=== PATIENT | male | born 1945 | race Caucasian/White ===

== ENCOUNTER 2022-06-05 13:05 | Inpatient (IN) ==
[2022-06-05 13:35] VITALS: BMI 22.2
[2022-06-05 13:58] LABS: ABG BASE EXCESS 2.8 mmol/L (-2.0-2.0); ABG HCO3 27.2 mmol/L (22-26)
[2022-06-05 13:59] LABS: ABG ALLEN TEST POS
[2022-06-05 14:19] LABS: BASOPHILS # (AUTO) 0.1 X10^3/uL (0.0-0.1); BASOPHILS % (AUTO) 0.4 % (0.2-1.0); EOSINOPHILS # (AUTO) 0.4 x10^3/uL (0.0-0.2); EOSINOPHILS % (AUTO) 2.6 % (0.9-2.9); HEMATOCRIT 41.4 % (42.0-54.0); LYMPHOCYTES # (AUTO) 1.6 X10^3/uL (1.3-2.9); LYMPHOCYTES % (AUTO) 11.8 % (21.0-51.0); MEAN CORPUSCULAR HEMOGLOBIN 31.1 pg (27.0-34.0); MEAN CORPUSCULAR HGB CONC 33.8 g/dL (33.0-35.0); MEAN PLATELET VOLUME 7.5 fL (7.4-11.0); MONOCYTES # (AUTO) 1.5 x10^3/uL (0.3-0.8); NEUTROPHILS # (AUTO) 10.2 x10^3/uL (2.2-4.8); NEUTROPHILS % (AUTO) 74.2 % (42.0-75.0); RED CELL DISTRIBUTION WIDTH 15.3 % (11.6-16.5); WHITE BLOOD COUNT 13.7 X10^3/uL (3.6-10.0)
[2022-06-05 14:24] LABS: INR 1.16 (0.8-1.3)
[2022-06-05 14:30] LABS: ALANINE AMINOTRANSFERASE 27 Units/L (12-78); ALBUMIN 3.3 g/dL (3.4-5.0); ALKALINE PHOSPHATASE 131 Units/L (46-116); ASPARTATE AMINO TRANSFERASE 27 Units/L (15-37); BLOOD UREA NITROGEN 16 mg/dL (7-18); CALCIUM 8.7 mg/dL (8.5-10.1); CARBON DIOXIDE 30.9 mmol/L (21-32); CHLORIDE 104 mmol/L (98-107); COR CA(FOR HYPOALB) 9.3 mg/dL (8.5-10.1); CREATINE KINASE 46 Units/L (39-308); CREATININE 0.83 mg/dL (0.70-1.30); SODIUM 139 mmol/L (136-145); TOTAL PROTEIN 7.1 g/dL (6.4-8.2); eGFR NON BLACK RACES > 60 (>60)
--- NOTE | 2022-06-05 14:38 | DR.SOBA ---
HPI Time Seen Time Seen by Provider: 06/05/22 14:15 Primary Care Physician Primary Care Physician: LEONARDO BARRAGAN Complaints Chief Complaint Doctors Comments: SOB AND COUGH SINCE THIS AM. HAS H/O COPD. Chief Complaint:: PT STATES THIS MORNING AROUND 6AM WHEN HE WOKE UP HE GOT SOB ALONG WITH A DRY COUGH STATES HE DONE A ALBUTEROL TX AND THE COUGH STOPPED PT ARRIVED AT [facility] SOB NURSE STATES HIS SATS WAS 73% ON HIS OXYGEN PT STATES HE WEARS 7-10 LITERS ON HIS PORTABLE MACHINE STATES SHE GAVE HIM X2 BREATHING XOPENEX,ATROPINE TREATMENTS AND STATED AFTER THAT HIS SATS STAYED IN THE LOW 80% UPON ARRIVAL TO THE ER PT SATS WAS 97% ON 8 LITERS NC DECREASED PT TO 4L NC PT SATS STAYED AT 97% PT STATES HE DOESNT FEEL SOB NOW Self Treatment fo Chief Complaint: XOPENEX, ATROPINE, ALBUTEROL COVID-19 Coronavirus risk:travel/contact w/high risk person: No Has patient experienced Coronavirus symptoms: No Source History Provided: Patient Mode of Arrival Mode of Arrival: Wheelchair Timing Onset of Chief Complaint: 06/05/22 PMH PMH Past Medical History: Yes Past Medical History: COPD Past Surgical History: Yes Past Surgical History Comment: ABLASION Family History History of Family Medical Conditions: No Family Medical History: Cancer Social History Does patient currently use any type of tobacco product: No Have you used tobacco products in the last 12 months: No Type of Tobacco Use: None Does any household member use tobacco: No Alcohol Use: None Do you use any recreational Drugs:: No Lives With: Family Lives Where: Home Travel Risk Coronavirus risk:travel/contact w/high risk person: No Has patient experienced Coronavirus symptoms: No Infectious screening In the last 2 months have you had wt loss of >10#?: NO Have you had fever, night sweats or hemotysis?: No Have you traveled outside the country in the last 6 months?: No Isolation: Standard ROS Review of Systems Constitutional: Other (SOB) Eyes: No Symptoms Reported ENTM: No Symptoms Reported Respiratoy: Non-Productive Cough and Short of Breath Cardiovascular: No Symptoms Reported Gastrointestinal/Abdominal: No Symptoms Reported Genitourinary: No Symptoms Reported Neurological: No Symptoms Reported Musculoskeletal: No Symptoms Reported Integumentary: No Symptoms Reported Hematologic/Lymphatic: No Symptoms Reported Endocrine: No Symptoms Reported Psychiatric: No Symptoms Reported PE Vital Signs Vitals: Temperature 98.1 F Pulse Rate 78 Respiratory Rate 20 Blood Pressure 138/72 O2 Sat by Pulse Oximetry 90 General Limitations: Physical Limitation (SOB UPON AMBULATION) Head Head Exam: Normal Inspection, Atraumatic and Normocephalic Eyes Eye exam: Normal Appearance, PERRL and EOMI ENT ENT Exam: Normal Exam, Normal Oropharynx and Normal External Ear Exam Neck Neck Exam: Normal Inspection, Full ROM and Trachea Midline Chest Chest Inspection: Normal Inspection Respiratory Respiratory Exam: Prolonged Expiratory Phase and Respiratory Distress (MILD) Cardiovascular Cardiovascular Exam: Regular Rate and Normal Rhythm Abdominal Exam Abdominal Exam: Normal Inspection, Normal Bowel Sounds and Soft Extremities Extremities Exam: Normal Inspection Back Back Exam: Normal Inspection and Full ROM Neurologic Neurological Exam: Alert, Oriented X3 and CN II-XII Intact Psychiatric Psychiatric Exam: Normal Affect and Normal Mood Skin Skin Exam: Warm, Dry and Intact MDM Differential Diagnosis Differential Diagnosis: COPD, Pneumonia and Respiratory Insufficiency COURSE Treatment Treatment: PATIENT WAS FOUND TO HAVE MULTIFOCAL PNEUMONIA ON CHEST XRAY WITH COPD CHANGES. HAD WBC OF 14.00. SPOKE TO DR RIOS AT [id number] AND HE ACCEPTED THE PATIENT FOR ADMISSION FOR TREATMENT OF PNEUMONIA AND COPD. PATIENT MADE AWARE OF INTENT TO ADMIT AND WAS AGREABLE TO THE ADMISSION. ROR Labs Reviewed Laboratory Results Reviewed?: Yes Result Diagrams: 06/05/22 14:06 06/05/22 14:06 Laboratory: WBC 13.7 X10^3/uL (3.6-10.0) H 06/05/22 14:06 RBC 4.50 X10^6/uL (4.7-6.0) L 06/05/22 14:06 Hgb 14.0 g/dL (13.5-18.0) 06/05/22 14:06 Hct 41.4 % (42.0-54.0) L 06/05/22 14:06 MCV 92.0 fL (80.0-100.0) 06/05/22 14:06 MCH 31.1 pg (27.0-34.0) 06/05/22 14:06 MCHC 33.8 g/dL (33.0-35.0) 06/05/22 14:06 RDW 15.3 % (11.6-16.5) 06/05/22 14:06 Plt Count 252 X10^3/uL (150.0-450.0) 06/05/22 14:06 MPV 7.5 fL (7.4-11.0) 06/05/22 14:06 Neut % (Auto) 74.2 % (42.0-75.0) 06/05/22 14:06 Lymph % (Auto) 11.8 % (21.0-51.0) L 06/05/22 14:06 [place] % (Auto) 11.0 % (0.0-13.0) 06/05/22 14:06 Eos % (Auto) 2.6 % (0.9-2.9) 06/05/22 14:06 Baso % (Auto) 0.4 % (0.2-1.0) 06/05/22 14:06 Neut # (Auto) 10.2 x10^3/uL (2.2-4.8) H 06/05/22 14:06 Lymph # (Auto) 1.6 X10^3/uL (1.3-2.9) 06/05/22 14:06 [place] # (Auto) 1.5 x10^3/uL (0.3-0.8) H 06/05/22 14:06 Eos # (Auto) 0.4 x10^3/uL (0.0-0.2) H 06/05/22 14:06 Baso # (Auto) 0.1 X10^3/uL (0.0-0.1) 06/05/22 14:06 Absolute Nucleated RBC 0.0 /100WBC 06/05/22 14:06 PT 14.5 SECONDS (11.8-14.3) 06/05/22 14:06 INR Target Range - 06/05/22 14:06 INR 1.16 (0.8-1.3) 06/05/22 14:06 APTT 28.9 SECONDS (22.9-36.5) 06/05/22 14:06 PTT Comment - 06/05/22 14:06 Sample Site Rr 06/05/22 13:51 ABG pH 7.440 (7.35-7.45) 06/05/22 13:51 ABG pCO2 40.0 mmHg (35.0-45.0) 06/05/22 13:51 ABG pO2 62.0 mmHg (80.0-100.0) L 06/05/22 13:51 ABG HCO3 27.2 mmol/L (22-26) H 06/05/22 13:51 ABG O2 Saturation 92.0 % (90-100) 06/05/22 13:51 ABG Base Excess 2.8 mmol/L (-2.0-2.0) H 06/05/22 13:51 Isai Test Pos 06/05/22 13:51 A-a Gradient 145.0 mmHg 06/05/22 13:51 FiO2 36.0 06/05/22 13:51 Blood Gas Comments Pt [email or web address] 06/05/22 13:51 Sodium 139 mmol/L (136-145) 06/05/22 14:06 Corrected Sodium TNP 06/05/22 14:06 Potassium 4.2 mmol/L (3.5-5.1) 06/05/22 14:06 Chloride 104 mmol/L (98-107) 06/05/22 14:06 Carbon Dioxide 30.9 mmol/L (21-32) 06/05/22 14:06 BUN 16 mg/dL (7-18) 06/05/22 14:06 Creatinine 0.83 mg/dL (0.70-1.30) 06/05/22 14:06 Est GFR (MDRD) Af Amer > 60 (>60) 06/05/22 14:06 Est GFR (MDRD) Non-Af > 60 (>60) 06/05/22 14:06 Glucose 86 mg/dL (65-99) 06/05/22 14:06 Calcium 8.7 mg/dL (8.5-10.1) 06/05/22 14:06 Corrected Calcium 9.3 mg/dL (8.5-10.1) 06/05/22 14:06 Magnesium 2.0 mg/dL (1.7-2.9) 06/05/22 14:06 Total Bilirubin 0.40 mg/dL (0.2-1.0) 06/05/22 14:06 AST 27 Units/L (15-37) 06/05/22 14:06 ALT 27 Units/L (12-78) 06/05/22 14:06 Alkaline Phosphatase 131 Units/L (46-116) H 06/05/22 14:06 Creatine Kinase 46 Units/L (39-308) 06/05/22 14:06 Troponin I High Sens 8.3 ng/L (4.0-60.0) 06/05/22 14:06 B-Natriuretic Peptide 178 pg/mL (0-79) H 06/05/22 14:06 Total Protein 7.1 g/dL (6.4-8.2) 06/05/22 14:06 Albumin 3.3 g/dL (3.4-5.0) L 06/05/22 14:06 Globulin 3.8 g/dL (2.5-4.5) 06/05/22 14:06 Albumin/Globulin Ratio 0.9 Ratio (1.1-2.1) L 06/05/22 14:06 SARS-CoV-2 (PCR) Negative (NEGATIVE) 06/05/22 15:50 Influenza Type A (PCR) Negative (NEGATIVE) 06/05/22 15:50 Influenza Type B (PCR) Negative (NEGATIVE) 06/05/22 15:50 RSV (PCR) Negative (NEGATIVE) 06/05/22 15:50 Opioid Opioid Risk Tool Age (Alexander box if 16-45): No History of Preadolescent Sexual Abuse: No Total: 0 Total Score Risk Category: Low Risk Copyright: Adithya JACOBSEN predicting aberrant behaviors Discharge Plan Diagnosis Discharge Problem: Community acquired pneumonia of right middle lobe of lung, COPD with hypoxia Discharge Plan Patient Disposition: 01 HOME, SELF-CARE Condition: Stable Prescriptions: No Action atorvastatin 40 mg tablet 1 tab PO QPM carvedilol 12.5 mg tablet 1 tab PO BID ipratropium-albuterol 0.5 mg-3 mg(2.5 mg base)/3 mL solution for nebulization 1 vial INHALATION Q6HR hydrocodone-acetaminophen 10-325 mg tablet 1 tab PO TID PRN pantoprazole 40 mg tablet,delayed release (DR/EC) 1 tab PO QAM ramipril 1.25 mg capsule 1 cap PO QDAY Health Concerns: Post Hospitalization: new medications and changes needed to prevent readmission or further decline. Pt educated and given instructions on all concerns. Plan of Treatment: Continue with present treatment and follow up plan. Pt is to keep follow up appointment as instructed and take medications as ordered. Orders to Discharge Patient Discharge Orders: Discharge (Routine); Ordered 06/05/22 Ordered By: Luke Jeffery Transfer (Routine); Ordered 06/05/22 Ordered By: Luke Jeffery Follow ups/Referrals Follow ups/Referrals: Ozzie Armendariz [Primary Care Provider] - 3 days Instructions Stand Alone Forms: Precautions for COVID19, [facility], Patient Portal, Social Distancing
--- NOTE | 2022-06-05 15:09 | RAD ---
Chest AP portableIndication: DyspneaComparison February 20, 2022FINDINGSThere is dense consolidation in left upper lung. Hyperinflation in the right lower lung with patchy midlung opacities noted. Increased interstitial markings noted. Recorder device noted. Heart size is prominent. Pleural thickening is seen bilaterally.IMPRESSION: Chronic lung changes with COPD and interstitial lung disease again noted. Multifocal pneumonia, worsening in the left lung possible. Follow-up to resolution.Electronically signed by: BRIAN NOWAK (Jun 05, 2022 15:07:53)
[2022-06-05] MEDS ORDERED: PULMICORT NEB TX 0.5 MG NEB ONE (19:31)
[2022-06-05] MEDS ORDERED: DUONEB 0.5 MG/3 MG (3 mL) NEB ONE (19:31)
[2022-06-05] MEDS: PULMICORT NEB TX 0.5 MG NEB SCH (20:00)
[2022-06-05] MEDS: DUONEB 0.5 MG/3 MG (3 mL) NEB SCH (20:00)
[2022-06-05] MEDS ORDERED: NS 250 ML IV 250 ML IV ONE ×2 (20:50→21:02)
[2022-06-05] MEDS: ROCEPHIN VIAL 1 GRAM 1 G in NS 100 ML IV 100 ML IV SCH (21:14)
[2022-06-05] MEDS: SOLU-Medrol 40 MG VIAL IVP SCH (21:14)
[2022-06-05] MEDS ORDERED: SOLU-Medrol 40 MG VIAL IVP SCH (22:00)
[2022-06-06] MEDS: DUONEB 0.5 MG/3 MG (3 mL) NEB SCH ×6 (00:10→21:16)
[2022-06-06] MEDS: SOLU-Medrol 40 MG VIAL IVP SCH ×3 (05:15→22:13)
[2022-06-06 05:36] LABS: BASOPHILS % (AUTO) 0.3 % (0.2-1.0); HEMATOCRIT 36.8 % (42.0-54.0); HEMOGLOBIN 12.5 g/dL (13.5-18.0); LYMPHOCYTES # (AUTO) 0.9 X10^3/uL (1.3-2.9); LYMPHOCYTES % (AUTO) 10.5 % (21.0-51.0); MEAN CORPUSCULAR VOLUME 91.2 fL (80.0-100.0); MEAN PLATELET VOLUME 7.8 fL (7.4-11.0); MONOCYTES # (AUTO) 0.1 x10^3/uL (0.3-0.8); MONOCYTES % (AUTO) 1.7 % (0.0-13.0); NEUTROPHILS # (AUTO) 7.4 x10^3/uL (2.2-4.8); NEUTROPHILS % (AUTO) 87.5 % (42.0-75.0); RED BLOOD COUNT 4.03 X10^6/uL (4.7-6.0); RED CELL DISTRIBUTION WIDTH 15.2 % (11.6-16.5); WHITE BLOOD COUNT 8.4 X10^3/uL (3.6-10.0)
[2022-06-06 05:48] LABS: ALANINE AMINOTRANSFERASE 18 Units/L (12-78); ALBUMIN 2.7 g/dL (3.4-5.0); ALKALINE PHOSPHATASE 117 Units/L (46-116); ASPARTATE AMINO TRANSFERASE 23 Units/L (15-37); BLOOD UREA NITROGEN 12 mg/dL (7-18); CALCIUM 8.1 mg/dL (8.5-10.1); CARBON DIOXIDE 28.7 mmol/L (21-32); CHLORIDE 106 mmol/L (98-107); COR CA(FOR HYPOALB) 9.1 mg/dL (8.5-10.1); COR NA(FOR HYPERGLY) 139 mmol/L (136-145); CREATININE 0.73 mg/dL (0.70-1.30); SODIUM 138 mmol/L (136-145); TOTAL PROTEIN 5.9 g/dL (6.4-8.2); eGFR NON BLACK RACES > 60 (>60)
[2022-06-06] MEDS: ROCEPHIN VIAL 1 GRAM 1 G in NS 100 ML IV 100 ML IV SCH ×2 (08:06→20:33)
[2022-06-06] MEDS: PULMICORT NEB TX 0.5 MG NEB SCH ×2 (08:29→21:16)
--- NOTE | 2022-06-06 16:01 | DR.H&P ---
H&P History & Physical for Day of: H&P Date: 06/05/22 Chief Complaint Chief Complaint: Shortness of breath with cough and hypoxia Allergies Allergies Allergy/AdvReac Type Severity Reaction Status Date / Time No Known Drug Allergies Allergy Verified 02/20/22 13:28 History of Present Illness History of Present Illness: This is a 76-year-old white male who is a patient of Dr. Gustafson in [place], [place]. Woke up with shortness of breath this morning and cough. He proceeded to pulmonary rehab in [place], [place] for treatment and was found to have an O2 sat of 73% on 7 to 10 L nasal cannula. He reports that he normally wears his oxygen at 7-10 L despite having underlying COPD. Pulmonary rehab sent him over to the emergency department where he was given atropine and neb treatments. They were able to get his O2 sat up to 97% on 4 L nasal cannula. Patient reported feeling better after that however his chest x- ray revealed infiltrates in the left lung consistent with community-acquired pneumonia. Because of this we decided to go ahead admit the patient as inpatient and start treating him with IV antibiotics, nebulizer with albuterol and IV Solu-Medrol. Past Medical History Past Medical History: COPD Past Surgical History Surgical History: Other Family History Family Medical History: Diabetes Mellitus, Cancer, MT and Hypertension Social History Does patient currently use any type of tobacco product: No Have you used tobacco products in the last 12 months: No Type of Tobacco Use: None Does any household member use tobacco: No Alcohol Use: None Drug Use: None Medications Home Medications: No Known Drug Allergies Allergy (Verified 02/20/22 13:28) CONTINUE taking the following medications atorvastatin 40 mg tablet 1 tab PO QPM 06/05/22 [History] carvedilol 12.5 mg tablet 1 tab PO BID 06/05/22 [History] citalopram 20 mg tablet 20 mg PO DAILY 06/05/22 [History] hydrocodone 10 mg-acetaminophen 325 mg tablet 1 tab PO TID PRN 06/05/22 [History] ipratropium 0.5 mg-albuterol 3 mg (2.5 mg base)/3 mL nebulization soln 1 vial i nhalation Q6HR 06/05/22 [History] pantoprazole 40 mg tablet,delayed release 1 tab PO QAM 06/05/22 [History] ramipril 1.25 mg capsule 1 cap PO QDAY 06/05/22 [History] Labs Result Diagrams: 06/06/22 05:12 06/06/22 05:12 Labs: Laboratory WBC 8.4 X10^3/uL (3.6-10.0) 06/06/22 05:12 RBC 4.03 X10^6/uL (4.7-6.0) L 06/06/22 05:12 Hgb 12.5 g/dL (13.5-18.0) L 06/06/22 05:12 Hct 36.8 % (42.0-54.0) L 06/06/22 05:12 MCV 91.2 fL (80.0-100.0) 06/06/22 05:12 MCH 31.0 pg (27.0-34.0) 06/06/22 05:12 MCHC 34.0 g/dL (33.0-35.0) 06/06/22 05:12 RDW 15.2 % (11.6-16.5) 06/06/22 05:12 Plt Count 216 X10^3/uL (150.0-450.0) 06/06/22 05:12 MPV 7.8 fL (7.4-11.0) 06/06/22 05:12 Neut % (Auto) 87.5 % (42.0-75.0) H 06/06/22 05:12 Lymph % (Auto) 10.5 % (21.0-51.0) L 06/06/22 05:12 [place] % (Auto) 1.7 % (0.0-13.0) 06/06/22 05:12 Eos % (Auto) 0.0 % (0.9-2.9) L 06/06/22 05:12 Baso % (Auto) 0.3 % (0.2-1.0) 06/06/22 05:12 Neut # (Auto) 7.4 x10^3/uL (2.2-4.8) H 06/06/22 05:12 Lymph # (Auto) 0.9 X10^3/uL (1.3-2.9) L 06/06/22 05:12 [place] # (Auto) 0.1 x10^3/uL (0.3-0.8) L 06/06/22 05:12 Eos # (Auto) 0.0 x10^3/uL (0.0-0.2) 06/06/22 05:12 Baso # (Auto) 0.0 X10^3/uL (0.0-0.1) 06/06/22 05:12 Absolute Nucleated RBC 0.0 /100WBC 06/06/22 05:12 PT 14.5 SECONDS (11.8-14.3) 06/05/22 14:06 INR Target Range - 06/05/22 14:06 INR 1.16 (0.8-1.3) 06/05/22 14:06 APTT 28.9 SECONDS (22.9-36.5) 06/05/22 14:06 PTT Comment - 06/05/22 14:06 Sample Site Rr 06/05/22 13:51 ABG pH 7.440 (7.35-7.45) 06/05/22 13:51 ABG pCO2 40.0 mmHg (35.0-45.0) 06/05/22 13:51 ABG pO2 62.0 mmHg (80.0-100.0) L 06/05/22 13:51 ABG HCO3 27.2 mmol/L (22-26) H 06/05/22 13:51 ABG O2 Saturation 92.0 % (90-100) 06/05/22 13:51 ABG Base Excess 2.8 mmol/L (-2.0-2.0) H 06/05/22 13:51 Isai Test Pos 06/05/22 13:51 A-a Gradient 145.0 mmHg 06/05/22 13:51 FiO2 36.0 06/05/22 13:51 Blood Gas Comments Pt [email or web address] 06/05/22 13:51 Sodium 138 mmol/L (136-145) 06/06/22 05:12 Corrected Sodium 139 mmol/L (136-145) 06/06/22 05:12 Potassium 4.1 mmol/L (3.5-5.1) 06/06/22 05:12 Chloride 106 mmol/L (98-107) 06/06/22 05:12 Carbon Dioxide 28.7 mmol/L (21-32) 06/06/22 05:12 BUN 12 mg/dL (7-18) 06/06/22 05:12 Creatinine 0.73 mg/dL (0.70-1.30) 06/06/22 05:12 Est GFR (MDRD) Af Amer > 60 (>60) 06/06/22 05:12 Est GFR (MDRD) Non-Af > 60 (>60) 06/06/22 05:12 Glucose 143 mg/dL (65-99) H 06/06/22 05:12 Calcium 8.1 mg/dL (8.5-10.1) L 06/06/22 05:12 Corrected Calcium 9.1 mg/dL (8.5-10.1) 06/06/22 05:12 Magnesium 2.0 mg/dL (1.7-2.9) 06/05/22 14:06 Total Bilirubin 0.50 mg/dL (0.2-1.0) 06/06/22 05:12 AST 23 Units/L (15-37) 06/06/22 05:12 ALT 18 Units/L (12-78) 06/06/22 05:12 Alkaline Phosphatase 117 Units/L (46-116) H 06/06/22 05:12 Creatine Kinase 46 Units/L (39-308) 06/05/22 14:06 Troponin I High Sens 8.3 ng/L (4.0-60.0) 06/05/22 14:06 B-Natriuretic Peptide 112 pg/mL (0-79) H 06/06/22 05:12 Total Protein 5.9 g/dL (6.4-8.2) L 06/06/22 05:12 Albumin 2.7 g/dL (3.4-5.0) L 06/06/22 05:12 Globulin 3.2 g/dL (2.5-4.5) 06/06/22 05:12 Albumin/Globulin Ratio 0.8 Ratio (1.1-2.1) L 06/06/22 05:12 Urine Opiates Screen Positive (NEG=<300) 06/06/22 13:45 Urine Methadone Screen Negative (NEG=<300) 06/06/22 13:45 Ur Barbiturates Screen Negative (NEG=<200) 06/06/22 13:45 Ur Phencyclidine Scrn Negative (NEG=<25) 06/06/22 13:45 Ur Amphetamines Screen Negative (NEG=<1000) 06/06/22 13:45 U Benzodiazepines Scrn Negative (NEG=<200) 06/06/22 13:45 Urine Cocaine Screen Negative (NEG=<300) 06/06/22 13:45 U Marijuana (THC) Screen Negative (NEG=<50) 06/06/22 13:45 SARS-CoV-2 (PCR) Negative (NEGATIVE) 06/05/22 15:50 Influenza Type A (PCR) Negative (NEGATIVE) 06/05/22 15:50 Influenza Type B (PCR) Negative (NEGATIVE) 06/05/22 15:50 RSV (PCR) Negative (NEGATIVE) 06/05/22 15:50 Review of Systems Constitutional: Weakness Eyes: No Symptoms Reported ENT: No Symptoms Reported Respiratory: Cough, Shortness of Breath and Wheezing Cardiovascular: No Symptoms Reported Gastrointestinal: No Symptoms Reported Genitourinary: No Symptoms Reported Musculoskeletal: No Symptoms Reported Skin: No Symptoms Reported Neurological: No Symptoms Reported Physical Exam Vital Signs: Temperature 98.1 F Pulse Rate [Left Radial] 89 Pulse Rate 90 Respiratory Rate 18 Blood Pressure [Left Arm] 143/70 Blood Pressure 138/72 O2 Sat by Pulse Oximetry 94 Oriented: Normal, Time, Person and Place Eyes: Normal Ear: Normal Nose: Normal Throat: Normal Respiratory: Wheezes Throughout (Scattered wheezing) Cardiovascular: Normal : Normal Auscultation: Bowel Sounds: Normal Palpation: Normal Tenderness: Normal Skin: Normal Musculoskeletal: Normal Psychiatric: Normal Mood Description: Calm Affect: Normal Speech Pattern: Clear and Appropriate Assessment/Plan (1) COPD (chronic obstructive pulmonary disease): Qualifiers: Qualified Code(s): J44.9 - Chronic obstructive pulmonary disease, unspecified Status: Acute Plan: Jet nebs with IV Solu-Medrol (2) Pneumonia: Qualifiers: Laterality: right Lung location: middle lobe of lung Qualified Code(s): J18.9 - Pneumonia, unspecified organism Status: Acute Plan: IV Rocephin, follow-up sputum cultures and blood cultures. Recheck chest x-ray tomorrow morning. Review H&P Reviewed: Yes Patient was examined?: Yes
--- NOTE | 2022-06-06 16:08 | PCM.PROG ---
Progress Note Progress Note for Day of Date of Exam: 06/06/22 Subjective Subjective: The patient reports he is feeling much better today. His breathing has improved and his white blood cell count has normalized since admission. Patient's vital signs are stable currently satting 94% this morning on 4 L nasal cannula and does not appear in any distress. Patient is overall responding to the treatment he is receiving we will plan on continuing this and possibly discharging in 1 to 2 days. Past Medical Family Social History Allergies: Allergies No Known Drug Allergies Allergy (Verified 02/20/22 13:28) Vital Signs and I&O's Vital Signs: Temperature 98.1 F Pulse Rate [Left Radial] 89 Pulse Rate 90 Respiratory Rate 18 Blood Pressure [Left Arm] 143/70 Blood Pressure 138/72 O2 Sat by Pulse Oximetry 94 Intake and Output: Intake & Output 06/04/22 06/05/22 06/06/22 06/07/22 11:59 11:59 11:59 11:59 Intake Total 500 / 500 112 / 112 Output Total 1050 / 1050 Balance -550 / -550 112 / 112 Physical Exam Oriented: Normal, Time, Person and Place Eyes: Normal Ear: Normal Nose: Normal Throat: Normal Respiratory: Right, Left, Diminished and Wheezes Cardiovascular: Normal : Normal Auscultation: Bowel Sounds: Normal Tenderness: Normal Skin: Normal Musculoskeletal: Normal Psychiatric: Normal Mood Description: Calm Affect: Normal Speech Pattern: Clear and Appropriate Laboratory and Diagnostics Result Diagrams: 06/06/22 05:12 06/06/22 05:12 Labs: Laboratory WBC 8.4 X10^3/uL (3.6-10.0) 06/06/22 05:12 RBC 4.03 X10^6/uL (4.7-6.0) L 06/06/22 05:12 Hgb 12.5 g/dL (13.5-18.0) L 06/06/22 05:12 Hct 36.8 % (42.0-54.0) L 06/06/22 05:12 MCV 91.2 fL (80.0-100.0) 06/06/22 05:12 MCH 31.0 pg (27.0-34.0) 06/06/22 05:12 MCHC 34.0 g/dL (33.0-35.0) 06/06/22 05:12 RDW 15.2 % (11.6-16.5) 06/06/22 05:12 Plt Count 216 X10^3/uL (150.0-450.0) 06/06/22 05:12 MPV 7.8 fL (7.4-11.0) 06/06/22 05:12 Neut % (Auto) 87.5 % (42.0-75.0) H 06/06/22 05:12 Lymph % (Auto) 10.5 % (21.0-51.0) L 06/06/22 05:12 [place] % (Auto) 1.7 % (0.0-13.0) 06/06/22 05:12 Eos % (Auto) 0.0 % (0.9-2.9) L 06/06/22 05:12 Baso % (Auto) 0.3 % (0.2-1.0) 06/06/22 05:12 Neut # (Auto) 7.4 x10^3/uL (2.2-4.8) H 06/06/22 05:12 Lymph # (Auto) 0.9 X10^3/uL (1.3-2.9) L 06/06/22 05:12 [place] # (Auto) 0.1 x10^3/uL (0.3-0.8) L 06/06/22 05:12 Eos # (Auto) 0.0 x10^3/uL (0.0-0.2) 06/06/22 05:12 Baso # (Auto) 0.0 X10^3/uL (0.0-0.1) 06/06/22 05:12 Absolute Nucleated RBC 0.0 /100WBC 06/06/22 05:12 PT 14.5 SECONDS (11.8-14.3) 06/05/22 14:06 INR Target Range - 06/05/22 14:06 INR 1.16 (0.8-1.3) 06/05/22 14:06 APTT 28.9 SECONDS (22.9-36.5) 06/05/22 14:06 PTT Comment - 06/05/22 14:06 Sample Site Rr 06/05/22 13:51 ABG pH 7.440 (7.35-7.45) 06/05/22 13:51 ABG pCO2 40.0 mmHg (35.0-45.0) 06/05/22 13:51 ABG pO2 62.0 mmHg (80.0-100.0) L 06/05/22 13:51 ABG HCO3 27.2 mmol/L (22-26) H 06/05/22 13:51 ABG O2 Saturation 92.0 % (90-100) 06/05/22 13:51 ABG Base Excess 2.8 mmol/L (-2.0-2.0) H 06/05/22 13:51 Isai Test Pos 06/05/22 13:51 A-a Gradient 145.0 mmHg 06/05/22 13:51 FiO2 36.0 06/05/22 13:51 Blood Gas Comments Pt [email or web address] 06/05/22 13:51 Sodium 138 mmol/L (136-145) 06/06/22 05:12 Corrected Sodium 139 mmol/L (136-145) 06/06/22 05:12 Potassium 4.1 mmol/L (3.5-5.1) 06/06/22 05:12 Chloride 106 mmol/L (98-107) 06/06/22 05:12 Carbon Dioxide 28.7 mmol/L (21-32) 06/06/22 05:12 BUN 12 mg/dL (7-18) 06/06/22 05:12 Creatinine 0.73 mg/dL (0.70-1.30) 06/06/22 05:12 Est GFR (MDRD) Af Amer > 60 (>60) 06/06/22 05:12 Est GFR (MDRD) Non-Af > 60 (>60) 06/06/22 05:12 Glucose 143 mg/dL (65-99) H 06/06/22 05:12 Calcium 8.1 mg/dL (8.5-10.1) L 06/06/22 05:12 Corrected Calcium 9.1 mg/dL (8.5-10.1) 06/06/22 05:12 Magnesium 2.0 mg/dL (1.7-2.9) 06/05/22 14:06 Total Bilirubin 0.50 mg/dL (0.2-1.0) 06/06/22 05:12 AST 23 Units/L (15-37) 06/06/22 05:12 ALT 18 Units/L (12-78) 06/06/22 05:12 Alkaline Phosphatase 117 Units/L (46-116) H 06/06/22 05:12 Creatine Kinase 46 Units/L (39-308) 06/05/22 14:06 Troponin I High Sens 8.3 ng/L (4.0-60.0) 06/05/22 14:06 B-Natriuretic Peptide 112 pg/mL (0-79) H 06/06/22 05:12 Total Protein 5.9 g/dL (6.4-8.2) L 06/06/22 05:12 Albumin 2.7 g/dL (3.4-5.0) L 06/06/22 05:12 Globulin 3.2 g/dL (2.5-4.5) 06/06/22 05:12 Albumin/Globulin Ratio 0.8 Ratio (1.1-2.1) L 06/06/22 05:12 Urine Opiates Screen Positive (NEG=<300) 06/06/22 13:45 Urine Methadone Screen Negative (NEG=<300) 06/06/22 13:45 Ur Barbiturates Screen Negative (NEG=<200) 06/06/22 13:45 Ur Phencyclidine Scrn Negative (NEG=<25) 06/06/22 13:45 Ur Amphetamines Screen Negative (NEG=<1000) 06/06/22 13:45 U Benzodiazepines Scrn Negative (NEG=<200) 06/06/22 13:45 Urine Cocaine Screen Negative (NEG=<300) 06/06/22 13:45 U Marijuana (THC) Screen Negative (NEG=<50) 06/06/22 13:45 SARS-CoV-2 (PCR) Negative (NEGATIVE) 06/05/22 15:50 Influenza Type A (PCR) Negative (NEGATIVE) 06/05/22 15:50 Influenza Type B (PCR) Negative (NEGATIVE) 06/05/22 15:50 RSV (PCR) Negative (NEGATIVE) 06/05/22 15:50 Radiology Reviewed: Yes Plan (1) COPD (chronic obstructive pulmonary disease): Status: Acute Qualifiers: Qualified Code(s): J44.9 - Chronic obstructive pulmonary disease, unspecified Plan: Jet nebs with IV Solu-Medrol (2) Pneumonia: Status: Acute Qualifiers: Laterality: right Lung location: middle lobe of lung Qualified Code(s): J18.9 - Pneumonia, unspecified organism Plan: IV Rocephin, follow-up sputum cultures and blood cultures. Recheck chest x-ray tomorrow morning. (3) Depression: Status: Acute Plan: Resume citalopram (4) Hypercholesteremia: Status: Acute Plan: Resume atorvastatin at bedtime
[2022-06-06] MEDS: COREG TAB 12.5 MG PO SCH (20:32)
[2022-06-06] MEDS: LIPITOR TAB 40 MG PO SCH (20:33)
[2022-06-06] MEDS: NORCO 10/325 TAB PO PRN (20:34)
[2022-06-07] MEDS: DUONEB 0.5 MG/3 MG (3 mL) NEB SCH ×6 (00:20→20:45)
[2022-06-07] MEDS: SOLU-Medrol 40 MG VIAL IVP SCH ×3 (05:17→22:04)
[2022-06-07 05:35] LABS: BASOPHILS % (AUTO) 0 % (0.2-1.0); HEMATOCRIT 34.4 % (42.0-54.0); HEMOGLOBIN 11.6 g/dL (13.5-18.0); LYMPHOCYTES # (AUTO) 1.1 X10^3/uL (1.3-2.9); LYMPHOCYTES % (AUTO) 6.2 % (21.0-51.0); MEAN CORPUSCULAR HEMOGLOBIN 30.8 pg (27.0-34.0); MEAN CORPUSCULAR HGB CONC 33.8 g/dL (33.0-35.0); MEAN CORPUSCULAR VOLUME 91.1 fL (80.0-100.0); MEAN PLATELET VOLUME 7.6 fL (7.4-11.0); MONOCYTES # (AUTO) 0.7 x10^3/uL (0.3-0.8); NEUTROPHILS # (AUTO) 15.5 x10^3/uL (2.2-4.8); NEUTROPHILS % (AUTO) 89.8 % (42.0-75.0); RED BLOOD COUNT 3.77 X10^6/uL (4.7-6.0); RED CELL DISTRIBUTION WIDTH 15.3 % (11.6-16.5)
[2022-06-07 05:49] LABS: WHITE BLOOD COUNT 17.2 X10^3/uL (3.6-10.0)
[2022-06-07 05:58] LABS: ALANINE AMINOTRANSFERASE 19 Units/L (12-78); ALBUMIN 2.5 g/dL (3.4-5.0); ALKALINE PHOSPHATASE 99 Units/L (46-116); ASPARTATE AMINO TRANSFERASE 21 Units/L (15-37); BLOOD UREA NITROGEN 19 mg/dL (7-18); CALCIUM 7.8 mg/dL (8.5-10.1); CARBON DIOXIDE 27.4 mmol/L (21-32); CHLORIDE 107 mmol/L (98-107); COR NA(FOR HYPERGLY) 139 mmol/L (136-145); CREATININE 0.78 mg/dL (0.70-1.30); SODIUM 138 mmol/L (136-145); TOTAL PROTEIN 5.5 g/dL (6.4-8.2); eGFR NON BLACK RACES > 60 (>60)
[2022-06-07] MEDS: PULMICORT NEB TX 0.5 MG NEB SCH ×2 (08:30→20:45)
[2022-06-07] MEDS: PROTONIX TAB 40 MG PO SCH (08:42)
[2022-06-07] MEDS: COREG TAB 12.5 MG PO SCH ×2 (08:42→20:41)
[2022-06-07] MEDS: CELEXA PO SCH (08:42)
[2022-06-07] MEDS: ROCEPHIN VIAL 1 GRAM 1 G in NS 100 ML IV 100 ML IV SCH ×2 (08:43→22:04)
[2022-06-07] MEDS: RAMIPRIL 1.25 MG PO SCH (08:43)
[2022-06-07] MEDS: NORCO 10/325 TAB PO PRN ×2 (09:01→19:57)
--- NOTE | 2022-06-07 14:27 | RAD ---
HISTORYPneumonia COPDSTUDYPortable AP [id number]/30/2022FINDINGSHeart size is upper normal, some of which related to the nonstandard projection. Pulmonary hyperaeration with chronic interstitial coarsening. Slight interval increase in parenchymal markings in the left upper lobe periphery, especially when compared to older exam from October,.IMPRESSIONThere is no change since 06/05/2022, with similar findings of COPD and probable superimposed left upper lobe pneumonia. See above.Electronically signed by: ELIAZAR PINO (Jun 07, 2022 14:25:54)
--- NOTE | 2022-06-07 15:51 | PCM.PROG ---
Progress Note Progress Note for Day of Date of Exam: 06/07/22 Subjective Subjective: The patient reports he is feeling much better today. Exam revealed he had improved air entry bilaterally. Still has some rhonchi in the left upper lobe. He remains hypoxic and is 93% on 4 L nasal cannula. Vital signs are stable. Chest x-ray shows slightly worsening pneumonia in the left upper lobe compared to yesterday's chest x-ray. It is also noted his white blood cell count has increased significantly to greater than 17,000. He is on Rocephin currently but I will be adding IV Levaquin today as well. Some of the leukocytosis that we see may be secondary to him receiving IV Solu-Medrol that was started yesterday. We will plan on rechecking a chest x-ray and CMP and CBC in a.m. Past Medical Family Social History Allergies: Allergies No Known Drug Allergies Allergy (Verified 02/20/22 13:28) Review of Systems ROS: No change since H&P Vital Signs and I&O's Vital Signs: Temperature 98.6 F Pulse Rate [Left Radial] 75 Pulse Rate 87 Respiratory Rate 20 Blood Pressure [Left Arm] 121/66 Blood Pressure 138/72 O2 Sat by Pulse Oximetry 93 Intake and Output: Intake & Output 06/05/22 06/06/22 06/07/22 06/08/22 11:59 11:59 11:59 11:59 Intake Total 500 / 500 2184 / 2184 120 / 120 Output Total 1050 / 1050 Balance -550 / -550 2184 / 2184 120 / 120 Physical Exam Oriented: Normal, Time, Person and Place Eyes: Normal Ear: Normal Nose: Normal Throat: Normal Respiratory: Right, Left, Diminished and Rhonchi Cardiovascular: Normal : Normal Auscultation: Bowel Sounds: Normal Tenderness: Normal Skin: Normal Musculoskeletal: Normal Psychiatric: Normal Mood Description: Calm Affect: Normal Speech Pattern: Clear and Appropriate Laboratory and Diagnostics Result Diagrams: 06/07/22 05:24 06/07/22 05:24 Labs: Laboratory WBC 17.2 X10^3/uL (3.6-10.0) H D 06/07/22 05:24 RBC 3.77 X10^6/uL (4.7-6.0) L 06/07/22 05:24 Hgb 11.6 g/dL (13.5-18.0) L 06/07/22 05:24 Hct 34.4 % (42.0-54.0) L 06/07/22 05:24 MCV 91.1 fL (80.0-100.0) 06/07/22 05:24 MCH 30.8 pg (27.0-34.0) 06/07/22 05:24 MCHC 33.8 g/dL (33.0-35.0) 06/07/22 05:24 RDW 15.3 % (11.6-16.5) 06/07/22 05:24 Plt Count 209 X10^3/uL (150.0-450.0) 06/07/22 05:24 MPV 7.6 fL (7.4-11.0) 06/07/22 05:24 Neut % (Auto) 89.8 % (42.0-75.0) H 06/07/22 05:24 Lymph % (Auto) 6.2 % (21.0-51.0) L 06/07/22 05:24 [place] % (Auto) 4.0 % (0.0-13.0) 06/07/22 05:24 Eos % (Auto) 0.0 % (0.9-2.9) L 06/07/22 05:24 Baso % (Auto) 0 % (0.2-1.0) L 06/07/22 05:24 Neut # (Auto) 15.5 x10^3/uL (2.2-4.8) H 06/07/22 05:24 Lymph # (Auto) 1.1 X10^3/uL (1.3-2.9) L 06/07/22 05:24 [place] # (Auto) 0.7 x10^3/uL (0.3-0.8) 06/07/22 05:24 Eos # (Auto) 0.0 x10^3/uL (0.0-0.2) 06/07/22 05:24 Baso # (Auto) 0.0 X10^3/uL (0.0-0.1) 06/07/22 05:24 Absolute Nucleated RBC 0.0 /100WBC 06/07/22 05:24 PT 14.5 SECONDS (11.8-14.3) 06/05/22 14:06 INR Target Range - 06/05/22 14:06 INR 1.16 (0.8-1.3) 06/05/22 14:06 APTT 28.9 SECONDS (22.9-36.5) 06/05/22 14:06 PTT Comment - 06/05/22 14:06 Sample Site Rr 06/05/22 13:51 ABG pH 7.440 (7.35-7.45) 06/05/22 13:51 ABG pCO2 40.0 mmHg (35.0-45.0) 06/05/22 13:51 ABG pO2 62.0 mmHg (80.0-100.0) L 06/05/22 13:51 ABG HCO3 27.2 mmol/L (22-26) H 06/05/22 13:51 ABG O2 Saturation 92.0 % (90-100) 06/05/22 13:51 ABG Base Excess 2.8 mmol/L (-2.0-2.0) H 06/05/22 13:51 Isai Test Pos 06/05/22 13:51 A-a Gradient 145.0 mmHg 06/05/22 13:51 FiO2 36.0 06/05/22 13:51 Blood Gas Comments Pt [email or web address] 06/05/22 13:51 Sodium 138 mmol/L (136-145) 06/07/22 05:24 Corrected Sodium 139 mmol/L (136-145) 06/07/22 05:24 Potassium 4.3 mmol/L (3.5-5.1) 06/07/22 05:24 Chloride 107 mmol/L (98-107) 06/07/22 05:24 Carbon Dioxide 27.4 mmol/L (21-32) 06/07/22 05:24 BUN 19 mg/dL (7-18) H 06/07/22 05:24 Creatinine 0.78 mg/dL (0.70-1.30) 06/07/22 05:24 Est GFR (MDRD) Af Amer > 60 (>60) 06/07/22 05:24 Est GFR (MDRD) Non-Af > 60 (>60) 06/07/22 05:24 Glucose 127 mg/dL (65-99) H 06/07/22 05:24 Calcium 7.8 mg/dL (8.5-10.1) L 06/07/22 05:24 Corrected Calcium 9.0 mg/dL (8.5-10.1) 06/07/22 05:24 Magnesium 2.0 mg/dL (1.7-2.9) 06/05/22 14:06 Total Bilirubin 0.20 mg/dL (0.2-1.0) 06/07/22 05:24 AST 21 Units/L (15-37) 06/07/22 05:24 ALT 19 Units/L (12-78) 06/07/22 05:24 Alkaline Phosphatase 99 Units/L (46-116) 06/07/22 05:24 Creatine Kinase 46 Units/L (39-308) 06/05/22 14:06 Troponin I High Sens 8.3 ng/L (4.0-60.0) 06/05/22 14:06 B-Natriuretic Peptide 112 pg/mL (0-79) H 06/06/22 05:12 Total Protein 5.5 g/dL (6.4-8.2) L 06/07/22 05:24 Albumin 2.5 g/dL (3.4-5.0) L 06/07/22 05:24 Globulin 3.0 g/dL (2.5-4.5) 06/07/22 05:24 Albumin/Globulin Ratio 0.8 Ratio (1.1-2.1) L 06/07/22 05:24 Urine Opiates Screen Positive (NEG=<300) 06/06/22 13:45 Urine Methadone Screen Negative (NEG=<300) 06/06/22 13:45 Ur Barbiturates Screen Negative (NEG=<200) 06/06/22 13:45 Ur Phencyclidine Scrn Negative (NEG=<25) 06/06/22 13:45 Ur Amphetamines Screen Negative (NEG=<1000) 06/06/22 13:45 U Benzodiazepines Scrn Negative (NEG=<200) 06/06/22 13:45 Urine Cocaine Screen Negative (NEG=<300) 06/06/22 13:45 U Marijuana (THC) Screen Negative (NEG=<50) 06/06/22 13:45 SARS-CoV-2 (PCR) Negative (NEGATIVE) 06/05/22 15:50 Influenza Type A (PCR) Negative (NEGATIVE) 06/05/22 15:50 Influenza Type B (PCR) Negative (NEGATIVE) 06/05/22 15:50 RSV (PCR) Negative (NEGATIVE) 06/05/22 15:50 Radiology Reviewed: Yes Plan (1) COPD (chronic obstructive pulmonary disease): Status: Acute Qualifiers: Qualified Code(s): J44.9 - Chronic obstructive pulmonary disease, unspecified Plan: Jet nebs with IV Solu-Medrol (2) Pneumonia: Status: Acute Qualifiers: Laterality: right Lung location: middle lobe of lung Qualified Code(s): J18.9 - Pneumonia, unspecified organism Plan: IV Rocephin, follow-up sputum cultures and blood cultures. Recheck chest x-ray tomorrow morning. Start Levaquin 500 mg IV daily. (3) Depression: Status: Acute Plan: Resume citalopram (4) Hypercholesteremia: Status: Acute Plan: Resume atorvastatin at bedtime
[2022-06-07] MEDS ORDERED: LEVAQUIN PREMIX IV 500 MG 500 MG/100 ML BAG IV SCH (16:00)
[2022-06-07] MEDS ORDERED: ROBITUSSIN DM PO PRN (19:05)
[2022-06-07] MEDS: LIPITOR TAB 40 MG PO SCH (20:42)
[2022-06-08] MEDS: DUONEB 0.5 MG/3 MG (3 mL) NEB SCH ×3 (01:00→09:09)
[2022-06-08] MEDS: SOLU-Medrol 40 MG VIAL IVP SCH (05:37)
[2022-06-08 05:50] LABS: BASOPHILS % (AUTO) 0.1 % (0.2-1.0); HEMOGLOBIN 11.3 g/dL (13.5-18.0); LYMPHOCYTES # (AUTO) 0.7 X10^3/uL (1.3-2.9); LYMPHOCYTES % (AUTO) 5.1 % (21.0-51.0); MEAN CORPUSCULAR HEMOGLOBIN 30.5 pg (27.0-34.0); MEAN CORPUSCULAR HGB CONC 33.3 g/dL (33.0-35.0); MEAN CORPUSCULAR VOLUME 91.6 fL (80.0-100.0); MEAN PLATELET VOLUME 7.8 fL (7.4-11.0); MONOCYTES # (AUTO) 0.7 x10^3/uL (0.3-0.8); MONOCYTES % (AUTO) 4.9 % (0.0-13.0); NEUTROPHILS # (AUTO) 13.3 x10^3/uL (2.2-4.8); NEUTROPHILS % (AUTO) 89.9 % (42.0-75.0); RED BLOOD COUNT 3.71 X10^6/uL (4.7-6.0); RED CELL DISTRIBUTION WIDTH 15.5 % (11.6-16.5); WHITE BLOOD COUNT 14.8 X10^3/uL (3.6-10.0)
[2022-06-08 06:08] LABS: ALANINE AMINOTRANSFERASE 36 Units/L (12-78); ALBUMIN 2.3 g/dL (3.4-5.0); ALKALINE PHOSPHATASE 96 Units/L (46-116); ASPARTATE AMINO TRANSFERASE 38 Units/L (15-37); BLOOD UREA NITROGEN 28 mg/dL (7-18); CALCIUM 7.8 mg/dL (8.5-10.1); CARBON DIOXIDE 28.4 mmol/L (21-32); CHLORIDE 107 mmol/L (98-107); COR CA(FOR HYPOALB) 9.2 mg/dL (8.5-10.1); COR NA(FOR HYPERGLY) 139 mmol/L (136-145); CREATININE 0.73 mg/dL (0.70-1.30); SODIUM 139 mmol/L (136-145); TOTAL PROTEIN 5.2 g/dL (6.4-8.2); eGFR NON BLACK RACES > 60 (>60)
--- NOTE | 2022-06-08 06:29 | RAD ---
HISTORYpneumonia, copdSTUDYCHEST, 1 [id number]/02/2022.TECHNIQUEAP view of the chestFINDINGSCardiac and mediastinal contours are within normal limits. Similar appearing COPD with interstitial opacities and architectural distortion. Similar peripheral left upper lobe airspace opacity. Similar blunting of the costophrenic sulci. No pneumothorax.IMPRESSIONNo significant change compared to prior radiograph.If there is need to evaluate for pulmonary nodules, CT chest is recommended.Electronically signed by: Keo Hernandez (Jun 08, 2022 06:28:14)
[2022-06-08] MEDS: PULMICORT NEB TX 0.5 MG NEB SCH (09:09)
[2022-06-08 09:13] VITALS: BP 127/61
[2022-06-08] MEDS: ROCEPHIN VIAL 1 GRAM 1 G in NS 100 ML IV 100 ML IV SCH (09:23)
[2022-06-08] MEDS: CELEXA PO SCH (09:28)
[2022-06-08] MEDS: COREG TAB 12.5 MG PO SCH (09:29)
[2022-06-08] MEDS: PROTONIX TAB 40 MG PO SCH (09:29)
[2022-06-08] MEDS: RAMIPRIL 1.25 MG PO SCH (09:29)
== END 2022-06-08 10:20 | disposition home or self-care (01) | DRG 195 ==
LOC: ER 13:05 → MED/SURG 17:01
PROVIDERS: ADMIT Family Medicine; ATTEND Family Medicine
DX: F32.A Depression, unspecified; E78.00 Pure hypercholesterolemia, unspecified; F11.90 Opioid use, unspecified, uncomplicated; J44.9 Chronic obstructive pulmonary disease, unspecified; J18.9 Pneumonia, unspecified organism; Z20.822 Contact with and (suspected) exposure to COVID-19; R06.02 Shortness of breath

== ENCOUNTER 2023-03-03 19:09 | Observation (INO) ==
--- NOTE | 2023-03-03 19:55 | EKG ---
Test Reason : dyspnea Blood Pressure : */* mmHG Vent. Rate : 67 BPM Atrial Rate : 67 BPM P-R Int : 138 ms QRS Dur : 80 ms QT Int : 438 ms P-R-T Axes : 88 71 57 degrees QTc Int : 462 ms Sinus rhythm with occasional premature ventricular complexes Otherwise normal ECG When compared with ECG of 29-SEP-2022 17:21, No significant change was found Confirmed by Ezequiel Patel ([id number]) on 03/05/2023 6:04:41 PM Referred By: Confirmed By: Ezequiel Patel
[2023-03-03 20:10] LABS: BASOPHILS % (AUTO) 0.4 % (0.2-1.0); EOSINOPHILS # (AUTO) 0.4 x10^3/uL (0.0-0.2); EOSINOPHILS % (AUTO) 3.1 % (0.9-2.9); HEMATOCRIT 37.6 % (42.0-54.0); HEMOGLOBIN 12.9 g/dL (13.5-18.0); LYMPHOCYTES # (AUTO) 1.5 X10^3/uL (1.3-2.9); LYMPHOCYTES % (AUTO) 13.4 % (21.0-51.0); MEAN CORPUSCULAR HGB CONC 34.4 g/dL (33.0-35.0); MEAN PLATELET VOLUME 7.4 fL (7.4-11.0); MONOCYTES # (AUTO) 1.4 x10^3/uL (0.3-0.8); MONOCYTES % (AUTO) 12.3 % (0.0-13.0); NEUTROPHILS # (AUTO) 7.9 x10^3/uL (2.2-4.8); NEUTROPHILS % (AUTO) 70.8 % (42.0-75.0); PLATELET COUNT 234 X10^3/uL (150.0-450.0); RED BLOOD COUNT 4.04 X10^6/uL (4.7-6.0); RED CELL DISTRIBUTION WIDTH 14.3 % (11.6-16.5); WHITE BLOOD COUNT 11.2 X10^3/uL (3.6-10.0)
[2023-03-03 20:23] LABS: ABG ALLEN TEST POS; ABG BASE EXCESS -0.2 mmol/L (-2.0-2.0)
--- NOTE | 2023-03-03 20:24 | DR.URIAD ---
HPI <Timoteo Dominguez - Last Filed: 03/04/23 08:23> Time Seen Time Seen by Provider: 03/03/23 19:41 PCP Primary Care Physician: BLANCA Complaint Chief Complaint:: PT C/O SOB X 1 WEEK. PT STATES HE WEARS HOME 02 AT 6 L VIA N/C. COVID-19 Coronavirus risk:travel/contact w/high risk person: No Has patient experienced Coronavirus symptoms: No Source History Provided: Patient Mode of Arrival Mode of Arrival: Wheelchair Timing Onset of Chief Complaint: 02/24/23 <Zita Hayes - Last Filed: 03/04/23 06:28> Complaint Chief Complaint Doctors Comments: Patient states that he has been feeling SOB for 1 week.He hs home 02 and was told to use 4L when he needed to use it. Fora the past 3 days patient has been using 4-6L and his 02 sat would decrease to 70%. Patient states that he has had a headache for the past 3 days.Patient denies: fever,productive cough,hemoptysis,n,v,chest pain ,back pain,abdl pain. PMH <Timoteo Dominguez - Last Filed: 03/04/23 08:23> PMH Past Medical History: Yes Past Medical History: COPD, Coronary Artery Disease, Dyslipidemia, GERD and Hypertension Past Medical History Comment: AFIB Past Surgical History: Yes Surgical History: Other Past Surgical History Comment: HEART ABLASION Family History History of Family Medical Conditions: Yes Family Medical History: Diabetes Mellitus, Cancer, [place] and Hypertension Social History Alcohol Use: None Do you use any recreational Drugs:: No Lives With: Family Lives Where: Home Travel Risk Coronavirus risk:travel/contact w/high risk person: No Has patient experienced Coronavirus symptoms: No Infectious screening In the last 2 months have you had wt loss of >10#?: NO Have you had fever, night sweats or hemotysis?: No Have you traveled outside the country in the last 6 months?: No Isolation: Standard <Zita Careyix - Last Filed: 03/04/23 06:28> Review of Systems Constitutional: Weakness; negative Fever Eyes: No Symptoms Reported ENTM: No Symptoms Reported Respiratoy: Non-Productive Cough Cardiovascular: negative Chest Pain Gastrointestinal/Abdominal: No Symptoms Reported Genitourinary: No Symptoms Reported Neurological: Headache and Weakness Musculoskeletal: No Symptoms Reported Integumentary: No Symptoms Reported Hematologic/Lymphatic: No Symptoms Reported Endocrine: No Symptoms Reported Psychiatric: No Symptoms Reported All Other Systems: Reviewed and Negative PE <Timoteo Dominguez - Last Filed: 03/04/23 08:23> Vital Signs Vitals: Vital Signs Respiratory Rate 20 <Zita Hayes - Last Filed: 03/04/23 06:28> Vital Signs Vitals: Vital Signs Respiratory Rate 20 General Limitations: No Limitations General Appearance: Alert and In No Apparent Distress Head Head Exam: Normal Inspection Eyes Eye exam: Normal Appearance ENT ENT Exam: Normal Exam External Ear Exam: Normal External Inspection TM/Canal Exam: Bilateral: Normal Nose Exam: Normal Nose Exam Nasal Speculum Exam: Bilateral: Normal Mouth Exam: Normal Inspection Throat Exam: Normal Inspection Neck Neck Exam: Normal Inspection Chest Chest Inspection: Normal Inspection Respiratory Respiratory Exam: Other (decreased bs diffusely) Respiratory Exam: Bilateral: Decreased Breath Sounds Cardiovascular Cardiovascular Exam: Regular Rate and Normal Rhythm Abdominal Exam Abdominal Exam: Normal Inspection, Normal Bowel Sounds and Soft Extremeties Extremities Exam: Normal Inspection Back Back Exam: Normal Inspection Neurologic Neurological Exam: Alert and Oriented X3 Psychiatric Psychiatric Exam: Normal Affect and Normal Mood Skin Skin Exam: Warm, Dry, Intact and Normal Color <Zita Hayes - Last Filed: 03/04/23 06:28> Differential Diagnosis Differential Diagnosis: Pneumonia and URI (COPD Exacerbation) <Zita Hayes - Last Filed: 03/04/23 06:28> Treatment Treatment: Patient was brought to a monitored room.IV access was initaited and patient was placed on 4L nc. An ABG was performed and patient's P02 is 62. Patient received solumedrol 125mg iv and a duoneb. Patient's CXr revealed infiltrates in the bilateral lower lobes. Patient received levaquin 750mg iv.blood cx were drawn.Patient has chronic lumbar back pain and takes hydrocodone 10/325mg tid for pain. He had a tab this am and was having back pain so he was given a dose in the ED. 21:55 Patient has been admitted to Dr White's service for further treatment of his COPD exacerbation and hypoxemia. ROR <Timoteo Dominguez - Last Filed: 03/04/23 08:23> Labs Reviewed Result Diagrams: 03/04/23 04:30 03/04/23 04:30 Laboratory: WBC 11.2 X10^3/uL (3.6-10.0) H 03/03/23 19:50 RBC 4.04 X10^6/uL (4.7-6.0) L 03/03/23 19:50 Hgb 12.9 g/dL (13.5-18.0) L 03/03/23 19:50 Hct 37.6 % (42.0-54.0) L 03/03/23 19:50 MCV 93.0 fL (80.0-100.0) 03/03/23 19:50 MCH 32.0 pg (27.0-34.0) 03/03/23 19:50 MCHC 34.4 g/dL (33.0-35.0) 03/03/23 19:50 RDW 14.3 % (11.6-16.5) 03/03/23 19:50 Plt Count 234 X10^3/uL (150.0-450.0) 03/03/23 19:50 MPV 7.4 fL (7.4-11.0) 03/03/23 19:50 Neut % (Auto) 70.8 % (42.0-75.0) 03/03/23 19:50 Lymph % (Auto) 13.4 % (21.0-51.0) L 03/03/23 19:50 [place] % (Auto) 12.3 % (0.0-13.0) 03/03/23 19:50 Eos % (Auto) 3.1 % (0.9-2.9) H 03/03/23 19:50 Baso % (Auto) 0.4 % (0.2-1.0) 03/03/23 19:50 Neut # (Auto) 7.9 x10^3/uL (2.2-4.8) H 03/03/23 19:50 Lymph # (Auto) 1.5 X10^3/uL (1.3-2.9) 03/03/23 19:50 [place] # (Auto) 1.4 x10^3/uL (0.3-0.8) H 03/03/23 19:50 Eos # (Auto) 0.4 x10^3/uL (0.0-0.2) H 03/03/23 19:50 Baso # (Auto) 0.0 X10^3/uL (0.0-0.1) 03/03/23 19:50 Absolute Nucleated RBC 0.0 /100WBC 03/03/23 19:50 Sample Site Lrad 03/03/23 20:16 ABG pH 7.420 (7.35-7.45) 03/03/23 20:16 ABG pCO2 37.0 mmHg (35.0-45.0) 03/03/23 20:16 ABG pO2 62.0 mmHg (80.0-100.0) L 03/03/23 20:16 ABG HCO3 24.0 mmol/L (22-26) 03/03/23 20:16 ABG O2 Saturation 92.0 % (90-100) 03/03/23 20:16 ABG Base Excess -0.2 mmol/L (-2.0-2.0) 03/03/23 20:16 Isai Test Pos 03/03/23 20:16 A-a Gradient 148.0 mmHg 03/03/23 20:16 FiO2 36.0 03/03/23 20:16 Blood Gas Comments Brisa abg well-mtf 03/03/23 20:16 Sodium 140 mmol/L (136-145) 03/03/23 19:50 Corrected Sodium TNP 03/03/23 19:50 Potassium 3.9 mmol/L (3.5-5.1) 03/03/23 19:50 Chloride 107 mmol/L (98-107) 03/03/23 19:50 Carbon Dioxide 26.7 mmol/L (21-32) 03/03/23 19:50 BUN 19 mg/dL (7-18) H 03/03/23 19:50 Creatinine 0.74 mg/dL (0.70-1.30) 03/03/23 19:50 Est GFR (MDRD) Af Amer > 60 (>60) 03/03/23 19:50 Est GFR (MDRD) Non-Af > 60 (>60) 03/03/23 19:50 Glucose 92 mg/dL (65-99) 03/03/23 19:50 Lactic Acid 0.6 mmol/L (0.4-2.0) 03/03/23 19:50 Calcium 8.3 mg/dL (8.5-10.1) L 03/03/23 19:50 Corrected Calcium 9.4 mg/dL (8.5-10.1) 03/03/23 19:50 Total Bilirubin 0.90 mg/dL (0.2-1.0) 03/03/23 19:50 AST 24 Units/L (15-37) 03/03/23 19:50 ALT 18 Units/L (12-78) 03/03/23 19:50 Alkaline Phosphatase 130 Units/L (46-116) H 03/03/23 19:50 Troponin I High Sens 9.9 ng/L (4.0-60.0) 03/03/23 19:50 B-Natriuretic Peptide 258 pg/mL (0-79) H 03/03/23 19:50 Total Protein 5.6 g/dL (6.4-8.2) L 03/03/23 19:50 Albumin 2.6 g/dL (3.4-5.0) L 03/03/23 19:50 Globulin 3.0 g/dL (2.5-4.5) 03/03/23 19:50 Albumin/Globulin Ratio 0.9 Ratio (1.1-2.1) L 03/03/23 19:50 Lipase 117 Units/L (73-393) 03/03/23 19:50 <Zita Hayes - Last Filed: 03/04/23 06:28> Labs Reviewed Laboratory Results Reviewed?: Yes Laboratory: WBC 11.2 X10^3/uL (3.6-10.0) H 03/03/23 19:50 RBC 4.04 X10^6/uL (4.7-6.0) L 03/03/23 19:50 Hgb 12.9 g/dL (13.5-18.0) L 03/03/23 19:50 Hct 37.6 % (42.0-54.0) L 03/03/23 19:50 MCV 93.0 fL (80.0-100.0) 03/03/23 19:50 MCH 32.0 pg (27.0-34.0) 03/03/23 19:50 MCHC 34.4 g/dL (33.0-35.0) 03/03/23 19:50 RDW 14.3 % (11.6-16.5) 03/03/23 19:50 Plt Count 234 X10^3/uL (150.0-450.0) 03/03/23 19:50 MPV 7.4 fL (7.4-11.0) 03/03/23 19:50 Neut % (Auto) 70.8 % (42.0-75.0) 03/03/23 19:50 Lymph % (Auto) 13.4 % (21.0-51.0) L 03/03/23 19:50 [place] % (Auto) 12.3 % (0.0-13.0) 03/03/23 19:50 Eos % (Auto) 3.1 % (0.9-2.9) H 03/03/23 19:50 Baso % (Auto) 0.4 % (0.2-1.0) 03/03/23 19:50 Neut # (Auto) 7.9 x10^3/uL (2.2-4.8) H 03/03/23 19:50 Lymph # (Auto) 1.5 X10^3/uL (1.3-2.9) 03/03/23 19:50 [place] # (Auto) 1.4 x10^3/uL (0.3-0.8) H 03/03/23 19:50 Eos # (Auto) 0.4 x10^3/uL (0.0-0.2) H 03/03/23 19:50 Baso # (Auto) 0.0 X10^3/uL (0.0-0.1) 03/03/23 19:50 Absolute Nucleated RBC 0.0 /100WBC 03/03/23 19:50 Sample Site Lrad 03/03/23 20:16 ABG pH 7.420 (7.35-7.45) 03/03/23 20:16 ABG pCO2 37.0 mmHg (35.0-45.0) 03/03/23 20:16 ABG pO2 62.0 mmHg (80.0-100.0) L 03/03/23 20:16 ABG HCO3 24.0 mmol/L (22-26) 03/03/23 20:16 ABG O2 Saturation 92.0 % (90-100) 03/03/23 20:16 ABG Base Excess -0.2 mmol/L (-2.0-2.0) 03/03/23 20:16 Isai Test Pos 03/03/23 20:16 A-a Gradient 148.0 mmHg 03/03/23 20:16 FiO2 36.0 03/03/23 20:16 Blood Gas Comments Brisa abg well-mtf 03/03/23 20:16 Sodium 140 mmol/L (136-145) 03/03/23 19:50 Corrected Sodium TNP 03/03/23 19:50 Potassium 3.9 mmol/L (3.5-5.1) 03/03/23 19:50 Chloride 107 mmol/L (98-107) 03/03/23 19:50 Carbon Dioxide 26.7 mmol/L (21-32) 03/03/23 19:50 BUN 19 mg/dL (7-18) H 03/03/23 19:50 Creatinine 0.74 mg/dL (0.70-1.30) 03/03/23 19:50 Est GFR (MDRD) Af Amer > 60 (>60) 03/03/23 19:50 Est GFR (MDRD) Non-Af > 60 (>60) 03/03/23 19:50 Glucose 92 mg/dL (65-99) 03/03/23 19:50 Lactic Acid 0.6 mmol/L (0.4-2.0) 03/03/23 19:50 Calcium 8.3 mg/dL (8.5-10.1) L 03/03/23 19:50 Corrected Calcium 9.4 mg/dL (8.5-10.1) 03/03/23 19:50 Total Bilirubin 0.90 mg/dL (0.2-1.0) 03/03/23 19:50 AST 24 Units/L (15-37) 03/03/23 19:50 ALT 18 Units/L (12-78) 03/03/23 19:50 Alkaline Phosphatase 130 Units/L (46-116) H 03/03/23 19:50 Troponin I High Sens 9.9 ng/L (4.0-60.0) 03/03/23 19:50 B-Natriuretic Peptide 258 pg/mL (0-79) H 03/03/23 19:50 Total Protein 5.6 g/dL (6.4-8.2) L 03/03/23 19:50 Albumin 2.6 g/dL (3.4-5.0) L 03/03/23 19:50 Globulin 3.0 g/dL (2.5-4.5) 03/03/23 19:50 Albumin/Globulin Ratio 0.9 Ratio (1.1-2.1) L 03/03/23 19:50 Lipase 117 Units/L (73-393) 03/03/23 19:50 EKG Compared to prior EKG Dated: 03/03/23 Rate: 67 [place]: Normal Rhythm: NSR and PVCs (occasional) Opioid <Timoteo Dominguez - Last Filed: 03/04/23 08:23> Opioid Risk Tool Age (Alexander box if 16-45): No History of Preadolescent Sexual Abuse: No Total: 0 Total Score Risk Category: Low Risk Copyright: Adithya JACOBSEN predicting aberrant behaviors <Zita Hayes - Last Filed: 03/04/23 06:28> Opioid Risk Tool Total: 0 Total Score Risk Category: Low Risk Discharge Plan Diagnosis Discharge Problem: Acute exacerbation of chronic obstructive pulmonary disease, Hypoxemia Discharge Plan Patient Disposition: ADMITTED INPATIENT Condition: Stable ADDITIONAL NOTES <Timoteo Dominguez - Last Filed: 03/04/23 08:23> Additional Notes Additional Notes: Initial ER orders written by me, but pt seen by Dr Morris - - Dr Dominguez
[2023-03-03 20:26] LABS: ALANINE AMINOTRANSFERASE 18 Units/L (12-78); ALBUMIN 2.6 g/dL (3.4-5.0); ALKALINE PHOSPHATASE 130 Units/L (46-116); ASPARTATE AMINO TRANSFERASE 24 Units/L (15-37); BLOOD UREA NITROGEN 19 mg/dL (7-18); CALCIUM 8.3 mg/dL (8.5-10.1); CARBON DIOXIDE 26.7 mmol/L (21-32); CHLORIDE 107 mmol/L (98-107); COR CA(FOR HYPOALB) 9.4 mg/dL (8.5-10.1); CREATININE 0.74 mg/dL (0.70-1.30); GLUCOSE 92 mg/dL (65-99); LIPASE 117 Units/L (73-393); POTASSIUM 3.9 mmol/L (3.5-5.1); SODIUM 140 mmol/L (136-145); TOTAL PROTEIN 5.6 g/dL (6.4-8.2); eGFR NON BLACK RACES > 60 (>60)
[2023-03-03 20:27] LABS: LACTIC ACID 0.6 mmol/L (0.4-2.0)
[2023-03-03] MEDS ORDERED: NORCO 10/325 TAB ONE (20:32)
[2023-03-03] MEDS ORDERED: NORCO 10/325 TAB PO ONE (20:34)
[2023-03-03] MEDS ORDERED: SOLU-Medrol 125 MG VIAL IVP ONE (20:35)
[2023-03-03] MEDS ORDERED: DUONEB 0.5 MG/3 MG (3 mL) NEB ONE ×3 (20:35→23:11)
[2023-03-03] MEDS ORDERED: SOLU-Medrol 125 MG VIAL ONE (20:38)
[2023-03-03] MEDS ORDERED: LEVAQUIN PREMIX IV 750 MG 750 MG/150 ML BAG IV ONE ×2 (20:39→20:41)
[2023-03-03 23:35] VITALS: BMI 20.7
[2023-03-03] MEDS: DUONEB 0.5 MG/3 MG (3 mL) NEB SCH (23:55)
[2023-03-04] MEDS: DUONEB 0.5 MG/3 MG (3 mL) NEB SCH ×6 (01:44→20:49)
[2023-03-04 05:15] LABS: BASOPHILS % (AUTO) 0.1 % (0.2-1.0); EOSINOPHILS % (AUTO) 0.1 % (0.9-2.9); HEMATOCRIT 35.3 % (42.0-54.0); HEMOGLOBIN 12.2 g/dL (13.5-18.0); LYMPHOCYTES # (AUTO) 0.6 X10^3/uL (1.3-2.9); LYMPHOCYTES % (AUTO) 9.7 % (21.0-51.0); MEAN CORPUSCULAR HEMOGLOBIN 32.1 pg (27.0-34.0); MEAN CORPUSCULAR HGB CONC 34.7 g/dL (33.0-35.0); MEAN CORPUSCULAR VOLUME 92.7 fL (80.0-100.0); MEAN PLATELET VOLUME 7.7 fL (7.4-11.0); MONOCYTES # (AUTO) 0.1 x10^3/uL (0.3-0.8); MONOCYTES % (AUTO) 1.2 % (0.0-13.0); NEUTROPHILS # (AUTO) 5.9 x10^3/uL (2.2-4.8); NEUTROPHILS % (AUTO) 88.9 % (42.0-75.0); PLATELET COUNT 239 X10^3/uL (150.0-450.0); RED BLOOD COUNT 3.81 X10^6/uL (4.7-6.0); RED CELL DISTRIBUTION WIDTH 14.3 % (11.6-16.5); WHITE BLOOD COUNT 6.7 X10^3/uL (3.6-10.0)
[2023-03-04 05:28] LABS: ALANINE AMINOTRANSFERASE 14 Units/L (12-78); ALBUMIN 2.2 g/dL (3.4-5.0); ALKALINE PHOSPHATASE 120 Units/L (46-116); ASPARTATE AMINO TRANSFERASE 16 Units/L (15-37); BLOOD UREA NITROGEN 19 mg/dL (7-18); CALCIUM 8.2 mg/dL (8.5-10.1); CARBON DIOXIDE 25.1 mmol/L (21-32); CHLORIDE 106 mmol/L (98-107); COR CA(FOR HYPOALB) 9.6 mg/dL (8.5-10.1); COR NA(FOR HYPERGLY) 141 mmol/L (136-145); CREATININE 0.85 mg/dL (0.70-1.30); GLUCOSE 218 mg/dL (65-99); POTASSIUM 4.2 mmol/L (3.5-5.1); SODIUM 138 mmol/L (136-145); TOTAL PROTEIN 5.2 g/dL (6.4-8.2); eGFR NON BLACK RACES > 60 (>60)
--- NOTE | 2023-03-04 06:30 | RAD ---
PROCEDURE: Chest X-ray 1 View .HISTORY: Dyspnea for 1 week.TECHNIQUE: AP view .COMPARISON: 09/29/2022.TECHNICAL QUALITY: Satisfactory .FINDINGS:Normal size heart .Mediastinum and hilar regions show no masses or lymphadenopathy .Normal central vascularity .Scarring throughout both lung camara is unchanged. No masses or consolidation. No pleural fluid.No acute bony abnormality .IMPRESSION:1. Bilateral pulmonary scarring is unchanged.2. No other evidence of active disease.Electronically signed by: Kenton Porter (Mar 04, 2023 06:29:16)
[2023-03-04] MEDS: PULMICORT NEB TX 0.5 MG NEB SCH ×2 (08:48→20:49)
[2023-03-04] MEDS ORDERED: RAMIPRIL 1.25 MG PO SCH ×2 (09:00→21:00)
[2023-03-04] MEDS: LOVENOX INJ 40 MG SYR SC SCH (09:58)
[2023-03-04] MEDS: PROTONIX TAB 40 MG PO SCH (09:59)
[2023-03-04] MEDS: COREG TAB 12.5 MG PO SCH ×2 (09:59→20:38)
[2023-03-04] MEDS: CELEXA PO SCH (09:59)
[2023-03-04] MEDS: NORCO 10/325 TAB PO PRN ×2 (10:00→15:39)
[2023-03-04] MEDS: MOTRIN TAB 600 MG PO PRN (12:56)
[2023-03-04] MEDS ORDERED: SOLU-Medrol 125 MG VIAL IVP ONE (15:00)
[2023-03-04 16:50] LABS: BILIRUBIN,URINE NEGATIVE (NEGATIVE); BLOOD/HEMOGLOBIN,URINE NEGATIVE (NEGATIVE); GLUCOSE, URINE 2+ (NEGATIVE); KETONES,URINE NEGATIVE (NEGATIVE); LEUKOCYTE ESTERASE ,URINE NEGATIVE (NEGATIVE); NITRITES,URINE NEGATIVE (NEGATIVE); PROTEIN,URINE 1+ (NEGATIVE); UROBILINOGEN,URINE NORMAL (NORMAL)
[2023-03-04 17:02] LABS: APPEARANCE,URINE CLEAR (CLEAR); BACTERIA,URINE NEGATIVE /HPF (NEGATIVE); COLOR,URINE DARK YELLOW (YELLOW); RBC,URINE NONE SEEN /HPF (0-3); SQUAMOUS EPITHELIAL CELL,UR RARE /HPF (NEGATIVE)
--- NOTE | 2023-03-04 18:17 | DR.H&P ---
H&P History & Physical for Day of: H&P Date: 03/04/23 Chief Complaint Chief Complaint: Shortness of breath Allergies Allergies Allergy/AdvReac Type Severity Reaction Status Date / Time No Known Drug Allergies Allergy Unknown Verified 12/21/22 14:27 History of Present Illness History of Present Illness: This is a pleasant 77-year-old white male well-known to me. He was admitted through [facility] emergency department yesterday evening after he has been developing increased shortness of breath for over a week now. He has a long history of COPD and is oxygen dependent. He normally uses 4 L of oxygen at home however within the last week he has had an exacerba tion of his COPD and he has been having increases O2 level between 5-1/2 to 6 L of oxygen. He reports he has had to do this to keep his O2 sats out of the 70s. Past Medical History Past Medical History: COPD, Coronary Artery Disease, Dyslipidemia, GERD and Hypertension Past Surgical History Surgical History: Other Family History Family Medical History: Diabetes Mellitus, Cancer, [place] and Hypertension Social History Does patient currently use any type of tobacco product: No Have you used tobacco products in the last 12 months: No Type of Tobacco Use: Cigarettes Does any household member use tobacco: No Alcohol Use: None Drug Use: None Medications Home Medications: Home Medications Medication Instructions Recorded Confirmed Type atorvastatin 40 mg tablet 1 tab PO QPM 03/03/23 03/03/23 History carvedilol 12.5 mg tablet 1 tab PO BID 03/03/23 03/03/23 History citalopram 20 mg tablet 1 tab PO QDAY 03/03/23 03/03/23 History hydrocodone 10 mg-acetaminophen 1 tab PO Q6H PRN pain 03/03/23 03/03/23 History 325 mg tablet pantoprazole 40 mg tablet,delayed 1 tab PO QDAY 03/03/23 03/03/23 History release ramipril 1.25 mg capsule 1 cap PO QDAY blood pressure 03/03/23 03/03/23 History ibuprofen 600 mg tablet 1 tab PO Q6H PRN pain 03/04/23 03/04/23 History Labs Result Diagrams: 03/04/23 04:30 03/04/23 04:30 Labs: Laboratory WBC 6.7 X10^3/uL (3.6-10.0) 03/04/23 04:30 RBC 3.81 X10^6/uL (4.7-6.0) L 03/04/23 04:30 Hgb 12.2 g/dL (13.5-18.0) L 03/04/23 04:30 Hct 35.3 % (42.0-54.0) L 03/04/23 04:30 MCV 92.7 fL (80.0-100.0) 03/04/23 04:30 MCH 32.1 pg (27.0-34.0) 03/04/23 04:30 MCHC 34.7 g/dL (33.0-35.0) 03/04/23 04:30 RDW 14.3 % (11.6-16.5) 03/04/23 04:30 Plt Count 239 X10^3/uL (150.0-450.0) 03/04/23 04:30 MPV 7.7 fL (7.4-11.0) 03/04/23 04:30 Neut % (Auto) 88.9 % (42.0-75.0) H 03/04/23 04:30 Lymph % (Auto) 9.7 % (21.0-51.0) L 03/04/23 04:30 [place] % (Auto) 1.2 % (0.0-13.0) 03/04/23 04:30 Eos % (Auto) 0.1 % (0.9-2.9) L 03/04/23 04:30 Baso % (Auto) 0.1 % (0.2-1.0) L 03/04/23 04:30 Neut # (Auto) 5.9 x10^3/uL (2.2-4.8) H 03/04/23 04:30 Lymph # (Auto) 0.6 X10^3/uL (1.3-2.9) L 03/04/23 04:30 [place] # (Auto) 0.1 x10^3/uL (0.3-0.8) L 03/04/23 04:30 Eos # (Auto) 0.0 x10^3/uL (0.0-0.2) 03/04/23 04:30 Baso # (Auto) 0.0 X10^3/uL (0.0-0.1) 03/04/23 04:30 Absolute Nucleated RBC 0.1 /100WBC 03/04/23 04:30 Sample Site Lrad 03/03/23 20:16 ABG pH 7.420 (7.35-7.45) 03/03/23 20:16 ABG pCO2 37.0 mmHg (35.0-45.0) 03/03/23 20:16 ABG pO2 62.0 mmHg (80.0-100.0) L 03/03/23 20:16 ABG HCO3 24.0 mmol/L (22-26) 03/03/23 20:16 ABG O2 Saturation 92.0 % (90-100) 03/03/23 20:16 ABG Base Excess -0.2 mmol/L (-2.0-2.0) 03/03/23 20:16 Isai Test Pos 03/03/23 20:16 A-a Gradient 148.0 mmHg 03/03/23 20:16 FiO2 36.0 03/03/23 20:16 Blood Gas Comments Brisa abg well-mtf 03/03/23 20:16 Sodium 138 mmol/L (136-145) 03/04/23 04:30 Corrected Sodium 141 mmol/L (136-145) 03/04/23 04:30 Potassium 4.2 mmol/L (3.5-5.1) 03/04/23 04:30 Chloride 106 mmol/L (98-107) 03/04/23 04:30 Carbon Dioxide 25.1 mmol/L (21-32) 03/04/23 04:30 BUN 19 mg/dL (7-18) H 03/04/23 04:30 Creatinine 0.85 mg/dL (0.70-1.30) 03/04/23 04:30 Est GFR (MDRD) Af Amer > 60 (>60) 03/04/23 04:30 Est GFR (MDRD) Non-Af > 60 (>60) 03/04/23 04:30 Glucose 218 mg/dL (65-99) H 03/04/23 04:30 Lactic Acid 0.6 mmol/L (0.4-2.0) 03/03/23 19:50 Calcium 8.2 mg/dL (8.5-10.1) L 03/04/23 04:30 Corrected Calcium 9.6 mg/dL (8.5-10.1) 03/04/23 04:30 Total Bilirubin 0.40 mg/dL (0.2-1.0) 03/04/23 04:30 AST 16 Units/L (15-37) 03/04/23 04:30 ALT 14 Units/L (12-78) 03/04/23 04:30 Alkaline Phosphatase 120 Units/L (46-116) H 03/04/23 04:30 Troponin I High Sens 9.9 ng/L (4.0-60.0) 03/03/23 19:50 B-Natriuretic Peptide 258 pg/mL (0-79) H 03/03/23 19:50 Total Protein 5.2 g/dL (6.4-8.2) L 03/04/23 04:30 Albumin 2.2 g/dL (3.4-5.0) L 03/04/23 04:30 Globulin 3.0 g/dL (2.5-4.5) 03/04/23 04:30 Albumin/Globulin Ratio 0.7 Ratio (1.1-2.1) L 03/04/23 04:30 Lipase 117 Units/L (73-393) 03/03/23 19:50 Specimen Type Clean catch urine 03/04/23 16:25 Urine Color Dark yellow (YELLOW) 03/04/23 16:25 Urine Appearance Clear (CLEAR) 03/04/23 16:25 Urine pH 6.0 (5.0 - 8.0) 03/04/23 16:25 Ur Specific [place] 1.025 (1.000-1.030) 03/04/23 16:25 Urine Protein 1+ (NEGATIVE) 03/04/23 16:25 Urine Glucose (UA) 2+ (NEGATIVE) 03/04/23 16:25 Urine Ketones Negative (NEGATIVE) 03/04/23 16:25 Urine Blood Negative (NEGATIVE) 03/04/23 16:25 Urine Nitrite Negative (NEGATIVE) 03/04/23 16:25 Urine Bilirubin Negative (NEGATIVE) 03/04/23 16:25 Urine Urobilinogen Normal (NORMAL) 03/04/23 16:25 Ur Leukocyte Esterase Negative (NEGATIVE) 03/04/23 16:25 Urine RBC None seen /HPF (0-3) 03/04/23 16:25 Urine WBC 0-2 /HPF (0-5) 03/04/23 16:25 Ur Squamous Epith Cells Rare /HPF (NEGATIVE) 03/04/23 16:25 Urine Bacteria Negative /HPF (NEGATIVE) 03/04/23 16:25 Urine Mucus Moderate /HPF (NEGATIVE) 03/04/23 16:25 Ur Culture Indicated? No/not indicated 03/04/23 16:25 Review of Systems Constitutional: No Symptoms Reported Eyes: No Symptoms Reported ENT: No Symptoms Reported Respiratory: Cough, Shortness of Breath, SOB with Excertion and Wheezing Cardiovascular: No Symptoms Reported Gastrointestinal: No Symptoms Reported Genitourinary: No Symptoms Reported Musculoskeletal: No Symptoms Reported Skin: No Symptoms Reported Neurological: No Symptoms Reported Physical Exam Vital Signs: Vital Signs Temperature 98.1 F Pulse Rate 87 Pulse Rate 83 Pulse Rate 74 Pulse Rate 84 Pulse Rate 75 Pulse Rate 79 Pulse Rate 74 Pulse Rate 71 Respiratory Rate 18 Respiratory Rate 20 Respiratory Rate 20 Respiratory Rate 18 Respiratory Rate 18 Respiratory Rate 22 Respiratory Rate 18 Respiratory Rate 18 Respiratory Rate 17 Respiratory Rate 20 Respiratory Rate 18 Blood Pressure 108/61 Blood Pressure 106/51 Blood Pressure 91/51 Blood Pressure 103/59 Blood Pressure 120/66 Blood Pressure 111/57 Blood Pressure 113/65 O2 Sat by Pulse Oximetry 95 O2 Sat by Pulse Oximetry 94 O2 Sat by Pulse Oximetry 98 O2 Sat by Pulse Oximetry 97 O2 Sat by Pulse Oximetry 98 O2 Sat by Pulse Oximetry 96 O2 Sat by Pulse Oximetry 97 O2 Sat by Pulse Oximetry 98 Oriented: Normal Eyes: Normal Nose: Normal Respiratory: Diminished Throughout, Rhonchi Throughout and Wheezes Throughout Cardiovascular: Normal Auscultation: Bowel Sounds: Normal Palpation: Normal Tenderness: Normal Skin: Decreased [place]urgur Musculoskeletal: Normal Psychiatric: Normal Mood Description: Calm Affect: Normal Speech Pattern: Clear and Appropriate Assessment/Plan (1) COPD exacerbation: Status: Acute Plan: Continue DuoNebs and budesonide nebulizer. Patient has been started on levofloxacin 750 mg IV daily and we will continue that. I will add Solu- Medrol 125 mg IV now then change to 60 mg IV twice daily. (2) Hypertension: Status: Acute Plan: Resume home blood pressure meds (3) Chronic low back pain: Status: None Plan: Continue patient's hydrocodone for his chronic low back pain.
[2023-03-04] MEDS: SOLU-Medrol 40 MG VIAL IVP SCH (20:39)
[2023-03-04] MEDS ORDERED: LIPITOR TAB 40 MG PO SCH (21:00)
[2023-03-05] MEDS: DUONEB 0.5 MG/3 MG (3 mL) NEB SCH ×3 (00:59→08:40)
[2023-03-05 05:15] LABS: BASOPHILS % (AUTO) 0 % (0.2-1.0); HEMATOCRIT 33.6 % (42.0-54.0); HEMOGLOBIN 11.7 g/dL (13.5-18.0); MEAN CORPUSCULAR HEMOGLOBIN 32.2 pg (27.0-34.0); MEAN CORPUSCULAR HGB CONC 34.9 g/dL (33.0-35.0); MEAN CORPUSCULAR VOLUME 92.4 fL (80.0-100.0); MEAN PLATELET VOLUME 7.8 fL (7.4-11.0); MONOCYTES # (AUTO) 0.5 x10^3/uL (0.3-0.8); MONOCYTES % (AUTO) 3.6 % (0.0-13.0); NEUTROPHILS # (AUTO) 12.2 x10^3/uL (2.2-4.8); NEUTROPHILS % (AUTO) 89.4 % (42.0-75.0); PLATELET COUNT 269 X10^3/uL (150.0-450.0); RED BLOOD COUNT 3.64 X10^6/uL (4.7-6.0); RED CELL DISTRIBUTION WIDTH 14.1 % (11.6-16.5); WHITE BLOOD COUNT 13.6 X10^3/uL (3.6-10.0)
[2023-03-05 05:32] LABS: ALANINE AMINOTRANSFERASE 15 Units/L (12-78); ALBUMIN 2.4 g/dL (3.4-5.0); ALKALINE PHOSPHATASE 106 Units/L (46-116); ASPARTATE AMINO TRANSFERASE 15 Units/L (15-37); BLOOD UREA NITROGEN 23 mg/dL (7-18); CALCIUM 8.2 mg/dL (8.5-10.1); CARBON DIOXIDE 27.9 mmol/L (21-32); CHLORIDE 108 mmol/L (98-107); COR CA(FOR HYPOALB) 9.5 mg/dL (8.5-10.1); COR NA(FOR HYPERGLY) 142 mmol/L (136-145); CREATININE 0.83 mg/dL (0.70-1.30); GLUCOSE 122 mg/dL (65-99); MAGNESIUM 1.9 mg/dL (2.0-2.9); POTASSIUM 4.4 mmol/L (3.5-5.1); SODIUM 141 mmol/L (136-145); TOTAL PROTEIN 5.2 g/dL (6.4-8.2); eGFR NON BLACK RACES > 60 (>60)
[2023-03-05] MEDS: NORCO 10/325 TAB PO PRN (05:36)
[2023-03-05] MEDS: SOLU-Medrol 40 MG VIAL IVP SCH (08:29)
[2023-03-05] MEDS: LOVENOX INJ 40 MG SYR SC SCH ×2 (08:29→08:52)
[2023-03-05] MEDS: COREG TAB 12.5 MG PO SCH (08:30)
[2023-03-05] MEDS: CELEXA PO SCH (08:30)
[2023-03-05] MEDS: PROTONIX TAB 40 MG PO SCH (08:30)
[2023-03-05] MEDS: MOTRIN TAB 600 MG PO PRN (08:38)
[2023-03-05] MEDS: PULMICORT NEB TX 0.5 MG NEB SCH (08:40)
[2023-03-05 08:56] VITALS: TEMP 97.8
[2023-03-05] MEDS ORDERED: MAG-OX TAB PO SCH (09:00)
[2023-03-05 11:08] VITALS: BP 106/67; PULSE 63; RESP 22; O2SAT 96
== END 2023-03-05 11:15 | disposition home or self-care (01) ==
LOC: ER 19:09 → ICU 19:09
PROVIDERS: ADMIT Family Medicine; ATTEND Family Medicine
DX: I10 Essential (primary) hypertension; E78.2 Mixed hyperlipidemia; I25.10 Atherosclerotic heart disease of native coronary artery without angina pectoris; M54.59 Other low back pain; R06.02 Shortness of breath; J44.1 Chronic obstructive pulmonary disease with (acute) exacerbation; Z99.81 Dependence on supplemental oxygen; K21.9 Gastro-esophageal reflux disease without esophagitis; R51.9 Headache, unspecified

== ENCOUNTER 2023-09-01 11:10 | Inpatient (IN) ==
[2023-09-01] MEDS ORDERED: XOPENEX 1.25 MG/3 ML NEBULE NEB ONE (11:15)
--- NOTE | 2023-09-01 11:28 | DR.SOBA ---
HPI Time Seen Time Seen by Provider: 09/01/23 11:27 Primary Care Physician Primary Care Physician: Hernan Complaints Chief Complaint Doctors Comments: 77-year-old male presents for evaluation. History of severe COPD, feeling poorly over the past month. Recently feeling worse, having a moist cough, but not very productive. Having generalized body weakness. Having some lightheaded dizziness. Denies nausea, vomiting, diarrhea. No fevers or chills. Has not smoked recently (quit in '09) Chief Complaint:: patient states that he was having trouble breathing and his O2 sat dropped into the 60s, was wearing O2 @5L NC. c/o nonproductive cough, sore throat and headache Reviewed Nurses Notes Reviewed: Yes Source History Provided: Patient Mode of Arrival Mode of Arrival: Wheelchair Timing Onset of Chief Complaint: 09/01/23 PMH PMH Past Medical History: Yes Past Medical History: COPD, Coronary Artery Disease, Dyslipidemia, GERD and Hypertension Past Surgical History: Yes Surgical History: Other Family History History of Family Medical Conditions: Yes Family Medical History: Diabetes Mellitus, Cancer, [place] and Hypertension Social History Does patient currently use any type of tobacco product: No Do you use any recreational Drugs:: No Lives With: Alone Lives Where: Home Infectious screening Have you traveled outside the country in the last 6 months?: No Isolation: Standard ROS Review of Systems Constitutional: Weakness Eyes: No Symptoms Reported ENTM: No Symptoms Reported Respiratoy: Moist Cough and Short of Breath Cardiovascular: No Symptoms Reported Gastrointestinal/Abdominal: No Symptoms Reported Genitourinary: No Symptoms Reported Neurological: Weakness and Dizziness Musculoskeletal: No Symptoms Reported Integumentary: No Symptoms Reported All Other Systems: Reviewed and Negative PE Vital Signs Vitals: Vital Signs Temperature 97.7 F Pulse Rate 69 Pulse Rate 69 Pulse Rate 67 Pulse Rate 74 Pulse Rate 80 Pulse Rate 67 Pulse Rate 66 Pulse Rate 68 Pulse Rate 83 Respiratory Rate 38 Respiratory Rate 36 Respiratory Rate 27 Respiratory Rate 18 Respiratory Rate 28 Respiratory Rate 23 Respiratory Rate 26 Respiratory Rate 35 Respiratory Rate 24 Blood Pressure 91/55 O2 Sat by Pulse Oximetry 95 O2 Sat by Pulse Oximetry 94 O2 Sat by Pulse Oximetry 96 O2 Sat by Pulse Oximetry 95 O2 Sat by Pulse Oximetry 93 O2 Sat by Pulse Oximetry 92 O2 Sat by Pulse Oximetry 92 O2 Sat by Pulse Oximetry 85 O2 Sat by Pulse Oximetry 95 General General Appearance: Alert and In No Apparent Distress Eyes Eye exam: PERRL and EOMI ENT ENT Exam: Normal Exam, Normal Oropharynx and Mucous Membranes Moist Neck Neck Exam: Normal Inspection and Full ROM Respiratory Respiratory Exam: Other (Decreased breath sounds in the bases); negative Respiratory Distress Cardiovascular Cardiovascular Exam: Regular Rate, Normal Rhythm and Normal Heart Sounds Abdominal Exam Abdominal Exam: Normal Bowel Sounds and Soft; negative Tenderness Extremities Extremities Exam: Normal Inspection and Full ROM; negative Edema Neurologic Neurological Exam: Alert, Oriented X3 and CN II-XII Intact; negative Motor Sensory Deficit Skin Skin Exam: Warm and Dry COURSE Treatment Treatment: 37-year-old male presents with worsening cough, weakness. History of COPD, recently admitted for 2 weeks, discharged on hospice care. Workup initiated. X-ray consistent with right-sided pneumonia with effusion. Respiratory panel positive for RSV. Patient was given IV Solu-Medrol, DuoNeb breathing treatment, IV Rocephin, IV fluids. Will present patient to Dr. Becerra for admission. Accepts the admission. ROR Labs Reviewed Laboratory Results Reviewed?: Yes 09/01/23 11:21 09/01/23 11:21 Laboratory: WBC 15.5 X10^3/uL (3.6-10.0) H 09/01/23 11:21 RBC 4.00 X10^6/uL (4.7-6.0) L 09/01/23 11:21 Hgb 12.6 g/dL (13.5-18.0) L 09/01/23 11:21 Hct 37.6 % (42.0-54.0) L 09/01/23 11:21 MCV 94.0 fL (80.0-100.0) 09/01/23 11:21 MCH 31.5 pg (27.0-34.0) 09/01/23 11:21 MCHC 33.5 g/dL (33.0-35.0) 09/01/23 11:21 RDW 17.6 % (11.6-16.5) H 09/01/23 11:21 Plt Count 330 X10^3/uL (150.0-450.0) 09/01/23 11:21 MPV 7.5 fL (7.4-11.0) 09/01/23 11:21 Neut % (Auto) 73.3 % (42.0-75.0) 09/01/23 11:21 Lymph % (Auto) 10.9 % (21.0-51.0) L 09/01/23 11:21 [place] % (Auto) 13.6 % (0.0-13.0) H 09/01/23 11:21 Eos % (Auto) 1.9 % (0.9-2.9) 09/01/23 11:21 Baso % (Auto) 0.3 % (0.2-1.0) 09/01/23 11:21 Neut # (Auto) 11.3 x10^3/uL (2.2-4.8) H 09/01/23 11:21 Lymph # (Auto) 1.7 X10^3/uL (1.3-2.9) 09/01/23 11:21 [place] # (Auto) 2.1 x10^3/uL (0.3-0.8) H 09/01/23 11:21 Eos # (Auto) 0.3 x10^3/uL (0.0-0.2) H 09/01/23 11:21 Baso # (Auto) 0.0 X10^3/uL (0.0-0.1) 09/01/23 11:21 Absolute Nucleated RBC 0.1 /100WBC 09/01/23 11:21 Sodium 134 mmol/L (136-145) L 09/01/23 11:21 Corrected Sodium TNP 09/01/23 11:21 Potassium 4.4 mmol/L (3.5-5.1) 09/01/23 11:21 Chloride 102 mmol/L (98-107) 09/01/23 11:21 Carbon Dioxide 25.1 mmol/L (21-32) 09/01/23 11:21 BUN 35 mg/dL (7-18) H 09/01/23 11:21 Creatinine 1.04 mg/dL (0.70-1.30) 09/01/23 11:21 Est GFR (MDRD) Af Amer > 60 (>60) 09/01/23 11:21 Est GFR (MDRD) Non-Af > 60 (>60) 09/01/23 11:21 Glucose 79 mg/dL (65-99) 09/01/23 11:21 Lactic Acid 1.0 mmol/L (0.4-2.0) 09/01/23 12:04 Calcium 8.4 mg/dL (8.5-10.1) L 09/01/23 11:21 Corrected Calcium 10.4 mg/dL (8.5-10.1) H 09/01/23 11:21 Total Bilirubin 0.90 mg/dL (0.2-1.0) 09/01/23 11:21 AST 26 Units/L (15-37) 09/01/23 11:21 ALT 32 Units/L (12-78) 09/01/23 11:21 Alkaline Phosphatase 165 Units/L (46-116) H 09/01/23 11:21 Troponin I High Sens 19.1 ng/L (4.0-60.0) 09/01/23 11:21 Total Protein 5.6 g/dL (6.4-8.2) L 09/01/23 11:21 Albumin 1.5 g/dL (3.4-5.0) L 09/01/23 11:21 Globulin 4.1 g/dL (2.5-4.5) 09/01/23 11:21 Albumin/Globulin Ratio 0.4 Ratio (1.1-2.1) L 09/01/23 11:21 SARS-CoV-2 (PCR) Negative (NEGATIVE) 09/01/23 12:13 Influenza Type A (PCR) Negative (NEGATIVE) 09/01/23 12:13 Influenza Type B (PCR) Negative (NEGATIVE) 09/01/23 12:13 RSV (PCR) Positive (NEGATIVE) A 09/01/23 12:13 XRAY XRAY Interpreted by: Self X-ray Results: + R sided infiltrate, with effusion EKG Rate: 70 [place]: Normal Rhythm: NSR and PACs ST: Normal Opioid Opioid Risk Tool Age (Alexander box if 16-45): No History of Preadolescent Sexual Abuse: No Total: 0 Total Score Risk Category: Low Risk Copyright: Adithya JACOBSEN predicting aberrant behaviors Discharge Plan Diagnosis Discharge Problem: Pneumonia, COPD exacerbation, RSV infection Discharge Plan Patient Disposition: 09 ADMITTED INPATIENT Condition: Stable Orders to Discharge Patient Discharge Orders: Transfer (Routine); Ordered 09/01/23 Ordered By: Timoteo Dominguez
[2023-09-01] MEDS ORDERED: SOLU-Medrol 125 MG VIAL IVP ONE (11:39)
[2023-09-01] MEDS ORDERED: SOLU-Medrol 125 MG VIAL ONE (11:45)
[2023-09-01] MEDS ORDERED: NS 250 ML IV 250 ML IV ONE ×2 (11:45→14:17)
[2023-09-01 11:51] LABS: HEMATOCRIT 37.6 % (42.0-54.0); MEAN PLATELET VOLUME 7.5 fL (7.4-11.0)
[2023-09-01 11:55] LABS: BASOPHILS % (AUTO) 0.3 % (0.2-1.0); EOSINOPHILS # (AUTO) 0.3 x10^3/uL (0.0-0.2); EOSINOPHILS % (AUTO) 1.9 % (0.9-2.9); HEMOGLOBIN 12.6 g/dL (13.5-18.0); LYMPHOCYTES # (AUTO) 1.7 X10^3/uL (1.3-2.9); LYMPHOCYTES % (AUTO) 10.9 % (21.0-51.0); MEAN CORPUSCULAR HEMOGLOBIN 31.5 pg (27.0-34.0); MEAN CORPUSCULAR HGB CONC 33.5 g/dL (33.0-35.0); MONOCYTES # (AUTO) 2.1 x10^3/uL (0.3-0.8); MONOCYTES % (AUTO) 13.6 % (0.0-13.0); NEUTROPHILS # (AUTO) 11.3 x10^3/uL (2.2-4.8); NEUTROPHILS % (AUTO) 73.3 % (42.0-75.0); PLATELET COUNT 330 X10^3/uL (150.0-450.0); RED CELL DISTRIBUTION WIDTH 17.6 % (11.6-16.5); WHITE BLOOD COUNT 15.5 X10^3/uL (3.6-10.0)
[2023-09-01] MEDS ORDERED: NS 250 ML IV 250 ML IV SCH (12:00)
[2023-09-01 12:03] LABS: ALANINE AMINOTRANSFERASE 32 Units/L (12-78); ALBUMIN 1.5 g/dL (3.4-5.0); ALKALINE PHOSPHATASE 165 Units/L (46-116); ASPARTATE AMINO TRANSFERASE 26 Units/L (15-37); BLOOD UREA NITROGEN 35 mg/dL (7-18); CALCIUM 8.4 mg/dL (8.5-10.1); CARBON DIOXIDE 25.1 mmol/L (21-32); CHLORIDE 102 mmol/L (98-107); COR CA(FOR HYPOALB) 10.4 mg/dL (8.5-10.1); CREATININE 1.04 mg/dL (0.70-1.30); GLUCOSE 79 mg/dL (65-99); POTASSIUM 4.4 mmol/L (3.5-5.1); SODIUM 134 mmol/L (136-145); TOTAL PROTEIN 5.6 g/dL (6.4-8.2); eGFR NON BLACK RACES > 60 (>60)
--- NOTE | 2023-09-01 12:13 | EKG ---
Test Reason : dyspnea Blood Pressure : */* mmHG Vent. Rate : 70 BPM Atrial Rate : 70 BPM P-R Int : 132 ms QRS Dur : 78 ms QT Int : 460 ms P-R-T Axes : 84 57 52 degrees QTc Int : 496 ms Sinus rhythm with premature supraventricular complexes Prolonged QT Abnormal ECG When compared with ECG of 04-AUG-2023 20:04, QT has shortened Confirmed by Bryan Ramirez MD ([id number]) on 09/03/2023 8:27:58 AM Referred By: Confirmed By: Bryan Ramirez MD
[2023-09-01] MEDS ORDERED: ROCEPHIN VIAL 1 GRAM IVP ONE (12:44)
[2023-09-01] MEDS ORDERED: ROCEPHIN VIAL 1 GRAM ONE (12:47)
[2023-09-01] MEDS ORDERED: ZITHROMAX INJ 500 MG VIAL 500 MG in NS 250 ML IV 250 ML IV SCH ×2 (13:48→15:12)
[2023-09-01] MEDS ORDERED: ZITHROMAX INJ 500 MG VIAL IV ONE (14:17)
[2023-09-01] MEDS ORDERED: TESSALON PERLES PO PRN (15:23)
[2023-09-01 16:51] VITALS: BMI 19.8
[2023-09-01] MEDS: XOPENEX 1.25 MG/3 ML NEBULE NEB SCH ×2 (17:02→23:16)
[2023-09-01] MEDS: ROCEPHIN VIAL 1 GRAM 1 G in NS 100 ML IV 100 ML IV SCH (18:42)
[2023-09-01] MEDS: NS 1,000 ML IV 1,000 ML IV SCH ×2 (18:43→23:34)
[2023-09-01] MEDS ORDERED: PULMICORT NEB TX 0.5 MG NEB ONE (19:33)
[2023-09-01] MEDS: REQUIP PO SCH (20:05)
[2023-09-01] MEDS: LIPITOR TAB 40 MG PO SCH (20:05)
[2023-09-01] MEDS: COREG TAB 12.5 MG PO SCH (20:05)
[2023-09-01] MEDS: NORCO 10/325 TAB PO PRN (20:07)
--- NOTE | 2023-09-01 22:15 | DR.H&P ---
H&P History & Physical for Day of: H&P Date: 09/01/23 Chief Complaint Chief Complaint: Hypoxia with confusion Allergies Allergies Allergy/AdvReac Type Severity Reaction Status Date / Time No Known Drug Allergies Allergy Unknown Verified 03/15/23 10:07 History of Present Illness History of Present Illness: This is a pleasant 77-year-old white male with known to me. He has severe COPD and has recently been in [facility] for COPD exacerbation with pneumonia. He was discharged approximately week and a half ago and had been doing okay until a few days ago. He has been set up with hospice and they have been seen about the patient. They reported that since his office visit with me about 5 days ago he has been in the bed since. He has been very weak and having worsening shortness of breath and dyspnea on exertion. His nurse states that he has become confused this morning and not making a lot of sense when speaking. She had EMS called however he refused to go with the ambulance to [facility]. Instead he elected to be driven to [facility] to go to the emergency department. Workup there discover that he had RSV along with hypoxia. I do not have the chest x-ray report at this time but the ER physician thought that it showed right sided infiltrates. We subsequently admitted him to the floor and started him on IV antibiotics. We also are going to treat him with DuoNebs and IV steroids. The patient does have a elevated white blood cell count of 15,500 and slightly low sodium level. Past Medical History Past Medical History: COPD, Coronary Artery Disease, Dyslipidemia, GERD and Hypertension Past Surgical History Surgical History: Other Family History Family Medical History: Diabetes Mellitus, Cancer, [place] and Hypertension Social History Does patient currently use any type of tobacco product: No Have you used tobacco products in the last 12 months: No Type of Tobacco Use: None Alcohol Use: None Drug Use: Prescription Drugs Medications Home Medications: Home Medications Medication Instructions Recorded Confirmed Type atorvastatin 40 mg tablet 40 mg PO HS 08/04/23 09/01/23 History benzonatate 200 mg capsule 200 mg PO TID PRN 08/04/23 09/01/23 History carvedilol 12.5 mg tablet 12.5 mg PO BID 08/04/23 09/01/23 History citalopram 20 mg tablet 20 mg PO QDAY 08/04/23 09/01/23 History pantoprazole 40 mg tablet,delayed 40 mg PO DAILY 08/04/23 09/01/23 History release ramipril 1.25 mg capsule 1.25 mg PO QDAY blood pressure 08/04/23 09/01/23 History ropinirole 0.25 mg tablet 0.25 mg PO HS 08/04/23 09/01/23 History hydrocodone 10 mg-acetaminophen 1 tab PO Q6H PRN pain 09/01/23 09/01/23 History 325 mg tablet Labs 09/01/23 11:21 09/01/23 11:21 Labs: Laboratory WBC 15.5 X10^3/uL (3.6-10.0) H 09/01/23 11:21 RBC 4.00 X10^6/uL (4.7-6.0) L 09/01/23 11:21 Hgb 12.6 g/dL (13.5-18.0) L 09/01/23 11:21 Hct 37.6 % (42.0-54.0) L 09/01/23 11:21 MCV 94.0 fL (80.0-100.0) 09/01/23 11:21 MCH 31.5 pg (27.0-34.0) 09/01/23 11:21 MCHC 33.5 g/dL (33.0-35.0) 09/01/23 11:21 RDW 17.6 % (11.6-16.5) H 09/01/23 11:21 Plt Count 330 X10^3/uL (150.0-450.0) 09/01/23 11:21 MPV 7.5 fL (7.4-11.0) 09/01/23 11:21 Neut % (Auto) 73.3 % (42.0-75.0) 09/01/23 11:21 Lymph % (Auto) 10.9 % (21.0-51.0) L 09/01/23 11:21 [place] % (Auto) 13.6 % (0.0-13.0) H 09/01/23 11:21 Eos % (Auto) 1.9 % (0.9-2.9) 09/01/23 11:21 Baso % (Auto) 0.3 % (0.2-1.0) 09/01/23 11:21 Neut # (Auto) 11.3 x10^3/uL (2.2-4.8) H 09/01/23 11:21 Lymph # (Auto) 1.7 X10^3/uL (1.3-2.9) 09/01/23 11:21 [place] # (Auto) 2.1 x10^3/uL (0.3-0.8) H 09/01/23 11:21 Eos # (Auto) 0.3 x10^3/uL (0.0-0.2) H 09/01/23 11:21 Baso # (Auto) 0.0 X10^3/uL (0.0-0.1) 09/01/23 11:21 Absolute Nucleated RBC 0.1 /100WBC 09/01/23 11:21 Sodium 134 mmol/L (136-145) L 09/01/23 11:21 Corrected Sodium TNP 09/01/23 11:21 Potassium 4.4 mmol/L (3.5-5.1) 09/01/23 11:21 Chloride 102 mmol/L (98-107) 09/01/23 11:21 Carbon Dioxide 25.1 mmol/L (21-32) 09/01/23 11:21 BUN 35 mg/dL (7-18) H 09/01/23 11:21 Creatinine 1.04 mg/dL (0.70-1.30) 09/01/23 11:21 Est GFR (MDRD) Af Amer > 60 (>60) 09/01/23 11:21 Est GFR (MDRD) Non-Af > 60 (>60) 09/01/23 11:21 Glucose 79 mg/dL (65-99) 09/01/23 11:21 Lactic Acid 1.0 mmol/L (0.4-2.0) 09/01/23 12:04 Calcium 8.4 mg/dL (8.5-10.1) L 09/01/23 11:21 Corrected Calcium 10.4 mg/dL (8.5-10.1) H 09/01/23 11:21 Total Bilirubin 0.90 mg/dL (0.2-1.0) 09/01/23 11:21 AST 26 Units/L (15-37) 09/01/23 11:21 ALT 32 Units/L (12-78) 09/01/23 11:21 Alkaline Phosphatase 165 Units/L (46-116) H 09/01/23 11:21 Troponin I High Sens 19.1 ng/L (4.0-60.0) 09/01/23 11:21 Total Protein 5.6 g/dL (6.4-8.2) L 09/01/23 11:21 Albumin 1.5 g/dL (3.4-5.0) L 09/01/23 11:21 Globulin 4.1 g/dL (2.5-4.5) 09/01/23 11:21 Albumin/Globulin Ratio 0.4 Ratio (1.1-2.1) L 09/01/23 11:21 SARS-CoV-2 (PCR) Negative (NEGATIVE) 09/01/23 12:13 Influenza Type A (PCR) Negative (NEGATIVE) 09/01/23 12:13 Influenza Type B (PCR) Negative (NEGATIVE) 09/01/23 12:13 RSV (PCR) Positive (NEGATIVE) A 09/01/23 12:13 Review of Systems Constitutional: Weakness and Malaise Eyes: No Symptoms Reported ENT: No Symptoms Reported Respiratory: Cough, Shortness of Breath, SOB with Excertion, Sputum and Wheezing Cardiovascular: No Symptoms Reported Gastrointestinal: No Symptoms Reported Genitourinary: No Symptoms Reported Musculoskeletal: No Symptoms Reported Skin: No Symptoms Reported Neurological: No Symptoms Reported Physical Exam Vital Signs: Vital Signs Temperature 97.8 F Temperature 97.5 F Pulse Rate [Brachial] 91 Pulse Rate [Brachial] 75 Pulse Rate 65 Respiratory Rate 22 Respiratory Rate 22 Respiratory Rate 20 Respiratory Rate 24 Blood Pressure [Right Arm] 100/60 Blood Pressure [Right Arm] 97/33 O2 Sat by Pulse Oximetry 94 O2 Sat by Pulse Oximetry 94 O2 Sat by Pulse Oximetry 93 Oriented: Normal, Time, Person and Place Eyes: Normal Ear: Normal Nose: Normal Throat: Normal Respiratory: Diminished Throughout and Rhonchi Throughout Cardiovascular: Normal Auscultation: Bowel Sounds: Normal Palpation: Normal Tenderness: Normal Skin: Normal Musculoskeletal: Normal Psychiatric: Normal Mood Description: Calm Affect: Normal Speech Pattern: Clear and Appropriate Assessment/Plan (1) RSV infection: Status: Acute Plan: IV Solu-Medrol. (2) COPD exacerbation: Status: Acute Plan: IV Solu-Medrol, jet nebs and IV antibiotics. (3) Pneumonia: Status: Acute Plan: IV Rocephin and azithromycin. (4) Hypertension: Qualifiers: Hypertension type: primary hypertension Qualified Code(s): I10 - Essential (primary) hypertension Status: Chronic Plan: Monitor daily blood pressures and treat accordingly. (5) Chronic low back pain: Qualifiers: Sciatica presence: without sciatica Status: Chronic Plan: Continue patient's hydrocodone for pain control. Review H&P Reviewed: Yes Patient was examined?: Yes
[2023-09-01] MEDS: PULMICORT NEB TX 0.5 MG NEB SCH (23:16)
--- NOTE | 2023-09-02 00:49 | RAD ---
EXAM:CHEST, 1 VIEWHISTORY:SOB; COPDCOMPARISON:Chest one view from 08/20/2023.FINDINGS:SUPPORT DEVICES: An implanted loop recorder is again seen overlying the proximal descending thoracic aorta.HEART/MEDIASTINUM: Stable.LUNGS: Increased bilateral airspace opacities are noted with a larger right pleural effusion. No pneumothorax.ADDITIONAL FINDINGS: None.IMPRESSION:Suspected bilateral evolving pneumonia with a larger right pleural effusion.THIS IS AN ELECTRONICALLY VERIFIED FINAL [id number]/02/2023 12:45 AM - Electronically signed by Jordon Hickman MD
[2023-09-02 06:46] LABS: BASOPHILS % (AUTO) 0.1 % (0.2-1.0); HEMATOCRIT 34.6 % (42.0-54.0); HEMOGLOBIN 11.6 g/dL (13.5-18.0); LYMPHOCYTES # (AUTO) 1.2 X10^3/uL (1.3-2.9); LYMPHOCYTES % (AUTO) 9.2 % (21.0-51.0); MEAN CORPUSCULAR HGB CONC 33.6 g/dL (33.0-35.0); MEAN CORPUSCULAR VOLUME 92.4 fL (80.0-100.0); MEAN PLATELET VOLUME 7.8 fL (7.4-11.0); MONOCYTES # (AUTO) 0.8 x10^3/uL (0.3-0.8); MONOCYTES % (AUTO) 6.3 % (0.0-13.0); NEUTROPHILS # (AUTO) 10.6 x10^3/uL (2.2-4.8); NEUTROPHILS % (AUTO) 84.4 % (42.0-75.0); PLATELET COUNT 297 X10^3/uL (150.0-450.0); RED BLOOD COUNT 3.74 X10^6/uL (4.7-6.0); RED CELL DISTRIBUTION WIDTH 18.1 % (11.6-16.5); WHITE BLOOD COUNT 12.6 X10^3/uL (3.6-10.0)
[2023-09-02 06:48] LABS: ALANINE AMINOTRANSFERASE 25 Units/L (12-78); ALBUMIN 1.4 g/dL (3.4-5.0); ALKALINE PHOSPHATASE 152 Units/L (46-116); ASPARTATE AMINO TRANSFERASE 21 Units/L (15-37); BLOOD UREA NITROGEN 34 mg/dL (7-18); CALCIUM 8.3 mg/dL (8.5-10.1); CARBON DIOXIDE 25.6 mmol/L (21-32); CHLORIDE 104 mmol/L (98-107); COR CA(FOR HYPOALB) 10.4 mg/dL (8.5-10.1); CREATININE 0.85 mg/dL (0.70-1.30); GLUCOSE 106 mg/dL (65-99); POTASSIUM 4.1 mmol/L (3.5-5.1); SODIUM 135 mmol/L (136-145); TOTAL PROTEIN 5.4 g/dL (6.4-8.2); eGFR NON BLACK RACES > 60 (>60)
[2023-09-02] MEDS: CELEXA PO SCH (08:50)
[2023-09-02] MEDS: PROTONIX TAB 40 MG PO SCH (08:50)
[2023-09-02] MEDS: NS 1,000 ML IV 1,000 ML IV SCH ×2 (08:50→18:45)
[2023-09-02] MEDS: COREG TAB 12.5 MG PO SCH ×2 (08:50→20:37)
[2023-09-02] MEDS: ROCEPHIN VIAL 1 GRAM 1 G in NS 100 ML IV 100 ML IV SCH (08:51)
[2023-09-02] MEDS: PATIENT'S HOME MEDICATION PO SCH ×2 (09:04→20:37)
[2023-09-02] MEDS: XOPENEX 1.25 MG/3 ML NEBULE NEB SCH ×4 (09:33→20:54)
[2023-09-02] MEDS: PULMICORT NEB TX 0.5 MG NEB SCH ×2 (09:33→20:53)
[2023-09-02] MEDS: LEVAQUIN PREMIX IV 750 MG 750 MG/150 ML BAG IV SCH (11:00)
[2023-09-02] MEDS: LOVENOX INJ 40 MG SYR SC SCH (13:56)
[2023-09-02] MEDS: LIPITOR TAB 40 MG PO SCH (20:37)
[2023-09-02] MEDS: REQUIP PO SCH (20:37)
[2023-09-02] MEDS: SOLU-Medrol 125 MG VIAL IVP SCH (20:38)
[2023-09-02] MEDS: MORPHINE SULFATE INJ 4 MG IVP PRN (21:36)
--- NOTE | 2023-09-02 22:13 | PCM.PROG ---
Progress Note Progress Note for Day of Date of Exam: 09/02/23 Subjective Subjective: The patient is resting comfortably this morning. He seems to be more alert and less confused today than yesterday. His AIT results came back and he has grown out Enterobacter cloacae, Pseudomonas aeruginosa, Klebsiella Reginald Nease, Klebsiella pneumonia a and Klebsiella oxytoca. These organisms so they have multidrug-resistant to most antibiotics however they were all sensitive to leandro quinolones. It shows good activity with levofloxacin against these organisms. We will discontinue his azithromycin as it shows resistance to it as well. We will start him on levofloxacin 750 mg IV daily. I will also start him on Solu-Medrol 80 mg IV every 12 hours because he is RSV positive and he is also having a COPD exacerbation secondary to these infections. His white blood cell count is improved today as he is down to 12,600. His hemoglobin remained stable at 11.6. We will plan on repeating CBC, CMP and portable chest x-ray again tomorrow. Past Medical Family Social History Allergies: Allergies No Known Drug Allergies Allergy (Unknown, Verified 03/15/23 10:07) Onset Date: 06/23/2022 Review of Systems ROS: No change since H&P Vital Signs and I&O's Vital Signs: Vital Signs Temperature 98.1 F Temperature 98.1 F Pulse Rate [Brachial] 108 Pulse Rate [Brachial] 88 Pulse Rate 82 Respiratory Rate 20 Respiratory Rate 19 Respiratory Rate 20 Blood Pressure [Right Arm] 119/63 Blood Pressure [Right Arm] 119/57 O2 Sat by Pulse Oximetry 90 O2 Sat by Pulse Oximetry 94 O2 Sat by Pulse Oximetry 91 Intake and Output: Intake & Output 08/31/23 09/01/23 09/02/23 09/03/23 11:59 11:59 11:59 11:59 Intake Total 1601 / 1601 640 / 640 Output Total 600 / 600 300 / 300 Balance 1001 / 1001 340 / 340 Physical Exam Oriented: Normal, Time, Person and Place Eyes: Normal Ear: Normal Nose: Normal Throat: Normal Respiratory: Right, Generalized, Diminished, Rales and Rhonchi Cardiovascular: Normal Auscultation: Bowel Sounds: Normal Tenderness: Normal Skin: Normal Musculoskeletal: Normal Psychiatric: Normal Mood Description: Calm Affect: Normal Speech Pattern: Clear and Appropriate Laboratory and Diagnostics 09/02/23 05:19 09/02/23 05:19 Labs: Laboratory WBC 12.6 X10^3/uL (3.6-10.0) H 09/02/23 05:19 RBC 3.74 X10^6/uL (4.7-6.0) L 09/02/23 05:19 Hgb 11.6 g/dL (13.5-18.0) L 09/02/23 05:19 Hct 34.6 % (42.0-54.0) L 09/02/23 05:19 MCV 92.4 fL (80.0-100.0) 09/02/23 05:19 MCH 31.0 pg (27.0-34.0) 09/02/23 05:19 MCHC 33.6 g/dL (33.0-35.0) 09/02/23 05:19 RDW 18.1 % (11.6-16.5) H 09/02/23 05:19 Plt Count 297 X10^3/uL (150.0-450.0) 09/02/23 05:19 MPV 7.8 fL (7.4-11.0) 09/02/23 05:19 Neut % (Auto) 84.4 % (42.0-75.0) H 09/02/23 05:19 Lymph % (Auto) 9.2 % (21.0-51.0) L 09/02/23 05:19 [place] % (Auto) 6.3 % (0.0-13.0) 09/02/23 05:19 Eos % (Auto) 0.0 % (0.9-2.9) L 09/02/23 05:19 Baso % (Auto) 0.1 % (0.2-1.0) L 09/02/23 05:19 Neut # (Auto) 10.6 x10^3/uL (2.2-4.8) H 09/02/23 05:19 Lymph # (Auto) 1.2 X10^3/uL (1.3-2.9) L 09/02/23 05:19 [place] # (Auto) 0.8 x10^3/uL (0.3-0.8) 09/02/23 05:19 Eos # (Auto) 0.0 x10^3/uL (0.0-0.2) 09/02/23 05:19 Baso # (Auto) 0.0 X10^3/uL (0.0-0.1) 09/02/23 05:19 Absolute Nucleated RBC 0.2 /100WBC 09/02/23 05:19 Sodium 135 mmol/L (136-145) L 09/02/23 05:19 Corrected Sodium TNP 09/02/23 05:19 Potassium 4.1 mmol/L (3.5-5.1) 09/02/23 05:19 Chloride 104 mmol/L (98-107) 09/02/23 05:19 Carbon Dioxide 25.6 mmol/L (21-32) 09/02/23 05:19 BUN 34 mg/dL (7-18) H 09/02/23 05:19 Creatinine 0.85 mg/dL (0.70-1.30) 09/02/23 05:19 Est GFR (MDRD) Af Amer > 60 (>60) 09/02/23 05:19 Est GFR (MDRD) Non-Af > 60 (>60) 09/02/23 05:19 Glucose 106 mg/dL (65-99) H 09/02/23 05:19 Lactic Acid 1.0 mmol/L (0.4-2.0) 09/01/23 12:04 Calcium 8.3 mg/dL (8.5-10.1) L 09/02/23 05:19 Corrected Calcium 10.4 mg/dL (8.5-10.1) H 09/02/23 05:19 Total Bilirubin 0.40 mg/dL (0.2-1.0) 09/02/23 05:19 AST 21 Units/L (15-37) 09/02/23 05:19 ALT 25 Units/L (12-78) 09/02/23 05:19 Alkaline Phosphatase 152 Units/L (46-116) H 09/02/23 05:19 Troponin I High Sens 19.1 ng/L (4.0-60.0) 09/01/23 11:21 Total Protein 5.4 g/dL (6.4-8.2) L 09/02/23 05:19 Albumin 1.4 g/dL (3.4-5.0) L 09/02/23 05:19 Globulin 4.0 g/dL (2.5-4.5) 09/02/23 05:19 Albumin/Globulin Ratio 0.4 Ratio (1.1-2.1) L 09/02/23 05:19 SARS-CoV-2 (PCR) Negative (NEGATIVE) 09/01/23 12:13 Influenza Type A (PCR) Negative (NEGATIVE) 09/01/23 12:13 Influenza Type B (PCR) Negative (NEGATIVE) 09/01/23 12:13 RSV (PCR) Positive (NEGATIVE) A 09/01/23 12:13 Resp Viral Panel (PCR) See scanned report 09/01/23 14:47 Radiology Reviewed: Yes Plan (1) RSV infection: Status: Acute Plan: IV Solu-Medrol, DuoNeb breathing treatments and IV antibiotics secondary to underlying pneumonia. (2) COPD exacerbation: Status: Acute Plan: IV Solu-Medrol, jet nebs and IV antibiotics. (3) Pneumonia: Status: Acute Narrative Support Text: Positive sputum culture for multiple organisms consisting of Enterobacter cloa , Klebsiella species and Pseudomonas aeruginosa. These organisms are sensitive to levofloxacin. Plan: Discontinue azithromycin and start levofloxacin 750 mg IV daily and continue his Rocephin 1 g IV daily. (4) Hypertension: Status: Chronic Qualifiers: Hypertension type: primary hypertension Qualified Code(s): I10 - Essential (primary) hypertension Plan: Monitor daily blood pressures and treat accordingly. (5) Chronic low back pain: Status: Chronic Qualifiers: Sciatica presence: without sciatica Narrative Support Text: The patient is requesting something stronger for pain as his back is continuing to hurt him from lying in bed so much recently. Plan: Continue patient's hydrocodone for pain control. Since the patient said his pain is not controlled adequately I will add as needed IV morphine sul fate.
[2023-09-03] MEDS: MORPHINE SULFATE INJ 4 MG IVP PRN ×5 (00:45→20:44)
[2023-09-03] MEDS: NS 1,000 ML IV 1,000 ML IV SCH ×4 (01:26→16:36)
[2023-09-03] MEDS: NORCO 10/325 TAB PO PRN (01:47)
[2023-09-03 06:36] LABS: BASOPHILS % (AUTO) 0 % (0.2-1.0); HEMATOCRIT 30.4 % (42.0-54.0); HEMOGLOBIN 10.4 g/dL (13.5-18.0); LYMPHOCYTES # (AUTO) 0.7 X10^3/uL (1.3-2.9); LYMPHOCYTES % (AUTO) 7.3 % (21.0-51.0); MEAN CORPUSCULAR HEMOGLOBIN 31.8 pg (27.0-34.0); MEAN CORPUSCULAR HGB CONC 34.1 g/dL (33.0-35.0); MEAN CORPUSCULAR VOLUME 93.4 fL (80.0-100.0); MEAN PLATELET VOLUME 7.6 fL (7.4-11.0); MONOCYTES # (AUTO) 0.3 x10^3/uL (0.3-0.8); MONOCYTES % (AUTO) 3.6 % (0.0-13.0); NEUTROPHILS # (AUTO) 8.4 x10^3/uL (2.2-4.8); NEUTROPHILS % (AUTO) 89.1 % (42.0-75.0); PLATELET COUNT 247 X10^3/uL (150.0-450.0); RED BLOOD COUNT 3.26 X10^6/uL (4.7-6.0); RED CELL DISTRIBUTION WIDTH 18.3 % (11.6-16.5); WHITE BLOOD COUNT 9.4 X10^3/uL (3.6-10.0)
[2023-09-03 06:44] LABS: ALANINE AMINOTRANSFERASE 24 Units/L (12-78); ALBUMIN 1.4 g/dL (3.4-5.0); ALKALINE PHOSPHATASE 133 Units/L (46-116); ASPARTATE AMINO TRANSFERASE 21 Units/L (15-37); BLOOD UREA NITROGEN 32 mg/dL (7-18); CALCIUM 8.1 mg/dL (8.5-10.1); CARBON DIOXIDE 25.5 mmol/L (21-32); CHLORIDE 105 mmol/L (98-107); COR CA(FOR HYPOALB) 10.2 mg/dL (8.5-10.1); CREATININE 0.68 mg/dL (0.70-1.30); GLUCOSE 105 mg/dL (65-99); MAGNESIUM 1.8 mg/dL (2.0-2.9); POTASSIUM 4.3 mmol/L (3.5-5.1); SODIUM 135 mmol/L (136-145); TOTAL PROTEIN 4.9 g/dL (6.4-8.2); eGFR NON BLACK RACES > 60 (>60)
[2023-09-03] MEDS ORDERED: CONSULT PHARMACY - POTASSIUM & MAGNESIUM XX SCH (07:00)
--- NOTE | 2023-09-03 07:39 | RAD ---
EXAM:CHEST, 1 VIEWHISTORY:RSV/PNEUMONIA, RIGHT SIDED PLEURAL EFFUSION;COMPARISON:09/01/2023.TECHNIQUE: .br.br.br.br contours appear stable compared to prior. Similar-appearing right worse than left lung airspace and interstitial opacities. Moderate right pleural effusion. No pneumothorax. Background of COPD.IMPRESSION:No significant change compared to prior radiograph. COPD with superimposed pneumonia. Recommend follow-up to document resolution.THIS IS AN ELECTRONICALLY VERIFIED FINAL [id number]/03/2023 7:36 AM - Electronically signed by Keo Hernandez MD
[2023-09-03] MEDS ORDERED: MAG-OX TAB PO ONE (09:00)
[2023-09-03] MEDS: COREG TAB 12.5 MG PO SCH ×2 (09:10→20:43)
[2023-09-03] MEDS: PROTONIX TAB 40 MG PO SCH (09:10)
[2023-09-03] MEDS: CELEXA PO SCH (09:10)
[2023-09-03] MEDS: LOVENOX INJ 40 MG SYR SC SCH (09:11)
[2023-09-03] MEDS: ROCEPHIN VIAL 1 GRAM 1 G in NS 100 ML IV 100 ML IV SCH (09:11)
[2023-09-03] MEDS: SOLU-Medrol 125 MG VIAL IVP SCH ×2 (09:11→20:43)
[2023-09-03] MEDS: PATIENT'S HOME MEDICATION PO SCH ×2 (09:18→20:43)
[2023-09-03] MEDS: PULMICORT NEB TX 0.5 MG NEB SCH ×2 (09:19→20:40)
[2023-09-03] MEDS: XOPENEX 1.25 MG/3 ML NEBULE NEB SCH ×4 (09:19→20:40)
[2023-09-03] MEDS: LEVAQUIN PREMIX IV 750 MG 750 MG/150 ML BAG IV SCH (10:58)
--- NOTE | 2023-09-03 13:11 | PCM.PROG ---
Progress Note Progress Note for Day of Date of Exam: 09/03/23 Subjective Subjective: The patient is resting comfortably this morning. He is feeling better today compared to yesterday. His AIT results came back, and the results showed Enterobacter cloacae, Pseudomonas aeruginosa, Klebsiella aerogenes, Klebsiella pneumonia, and Klebsiella oxytoca. These organisms are multidrug- resistant to most antibiotics. However, they were all sensitive to fluoroquinolones. It shows good activity with levofloxacin against these organisms. We will stop his azithromycin as it shows resistance to it as well. We will start him on levofloxacin 750 mg IV daily. I will also start him on Solu-Medrol 80 mg IV every 12 hours because he is RSV positive and he is also having a COPD exacerbation secondary to these infections. His white blood cell count has normalized today and is 9400. His chest x-ray shows worsening of his right-sided pneumonia and he has a moderate size right-sided pleural effusion still. He has been afebrile overnight and his current O2 sat is 98% on 4 L nasal cannula. He is at his normal baseline for his O2 sat at 4 L nasal cannula O2 supplementation. Since the patient is RSV positive he does not want to expose his neighbors daughter because she is the one who would have to pick him up and take him home. She takes care of a young girl and has to watch her all the time and would have to travel with her to pick him up from the hospital. The patient should be ready for discharge home after this weekend. Past Medical Family Social History Allergies: Allergies No Known Drug Allergies Allergy (Unknown, Verified 03/15/23 10:07) Onset Date: 06/23/2022 Review of Systems ROS: No change since H&P Vital Signs and I&O's Vital Signs: Vital Signs Pulse Rate 87 Respiratory Rate 19 Respiratory Rate 20 O2 Sat by Pulse Oximetry 98 Intake and Output: Intake & Output 09/01/23 09/02/23 09/03/23 09/04/23 11:59 11:59 11:59 11:59 Intake Total 1601 / 1601 3407 / 3407 Output Total 600 / 600 600 / 600 Balance 1001 / 1001 2807 / 2807 Physical Exam Oriented: Normal, Time, Person and Place Eyes: Normal Ear: Normal Nose: Normal Throat: Normal Respiratory: Right, Generalized, Diminished, Rales and Rhonchi Cardiovascular: Normal Auscultation: Bowel Sounds: Normal Tenderness: Normal Skin: Normal Musculoskeletal: Normal Psychiatric: Normal Mood Description: Calm Affect: Normal Speech Pattern: Clear and Appropriate Laboratory and Diagnostics 09/03/23 05:49 09/03/23 05:49 Labs: 09/01/23 12:04 Blood Blood Culture - Preliminary 09/01/23 11:55 Blood Blood Culture - Preliminary Laboratory WBC 9.4 X10^3/uL (3.6-10.0) 09/03/23 05:49 RBC 3.26 X10^6/uL (4.7-6.0) L 09/03/23 05:49 Hgb 10.4 g/dL (13.5-18.0) L 09/03/23 05:49 Hct 30.4 % (42.0-54.0) L 09/03/23 05:49 MCV 93.4 fL (80.0-100.0) 09/03/23 05:49 MCH 31.8 pg (27.0-34.0) 09/03/23 05:49 MCHC 34.1 g/dL (33.0-35.0) 09/03/23 05:49 RDW 18.3 % (11.6-16.5) H 09/03/23 05:49 Plt Count 247 X10^3/uL (150.0-450.0) 09/03/23 05:49 MPV 7.6 fL (7.4-11.0) 09/03/23 05:49 Neut % (Auto) 89.1 % (42.0-75.0) H 09/03/23 05:49 Lymph % (Auto) 7.3 % (21.0-51.0) L 09/03/23 05:49 [place] % (Auto) 3.6 % (0.0-13.0) 09/03/23 05:49 Eos % (Auto) 0.0 % (0.9-2.9) L 09/03/23 05:49 Baso % (Auto) 0 % (0.2-1.0) L 09/03/23 05:49 Neut # (Auto) 8.4 x10^3/uL (2.2-4.8) H 09/03/23 05:49 Lymph # (Auto) 0.7 X10^3/uL (1.3-2.9) L 09/03/23 05:49 [place] # (Auto) 0.3 x10^3/uL (0.3-0.8) 09/03/23 05:49 Eos # (Auto) 0.0 x10^3/uL (0.0-0.2) 09/03/23 05:49 Baso # (Auto) 0.0 X10^3/uL (0.0-0.1) 09/03/23 05:49 Absolute Nucleated RBC 0.1 /100WBC 09/03/23 05:49 Sodium 135 mmol/L (136-145) L 09/03/23 05:49 Corrected Sodium TNP 09/03/23 05:49 Potassium 4.3 mmol/L (3.5-5.1) 09/03/23 05:49 Chloride 105 mmol/L (98-107) 09/03/23 05:49 Carbon Dioxide 25.5 mmol/L (21-32) 09/03/23 05:49 BUN 32 mg/dL (7-18) H 09/03/23 05:49 Creatinine 0.68 mg/dL (0.70-1.30) L 09/03/23 05:49 Est GFR (MDRD) Af Amer > 60 (>60) 09/03/23 05:49 Est GFR (MDRD) Non-Af > 60 (>60) 09/03/23 05:49 Glucose 105 mg/dL (65-99) H 09/03/23 05:49 Lactic Acid 1.0 mmol/L (0.4-2.0) 09/01/23 12:04 Calcium 8.1 mg/dL (8.5-10.1) L 09/03/23 05:49 Corrected Calcium 10.2 mg/dL (8.5-10.1) H 09/03/23 05:49 Magnesium 1.8 mg/dL (2.0-2.9) L 09/03/23 05:49 Total Bilirubin 0.40 mg/dL (0.2-1.0) 09/03/23 05:49 AST 21 Units/L (15-37) 09/03/23 05:49 ALT 24 Units/L (12-78) 09/03/23 05:49 Alkaline Phosphatase 133 Units/L (46-116) H 09/03/23 05:49 Troponin I High Sens 19.1 ng/L (4.0-60.0) 09/01/23 11:21 Total Protein 4.9 g/dL (6.4-8.2) L 09/03/23 05:49 Albumin 1.4 g/dL (3.4-5.0) L 09/03/23 05:49 Globulin 3.5 g/dL (2.5-4.5) 09/03/23 05:49 Albumin/Globulin Ratio 0.4 Ratio (1.1-2.1) L 09/03/23 05:49 SARS-CoV-2 (PCR) Negative (NEGATIVE) 09/01/23 12:13 Influenza Type A (PCR) Negative (NEGATIVE) 09/01/23 12:13 Influenza Type B (PCR) Negative (NEGATIVE) 09/01/23 12:13 RSV (PCR) Positive (NEGATIVE) A 09/01/23 12:13 Resp Viral Panel (PCR) See scanned report 09/01/23 14:47 Plan (1) RSV infection: Status: Acute Plan: IV Solu-Medrol, DuoNeb breathing treatments and IV antibiotics secondary to underlying pneumonia. (2) COPD exacerbation: Status: Acute Plan: IV Solu-Medrol, jet nebs and IV antibiotics. (3) Pneumonia: Status: Acute Narrative Support Text: The patient's pneumonia is secondary to Enterobacter cloacae, Klebsiella aeroge efrain, Klebsiella pneumoniae, Klebsiella oxytoca and Pseudomonas aeruginosa. Plan: Discontinue azithromycin and start levofloxacin 750 mg IV daily and continue his Rocephin 1 g IV daily. (4) Hypertension: Status: Chronic Qualifiers: Hypertension type: primary hypertension Qualified Code(s): I10 - Essential (primary) hypertension Plan: Monitor daily blood pressures and treat accordingly. (5) Chronic low back pain: Status: Chronic Qualifiers: Sciatica presence: without sciatica Plan: Continue patient's hydrocodone for pain control. Since the patient said his pain is not controlled adequately I will add as needed IV morphine sulfate.
[2023-09-03] MEDS: MAG-OX TAB PO SCH (20:42)
[2023-09-03] MEDS: REQUIP PO SCH (20:43)
[2023-09-03] MEDS: LIPITOR TAB 40 MG PO SCH (20:43)
[2023-09-04] MEDS: NS 1,000 ML IV 1,000 ML IV SCH ×5 (01:05→23:50)
[2023-09-04 06:36] LABS: BASOPHILS % (AUTO) 0.1 % (0.2-1.0); HEMATOCRIT 25.7 % (42.0-54.0); HEMOGLOBIN 8.9 g/dL (13.5-18.0); LYMPHOCYTES # (AUTO) 0.6 X10^3/uL (1.3-2.9); MEAN CORPUSCULAR HEMOGLOBIN 32.2 pg (27.0-34.0); MEAN CORPUSCULAR HGB CONC 34.7 g/dL (33.0-35.0); MEAN CORPUSCULAR VOLUME 92.8 fL (80.0-100.0); MEAN PLATELET VOLUME 7.5 fL (7.4-11.0); MONOCYTES # (AUTO) 0.5 x10^3/uL (0.3-0.8); NEUTROPHILS # (AUTO) 5.4 x10^3/uL (2.2-4.8); NEUTROPHILS % (AUTO) 82.9 % (42.0-75.0); PLATELET COUNT 200 X10^3/uL (150.0-450.0); RED BLOOD COUNT 2.77 X10^6/uL (4.7-6.0); RED CELL DISTRIBUTION WIDTH 17.5 % (11.6-16.5); WHITE BLOOD COUNT 6.5 X10^3/uL (3.6-10.0)
[2023-09-04 06:54] LABS: ALANINE AMINOTRANSFERASE 24 Units/L (12-78); ALBUMIN 1.3 g/dL (3.4-5.0); ALKALINE PHOSPHATASE 118 Units/L (46-116); ASPARTATE AMINO TRANSFERASE 24 Units/L (15-37); BLOOD UREA NITROGEN 28 mg/dL (7-18); CALCIUM 7.9 mg/dL (8.5-10.1); CARBON DIOXIDE 26.4 mmol/L (21-32); CHLORIDE 108 mmol/L (98-107); COR CA(FOR HYPOALB) 10.1 mg/dL (8.5-10.1); GLUCOSE 101 mg/dL (65-99); POTASSIUM 3.8 mmol/L (3.5-5.1); SODIUM 139 mmol/L (136-145); TOTAL PROTEIN 4.5 g/dL (6.4-8.2); eGFR NON BLACK RACES > 60 (>60)
[2023-09-04] MEDS ORDERED: CONSULT PHARMACY - POTASSIUM & MAGNESIUM XX SCH (08:00)
[2023-09-04] MEDS: PULMICORT NEB TX 0.5 MG NEB SCH ×3 (08:37→20:48)
[2023-09-04] MEDS: XOPENEX 1.25 MG/3 ML NEBULE NEB SCH ×5 (08:37→20:48)
[2023-09-04] MEDS: CELEXA PO SCH (08:47)
[2023-09-04] MEDS: MAG-OX TAB PO SCH ×2 (08:47→20:34)
[2023-09-04] MEDS: PROTONIX TAB 40 MG PO SCH (08:47)
[2023-09-04] MEDS: PATIENT'S HOME MEDICATION PO SCH ×2 (08:47→20:49)
[2023-09-04] MEDS: COREG TAB 12.5 MG PO SCH ×2 (08:47→20:34)
[2023-09-04] MEDS: LOVENOX INJ 40 MG SYR SC SCH (08:48)
[2023-09-04] MEDS: LEVAQUIN PREMIX IV 750 MG 750 MG/150 ML BAG IV SCH (08:48)
[2023-09-04] MEDS: SOLU-Medrol 125 MG VIAL IVP SCH ×2 (08:48→20:34)
[2023-09-04] MEDS: MORPHINE SULFATE INJ 4 MG IVP PRN ×3 (08:55→20:49)
[2023-09-04] MEDS ORDERED: K-DUR TAB 20 MEQ PO SCH (09:00)
--- NOTE | 2023-09-04 10:14 | RAD ---
EXAM:AP chestHISTORY:Infiltrate pleural effusionCOMPARISON:09/03/2023FINDINGS:Th ere is no change in appearance of heart or lungs. Similar extent and distribution of asymmetric infiltrates, right greater than left with large right pleural effusion.IMPRESSION:No change since 1 day prior.THIS IS AN ELECTRONICALLY VERIFIED FINAL [id number]/04/2023 10:10 AM - Electronically signed by Kneney Dejesus MD
[2023-09-04] MEDS: ROCEPHIN VIAL 1 GRAM 1 G in NS 100 ML IV 100 ML IV SCH (11:15)
[2023-09-04] MEDS ORDERED: XOPENEX 1.25 MG/3 ML NEBULE NEB ONE (18:57)
[2023-09-04] MEDS: REQUIP PO SCH (20:34)
[2023-09-04] MEDS: LIPITOR TAB 40 MG PO SCH (20:34)
[2023-09-05] MEDS: MORPHINE SULFATE INJ 4 MG IVP PRN ×5 (00:02→15:55)
[2023-09-05] MEDS: XOPENEX 1.25 MG/3 ML NEBULE NEB SCH ×6 (00:05→20:40)
[2023-09-05] MEDS: NS 1,000 ML IV 1,000 ML IV SCH ×4 (00:16→19:31)
[2023-09-05 06:19] LABS: BASOPHILS % (AUTO) 0.1 % (0.2-1.0); HEMATOCRIT 28.2 % (42.0-54.0); HEMOGLOBIN 9.7 g/dL (13.5-18.0); LYMPHOCYTES # (AUTO) 0.4 X10^3/uL (1.3-2.9); LYMPHOCYTES % (AUTO) 5.9 % (21.0-51.0); MEAN CORPUSCULAR HEMOGLOBIN 32.3 pg (27.0-34.0); MEAN CORPUSCULAR HGB CONC 34.5 g/dL (33.0-35.0); MEAN CORPUSCULAR VOLUME 93.5 fL (80.0-100.0); MEAN PLATELET VOLUME 7.6 fL (7.4-11.0); MONOCYTES # (AUTO) 0.6 x10^3/uL (0.3-0.8); MONOCYTES % (AUTO) 8.3 % (0.0-13.0); NEUTROPHILS # (AUTO) 6.5 x10^3/uL (2.2-4.8); NEUTROPHILS % (AUTO) 85.7 % (42.0-75.0); PLATELET COUNT 223 X10^3/uL (150.0-450.0); RED BLOOD COUNT 3.01 X10^6/uL (4.7-6.0); RED CELL DISTRIBUTION WIDTH 17.8 % (11.6-16.5); WHITE BLOOD COUNT 7.6 X10^3/uL (3.6-10.0)
[2023-09-05 06:28] LABS: ALANINE AMINOTRANSFERASE 43 Units/L (12-78); ALBUMIN 1.5 g/dL (3.4-5.0); ALKALINE PHOSPHATASE 155 Units/L (46-116); ASPARTATE AMINO TRANSFERASE 46 Units/L (15-37); BLOOD UREA NITROGEN 31 mg/dL (7-18); CARBON DIOXIDE 26.6 mmol/L (21-32); CHLORIDE 109 mmol/L (98-107); GLUCOSE 102 mg/dL (65-99); POTASSIUM 4.6 mmol/L (3.5-5.1); SODIUM 140 mmol/L (136-145); eGFR NON BLACK RACES > 60 (>60)
[2023-09-05] MEDS: LEVAQUIN PREMIX IV 750 MG 750 MG/150 ML BAG IV SCH (08:31)
[2023-09-05] MEDS: PULMICORT NEB TX 0.5 MG NEB SCH ×2 (09:00→20:40)
[2023-09-05] MEDS: CELEXA PO SCH (09:04)
[2023-09-05] MEDS: COREG TAB 12.5 MG PO SCH ×2 (09:04→21:44)
[2023-09-05] MEDS: MAG-OX TAB PO SCH ×2 (09:04→21:44)
[2023-09-05] MEDS: PATIENT'S HOME MEDICATION PO SCH ×2 (09:04→21:45)
[2023-09-05] MEDS: PROTONIX TAB 40 MG PO SCH (09:04)
[2023-09-05] MEDS: LOVENOX INJ 40 MG SYR SC SCH (09:05)
[2023-09-05] MEDS: SOLU-Medrol 125 MG VIAL IVP SCH ×2 (09:05→21:44)
[2023-09-05] MEDS: ROCEPHIN VIAL 1 GRAM 1 G in NS 100 ML IV 100 ML IV SCH (10:59)
[2023-09-05] MEDS: ROBITUSSIN DM PO SCH ×3 (14:00→21:44)
[2023-09-05] MEDS ORDERED: LASIX IVP ONE (14:00)
[2023-09-05] MEDS ORDERED: RESTORIL CAP 15 MG PO PRN (21:27)
[2023-09-05] MEDS: REQUIP PO SCH (21:44)
[2023-09-05] MEDS: LIPITOR TAB 40 MG PO SCH (21:44)
[2023-09-06] MEDS: XOPENEX 1.25 MG/3 ML NEBULE NEB SCH ×7 (00:15→20:30)
[2023-09-06] MEDS: NS 1,000 ML IV 1,000 ML IV SCH ×3 (05:45→18:27)
[2023-09-06 06:23] LABS: BASOPHILS % (AUTO) 0 % (0.2-1.0); HEMATOCRIT 25.7 % (42.0-54.0); HEMOGLOBIN 8.8 g/dL (13.5-18.0); LYMPHOCYTES # (AUTO) 0.4 X10^3/uL (1.3-2.9); LYMPHOCYTES % (AUTO) 5.7 % (21.0-51.0); MEAN CORPUSCULAR HEMOGLOBIN 32.1 pg (27.0-34.0); MEAN CORPUSCULAR HGB CONC 34.3 g/dL (33.0-35.0); MEAN CORPUSCULAR VOLUME 93.5 fL (80.0-100.0); MEAN PLATELET VOLUME 7.4 fL (7.4-11.0); MONOCYTES # (AUTO) 0.3 x10^3/uL (0.3-0.8); MONOCYTES % (AUTO) 5.3 % (0.0-13.0); NEUTROPHILS # (AUTO) 5.5 x10^3/uL (2.2-4.8); PLATELET COUNT 188 X10^3/uL (150.0-450.0); RED BLOOD COUNT 2.75 X10^6/uL (4.7-6.0); RED CELL DISTRIBUTION WIDTH 17.5 % (11.6-16.5); WHITE BLOOD COUNT 6.2 X10^3/uL (3.6-10.0)
[2023-09-06 06:37] LABS: ALANINE AMINOTRANSFERASE 66 Units/L (12-78); ALBUMIN 1.3 g/dL (3.4-5.0); ALKALINE PHOSPHATASE 132 Units/L (46-116); ASPARTATE AMINO TRANSFERASE 76 Units/L (15-37); BLOOD UREA NITROGEN 30 mg/dL (7-18); CALCIUM 7.7 mg/dL (8.5-10.1); CARBON DIOXIDE 26.8 mmol/L (21-32); CHLORIDE 108 mmol/L (98-107); COR CA(FOR HYPOALB) 9.9 mg/dL (8.5-10.1); CREATININE 0.55 mg/dL (0.70-1.30); GLUCOSE 102 mg/dL (65-99); POTASSIUM 3.6 mmol/L (3.5-5.1); SODIUM 139 mmol/L (136-145); TOTAL PROTEIN 4.3 g/dL (6.4-8.2); eGFR NON BLACK RACES > 60 (>60)
[2023-09-06] MEDS ORDERED: CONSULT PHARMACY - POTASSIUM & MAGNESIUM XX SCH (07:00)
[2023-09-06] MEDS ORDERED: K-DUR TAB 20 MEQ PO SCH (09:00)
--- NOTE | 2023-09-06 09:03 | RAD ---
EXAM:Portable AP chestHISTORY:Pneumonia COPDCOMPARISON:09/04/2023FINDINGS:Heart size remains normal. There is no change in appearance of the asymmetric infiltrates, right greater than left with significant right pleural effusion. No new abnormality or interval improvement is noted.IMPRESSION:No change since recent similar.THIS IS AN ELECTRONICALLY VERIFIED FINAL REPORT09/06/2023 8:59 AM - Electronically signed by Kenney Dejesus MD
[2023-09-06] MEDS: PROTONIX TAB 40 MG PO SCH (09:04)
[2023-09-06] MEDS: ROBITUSSIN DM PO SCH ×4 (09:04→21:29)
[2023-09-06] MEDS: MAG-OX TAB PO SCH ×2 (09:04→21:30)
[2023-09-06] MEDS: COREG TAB 12.5 MG PO SCH ×2 (09:04→21:30)
[2023-09-06] MEDS: LEVAQUIN PREMIX IV 750 MG 750 MG/150 ML BAG IV SCH (09:04)
[2023-09-06] MEDS: ROCEPHIN VIAL 1 GRAM 1 G in NS 100 ML IV 100 ML IV SCH (09:04)
[2023-09-06] MEDS: PATIENT'S HOME MEDICATION PO SCH ×2 (09:04→21:42)
[2023-09-06] MEDS: PULMICORT NEB TX 0.5 MG NEB SCH ×2 (09:09→20:30)
[2023-09-06] MEDS: CELEXA PO SCH (10:03)
[2023-09-06] MEDS: LOVENOX INJ 40 MG SYR SC SCH (10:13)
[2023-09-06] MEDS: SOLU-Medrol 125 MG VIAL IVP SCH ×2 (10:40→22:03)
[2023-09-06] MEDS: K-DUR TAB 20 MEQ PO SCH ×2 (11:51→21:42)
[2023-09-06] MEDS: MORPHINE SULFATE INJ 4 MG IVP PRN ×2 (16:15→22:00)
[2023-09-06] MEDS: LASIX IVP SCH (17:56)
[2023-09-06] MEDS: LIPITOR TAB 40 MG PO SCH (21:31)
[2023-09-06] MEDS: REQUIP PO SCH (22:05)
[2023-09-07] MEDS: NS 1,000 ML IV 1,000 ML IV SCH ×2 (00:29→04:01)
[2023-09-07] MEDS: XOPENEX 1.25 MG/3 ML NEBULE NEB SCH ×6 (00:30→20:05)
[2023-09-07 06:32] LABS: BASOPHILS % (AUTO) 0.1 % (0.2-1.0); HEMATOCRIT 28.4 % (42.0-54.0); HEMOGLOBIN 9.6 g/dL (13.5-18.0); LYMPHOCYTES # (AUTO) 0.4 X10^3/uL (1.3-2.9); LYMPHOCYTES % (AUTO) 4.8 % (21.0-51.0); MEAN CORPUSCULAR HEMOGLOBIN 31.8 pg (27.0-34.0); MEAN CORPUSCULAR HGB CONC 33.9 g/dL (33.0-35.0); MEAN CORPUSCULAR VOLUME 93.7 fL (80.0-100.0); MEAN PLATELET VOLUME 7.5 fL (7.4-11.0); MONOCYTES # (AUTO) 0.3 x10^3/uL (0.3-0.8); MONOCYTES % (AUTO) 4.3 % (0.0-13.0); NEUTROPHILS % (AUTO) 90.8 % (42.0-75.0); PLATELET COUNT 222 X10^3/uL (150.0-450.0); RED BLOOD COUNT 3.03 X10^6/uL (4.7-6.0); RED CELL DISTRIBUTION WIDTH 17.8 % (11.6-16.5); WHITE BLOOD COUNT 7.7 X10^3/uL (3.6-10.0)
[2023-09-07 06:42] LABS: ALANINE AMINOTRANSFERASE 90 Units/L (12-78); ALBUMIN 1.5 g/dL (3.4-5.0); ALKALINE PHOSPHATASE 141 Units/L (46-116); ASPARTATE AMINO TRANSFERASE 75 Units/L (15-37); BLOOD UREA NITROGEN 28 mg/dL (7-18); CALCIUM 7.9 mg/dL (8.5-10.1); CARBON DIOXIDE 29.4 mmol/L (21-32); CHLORIDE 107 mmol/L (98-107); COR CA(FOR HYPOALB) 9.9 mg/dL (8.5-10.1); COR NA(FOR HYPERGLY) 138 mmol/L (136-145); CREATININE 0.58 mg/dL (0.70-1.30); GLUCOSE 120 mg/dL (65-99); POTASSIUM 3.8 mmol/L (3.5-5.1); SODIUM 138 mmol/L (136-145); TOTAL PROTEIN 4.6 g/dL (6.4-8.2); eGFR NON BLACK RACES > 60 (>60)
[2023-09-07 07:15] LABS: ANISOCYTOSIS SLIGHT; PLATELET MORPHOLOGY COMMENT NORMAL (NORMAL)
[2023-09-07] MEDS: PULMICORT NEB TX 0.5 MG NEB SCH ×2 (09:10→20:05)
[2023-09-07] MEDS: LASIX IVP SCH (09:18)
[2023-09-07] MEDS: MORPHINE SULFATE INJ 4 MG IVP PRN ×2 (09:19→21:33)
[2023-09-07] MEDS: SOLU-Medrol 125 MG VIAL IVP SCH ×2 (09:19→20:56)
[2023-09-07] MEDS: ROCEPHIN VIAL 1 GRAM 1 G in NS 100 ML IV 100 ML IV SCH (09:20)
[2023-09-07] MEDS: CELEXA PO SCH (09:24)
[2023-09-07] MEDS: PROTONIX TAB 40 MG PO SCH (09:24)
[2023-09-07] MEDS: MAG-OX TAB PO SCH ×2 (09:24→20:53)
[2023-09-07] MEDS: ROBITUSSIN DM PO SCH ×4 (09:24→20:55)
[2023-09-07] MEDS: COREG TAB 12.5 MG PO SCH ×2 (09:25→20:53)
[2023-09-07] MEDS: LOVENOX INJ 40 MG SYR SC SCH (09:25)
[2023-09-07] MEDS: PATIENT'S HOME MEDICATION PO SCH ×2 (09:26→22:30)
[2023-09-07] MEDS: LEVAQUIN PREMIX IV 750 MG 750 MG/150 ML BAG IV SCH (09:30)
[2023-09-07] MEDS: LIPITOR TAB 40 MG PO SCH (20:54)
[2023-09-07] MEDS: REQUIP PO SCH (20:55)
[2023-09-08] MEDS: NS 1,000 ML IV 1,000 ML IV SCH ×4 (00:07→16:06)
[2023-09-08] MEDS: XOPENEX 1.25 MG/3 ML NEBULE NEB SCH ×6 (00:18→21:00)
[2023-09-08 06:57] LABS: BASOPHILS % (AUTO) 0.1 % (0.2-1.0); HEMATOCRIT 29.4 % (42.0-54.0); LYMPHOCYTES # (AUTO) 0.5 X10^3/uL (1.3-2.9); LYMPHOCYTES % (AUTO) 4.9 % (21.0-51.0); MEAN CORPUSCULAR HEMOGLOBIN 31.9 pg (27.0-34.0); MEAN PLATELET VOLUME 7.4 fL (7.4-11.0); MONOCYTES % (AUTO) 9.2 % (0.0-13.0); NEUTROPHILS % (AUTO) 85.8 % (42.0-75.0); PLATELET COUNT 229 X10^3/uL (150.0-450.0); RED BLOOD COUNT 3.13 X10^6/uL (4.7-6.0); WHITE BLOOD COUNT 10.5 X10^3/uL (3.6-10.0)
[2023-09-08 07:30] LABS: ALANINE AMINOTRANSFERASE 132 Units/L (12-78); ALBUMIN 1.4 g/dL (3.4-5.0); ALKALINE PHOSPHATASE 138 Units/L (46-116); ASPARTATE AMINO TRANSFERASE 107 Units/L (15-37); BLOOD UREA NITROGEN 28 mg/dL (7-18); CALCIUM 7.7 mg/dL (8.5-10.1); CHLORIDE 104 mmol/L (98-107); COR CA(FOR HYPOALB) 9.8 mg/dL (8.5-10.1); GLUCOSE 92 mg/dL (65-99); POTASSIUM 3.8 mmol/L (3.5-5.1); SODIUM 136 mmol/L (136-145); TOTAL PROTEIN 4.7 g/dL (6.4-8.2); eGFR NON BLACK RACES > 60 (>60)
[2023-09-08] MEDS ORDERED: CONSULT PHARMACY - POTASSIUM & MAGNESIUM XX SCH (09:00)
[2023-09-08] MEDS ORDERED: K-DUR TAB 20 MEQ PO SCH (09:00)
[2023-09-08] MEDS: PULMICORT NEB TX 0.5 MG NEB SCH ×2 (09:26→21:00)
--- NOTE | 2023-09-08 09:38 | PCM.PROG ---
Progress Note Progress Note for Day of Date of Exam: 09/07/23 Subjective Subjective: Patient is a 78-year-old male admitted for pneumonia. His AIT results came back, and the results showed Enterobacter cloacae, Pseudomonas aeruginosa, Klebsiella aerogenes, Klebsiella pneumonia, and Klebsiella oxytoca. He is currently receiving levofloxacin 750 mg IV daily, Solu-Medrol 80 mg IV every 12 hours because he is RSV positive and he is also having a COPD exacerbation secondary to these infections. This morning he reports some improvement in his symptoms. Labs/imaging: WBC 7.7, hemoglobin 9.6, platelets 222, sodium 138, potassium 3.8, creatinine 0.58, glucose 120. He is at his normal baseline for his O2 sat at 4 L nasal cannula O2 supplementation. Will continue with current treatment plan today. Continue closely monitor and follow-up labs/imaging. Past Medical Family Social History Allergies: Allergies No Known Drug Allergies Allergy (Unknown, Verified 03/15/23 10:07) Onset Date: 06/23/2022 Review of Systems ROS changes noted: see HPI Vital Signs and I&O's Vital Signs: Vital Signs Temperature 98.2 F Pulse Rate [Brachial] 79 Respiratory Rate 20 Blood Pressure [Left Arm] 120/76 O2 Sat by Pulse Oximetry 96 Intake and Output: Intake & Output 09/05/23 09/06/23 09/07/23 09/08/23 23:59 23:59 23:59 23:59 Intake Total 3829 / 3829 1949 / 1949 2894 / 2894 549 / 549 Output Total 950 / 950 350 / 350 2700 / 2700 220 / 220 Balance 2879 / 2879 1599 / 1599 194 / 194 329 / 329 Physical Exam Oriented: Normal, Time, Person and Place Eyes: Normal Ear: Normal Nose: Normal Throat: Normal Respiratory: Generalized and Diminished Cardiovascular: Normal Auscultation: Bowel Sounds: Normal Tenderness: Normal Skin: Normal Musculoskeletal: Normal Psychiatric: Normal Mood Description: Calm Affect: Normal Speech Pattern: Clear and Appropriate Laboratory and Diagnostics 09/08/23 06:04 09/08/23 06:04 Labs: 09/01/23 12:04 Blood Blood Culture - Final 09/01/23 11:55 Blood Blood Culture - Final Laboratory WBC 10.5 X10^3/uL (3.6-10.0) H 09/08/23 06:04 RBC 3.13 X10^6/uL (4.7-6.0) L 09/08/23 06:04 Hgb 10.0 g/dL (13.5-18.0) L 09/08/23 06:04 Hct 29.4 % (42.0-54.0) L 09/08/23 06:04 MCV 94.0 fL (80.0-100.0) 09/08/23 06:04 MCH 31.9 pg (27.0-34.0) 09/08/23 06:04 MCHC 34.0 g/dL (33.0-35.0) 09/08/23 06:04 RDW 18.0 % (11.6-16.5) H 09/08/23 06:04 Plt Count 229 X10^3/uL (150.0-450.0) 09/08/23 06:04 Plt Count Comment Adequate (ADEQUATE) 09/07/23 05:21 MPV 7.4 fL (7.4-11.0) 09/08/23 06:04 Neut % (Auto) 85.8 % (42.0-75.0) H 09/08/23 06:04 Lymph % (Auto) 4.9 % (21.0-51.0) L 09/08/23 06:04 [place] % (Auto) 9.2 % (0.0-13.0) 09/08/23 06:04 Eos % (Auto) 0.0 % (0.9-2.9) L 09/08/23 06:04 Baso % (Auto) 0.1 % (0.2-1.0) L 09/08/23 06:04 Neut # (Auto) 9.0 x10^3/uL (2.2-4.8) H 09/08/23 06:04 Lymph # (Auto) 0.5 X10^3/uL (1.3-2.9) L 09/08/23 06:04 [place] # (Auto) 1.0 x10^3/uL (0.3-0.8) H 09/08/23 06:04 Eos # (Auto) 0.0 x10^3/uL (0.0-0.2) 09/08/23 06:04 Baso # (Auto) 0.0 X10^3/uL (0.0-0.1) 09/08/23 06:04 Absolute Nucleated RBC 0.0 /100WBC 09/08/23 06:04 Total Counted 100 09/07/23 05:21 Neutrophils % (Manual) 84 % (39-76) H 09/07/23 05:21 Lymphocytes % (Manual) 12 % (13-43) L 09/07/23 05:21 Monocytes % (Manual) 4 % (4-9) 09/07/23 05:21 Plt Morphology Comment Normal (NORMAL) 09/07/23 05:21 RBC Morphology Abnormal (NORMAL) 09/07/23 05:21 Anisocytosis Slight A 09/07/23 05:21 Sodium 136 mmol/L (136-145) 09/08/23 06:04 Corrected Sodium TNP 09/08/23 06:04 Potassium 3.8 mmol/L (3.5-5.1) 09/08/23 06:04 Chloride 104 mmol/L (98-107) 09/08/23 06:04 Carbon Dioxide 28.0 mmol/L (21-32) 09/08/23 06:04 BUN 28 mg/dL (7-18) H 09/08/23 06:04 Creatinine 0.50 mg/dL (0.70-1.30) L 09/08/23 06:04 Est GFR (MDRD) Af Amer > 60 (>60) 09/08/23 06:04 Est GFR (MDRD) Non-Af > 60 (>60) 09/08/23 06:04 Glucose 92 mg/dL (65-99) 09/08/23 06:04 Lactic Acid 1.0 mmol/L (0.4-2.0) 09/01/23 12:04 Calcium 7.7 mg/dL (8.5-10.1) L 09/08/23 06:04 Corrected Calcium 9.8 mg/dL (8.5-10.1) 09/08/23 06:04 Magnesium 2.0 mg/dL (2.0-2.9) 09/06/23 05:30 Total Bilirubin 0.40 mg/dL (0.2-1.0) 09/08/23 06:04 AST 107 Units/L (15-37) H 09/08/23 06:04 ALT 132 Units/L (12-78) H 09/08/23 06:04 Alkaline Phosphatase 138 Units/L (46-116) H 09/08/23 06:04 Troponin I High Sens 19.1 ng/L (4.0-60.0) 09/01/23 11:21 Total Protein 4.7 g/dL (6.4-8.2) L 09/08/23 06:04 Albumin 1.4 g/dL (3.4-5.0) L 09/08/23 06:04 Globulin 3.3 g/dL (2.5-4.5) 09/08/23 06:04 Albumin/Globulin Ratio 0.4 Ratio (1.1-2.1) L 09/08/23 06:04 SARS-CoV-2 (PCR) Negative (NEGATIVE) 09/01/23 12:13 Influenza Type A (PCR) Negative (NEGATIVE) 09/01/23 12:13 Influenza Type B (PCR) Negative (NEGATIVE) 09/01/23 12:13 RSV (PCR) Positive (NEGATIVE) A 09/01/23 12:13 Resp Viral Panel (PCR) See scanned report 09/01/23 14:47 Plan (1) RSV infection: Status: Acute Plan: IV Solu-Medrol, DuoNeb breathing treatments and IV antibiotics secondary to underlying pneumonia. (2) COPD exacerbation: Status: Acute Plan: IV Solu-Medrol, jet nebs and IV antibiotics. (3) Pneumonia: Status: Acute Plan: levofloxacin 750 mg IV daily and continue his Rocephin 1 g IV daily. (4) Hypertension: Status: Chronic Qualifiers: Hypertension type: primary hypertension Qualified Code(s): I10 - Essential (primary) hypertension Plan: Monitor daily blood pressures and treat accordingly. (5) Chronic low back pain: Status: Chronic Qualifiers: Sciatica presence: without sciatica Plan: Continue patient's hydrocodone for pain control. Since the patient said his pain is not controlled adequately I will add as needed IV morphine sulfate.
--- NOTE | 2023-09-08 09:41 | PCM.PROG ---
Progress Note Progress Note for Day of Date of Exam: 09/08/23 Subjective Subjective: Patient is a 78-year-old male admitted for pneumonia. His AIT results came back, and the results showed Enterobacter cloacae, Pseudomonas aeruginosa, Klebsiella aerogenes, Klebsiella pneumonia, and Klebsiella oxytoca. He is currently receiving levofloxacin 750 mg IV daily, Solu-Medrol 80 mg IV every 12 hours because he is RSV positive and he is also having a COPD exacerbation secondary to these infections. This morning he appears to be doing well and has had improvement in his symptoms. No acute events overnight. Labs/imaging: WBC 10.5, hemoglobin 10, platelets 229, sodium 136, potassium 3.8, creatinine 0.50, glucose 92. He is at his normal baseline for his O2 sat at 4 L nasal cannula O2 supplementation. Will decrease his Solu-Medrol today. Otherwise, will continue with current treatment plan today. Anticipate for possible discharge tomorrow. Continue closely monitor and follow-up labs/imaging. Past Medical Family Social History Allergies: Allergies No Known Drug Allergies Allergy (Unknown, Verified 03/15/23 10:07) Onset Date: 06/23/2022 Review of Systems ROS changes noted: see HPI Vital Signs and I&O's Vital Signs: Vital Signs Temperature 98.2 F Pulse Rate [Brachial] 79 Respiratory Rate 20 Blood Pressure [Left Arm] 120/76 O2 Sat by Pulse Oximetry 96 Intake and Output: Intake & Output 09/05/23 09/06/23 09/07/23 09/08/23 23:59 23:59 23:59 23:59 Intake Total 3829 / 3829 1949 / 1949 2894 / 2894 549 / 549 Output Total 950 / 950 350 / 350 2700 / 2700 220 / 220 Balance 2879 / 2879 1599 / 1599 194 / 194 329 / 329 Physical Exam Oriented: Normal, Time, Person and Place Eyes: Normal Ear: Normal Nose: Normal Throat: Normal Respiratory: Generalized and Diminished Cardiovascular: Normal Auscultation: Bowel Sounds: Normal Tenderness: Normal Skin: Normal Musculoskeletal: Normal Psychiatric: Normal Mood Description: Calm Affect: Normal Speech Pattern: Clear and Appropriate Laboratory and Diagnostics 09/08/23 06:04 09/08/23 06:04 Labs: 09/01/23 12:04 Blood Blood Culture - Final 09/01/23 11:55 Blood Blood Culture - Final Laboratory WBC 10.5 X10^3/uL (3.6-10.0) H 09/08/23 06:04 RBC 3.13 X10^6/uL (4.7-6.0) L 09/08/23 06:04 Hgb 10.0 g/dL (13.5-18.0) L 09/08/23 06:04 Hct 29.4 % (42.0-54.0) L 09/08/23 06:04 MCV 94.0 fL (80.0-100.0) 09/08/23 06:04 MCH 31.9 pg (27.0-34.0) 09/08/23 06:04 MCHC 34.0 g/dL (33.0-35.0) 09/08/23 06:04 RDW 18.0 % (11.6-16.5) H 09/08/23 06:04 Plt Count 229 X10^3/uL (150.0-450.0) 09/08/23 06:04 Plt Count Comment Adequate (ADEQUATE) 09/07/23 05:21 MPV 7.4 fL (7.4-11.0) 09/08/23 06:04 Neut % (Auto) 85.8 % (42.0-75.0) H 09/08/23 06:04 Lymph % (Auto) 4.9 % (21.0-51.0) L 09/08/23 06:04 [place] % (Auto) 9.2 % (0.0-13.0) 09/08/23 06:04 Eos % (Auto) 0.0 % (0.9-2.9) L 09/08/23 06:04 Baso % (Auto) 0.1 % (0.2-1.0) L 09/08/23 06:04 Neut # (Auto) 9.0 x10^3/uL (2.2-4.8) H 09/08/23 06:04 Lymph # (Auto) 0.5 X10^3/uL (1.3-2.9) L 09/08/23 06:04 [place] # (Auto) 1.0 x10^3/uL (0.3-0.8) H 09/08/23 06:04 Eos # (Auto) 0.0 x10^3/uL (0.0-0.2) 09/08/23 06:04 Baso # (Auto) 0.0 X10^3/uL (0.0-0.1) 09/08/23 06:04 Absolute Nucleated RBC 0.0 /100WBC 09/08/23 06:04 Total Counted 100 09/07/23 05:21 Neutrophils % (Manual) 84 % (39-76) H 09/07/23 05:21 Lymphocytes % (Manual) 12 % (13-43) L 09/07/23 05:21 Monocytes % (Manual) 4 % (4-9) 09/07/23 05:21 Plt Morphology Comment Normal (NORMAL) 09/07/23 05:21 RBC Morphology Abnormal (NORMAL) 09/07/23 05:21 Anisocytosis Slight A 09/07/23 05:21 Sodium 136 mmol/L (136-145) 09/08/23 06:04 Corrected Sodium TNP 09/08/23 06:04 Potassium 3.8 mmol/L (3.5-5.1) 09/08/23 06:04 Chloride 104 mmol/L (98-107) 09/08/23 06:04 Carbon Dioxide 28.0 mmol/L (21-32) 09/08/23 06:04 BUN 28 mg/dL (7-18) H 09/08/23 06:04 Creatinine 0.50 mg/dL (0.70-1.30) L 09/08/23 06:04 Est GFR (MDRD) Af Amer > 60 (>60) 09/08/23 06:04 Est GFR (MDRD) Non-Af > 60 (>60) 09/08/23 06:04 Glucose 92 mg/dL (65-99) 09/08/23 06:04 Lactic Acid 1.0 mmol/L (0.4-2.0) 09/01/23 12:04 Calcium 7.7 mg/dL (8.5-10.1) L 09/08/23 06:04 Corrected Calcium 9.8 mg/dL (8.5-10.1) 09/08/23 06:04 Magnesium 2.0 mg/dL (2.0-2.9) 09/06/23 05:30 Total Bilirubin 0.40 mg/dL (0.2-1.0) 09/08/23 06:04 AST 107 Units/L (15-37) H 09/08/23 06:04 ALT 132 Units/L (12-78) H 09/08/23 06:04 Alkaline Phosphatase 138 Units/L (46-116) H 09/08/23 06:04 Troponin I High Sens 19.1 ng/L (4.0-60.0) 09/01/23 11:21 Total Protein 4.7 g/dL (6.4-8.2) L 09/08/23 06:04 Albumin 1.4 g/dL (3.4-5.0) L 09/08/23 06:04 Globulin 3.3 g/dL (2.5-4.5) 09/08/23 06:04 Albumin/Globulin Ratio 0.4 Ratio (1.1-2.1) L 09/08/23 06:04 SARS-CoV-2 (PCR) Negative (NEGATIVE) 09/01/23 12:13 Influenza Type A (PCR) Negative (NEGATIVE) 09/01/23 12:13 Influenza Type B (PCR) Negative (NEGATIVE) 09/01/23 12:13 RSV (PCR) Positive (NEGATIVE) A 09/01/23 12:13 Resp Viral Panel (PCR) See scanned report 09/01/23 14:47 Plan (1) RSV infection: Status: Acute Plan: IV Solu-Medrol, DuoNeb breathing treatments and IV antibiotics secondary to underlying pneumonia. (2) COPD exacerbation: Status: Acute Plan: IV Solu-Medrol, jet nebs and IV antibiotics. (3) Pneumonia: Status: Acute Plan: levofloxacin 750 mg IV daily and continue his Rocephin 1 g IV daily. (4) Hypertension: Status: Chronic Qualifiers: Hypertension type: primary hypertension Qualified Code(s): I10 - Essential (primary) hypertension Plan: Monitor daily blood pressures and treat accordingly. (5) Chronic low back pain: Status: Chronic Qualifiers: Sciatica presence: without sciatica Plan: Continue patient's hydrocodone for pain control. Since the patient said his pain is not controlled adequately I will add as needed IV morphine sulfate.
[2023-09-08] MEDS: PROTONIX TAB 40 MG PO SCH (10:07)
[2023-09-08] MEDS: MAG-OX TAB PO SCH ×2 (10:07→22:25)
[2023-09-08] MEDS: COREG TAB 12.5 MG PO SCH ×2 (10:07→22:23)
[2023-09-08] MEDS: LOVENOX INJ 40 MG SYR SC SCH (10:08)
[2023-09-08] MEDS: PATIENT'S HOME MEDICATION PO SCH ×2 (10:08→22:26)
[2023-09-08] MEDS: SOLU-Medrol 125 MG VIAL IVP SCH ×2 (10:08→22:26)
[2023-09-08] MEDS: ROCEPHIN VIAL 1 GRAM 1 G in NS 100 ML IV 100 ML IV SCH (10:08)
[2023-09-08] MEDS: CELEXA PO SCH (10:08)
[2023-09-08] MEDS: ROBITUSSIN DM PO SCH ×5 (10:08→22:36)
[2023-09-08] MEDS: MORPHINE SULFATE INJ 4 MG IVP PRN ×2 (10:30→22:26)
[2023-09-08] MEDS: LEVAQUIN PREMIX IV 750 MG 750 MG/150 ML BAG IV SCH (10:57)
--- NOTE | 2023-09-08 15:08 | RAD ---
EXAM:CHEST x-ray, 1 VIEWHISTORY:F/U PNEUMONIA; -COMPARISON:X-ray 09/06/2023FINDINGS:There is persistent opacity in the right lung base probably a combination of pleural fluid with atelectasis or pneumonia. Other infiltrates are seen throughout both lungs, unchanged. Heart size is obscured. No left pleural effusion is seen. No pneumothorax is seen.IMPRESSION:Appearance of the chest is unchanged.THIS IS AN ELECTRONICALLY VERIFIED FINAL REPORT09/08/2023 3:05 PM - Electronically signed by Eyal Choe MD
[2023-09-08] MEDS: REQUIP PO SCH (22:24)
[2023-09-08] MEDS: LIPITOR TAB 40 MG PO SCH (22:24)
[2023-09-09] MEDS: XOPENEX 1.25 MG/3 ML NEBULE NEB SCH ×3 (00:30→08:48)
[2023-09-09] MEDS: NS 1,000 ML IV 1,000 ML IV SCH ×3 (00:46→07:33)
[2023-09-09 06:28] LABS: BASOPHILS % (AUTO) 0.1 % (0.2-1.0); HEMATOCRIT 30.3 % (42.0-54.0); HEMOGLOBIN 10.4 g/dL (13.5-18.0); LYMPHOCYTES # (AUTO) 0.6 X10^3/uL (1.3-2.9); LYMPHOCYTES % (AUTO) 5.9 % (21.0-51.0); MEAN CORPUSCULAR HEMOGLOBIN 32.1 pg (27.0-34.0); MEAN CORPUSCULAR HGB CONC 34.4 g/dL (33.0-35.0); MEAN CORPUSCULAR VOLUME 93.3 fL (80.0-100.0); MEAN PLATELET VOLUME 7.3 fL (7.4-11.0); MONOCYTES # (AUTO) 0.7 x10^3/uL (0.3-0.8); MONOCYTES % (AUTO) 6.6 % (0.0-13.0); NEUTROPHILS % (AUTO) 87.4 % (42.0-75.0); PLATELET COUNT 224 X10^3/uL (150.0-450.0); RED BLOOD COUNT 3.25 X10^6/uL (4.7-6.0); RED CELL DISTRIBUTION WIDTH 18.3 % (11.6-16.5); WHITE BLOOD COUNT 10.3 X10^3/uL (3.6-10.0)
[2023-09-09 06:40] LABS: ALANINE AMINOTRANSFERASE 157 Units/L (12-78); ALBUMIN 1.5 g/dL (3.4-5.0); ALKALINE PHOSPHATASE 145 Units/L (46-116); ASPARTATE AMINO TRANSFERASE 92 Units/L (15-37); BLOOD UREA NITROGEN 22 mg/dL (7-18); CALCIUM 7.8 mg/dL (8.5-10.1); CARBON DIOXIDE 32.6 mmol/L (21-32); CHLORIDE 102 mmol/L (98-107); COR CA(FOR HYPOALB) 9.8 mg/dL (8.5-10.1); CREATININE 0.57 mg/dL (0.70-1.30); GLUCOSE 85 mg/dL (65-99); POTASSIUM 4.3 mmol/L (3.5-5.1); SODIUM 138 mmol/L (136-145); TOTAL PROTEIN 4.7 g/dL (6.4-8.2); eGFR NON BLACK RACES > 60 (>60)
[2023-09-09 07:14] LABS: ANISOCYTOSIS SLIGHT; PLATELET MORPHOLOGY COMMENT NORMAL (NORMAL); SMUDGE CELLS SLIGHT
[2023-09-09] MEDS: PULMICORT NEB TX 0.5 MG NEB SCH (08:48)
[2023-09-09] MEDS: CELEXA PO SCH (10:25)
[2023-09-09] MEDS: PROTONIX TAB 40 MG PO SCH (10:25)
[2023-09-09] MEDS: PATIENT'S HOME MEDICATION PO SCH (10:25)
[2023-09-09] MEDS: ROBITUSSIN DM PO SCH ×2 (10:25→13:52)
[2023-09-09] MEDS: COREG TAB 12.5 MG PO SCH (10:25)
[2023-09-09] MEDS: MAG-OX TAB PO SCH (10:25)
[2023-09-09] MEDS: LOVENOX INJ 40 MG SYR SC SCH (10:26)
[2023-09-09] MEDS: SOLU-Medrol 125 MG VIAL IVP SCH (11:26)
[2023-09-09] MEDS: ROCEPHIN VIAL 1 GRAM 1 G in NS 100 ML IV 100 ML IV SCH (11:27)
[2023-09-09] MEDS: LEVAQUIN PREMIX IV 750 MG 750 MG/150 ML BAG IV SCH (12:15)
[2023-09-09 15:01] VITALS: BP 116/70; PULSE 66; RESP 24; TEMP 98.3; O2SAT 98
== END 2023-09-09 15:35 | DRG 194 ==
LOC: ER 11:10 → MED/SURG 13:52
PROVIDERS: ADMIT Family Medicine; ATTEND Family Medicine

== ENCOUNTER 2023-09-12 17:57 | Inpatient (IN) ==
--- NOTE | 2023-09-12 18:11 | DR.SOBA ---
HPI <Kami Hensely - Last Filed: 09/12/23 19:20> Time Seen Time Seen by Provider: 09/12/23 18:10 HPI Comment HPI Comment: Persistent sob x two months since he "was infiltrate here at the hospital in July"; says it has not acute worsened by "noone would listen to" him all this time; says sats have been 85 for the past two days and he knows that's not right; no cough, fever, chills, cp, abd pain, n/v/d. <Zita Freddy - Last Filed: 09/12/23 22:41> Complaints Chief Complaint Doctors Comments: Patient was admitted to [facility] for treatment of a right lobe pneumonia. He was discharged to the [facility] on Wednesday. Patient states that he has been feeling short of breath for the last 2 days and he was transferred from the alf to the emergency department for further evaluation. Patient states that his abdomen is larger than it usually is and he has some discomfort. Patient denies: LOC, headache, diarrhea, dizziness, weakness,cough,fever,chills,chest pain,v,n. PMH <Kami Hensley - Last Filed: 09/12/23 19:20> PMH Past Medical History: COPD, Coronary Artery Disease, Dyslipidemia, GERD and Hypertension Past Surgical History: Yes Surgical History: Other Family History Family Medical History: Diabetes Mellitus, Cancer, [place] and Hypertension Social History Do you use any recreational Drugs:: No <Zita MichelesalvadorArturo - Last Filed: 09/12/23 22:41> Review of Systems Constitutional: No Symptoms Reported Eyes: No Symptoms Reported ENTM: No Symptoms Reported Respiratoy: Short of Breath Cardiovascular: No Symptoms Reported Gastrointestinal/Abdominal: Abdominal Pain (and distention) Genitourinary: No Symptoms Reported Neurological: No Symptoms Reported Musculoskeletal: No Symptoms Reported Integumentary: No Symptoms Reported Hematologic/Lymphatic: No Symptoms Reported Endocrine: No Symptoms Reported Psychiatric: No Symptoms Reported All Other Systems: Reviewed and Negative PE <Kami Hensley - Last Filed: 09/12/23 19:20> Vital Signs Vitals: Vital Signs Temperature 98.6 F Pulse Rate 88 Pulse Rate 82 Pulse Rate 88 Pulse Rate 87 Pulse Rate 81 Pulse Rate 97 Pulse Rate 95 Pulse Rate 103 Pulse Rate 105 Pulse Rate 90 Pulse Rate 98 Pulse Rate 95 Pulse Rate 94 Pulse Rate 93 Pulse Rate 91 Pulse Rate 93 Pulse Rate 94 Pulse Rate 95 Pulse Rate 94 Pulse Rate 90 Respiratory Rate 30 Respiratory Rate 32 Respiratory Rate 26 Respiratory Rate 22 Respiratory Rate 20 Respiratory Rate 34 Respiratory Rate 23 Respiratory Rate 21 Respiratory Rate 23 Respiratory Rate 22 Respiratory Rate 20 Respiratory Rate 31 Respiratory Rate 30 Respiratory Rate 20 Respiratory Rate 27 Respiratory Rate 24 Respiratory Rate 48 Respiratory Rate 24 Respiratory Rate 28 Blood Pressure 111/62 Blood Pressure 94/61 Blood Pressure 94/61 Blood Pressure 102/58 Blood Pressure 102/58 O2 Sat by Pulse Oximetry 93 O2 Sat by Pulse Oximetry 95 O2 Sat by Pulse Oximetry 94 O2 Sat by Pulse Oximetry 95 O2 Sat by Pulse Oximetry 97 O2 Sat by Pulse Oximetry 92 O2 Sat by Pulse Oximetry 96 O2 Sat by Pulse Oximetry 96 O2 Sat by Pulse Oximetry 95 O2 Sat by Pulse Oximetry 96 O2 Sat by Pulse Oximetry 90 O2 Sat by Pulse Oximetry 95 O2 Sat by Pulse Oximetry 95 O2 Sat by Pulse Oximetry 86 O2 Sat by Pulse Oximetry 93 O2 Sat by Pulse Oximetry 92 O2 Sat by Pulse Oximetry 89 O2 Sat by Pulse Oximetry 91 O2 Sat by Pulse Oximetry 88 General Limitations: No Limitations General Appearance: Alert and In No Apparent Distress Head Head Exam: Normal Inspection Eyes Eye exam: Normal Appearance ENT ENT Exam: Normal Exam Neck Neck Exam: Normal Inspection Chest Chest Inspection: Normal Inspection Respiratory Respiratory Exam: Accessory Muscle Use and Prolonged Expiratory Phase Respiratory Exam: Bilateral: Decreased Breath Sounds Cardiovascular Cardiovascular Exam: Regular Rate and Normal Rhythm Abdominal Exam Abdominal Exam: Normal Inspection, Normal Bowel Sounds and Soft Extremities Extremities Exam: Normal Inspection Back Back Exam: Normal Inspection Neurologic Neurological Exam: Alert and Oriented X3 Psychiatric Psychiatric Exam: Normal Affect and Normal Mood Skin Skin Exam: Warm, Dry, Intact and Normal Color <Zita Hayes - Last Filed: 09/12/23 22:41> Vital Signs Vitals: Vital Signs Temperature 98.6 F Pulse Rate 88 Pulse Rate 82 Pulse Rate 88 Pulse Rate 87 Pulse Rate 81 Pulse Rate 97 Pulse Rate 95 Pulse Rate 103 Pulse Rate 105 Pulse Rate 90 Pulse Rate 98 Pulse Rate 95 Pulse Rate 94 Pulse Rate 93 Pulse Rate 91 Pulse Rate 93 Pulse Rate 94 Pulse Rate 95 Pulse Rate 94 Pulse Rate 90 Respiratory Rate 30 Respiratory Rate 32 Respiratory Rate 26 Respiratory Rate 22 Respiratory Rate 20 Respiratory Rate 34 Respiratory Rate 23 Respiratory Rate 21 Respiratory Rate 23 Respiratory Rate 22 Respiratory Rate 20 Respiratory Rate 31 Respiratory Rate 30 Respiratory Rate 20 Respiratory Rate 27 Respiratory Rate 24 Respiratory Rate 48 Respiratory Rate 24 Respiratory Rate 28 Blood Pressure 111/62 Blood Pressure 94/61 Blood Pressure 94/61 Blood Pressure 102/58 Blood Pressure 102/58 O2 Sat by Pulse Oximetry 93 O2 Sat by Pulse Oximetry 95 O2 Sat by Pulse Oximetry 94 O2 Sat by Pulse Oximetry 95 O2 Sat by Pulse Oximetry 97 O2 Sat by Pulse Oximetry 92 O2 Sat by Pulse Oximetry 96 O2 Sat by Pulse Oximetry 96 O2 Sat by Pulse Oximetry 95 O2 Sat by Pulse Oximetry 96 O2 Sat by Pulse Oximetry 90 O2 Sat by Pulse Oximetry 95 O2 Sat by Pulse Oximetry 95 O2 Sat by Pulse Oximetry 86 O2 Sat by Pulse Oximetry 93 O2 Sat by Pulse Oximetry 92 O2 Sat by Pulse Oximetry 89 O2 Sat by Pulse Oximetry 91 O2 Sat by Pulse Oximetry 88 General General Appearance: In Distress Head Head Exam: Normal Inspection Eyes Eye exam: Normal Appearance ENT ENT Exam: Normal Exam Neck Neck Exam: Normal Inspection <Zita Hayes - Last Filed: 09/12/23 22:41> Differential Diagnosis Differential Diagnosis: CHF, Pneumonia and Other (Obstr,Perf,Inflam,electrolyte disorder) <Zita Hayes - Last Filed: 09/12/23 22:41> Treatment Treatment: Patient was using accessory abdominal muscles while breathing when he first arrived in the ER and had an O2 sat on room air of 88%. Patient was placed on 4 L O2 nasal cannula and his ABG revealed: pH 7.52, pO2 55, O2 sat 91%. Patient's chest CT revealed increased size of the right pleural effusion. Patient also has a small left pleural effusion. Patient's abdomen pelvis CT without contrast revealed a right middle lobe pneumonia. Patient received Rocephin 2 g IV and azithromycin 500 mg IV in the emergency department. His WBC is 20.5. Patient's CMP, troponin were reviewed and are stable. Discussed case with Dr. Ley. She has accepted the patient to her service for further evaluation.Current VS: BP 11/62,Hr 92,RR 22, 02 SAT 94% on 4L ROR <Kami Hensley - Last Filed: 09/12/23 19:20> Labs Reviewed 09/12/23 18:28 09/12/23 18:28 Laboratory: WBC 20.5 X10^3/uL (3.6-10.0) H 09/12/23 18:28 RBC 3.86 X10^6/uL (4.7-6.0) L 09/12/23 18:28 Hgb 12.2 g/dL (13.5-18.0) L 09/12/23 18:28 Hct 36.2 % (42.0-54.0) L 09/12/23 18:28 MCV 93.9 fL (80.0-100.0) 09/12/23 18:28 MCH 31.6 pg (27.0-34.0) 09/12/23 18: MCHC 33.6 g/dL (33.0-35.0) 09/12/23 18: RDW 18.2 % (11.6-16.5) H 09/12/23 18:28 Plt Count 251 X10^3/uL (150.0-450.0) 09/12/23 18: Plt Count Comment Adequate (ADEQUATE) 09/12/23 18: MPV 7.5 fL (7.4-11.0) 09/12/23 18:28 Neut % (Auto) 85.1 % (42.0-75.0) H 09/12/23 18: Lymph % (Auto) 4.4 % (21.0-51.0) L 09/12/23 18:28 [place] % (Auto) 10.2 % (0.0-13.0) 09/12/23 18:28 Eos % (Auto) 0.1 % (0.9-2.9) L 09/12/23 18:28 Baso % (Auto) 0.2 % (0.2-1.0) 09/12/23 18:28 Neut # (Auto) 17.5 x10^3/uL (2.2-4.8) H 09/12/23 18:28 Lymph # (Auto) 0.9 X10^3/uL (1.3-2.9) L 09/12/23 18:28 [place] # (Auto) 2.1 x10^3/uL (0.3-0.8) H 09/12/23 18:28 Eos # (Auto) 0.0 x10^3/uL (0.0-0.2) 09/12/23 18:28 Baso # (Auto) 0.1 X10^3/uL (0.0-0.1) 09/12/23 18:28 Absolute Nucleated RBC 0.0 /100WBC 09/12/23 18:28 Total Counted 100 09/12/23 18:28 Neutrophils % (Manual) 85 % (39-76) H 09/12/23 18:28 Lymphocytes % (Manual) 6 % (13-43) L 09/12/23 18:28 Monocytes % (Manual) 9 % (4-9) 09/12/23 18:28 Plt Morphology Comment Normal (NORMAL) 09/12/23 18: RBC Morphology Abnormal (NORMAL) 09/12/23 18: Anisocytosis Slight A 09/12/23 18:28 Sample Site Rra 09/12/23 18:20 ABG pH 7.520 (7.35-7.45) H 09/12/23 18:20 ABG pCO2 39.0 mmHg (35.0-45.0) 09/12/23 18:20 ABG pO2 55.0 mmHg (80.0-100.0) L 09/12/23 18:20 ABG HCO3 31.8 mmol/L (22-26) H* 09/12/23 18:20 ABG O2 Saturation 91.0 % (90-100) 09/12/23 18:20 ABG Base Excess 8.3 mmol/L (-2.0-2.0) H 09/12/23 18:20 Isai Test Pos 09/12/23 18:20 A-a Gradient 181.0 mmHg 09/12/23 18:20 FiO2 40.0 09/12/23 18:20 Blood Gas Comments Pt ramon well eb 09/12/23 18:20 Sodium 134 mmol/L (136-145) L 09/12/23 18:28 Corrected Sodium TNP 09/12/23 18:28 Potassium 4.5 mmol/L (3.5-5.1) 09/12/23 18:28 Chloride 102 mmol/L (98-107) 09/12/23 18:28 Carbon Dioxide 31.4 mmol/L (21-32) 09/12/23 18:28 BUN 19 mg/dL (7-18) H 09/12/23 18:28 Creatinine 0.86 mg/dL (0.70-1.30) 09/12/23 18:28 Est GFR (MDRD) Af Amer > 60 (>60) 09/12/23 18:28 Est GFR (MDRD) Non-Af > 60 (>60) 09/12/23 18:28 Glucose 107 mg/dL (65-99) H 09/12/23 18:28 Lactic Acid 0.9 mmol/L (0.4-2.0) 09/12/23 21:45 Calcium 7.9 mg/dL (8.5-10.1) L 09/12/23 18:28 Corrected Calcium 9.8 mg/dL (8.5-10.1) 09/12/23 18:28 Total Bilirubin 0.30 mg/dL (0.2-1.0) 09/12/23 18:28 AST 37 Units/L (15-37) 09/12/23 18:28 ALT 89 Units/L (12-78) H 09/12/23 18:28 Alkaline Phosphatase 140 Units/L (46-116) H 09/12/23 18:28 Creatine Kinase 26 Units/L (39-308) L 09/12/23 18:28 Troponin I High Sens 15.3 ng/L (4.0-60.0) 09/12/23 18:28 Total Protein 4.9 g/dL (6.4-8.2) L 09/12/23 18:28 Albumin 1.6 g/dL (3.4-5.0) L 09/12/23 18:28 Globulin 3.3 g/dL (2.5-4.5) 09/12/23 18:28 Albumin/Globulin Ratio 0.5 Ratio (1.1-2.1) L 09/12/23 18:28 <Zita Hayes - Last Filed: 09/12/23 22:41> Labs Reviewed Laboratory: WBC 20.5 X10^3/uL (3.6-10.0) H 09/12/23 18:28 RBC 3.86 X10^6/uL (4.7-6.0) L 09/12/23 18:28 Hgb 12.2 g/dL (13.5-18.0) L 09/12/23 18:28 Hct 36.2 % (42.0-54.0) L 09/12/23 18: MCV 93.9 fL (80.0-100.0) 09/12/23 18: MCH 31.6 pg (27.0-34.0) 09/12/23 18: MCHC 33.6 g/dL (33.0-35.0) 09/12/23 18: RDW 18.2 % (11.6-16.5) H 09/12/23 18: Plt Count 251 X10^3/uL (150.0-450.0) 09/12/23 18: Plt Count Comment Adequate (ADEQUATE) 09/12/23 18: MPV 7.5 fL (7.4-11.0) 09/12/23 18: Neut % (Auto) 85.1 % (42.0-75.0) H 09/12/23 18: Lymph % (Auto) 4.4 % (21.0-51.0) L 09/12/23 18: [place] % (Auto) 10.2 % (0.0-13.0) 09/12/23 18: Eos % (Auto) 0.1 % (0.9-2.9) L 09/12/23 18: Baso % (Auto) 0.2 % (0.2-1.0) 09/12/23 18: Neut # (Auto) 17.5 x10^3/uL (2.2-4.8) H 09/12/23 18: Lymph # (Auto) 0.9 X10^3/uL (1.3-2.9) L 09/12/23 18:28 [place] # (Auto) 2.1 x10^3/uL (0.3-0.8) H 09/12/23 18: Eos # (Auto) 0.0 x10^3/uL (0.0-0.2) 09/12/23 18: Baso # (Auto) 0.1 X10^3/uL (0.0-0.1) 09/12/23 18: Absolute Nucleated RBC 0.0 /100WBC 09/12/23 18:28 Total Counted 100 09/12/23 18:28 Neutrophils % (Manual) 85 % (39-76) H 09/12/23 18:28 Lymphocytes % (Manual) 6 % (13-43) L 09/12/23 18:28 Monocytes % (Manual) 9 % (4-9) 09/12/23 18:28 Plt Morphology Comment Normal (NORMAL) 09/12/23 18:28 RBC Morphology Abnormal (NORMAL) 09/12/23 18:28 Anisocytosis Slight A 09/12/23 18:28 Sample Site Rra 09/12/23 18:20 ABG pH 7.520 (7.35-7.45) H 09/12/23 18:20 ABG pCO2 39.0 mmHg (35.0-45.0) 09/12/23 18:20 ABG pO2 55.0 mmHg (80.0-100.0) L 09/12/23 18:20 ABG HCO3 31.8 mmol/L (22-26) H* 09/12/23 18:20 ABG O2 Saturation 91.0 % (90-100) 09/12/23 18:20 ABG Base Excess 8.3 mmol/L (-2.0-2.0) H 09/12/23 18:20 Isai Test Pos 09/12/23 18:20 A-a Gradient 181.0 mmHg 09/12/23 18:20 FiO2 40.0 09/12/23 18:20 Blood Gas Comments Pt ramon well eb 09/12/23 18:20 Sodium 134 mmol/L (136-145) L 09/12/23 18:28 Corrected Sodium TNP 09/12/23 18:28 Potassium 4.5 mmol/L (3.5-5.1) 09/12/23 18:28 Chloride 102 mmol/L (98-107) 09/12/23 18:28 Carbon Dioxide 31.4 mmol/L (21-32) 09/12/23 18:28 BUN 19 mg/dL (7-18) H 09/12/23 18:28 Creatinine 0.86 mg/dL (0.70-1.30) 09/12/23 18:28 Est GFR (MDRD) Af Amer > 60 (>60) 09/12/23 18:28 Est GFR (MDRD) Non-Af > 60 (>60) 09/12/23 18:28 Glucose 107 mg/dL (65-99) H 09/12/23 18:28 Lactic Acid 0.9 mmol/L (0.4-2.0) 09/12/23 21:45 Calcium 7.9 mg/dL (8.5-10.1) L 09/12/23 18:28 Corrected Calcium 9.8 mg/dL (8.5-10.1) 09/12/23 18:28 Total Bilirubin 0.30 mg/dL (0.2-1.0) 09/12/23 18:28 AST 37 Units/L (15-37) 09/12/23 18:28 ALT 89 Units/L (12-78) H 09/12/23 18:28 Alkaline Phosphatase 140 Units/L (46-116) H 09/12/23 18:28 Creatine Kinase 26 Units/L (39-308) L 09/12/23 18:28 Troponin I High Sens 15.3 ng/L (4.0-60.0) 09/12/23 18:28 Total Protein 4.9 g/dL (6.4-8.2) L 09/12/23 18:28 Albumin 1.6 g/dL (3.4-5.0) L 09/12/23 18:28 Globulin 3.3 g/dL (2.5-4.5) 09/12/23 18:28 Albumin/Globulin Ratio 0.5 Ratio (1.1-2.1) L 09/12/23 18:28 Opioid <Kami Hensley - Last Filed: 09/12/23 19:20> Opioid Risk Tool Age (Alexander box if 16-45): No History of Preadolescent Sexual Abuse: No Total: 0 Total Score Risk Category: Low Risk Copyright: Adithya JACOBSEN predicting aberrant behaviors <Zita Hayes - Last Filed: 09/12/23 22:41> Opioid Risk Tool Total: 0 Total Score Risk Category: Low Risk Discharge Plan Diagnosis Discharge Problem: Pneumonia, Hypoxemia, Pleural effusion Discharge Plan Patient Disposition: 09 ADMITTED INPATIENT Condition: Stable Prescriptions: No Action benzonatate 200 mg Capsule 200 mg PO TID PRN citalopram 20 mg tablet 20 mg PO QDAY ramipril 1.25 mg capsule 1.25 mg PO QDAY atorvastatin 40 mg Tablet 40 mg PO HS carvedilol 12.5 mg Tablet 12.5 mg PO BID ropinirole 0.25 mg Tablet 0.25 mg PO HS pantoprazole 40 mg Tablet,Delayed Release (Dr/Ec) 40 mg PO DAILY magnesium oxide 400 mg (241.3 mg magnesium) Tablet 400 mg PO BID 0RF levofloxacin 750 mg Tablet 750 mg PO Q24H Qty: 7 0RF hydrocodone-acetaminophen 10-325 mg tablet 1 tab PO Q6H MDD 4 PRN (Reason: pain) Qty: 30 0RF ipratropium-albuterol 0.5 mg-3 mg(2.5 mg base)/3 mL solution for nebulization INHALATION Patient Comments: [NO ORIGINAL SIG] prednisone 5 mg tablets,dose pack 5 mg PO BID Health Concerns: Post Hospitalization: new medications and changes needed to prevent readmission or further decline. Pt educated and given instructions on all concerns. Plan of Treatment: Continue with present treatment and follow up plan. Pt is to keep follow up appointment as instructed and take medications as ordered. Orders to Discharge Patient Discharge Orders: Transfer (Routine); Ordered 09/12/23 Ordered By: Zita Hayes Follow ups/Referrals Follow ups/Referrals: Lawrence Becerra [Primary Care Provider] - 3 days Instructions Stand Alone Forms: Post Hospital Follow Up Care
--- NOTE | 2023-09-12 18:23 | EKG ---
Test Reason : sob Blood Pressure : */* mmHG Vent. Rate : 94 BPM Atrial Rate : 94 BPM P-R Int : 130 ms QRS Dur : 66 ms QT Int : 376 ms P-R-T Axes : 67 44 34 degrees QTc Int : 470 ms Sinus rhythm with marked sinus arrhythmia Otherwise normal ECG When compared with ECG of 01-SEP-2023 12:10, premature supraventricular complexes are no longer present T wave inversion no longer evident in Anterior leads Confirmed by Ezequiel Patel ([id number]) on 09/13/2023 7:53:44 AM Referred By: Confirmed By: Ezequiel Patel
[2023-09-12 18:25] LABS: ABG BASE EXCESS 8.3 mmol/L (-2.0-2.0)
[2023-09-12 18:26] LABS: ABG ALLEN TEST POS; ABG HCO3 31.8 mmol/L (22-26)
[2023-09-12 18:39] LABS: BASOPHILS # (AUTO) 0.1 X10^3/uL (0.0-0.1); BASOPHILS % (AUTO) 0.2 % (0.2-1.0); EOSINOPHILS % (AUTO) 0.1 % (0.9-2.9); HEMATOCRIT 36.2 % (42.0-54.0); HEMOGLOBIN 12.2 g/dL (13.5-18.0); LYMPHOCYTES # (AUTO) 0.9 X10^3/uL (1.3-2.9); LYMPHOCYTES % (AUTO) 4.4 % (21.0-51.0); MEAN CORPUSCULAR HEMOGLOBIN 31.6 pg (27.0-34.0); MEAN CORPUSCULAR HGB CONC 33.6 g/dL (33.0-35.0); MEAN CORPUSCULAR VOLUME 93.9 fL (80.0-100.0); MEAN PLATELET VOLUME 7.5 fL (7.4-11.0); MONOCYTES # (AUTO) 2.1 x10^3/uL (0.3-0.8); MONOCYTES % (AUTO) 10.2 % (0.0-13.0); NEUTROPHILS # (AUTO) 17.5 x10^3/uL (2.2-4.8); NEUTROPHILS % (AUTO) 85.1 % (42.0-75.0); PLATELET COUNT 251 X10^3/uL (150.0-450.0); RED BLOOD COUNT 3.86 X10^6/uL (4.7-6.0); RED CELL DISTRIBUTION WIDTH 18.2 % (11.6-16.5); WHITE BLOOD COUNT 20.5 X10^3/uL (3.6-10.0)
[2023-09-12 18:50] LABS: ALANINE AMINOTRANSFERASE 89 Units/L (12-78); ALBUMIN 1.6 g/dL (3.4-5.0); ALKALINE PHOSPHATASE 140 Units/L (46-116); ASPARTATE AMINO TRANSFERASE 37 Units/L (15-37); BLOOD UREA NITROGEN 19 mg/dL (7-18); CALCIUM 7.9 mg/dL (8.5-10.1); CARBON DIOXIDE 31.4 mmol/L (21-32); CHLORIDE 102 mmol/L (98-107); COR CA(FOR HYPOALB) 9.8 mg/dL (8.5-10.1); CREATINE KINASE 26 Units/L (39-308); CREATININE 0.86 mg/dL (0.70-1.30); GLUCOSE 107 mg/dL (65-99); POTASSIUM 4.5 mmol/L (3.5-5.1); SODIUM 134 mmol/L (136-145); TOTAL PROTEIN 4.9 g/dL (6.4-8.2); eGFR NON BLACK RACES > 60 (>60)
[2023-09-12 18:55] LABS: ANISOCYTOSIS SLIGHT; PLATELET MORPHOLOGY COMMENT NORMAL (NORMAL)
--- NOTE | 2023-09-12 19:48 | CT ---
EXAM:CT chest without contrastHISTORY:Shortness of breathCOMPARISON:08/18/2023TECHNIQUE:Non enhanced spiral CT imaging was performed through the chest and axial, coronal, and sagittal CT images were generated.FINDINGS:Thyroid gland is normal. Heart size is grossly normal. There is atherosclerosis in the LAD, 1st diagonal, and RCA. There is no pathologic adenopathy. There is an air-fluid level in the bronchus intermedius on the right side. Airways are otherwise clear. There is fairly severe emphysema throughout the lung segments. There are some peripheral areas of opacity suggestive of scarring and atelectasis. There is a small left and [id number] right pleural effusion. There is small amount of ascites in the abdomen. No worrisome bone marrow lesions.IMPRESSION:1. Increased size of the right pleural effusion which is now [id number].2. Small left pleural effusion.3. Severe multi lobar emphysema and areas of parenchymal scarring.4. Increased foci of pulmonary opacity which could be atelectasis related to the effusions but infection is not excluded.THIS IS AN ELECTRONICALLY VERIFIED FINAL REPORT09/12/2023 7:45 PM - Electronically signed by Hany Bernard MD
--- NOTE | 2023-09-12 20:27 | CT ---
PROCEDURE: CT Abdomen and Pelvis without Contrast .HISTORY: Elevated liver function tests, dyspnea, and epigastric pain.TECHNIQUE: Axial images were performed through the abdomen and pelvis without the administration of IV contrast with multiplanar reformations . Oral contrast was not administered . Dose reduction techniques including Automated Exposure Control (AEC) and adjustment of mA and kV were utilized .COMPARISON: 08/04/2023.TECHNICAL QUALITY: Satisfactory .FINDINGS:Moderate to large right pleural effusion with severe compressive atelectasis right lower lobe. Small left pleural effusion with adjacent atelectasis. Some patchy pneumonia in the lingula. Emphysematous changes and linear scar versus discoid atelectasis both visualized lung bases.Liver, spleen, adrenals, pancreas show no significant abnormality.Kidneys show no stones or obstruction.Normal biliary tract.Small amount of ascites upper abdomen that is appeared since previous study. No pneumoperitoneum.Mild atherosclerosis aorta.No lymphadenopathy.No bowel obstruction or inflammation. Appendix is not visualized.Pelvis shows small amount of ascites in the rectovesical pouch and no masses. Normal urinary bladder.No acute bony abnormality.IMPRESSION:1. Normal appearing liver.2. Interval mild ascites abdomen and pelvis.3. Moderate to large right pleural effusion and small left pleural effusion with compressive atelectasis greatest in the right lower lobe.4. COPD.5. Patchy pneumonia in the lingula.Electronically signed by: Kenton Porter (Sep 12, 2023 20:25:54)
[2023-09-12] MEDS ORDERED: ROCEPHIN VIAL 2 GRAMS 2 G in NS 100 ML IV 100 ML IV SCH (21:11)
[2023-09-12] MEDS ORDERED: ZITHROMAX INJ 500 MG VIAL 500 MG in NS 250 ML IV 250 ML IV SCH (21:12)
[2023-09-12] MEDS ORDERED: ZITHROMAX INJ 500 MG VIAL IV ONE (21:45)
[2023-09-12] MEDS ORDERED: NS 250 ML IV 250 ML IV ONE (21:45)
[2023-09-12] MEDS ORDERED: ROCEPHIN VIAL 2 GRAMS ONE (21:45)
[2023-09-12] MEDS ORDERED: NS 100 ML IV 100 ML ONE (21:45)
[2023-09-12] MEDS ORDERED: BENZONATATE 200 MG PO PRN (23:16)
[2023-09-12] MEDS ORDERED: DUONEB 0.5 MG/3 MG (3 mL) NEB ONE (23:37)
[2023-09-13] MEDS: DUONEB 0.5 MG/3 MG (3 mL) NEB SCH ×5 (00:38→17:16)
[2023-09-13] MEDS ORDERED: XOPENEX 1.25 MG/3 ML NEBULE NEB SCH (01:00)
[2023-09-13 01:19] LABS: BILIRUBIN,URINE NEGATIVE (NEGATIVE); BLOOD/HEMOGLOBIN,URINE NEGATIVE (NEGATIVE); GLUCOSE, URINE NEGATIVE (NEGATIVE); KETONES,URINE NEGATIVE (NEGATIVE); LEUKOCYTE ESTERASE ,URINE 2+ (NEGATIVE); NITRITES,URINE NEGATIVE (NEGATIVE); PROTEIN,URINE NEGATIVE (NEGATIVE); UROBILINOGEN,URINE NORMAL (NORMAL)
[2023-09-13 01:24] LABS: APPEARANCE,URINE CLEAR (CLEAR); COLOR,URINE PALE YELLOW (YELLOW)
[2023-09-13 01:25] LABS: BACTERIA,URINE NEGATIVE /HPF (NEGATIVE); RBC,URINE 0-2 /HPF (0-3); SQUAMOUS EPITHELIAL CELL,UR NEGATIVE /HPF (NEGATIVE)
[2023-09-13] MEDS: NORCO 10/325 TAB PO PRN ×4 (05:28→21:52)
[2023-09-13 06:51] LABS: BASOPHILS % (AUTO) 0.1 % (0.2-1.0); EOSINOPHILS # (AUTO) 0.1 x10^3/uL (0.0-0.2); EOSINOPHILS % (AUTO) 0.3 % (0.9-2.9); HEMATOCRIT 36.3 % (42.0-54.0); HEMOGLOBIN 11.9 g/dL (13.5-18.0); LYMPHOCYTES # (AUTO) 2.3 X10^3/uL (1.3-2.9); LYMPHOCYTES % (AUTO) 10.2 % (21.0-51.0); MEAN CORPUSCULAR HEMOGLOBIN 30.9 pg (27.0-34.0); MEAN CORPUSCULAR HGB CONC 32.7 g/dL (33.0-35.0); MEAN CORPUSCULAR VOLUME 94.5 fL (80.0-100.0); MEAN PLATELET VOLUME 7.8 fL (7.4-11.0); MONOCYTES # (AUTO) 3.2 x10^3/uL (0.3-0.8); MONOCYTES % (AUTO) 13.9 % (0.0-13.0); NEUTROPHILS # (AUTO) 17.3 x10^3/uL (2.2-4.8); NEUTROPHILS % (AUTO) 75.5 % (42.0-75.0); PLATELET COUNT 293 X10^3/uL (150.0-450.0); RED BLOOD COUNT 3.84 X10^6/uL (4.7-6.0); RED CELL DISTRIBUTION WIDTH 18.3 % (11.6-16.5); WHITE BLOOD COUNT 22.9 X10^3/uL (3.6-10.0)
[2023-09-13 07:17] LABS: ALANINE AMINOTRANSFERASE 74 Units/L (12-78); ALBUMIN 1.5 g/dL (3.4-5.0); ALKALINE PHOSPHATASE 124 Units/L (46-116); ASPARTATE AMINO TRANSFERASE 29 Units/L (15-37); BLOOD UREA NITROGEN 17 mg/dL (7-18); CALCIUM 7.5 mg/dL (8.5-10.1); CARBON DIOXIDE 32.2 mmol/L (21-32); CHLORIDE 102 mmol/L (98-107); COR CA(FOR HYPOALB) 9.5 mg/dL (8.5-10.1); CREATININE 0.63 mg/dL (0.70-1.30); POTASSIUM 3.8 mmol/L (3.5-5.1); SODIUM 135 mmol/L (136-145); TOTAL PROTEIN 4.7 g/dL (6.4-8.2); eGFR NON BLACK RACES > 60 (>60)
[2023-09-13 07:21] LABS: GLUCOSE 50 mg/dL (65-99)
[2023-09-13 07:32] LABS: BAND NEUTROPHILS % 9 % (0-10); METAMYELOCYTES % 3; MYELOCYTES % 4; PLATELET MORPHOLOGY COMMENT NORMAL (NORMAL)
[2023-09-13 07:33] LABS: ANISOCYTOSIS SLIGHT
[2023-09-13] MEDS ORDERED: CONSULT PHARMACY - POTASSIUM & MAGNESIUM XX SCH (08:00)
[2023-09-13] MEDS: CELEXA PO SCH (08:41)
[2023-09-13] MEDS: COREG TAB 12.5 MG PO SCH ×2 (08:41→20:32)
[2023-09-13] MEDS: LEVAQUIN PREMIX IV 750 MG 750 MG/150 ML BAG IV SCH (08:41)
[2023-09-13] MEDS: MAG-OX TAB PO SCH ×2 (08:41→20:35)
[2023-09-13] MEDS: PROTONIX TAB 40 MG PO SCH (08:41)
[2023-09-13] MEDS ORDERED: PULMICORT NEB TX 0.5 MG NEB SCH (09:00)
[2023-09-13] MEDS ORDERED: PHARMACY CONSULT LTC MEDICATIONS XX SCH (09:00)
[2023-09-13] MEDS: PATIENT'S HOME MEDICATION PO SCH ×2 (09:16→20:37)
[2023-09-13] MEDS: RAMIPRIL 1.25 MG PO SCH (09:25)
[2023-09-13] MEDS ORDERED: K-DUR TAB 20 MEQ PO SCH (10:00)
[2023-09-13] MEDS: LOVENOX INJ 40 MG SYR SC SCH (10:17)
[2023-09-13] MEDS: PULMICORT NEB TX 0.5 MG NEB SCH ×2 (11:51→21:00)
[2023-09-13] MEDS: REQUIP PO SCH (20:27)
[2023-09-13] MEDS: TESSALON PERLES PO PRN (20:33)
[2023-09-13] MEDS: LIPITOR TAB 40 MG PO SCH (20:34)
[2023-09-13] MEDS ORDERED: ROCEPHIN VIAL 2 GRAMS 2 G in NS 100 ML IV 100 ML IV SCH (21:00)
[2023-09-13] MEDS ORDERED: ZITHROMAX INJ 500 MG VIAL 500 MG in NS 250 ML IV 250 ML IV SCH (22:00)
[2023-09-14] MEDS: DUONEB 0.5 MG/3 MG (3 mL) NEB SCH ×4 (00:20→16:28)
[2023-09-14 05:59] LABS: BASOPHILS % (AUTO) 0.1 % (0.2-1.0); EOSINOPHILS # (AUTO) 0.1 x10^3/uL (0.0-0.2); EOSINOPHILS % (AUTO) 0.3 % (0.9-2.9); HEMATOCRIT 32.8 % (42.0-54.0); LYMPHOCYTES # (AUTO) 0.9 X10^3/uL (1.3-2.9); LYMPHOCYTES % (AUTO) 5.2 % (21.0-51.0); MEAN CORPUSCULAR HEMOGLOBIN 31.5 pg (27.0-34.0); MEAN CORPUSCULAR HGB CONC 33.4 g/dL (33.0-35.0); MEAN CORPUSCULAR VOLUME 94.3 fL (80.0-100.0); MEAN PLATELET VOLUME 7.7 fL (7.4-11.0); MONOCYTES # (AUTO) 2.2 x10^3/uL (0.3-0.8); MONOCYTES % (AUTO) 12.7 % (0.0-13.0); NEUTROPHILS # (AUTO) 14.5 x10^3/uL (2.2-4.8); NEUTROPHILS % (AUTO) 81.7 % (42.0-75.0); PLATELET COUNT 167 X10^3/uL (150.0-450.0); RED BLOOD COUNT 3.48 X10^6/uL (4.7-6.0); RED CELL DISTRIBUTION WIDTH 18.1 % (11.6-16.5); WHITE BLOOD COUNT 17.7 X10^3/uL (3.6-10.0)
[2023-09-14 06:09] LABS: ALANINE AMINOTRANSFERASE 53 Units/L (12-78); ALBUMIN 1.3 g/dL (3.4-5.0); ALKALINE PHOSPHATASE 119 Units/L (46-116); ASPARTATE AMINO TRANSFERASE 23 Units/L (15-37); BLOOD UREA NITROGEN 25 mg/dL (7-18); CALCIUM 7.7 mg/dL (8.5-10.1); CARBON DIOXIDE 32.2 mmol/L (21-32); CHLORIDE 102 mmol/L (98-107); COR CA(FOR HYPOALB) 9.9 mg/dL (8.5-10.1); CREATININE 0.65 mg/dL (0.70-1.30); GLUCOSE 81 mg/dL (65-99); POTASSIUM 4.3 mmol/L (3.5-5.1); SODIUM 135 mmol/L (136-145); TOTAL PROTEIN 4.3 g/dL (6.4-8.2); eGFR NON BLACK RACES > 60 (>60)
[2023-09-14 06:27] LABS: ANISOCYTOSIS SLIGHT; PLATELET MORPHOLOGY COMMENT NORMAL (NORMAL)
--- NOTE | 2023-09-14 08:52 | DR.H&P ---
H&P History & Physical for Day of: H&P Date: 09/13/23 Chief Complaint Chief Complaint: Shortness of breath with hypoxia Allergies Allergies Allergy/AdvReac Type Severity Reaction Status Date / Time No Known Drug Allergies Allergy Unknown Verified 09/12/23 19:44 History of Present Illness History of Present Illness: This is a pleasant 78-year-old white male well-known to me. He is a temporary resident at [facility] for inpatient rehabilitation. He has end-stage COPD and has recently been in [facility] for pneumonia. He also has had a recent bout of influenza A along with RSV. He was found in the fdc to be hypoxic with O2 sat in the mid to upper 80s. The patient has been running around this range off and on with all of the recent lung infections that he has had and wears oxygen 4 L via nasal cannula all the time. He told the ER physician that his abdomen had been increasing in size as well that is larger than normal. He also has had a right- sided mild pleural effusion; however, it has enlarged to a moderate to large size now. The patient was started on IV Rocephin and azithromycin in the emergency department. This morning he feels like he is breathing better and having less hypoxia and is in good spirits. Will continue his current treatment at this time. Follow-up with [facility] sputum culture that was done in the ER. Past Medical History Past Medical History: COPD, Coronary Artery Disease, Dyslipidemia, GERD and Hypertension Past Surgical History Surgical History: Other Family History Family Medical History: Diabetes Mellitus, Cancer, [place] and Hypertension Social History Does patient currently use any type of tobacco product: No Have you used tobacco products in the last 12 months: No Type of Tobacco Use: None Does any household member use tobacco: No Alcohol Use: None Drug Use: Prescription Drugs Medications Home Medications: Home Medications Medication Instructions Recorded Confirmed Type atorvastatin 40 mg tablet 40 mg PO HS 08/04/23 09/12/23 History benzonatate 200 mg capsule 200 mg PO TID PRN 08/04/23 09/12/23 History carvedilol 12.5 mg tablet 12.5 mg PO BID 08/04/23 09/12/23 History citalopram 20 mg tablet 20 mg PO QDAY 08/04/23 09/12/23 History pantoprazole 40 mg tablet,delayed 40 mg PO DAILY 08/04/23 09/12/23 History release ramipril 1.25 mg capsule 1.25 mg PO QDAY blood pressure 08/04/23 09/12/23 History ropinirole 0.25 mg tablet 0.25 mg PO HS 08/04/23 09/12/23 History ipratropium 0.5 mg-albuterol 3 mg 3 ml inhalation QID 09/12/23 09/13/23 History (2.5 mg base)/3 mL nebulization soln prednisone 5 mg tablets in a dose 10 mg PO BID 09/12/23 09/13/23 History pack Tikosin 250 mcg PO BID 09/13/23 09/13/23 History fluticasone fur. 100 mcg-umeclid 1 inh inhalation DAILY 09/13/23 09/13/23 History 62.5 mcg-vilant 25 mcg inhalat.powder (Trelegy Ellipta) Labs 09/14/23 05:38 09/14/23 05:38 Labs: 09/12/23 21:45 Blood Blood Culture - Preliminary 09/12/23 21:40 Blood Blood Culture - Preliminary Laboratory WBC 17.7 X10^3/uL (3.6-10.0) H 09/14/23 05:38 RBC 3.48 X10^6/uL (4.7-6.0) L 09/14/23 05:38 Hgb 11.0 g/dL (13.5-18.0) L 09/14/23 05:38 Hct 32.8 % (42.0-54.0) L 09/14/23 05:38 MCV 94.3 fL (80.0-100.0) 09/14/23 05:38 MCH 31.5 pg (27.0-34.0) 09/14/23 05:38 MCHC 33.4 g/dL (33.0-35.0) 09/14/23 05:38 RDW 18.1 % (11.6-16.5) H 09/14/23 05:38 Plt Count 167 X10^3/uL (150.0-450.0) 09/14/23 05:38 Plt Count Comment Adequate (ADEQUATE) 09/14/23 05:38 MPV 7.7 fL (7.4-11.0) 09/14/23 05:38 Neut % (Auto) 81.7 % (42.0-75.0) H 09/14/23 05:38 Lymph % (Auto) 5.2 % (21.0-51.0) L 09/14/23 05:38 [place] % (Auto) 12.7 % (0.0-13.0) 09/14/23 05:38 Eos % (Auto) 0.3 % (0.9-2.9) L 09/14/23 05:38 Baso % (Auto) 0.1 % (0.2-1.0) L 09/14/23 05:38 Neut # (Auto) 14.5 x10^3/uL (2.2-4.8) H 09/14/23 05:38 Lymph # (Auto) 0.9 X10^3/uL (1.3-2.9) L 09/14/23 05:38 [place] # (Auto) 2.2 x10^3/uL (0.3-0.8) H 09/14/23 05:38 Eos # (Auto) 0.1 x10^3/uL (0.0-0.2) 09/14/23 05:38 Baso # (Auto) 0.0 X10^3/uL (0.0-0.1) 09/14/23 05:38 Absolute Nucleated RBC 0.0 /100WBC 09/14/23 05:38 Total Counted 100 09/14/23 05:38 Neutrophils % (Manual) 85 % (39-76) H 09/14/23 05:38 Band Neutrophils % 9 % (0-10) 09/13/23 05:24 Lymphocytes % (Manual) 9 % (13-43) L 09/14/23 05:38 Monocytes % (Manual) 6 % (4-9) 09/14/23 05:38 Metamyelocytes % 3 09/13/23 05:24 Myelocytes % 4 09/13/23 05:24 Atypical Lymphocytes Present 09/13/23 05:24 Plt Morphology Comment Normal (NORMAL) 09/14/23 05:38 RBC Morphology Abnormal (NORMAL) 09/14/23 05:38 Anisocytosis Slight A 09/14/23 05:38 Sample Site Rra 09/12/23 18:20 ABG pH 7.520 (7.35-7.45) H 09/12/23 18:20 ABG pCO2 39.0 mmHg (35.0-45.0) 09/12/23 18:20 ABG pO2 55.0 mmHg (80.0-100.0) L 09/12/23 18:20 ABG HCO3 31.8 mmol/L (22-26) H* 09/12/23 18:20 ABG O2 Saturation 91.0 % (90-100) 09/12/23 18:20 ABG Base Excess 8.3 mmol/L (-2.0-2.0) H 09/12/23 18:20 Isai Test Pos 09/12/23 18:20 A-a Gradient 181.0 mmHg 09/12/23 18:20 FiO2 40.0 09/12/23 18:20 Blood Gas Comments Pt ramon well eb 09/12/23 18:20 Sodium 135 mmol/L (136-145) L 09/14/23 05:38 Corrected Sodium TNP 09/14/23 05:38 Potassium 4.3 mmol/L (3.5-5.1) 09/14/23 05:38 Chloride 102 mmol/L (98-107) 09/14/23 05:38 Carbon Dioxide 32.2 mmol/L (21-32) H 09/14/23 05:38 BUN 25 mg/dL (7-18) H 09/14/23 05:38 Creatinine 0.65 mg/dL (0.70-1.30) L 09/14/23 05:38 Est GFR (MDRD) Af Amer > 60 (>60) 09/14/23 05:38 Est GFR (MDRD) Non-Af > 60 (>60) 09/14/23 05:38 Glucose 81 mg/dL (65-99) 09/14/23 05:38 POC Glucose (mg/dL) 94 mg/dL (65-99) 09/14/23 04:14 Lactic Acid 0.9 mmol/L (0.4-2.0) 09/12/23 21:45 Calcium 7.7 mg/dL (8.5-10.1) L 09/14/23 05:38 Corrected Calcium 9.9 mg/dL (8.5-10.1) 09/14/23 05:38 Magnesium 2.0 mg/dL (2.0-2.9) 09/14/23 05:38 Total Bilirubin 0.40 mg/dL (0.2-1.0) 09/14/23 05:38 AST 23 Units/L (15-37) 09/14/23 05:38 ALT 53 Units/L (12-78) 09/14/23 05:38 Alkaline Phosphatase 119 Units/L (46-116) H 09/14/23 05:38 Creatine Kinase 26 Units/L (39-308) L 09/12/23 18:28 Troponin I High Sens 15.3 ng/L (4.0-60.0) 09/12/23 18:28 Total Protein 4.3 g/dL (6.4-8.2) L 09/14/23 05:38 Albumin 1.3 g/dL (3.4-5.0) L 09/14/23 05:38 Globulin 3.0 g/dL (2.5-4.5) 09/14/23 05:38 Albumin/Globulin Ratio 0.4 Ratio (1.1-2.1) L 09/14/23 05:38 Specimen Type Clean catch urine 09/13/23 01:05 Urine Color Pale yellow (YELLOW) 09/13/23 01:05 Urine Appearance Clear (CLEAR) 09/13/23 01:05 Urine pH 8.0 (5.0 - 8.0) 09/13/23 01:05 Ur Specific [place] 1.015 (1.000-1.030) 09/13/23 01:05 Urine Protein Negative (NEGATIVE) 09/13/23 01:05 Urine Glucose (UA) Negative (NEGATIVE) 09/13/23 01:05 Urine Ketones Negative (NEGATIVE) 09/13/23 01:05 Urine Blood Negative (NEGATIVE) 09/13/23 01:05 Urine Nitrite Negative (NEGATIVE) 09/13/23 01:05 Urine Bilirubin Negative (NEGATIVE) 09/13/23 01:05 Urine Urobilinogen Normal (NORMAL) 09/13/23 01:05 Ur Leukocyte Esterase 2+ (NEGATIVE) 09/13/23 01:05 Urine RBC 0-2 /HPF (0-3) 09/13/23 01:05 Urine WBC 3-5 /HPF (0-5) 09/13/23 01:05 Ur Squamous Epith Cells Negative /HPF (NEGATIVE) 09/13/23 01:05 Amorphous Sediment Trace /HPF (NEGATIVE) 09/13/23 01:05 Urine Bacteria Negative /HPF (NEGATIVE) 09/13/23 01:05 Ur Culture Indicated? No/not indicated 09/13/23 01:05 Review of Systems Constitutional: Weakness and Malaise Eyes: No Symptoms Reported ENT: No Symptoms Reported Respiratory: Cough, Shortness of Breath, SOB with Excertion and Sputum; denies Hemoptysis Cardiovascular: No Symptoms Reported Gastrointestinal: Constipation Genitourinary: No Symptoms Reported Musculoskeletal: No Symptoms Reported Skin: No Symptoms Reported Neurological: No Symptoms Reported Physical Exam Vital Signs: Vital Signs Temperature 98.0 F Temperature 97.9 F Pulse Rate [Apical] 86 Pulse Rate [Apical] 87 Respiratory Rate 22 Respiratory Rate 20 Blood Pressure [Right Arm] 99/53 Blood Pressure [Right Arm] 98/56 O2 Sat by Pulse Oximetry 95 O2 Sat by Pulse Oximetry 99 Oriented: Normal, Time, Person and Place Eyes: Normal Ear: Normal Nose: Normal Throat: Normal Respiratory: Diminished Throughout and Rhonchi Throughout Cardiovascular: Normal : Normal Auscultation: Bowel Sounds: Normal Palpation: Normal Tenderness: Normal Skin: Normal Musculoskeletal: Normal Psychiatric: Normal Mood Description: Calm Affect: Normal Speech Pattern: Clear and Appropriate Assessment/Plan (1) Pneumonia: Status: Acute Plan: Continue IV Rocephin and discontinue azithromycin. I will start the patient on IV Levaquin once daily. (2) Hypoxemia: Status: Acute Plan: Supplemental O2 via nasal cannula. (3) Pleural effusion: Status: Acute Plan: IV Lasix at this time (4) COPD exacerbation: Status: Acute Plan: Supplemental O2, Nebs and IV Rocephin and Levaquin. (5) Leukocytosis: Status: Acute Plan: Follow daily CBCs. (6) Chronic low back pain: Qualifiers: Sciatica presence: without sciatica Status: Chronic Plan: Continue patient's hydrocodone for chronic pain control. (7) Ascites: Status: Acute Plan: IV Lasix. Review H&P Reviewed: Yes Patient was examined?: Yes
[2023-09-14] MEDS: PULMICORT NEB TX 0.5 MG NEB SCH ×2 (08:53→20:20)
[2023-09-14] MEDS: PROTONIX TAB 40 MG PO SCH (09:37)
[2023-09-14] MEDS: LEVAQUIN PREMIX IV 750 MG 750 MG/150 ML BAG IV SCH (09:38)
[2023-09-14] MEDS: PATIENT'S HOME MEDICATION PO SCH ×2 (09:38→20:21)
[2023-09-14] MEDS: CELEXA PO SCH (09:38)
[2023-09-14] MEDS: MAG-OX TAB PO SCH ×2 (09:38→20:21)
[2023-09-14] MEDS: LOVENOX INJ 40 MG SYR SC SCH (09:38)
[2023-09-14] MEDS: RAMIPRIL 1.25 MG PO SCH (09:43)
[2023-09-14] MEDS: COREG TAB 12.5 MG PO SCH ×2 (09:43→20:13)
[2023-09-14 14:10] LABS: GLUCOSE,PLEURAL FLUID 76
[2023-09-14] MEDS: NORCO 10/325 TAB PO PRN ×2 (14:24→20:14)
--- NOTE | 2023-09-14 14:36 | RAD ---
EXAM:CHEST, 1 VIEW, 12:45 p.m.HISTORY:POST THORACENTESIS; CAD, A-FIB, COPD, EMPHYSEMACOMPARISON:09/14/2023, 8:45 a.m.FINDINGS:The lungs are better inflated than on the study from earlier this morning.Pleural effusion is smaller on the right side. No evidence for pneumothorax. There is a skin fold parallel to the right chest wall.Multifocal bilateral areas of opacity suggest bronchopneumonia.Heart size magnified.The bones are unremarkable.Wireless loop recorder is noted. EKG leads are noted.IMPRESSION:1. Smaller right effusion2. No pneumothorax after right thoracentesis3. BronchopneumoniaTHIS IS AN ELECTRONICALLY VERIFIED FINAL REPORT09/14/2023 2:32 PM - Electronically signed by Paulo Hensley MD
--- NOTE | 2023-09-14 15:33 | PCM.PROG ---
Progress Note Progress Note for Day of Date of Exam: 09/14/23 Subjective Subjective: The patient is alert and awake this morning. He has had no acute problems since yesterday morning when I last saw him. The CT of his chest showed that he has a moderate to large sized pleural effusion on the right side. I will consult general surgery today to do a pleurocentesis and to test the fluid to see if it is a transudate or an exudate. His white blood cell count is down today compared to yesterday since starting the IV Levaquin along with the Rocephin. We will follow-up with his sputum culture when available in the [facility] sputum culture as well. Once cytology and analysis of the pleural effusion is complete we will review it and discussed with the patient. Past Medical Family Social History Allergies: Allergies No Known Drug Allergies Allergy (Unknown, Verified 09/12/23 19:44) Onset Date: 06/23/2022 Review of Systems ROS: No change since H&P Vital Signs and I&O's Vital Signs: Vital Signs Temperature 98.6 F Temperature 98.0 F Pulse Rate [Apical] 96 Pulse Rate [Apical] 100 Pulse Rate [Apical] 93 Pulse Rate [Apical] 98 Pulse Rate [Apical] 101 Pulse Rate [Apical] 88 Pulse Rate [Apical] 86 Respiratory Rate 20 Respiratory Rate 24 Respiratory Rate 24 Respiratory Rate 24 Respiratory Rate 24 Respiratory Rate 24 Respiratory Rate 22 Respiratory Rate 22 Blood Pressure [Right Arm] 99/53 Blood Pressure [Right Arm] 99/54 Blood Pressure [Right Arm] 104/56 Blood Pressure [Right Arm] 98/56 Blood Pressure [Right Arm] 109/59 Blood Pressure [Right Arm] 99/52 Blood Pressure [Right Arm] 99/53 O2 Sat by Pulse Oximetry 92 O2 Sat by Pulse Oximetry 92 O2 Sat by Pulse Oximetry 92 O2 Sat by Pulse Oximetry 91 O2 Sat by Pulse Oximetry 90 O2 Sat by Pulse Oximetry 95 O2 Sat by Pulse Oximetry 95 Intake and Output: Intake & Output 09/12/23 09/13/23 09/14/23 09/15/23 11:59 11:59 11:59 11:59 Intake Total 242 / 242 900 / 900 Output Total 300 / 300 800 / 800 Balance -58 / -58 100 / 100 Physical Exam Oriented: Normal, Time, Person and Place Eyes: Normal Ear: Normal Nose: Normal Throat: Normal Respiratory: Right, Generalized, Diminished and Rhonchi Cardiovascular: Normal : Normal Auscultation: Bowel Sounds: Normal Tenderness: Normal Skin: Normal Musculoskeletal: Normal Psychiatric: Normal Mood Description: Calm Affect: Normal Speech Pattern: Clear and Appropriate Laboratory and Diagnostics 09/14/23 05:38 09/14/23 05:38 Labs: 09/12/23 21:45 Blood Blood Culture - Preliminary 09/12/23 21:40 Blood Blood Culture - Preliminary Laboratory WBC 17.7 X10^3/uL (3.6-10.0) H 09/14/23 05:38 RBC 3.48 X10^6/uL (4.7-6.0) L 09/14/23 05:38 Hgb 11.0 g/dL (13.5-18.0) L 09/14/23 05:38 Hct 32.8 % (42.0-54.0) L 09/14/23 05:38 MCV 94.3 fL (80.0-100.0) 09/14/23 05:38 MCH 31.5 pg (27.0-34.0) 09/14/23 05:38 MCHC 33.4 g/dL (33.0-35.0) 09/14/23 05:38 RDW 18.1 % (11.6-16.5) H 09/14/23 05:38 Plt Count 167 X10^3/uL (150.0-450.0) 09/14/23 05:38 Plt Count Comment Adequate (ADEQUATE) 09/14/23 05:38 MPV 7.7 fL (7.4-11.0) 09/14/23 05:38 Neut % (Auto) 81.7 % (42.0-75.0) H 09/14/23 05:38 Lymph % (Auto) 5.2 % (21.0-51.0) L 09/14/23 05:38 [place] % (Auto) 12.7 % (0.0-13.0) 09/14/23 05:38 Eos % (Auto) 0.3 % (0.9-2.9) L 09/14/23 05:38 Baso % (Auto) 0.1 % (0.2-1.0) L 09/14/23 05:38 Neut # (Auto) 14.5 x10^3/uL (2.2-4.8) H 09/14/23 05:38 Lymph # (Auto) 0.9 X10^3/uL (1.3-2.9) L 09/14/23 05:38 [place] # (Auto) 2.2 x10^3/uL (0.3-0.8) H 09/14/23 05:38 Eos # (Auto) 0.1 x10^3/uL (0.0-0.2) 09/14/23 05:38 Baso # (Auto) 0.0 X10^3/uL (0.0-0.1) 09/14/23 05:38 Absolute Nucleated RBC 0.0 /100WBC 09/14/23 05:38 Total Counted 100 09/14/23 05:38 Neutrophils % (Manual) 85 % (39-76) H 09/14/23 05:38 Band Neutrophils % 9 % (0-10) 09/13/23 05:24 Lymphocytes % (Manual) 9 % (13-43) L 09/14/23 05:38 Monocytes % (Manual) 6 % (4-9) 09/14/23 05:38 Metamyelocytes % 3 09/13/23 05:24 Myelocytes % 4 09/13/23 05:24 Atypical Lymphocytes Present 09/13/23 05:24 Plt Morphology Comment Normal (NORMAL) 09/14/23 05:38 RBC Morphology Abnormal (NORMAL) 09/14/23 05:38 Anisocytosis Slight A 09/14/23 05:38 Sample Site Rra 09/12/23 18:20 ABG pH 7.520 (7.35-7.45) H 09/12/23 18:20 ABG pCO2 39.0 mmHg (35.0-45.0) 09/12/23 18:20 ABG pO2 55.0 mmHg (80.0-100.0) L 09/12/23 18:20 ABG HCO3 31.8 mmol/L (22-26) H* 09/12/23 18:20 ABG O2 Saturation 91.0 % (90-100) 09/12/23 18:20 ABG Base Excess 8.3 mmol/L (-2.0-2.0) H 09/12/23 18:20 Isai Test Pos 09/12/23 18:20 A-a Gradient 181.0 mmHg 09/12/23 18:20 FiO2 40.0 09/12/23 18:20 Blood Gas Comments Pt ramon well eb 09/12/23 18:20 Sodium 135 mmol/L (136-145) L 09/14/23 05:38 Corrected Sodium TNP 09/14/23 05:38 Potassium 4.3 mmol/L (3.5-5.1) 09/14/23 05:38 Chloride 102 mmol/L (98-107) 09/14/23 05:38 Carbon Dioxide 32.2 mmol/L (21-32) H 09/14/23 05:38 BUN 25 mg/dL (7-18) H 09/14/23 05:38 Creatinine 0.65 mg/dL (0.70-1.30) L 09/14/23 05:38 Est GFR (MDRD) Af Amer > 60 (>60) 09/14/23 05:38 Est GFR (MDRD) Non-Af > 60 (>60) 09/14/23 05:38 Glucose 81 mg/dL (65-99) 09/14/23 05:38 POC Glucose (mg/dL) 94 mg/dL (65-99) 09/14/23 04:14 Lactic Acid 0.9 mmol/L (0.4-2.0) 09/12/23 21:45 Calcium 7.7 mg/dL (8.5-10.1) L 09/14/23 05:38 Corrected Calcium 9.9 mg/dL (8.5-10.1) 09/14/23 05:38 Magnesium 2.0 mg/dL (2.0-2.9) 09/14/23 05:38 Total Bilirubin 0.40 mg/dL (0.2-1.0) 09/14/23 05:38 AST 23 Units/L (15-37) 09/14/23 05:38 ALT 53 Units/L (12-78) 09/14/23 05:38 Alkaline Phosphatase 119 Units/L (46-116) H 09/14/23 05:38 Creatine Kinase 26 Units/L (39-308) L 09/12/23 18:28 Troponin I High Sens 15.3 ng/L (4.0-60.0) 09/12/23 18:28 Total Protein 4.3 g/dL (6.4-8.2) L 09/14/23 05:38 Albumin 1.3 g/dL (3.4-5.0) L 09/14/23 05:38 Globulin 3.0 g/dL (2.5-4.5) 09/14/23 05:38 Albumin/Globulin Ratio 0.4 Ratio (1.1-2.1) L 09/14/23 05:38 Specimen Type Clean catch urine 09/13/23 01:05 Urine Color Pale yellow (YELLOW) 09/13/23 01:05 Urine Appearance Clear (CLEAR) 09/13/23 01:05 Urine pH 8.0 (5.0 - 8.0) 09/13/23 01:05 Ur Specific [place] 1.015 (1.000-1.030) 09/13/23 01:05 Urine Protein Negative (NEGATIVE) 09/13/23 01:05 Urine Glucose (UA) Negative (NEGATIVE) 09/13/23 01:05 Urine Ketones Negative (NEGATIVE) 09/13/23 01:05 Urine Blood Negative (NEGATIVE) 09/13/23 01:05 Urine Nitrite Negative (NEGATIVE) 09/13/23 01:05 Urine Bilirubin Negative (NEGATIVE) 09/13/23 01:05 Urine Urobilinogen Normal (NORMAL) 09/13/23 01:05 Ur Leukocyte Esterase 2+ (NEGATIVE) 09/13/23 01:05 Urine RBC 0-2 /HPF (0-3) 09/13/23 01:05 Urine WBC 3-5 /HPF (0-5) 09/13/23 01:05 Ur Squamous Epith Cells Negative /HPF (NEGATIVE) 09/13/23 01:05 Amorphous Sediment Trace /HPF (NEGATIVE) 09/13/23 01:05 Urine Bacteria Negative /HPF (NEGATIVE) 09/13/23 01:05 Ur Culture Indicated? No/not indicated 09/13/23 01:05 Fluid pH 8 09/14/23 12:20 Pleural Glucose 76 09/14/23 12:20 Radiology Reviewed: Yes Plan (1) Pneumonia: Status: Acute Plan: Continue IV Rocephin and levofloxacin daily. (2) Hypoxemia: Status: Acute Plan: Supplemental O2 via nasal cannula. (3) Pleural effusion: Status: Acute Plan: General surgery did a thoracentesis today on the patient we will follow-up cytology and fluid analysis. We will see if the fluid is a transudate versus an exudate. (4) COPD exacerbation: Status: Acute Plan: Supplemental O2, Nebs and IV Rocephin and Levaquin. (5) Leukocytosis: Status: Acute Narrative Support Text: Improved since yesterday. Plan: Follow daily CBCs. (6) Chronic low back pain: Status: Chronic Qualifiers: Sciatica presence: without sciatica Plan: Continue patient's hydrocodone for chronic pain control. (7) Ascites: Status: Acute Plan: IV Lasix.
[2023-09-14] MEDS: REQUIP PO SCH (20:13)
[2023-09-14] MEDS: LIPITOR TAB 40 MG PO SCH (20:14)
[2023-09-14] MEDS ORDERED: [UNRECOGNIZED DRUG - OTHER] PO SCH (21:00)
[2023-09-15] MEDS: DUONEB 0.5 MG/3 MG (3 mL) NEB SCH ×4 (00:46→17:14)
[2023-09-15] MEDS: NORCO 10/325 TAB PO PRN ×3 (04:07→21:05)
--- NOTE | 2023-09-15 05:12 | RAD ---
PROCEDURE: Chest X-ray 1 View .HISTORY: Pneumonia.TECHNIQUE: AP view .COMPARISON: 09/08/2023.TECHNICAL QUALITY: Satisfactory .FINDINGS:Normal size heart .Mediastinum and hilar regions show no masses or lymphadenopathy .Normal central vascularity .Similar appearing consolidation and atelectasis of the pleural fluid right lung field allowing for technical differences. Some improvement in the consolidation left base with consist 10 you had mild changes present.No acute bony abnormality .IMPRESSION:1. Unchanged pneumonia and atelectasis with pleural fluid on the right.2. Some improved pneumonia on the left at the base.Electronically signed by: Kenton Porter (Sep 15, 2023 05:10:34)
[2023-09-15 06:23] LABS: BASOPHILS % (AUTO) 0.2 % (0.2-1.0); EOSINOPHILS % (AUTO) 0.2 % (0.9-2.9); HEMATOCRIT 34.7 % (42.0-54.0); HEMOGLOBIN 11.8 g/dL (13.5-18.0); LYMPHOCYTES # (AUTO) 1.3 X10^3/uL (1.3-2.9); LYMPHOCYTES % (AUTO) 6.2 % (21.0-51.0); MEAN CORPUSCULAR HEMOGLOBIN 31.8 pg (27.0-34.0); MEAN CORPUSCULAR HGB CONC 33.8 g/dL (33.0-35.0); MEAN CORPUSCULAR VOLUME 93.9 fL (80.0-100.0); MEAN PLATELET VOLUME 7.9 fL (7.4-11.0); MONOCYTES # (AUTO) 2.6 x10^3/uL (0.3-0.8); MONOCYTES % (AUTO) 12.5 % (0.0-13.0); NEUTROPHILS # (AUTO) 16.6 x10^3/uL (2.2-4.8); NEUTROPHILS % (AUTO) 80.9 % (42.0-75.0); PLATELET COUNT 166 X10^3/uL (150.0-450.0); RED CELL DISTRIBUTION WIDTH 18.8 % (11.6-16.5); WHITE BLOOD COUNT 20.5 X10^3/uL (3.6-10.0)
[2023-09-15 06:33] LABS: ALANINE AMINOTRANSFERASE 40 Units/L (12-78); ALBUMIN 1.3 g/dL (3.4-5.0); ALKALINE PHOSPHATASE 130 Units/L (46-116); ASPARTATE AMINO TRANSFERASE 19 Units/L (15-37); BLOOD UREA NITROGEN 24 mg/dL (7-18); CALCIUM 7.7 mg/dL (8.5-10.1); CARBON DIOXIDE 30.4 mmol/L (21-32); CHLORIDE 100 mmol/L (98-107); COR CA(FOR HYPOALB) 9.9 mg/dL (8.5-10.1); CREATININE 0.63 mg/dL (0.70-1.30); GLUCOSE 70 mg/dL (65-99); SODIUM 131 mmol/L (136-145); TOTAL PROTEIN 4.5 g/dL (6.4-8.2); eGFR NON BLACK RACES > 60 (>60)
--- NOTE | 2023-09-15 07:08 | RAD ---
EXAM:CHEST, PA/LAT ADULTHISTORY:PNEUMONIA, RIGHT PLEURAL EFFUSION;COMPARISON:09/14/2023.TECHNIQUE: .br.br.br.br contours are normal in size. Mildly worse right base airspace opacity. Otherwise similar bilateral airspace and interstitial opacities. Moderate right pleural effusion. No pneumothorax. There are scattered lucencies consistent with COPD.IMPRESSION:Mildly worse right basilar airspace opacity may represent pneumonia. Otherwise similar to prior. Moderate right pleural effusion. Background of COPD with chronic interstitial disease.THIS IS AN ELECTRONICALLY VERIFIED FINAL REPORT09/15/2023 7:04 AM - Electronically signed by Keo Hernandez MD
[2023-09-15 07:18] LABS: ANISOCYTOSIS SLIGHT; BAND NEUTROPHILS % 6 % (0-10); PLATELET MORPHOLOGY COMMENT NORMAL (NORMAL); SMUDGE CELLS SLIGHT
[2023-09-15] MEDS: PULMICORT NEB TX 0.5 MG NEB SCH ×2 (09:20→20:05)
[2023-09-15] MEDS: CELEXA PO SCH (09:21)
[2023-09-15] MEDS: LEVAQUIN PREMIX IV 750 MG 750 MG/150 ML BAG IV SCH (09:22)
[2023-09-15] MEDS: LOVENOX INJ 40 MG SYR SC SCH (09:22)
[2023-09-15] MEDS: COREG TAB 12.5 MG PO SCH ×2 (09:22→21:04)
[2023-09-15] MEDS: MAG-OX TAB PO SCH ×2 (09:23→21:05)
[2023-09-15] MEDS: RAMIPRIL 1.25 MG PO SCH (09:23)
[2023-09-15] MEDS: PROTONIX TAB 40 MG PO SCH (09:23)
[2023-09-15] MEDS: PATIENT'S HOME MEDICATION PO SCH ×2 (10:02→21:06)
[2023-09-15] MEDS: FORTAZ or TAZICEF VIAL INJ 1 G in NS 100 ML IV 100 ML IV SCH ×3 (10:45→21:06)
--- NOTE | 2023-09-15 20:40 | PCM.PROG ---
Progress Note Progress Note for Day of Date of Exam: 09/15/23 Subjective Subjective: The patient is alert and awake this morning. He underwent thoracentesis yesterday and did well with that. The Gram stain of the pleural fluid showed that he had many white blood cells. I see that his white blood cell count has gone up this morning since yesterday. He had been receiving IV levofloxacin so we will continue him on that. I will add IV Fortaz today 1 g IV every 8 hours. We will follow-up with the culture of the pleural fluid as well as cytology and other labs that were done on it. Past Medical Family Social History Allergies: Allergies No Known Drug Allergies Allergy (Unknown, Verified 09/12/23 19:44) Onset Date: 06/23/2022 Review of Systems ROS: No change since H&P Vital Signs and I&O's Vital Signs: Vital Signs Temperature 98.6 F Pulse Rate [Brachial] 86 Respiratory Rate 18 Respiratory Rate 20 Respiratory Rate 18 Blood Pressure [Left Arm] 102/56 O2 Sat by Pulse Oximetry 90 Intake and Output: Intake & Output 09/13/23 09/14/23 09/15/23 09/16/23 11:59 11:59 11:59 11:59 Intake Total 242 / 242 900 / 900 1821 / 1821 702 / 702 Output Total 300 / 300 800 / 800 3250 / 3250 400 / 400 Balance -58 / -58 100 / 100 -1429 / -1429 302 / 302 Physical Exam Oriented: Normal, Time, Person and Place Eyes: Normal Ear: Normal Nose: Normal Throat: Normal Respiratory: Right, Generalized, Diminished and Rhonchi Cardiovascular: Normal : Normal Auscultation: Bowel Sounds: Normal Tenderness: Normal Skin: Normal Musculoskeletal: Normal Psychiatric: Normal Mood Description: Calm Affect: Normal Speech Pattern: Clear and Appropriate Laboratory and Diagnostics 09/15/23 05:28 09/15/23 05:28 Labs: 09/14/23 13:40 Pleural Fluid - Preliminary 09/14/23 13:40 Pleural Fluid Gram Stain - Final 09/12/23 21:45 Blood Blood Culture - Preliminary 09/12/23 21:40 Blood Blood Culture - Preliminary Laboratory WBC 20.5 X10^3/uL (3.6-10.0) H 09/15/23 05:28 RBC 3.70 X10^6/uL (4.7-6.0) L 09/15/23 05:28 Hgb 11.8 g/dL (13.5-18.0) L 09/15/23 05:28 Hct 34.7 % (42.0-54.0) L 09/15/23 05:28 MCV 93.9 fL (80.0-100.0) 09/15/23 05:28 MCH 31.8 pg (27.0-34.0) 09/15/23 05:28 MCHC 33.8 g/dL (33.0-35.0) 09/15/23 05:28 RDW 18.8 % (11.6-16.5) H 09/15/23 05:28 Plt Count 166 X10^3/uL (150.0-450.0) 09/15/23 05:28 Plt Count Comment Adequate (ADEQUATE) 09/15/23 05:28 MPV 7.9 fL (7.4-11.0) 09/15/23 05:28 Neut % (Auto) 80.9 % (42.0-75.0) H 09/15/23 05:28 Lymph % (Auto) 6.2 % (21.0-51.0) L 09/15/23 05:28 [place] % (Auto) 12.5 % (0.0-13.0) 09/15/23 05:28 Eos % (Auto) 0.2 % (0.9-2.9) L 09/15/23 05:28 Baso % (Auto) 0.2 % (0.2-1.0) 09/15/23 05:28 Neut # (Auto) 16.6 x10^3/uL (2.2-4.8) H 09/15/23 05:28 Lymph # (Auto) 1.3 X10^3/uL (1.3-2.9) 09/15/23 05:28 [place] # (Auto) 2.6 x10^3/uL (0.3-0.8) H 09/15/23 05:28 Eos # (Auto) 0.0 x10^3/uL (0.0-0.2) 09/15/23 05:28 Baso # (Auto) 0.0 X10^3/uL (0.0-0.1) 09/15/23 05:28 Absolute Nucleated RBC 0.3 /100WBC 09/15/23 05:28 Total Counted 100 09/15/23 05:28 Neutrophils % (Manual) 85 % (39-76) H 09/15/23 05:28 Band Neutrophils % 6 % (0-10) 09/15/23 05:28 Lymphocytes % (Manual) 3 % (13-43) L 09/15/23 05:28 Monocytes % (Manual) 6 % (4-9) 09/15/23 05:28 Metamyelocytes % 3 09/13/23 05:24 Myelocytes % 4 09/13/23 05:24 Atypical Lymphocytes Present 09/13/23 05:24 Smudge Cells Slight A 09/15/23 05:28 Plt Morphology Comment Normal (NORMAL) 09/15/23 05:28 RBC Morphology Abnormal (NORMAL) 09/15/23 05:28 Anisocytosis Slight A 09/15/23 05:28 Sample Site Rra 09/12/23 18:20 ABG pH 7.520 (7.35-7.45) H 09/12/23 18:20 ABG pCO2 39.0 mmHg (35.0-45.0) 09/12/23 18:20 ABG pO2 55.0 mmHg (80.0-100.0) L 09/12/23 18:20 ABG HCO3 31.8 mmol/L (22-26) H* 09/12/23 18:20 ABG O2 Saturation 91.0 % (90-100) 09/12/23 18:20 ABG Base Excess 8.3 mmol/L (-2.0-2.0) H 09/12/23 18:20 Isai Test Pos 09/12/23 18:20 A-a Gradient 181.0 mmHg 09/12/23 18:20 FiO2 40.0 09/12/23 18:20 Blood Gas Comments Pt ramon well eb 09/12/23 18:20 Sodium 131 mmol/L (136-145) L 09/15/23 05:28 Corrected Sodium TNP 09/15/23 05:28 Potassium 4.0 mmol/L (3.5-5.1) 09/15/23 05:28 Chloride 100 mmol/L (98-107) 09/15/23 05:28 Carbon Dioxide 30.4 mmol/L (21-32) 09/15/23 05:28 BUN 24 mg/dL (7-18) H 09/15/23 05:28 Creatinine 0.63 mg/dL (0.70-1.30) L 09/15/23 05:28 Est GFR (MDRD) Af Amer > 60 (>60) 09/15/23 05:28 Est GFR (MDRD) Non-Af > 60 (>60) 09/15/23 05:28 Glucose 70 mg/dL (65-99) 09/15/23 05:28 POC Glucose (mg/dL) 94 mg/dL (65-99) 09/14/23 04:14 Lactic Acid 0.9 mmol/L (0.4-2.0) 09/12/23 21:45 Calcium 7.7 mg/dL (8.5-10.1) L 09/15/23 05:28 Corrected Calcium 9.9 mg/dL (8.5-10.1) 09/15/23 05:28 Magnesium 2.0 mg/dL (2.0-2.9) 09/15/23 05:28 Total Bilirubin 0.80 mg/dL (0.2-1.0) 09/15/23 05:28 AST 19 Units/L (15-37) 09/15/23 05:28 ALT 40 Units/L (12-78) 09/15/23 05:28 Alkaline Phosphatase 130 Units/L (46-116) H 09/15/23 05:28 Creatine Kinase 26 Units/L (39-308) L 09/12/23 18:28 Troponin I High Sens 15.3 ng/L (4.0-60.0) 09/12/23 18:28 B-Natriuretic Peptide 75.3 pg/mL (0-79) 09/15/23 05:28 Total Protein 4.5 g/dL (6.4-8.2) L 09/15/23 05:28 Albumin 1.3 g/dL (3.4-5.0) L 09/15/23 05:28 Globulin 3.2 g/dL (2.5-4.5) 09/15/23 05:28 Albumin/Globulin Ratio 0.4 Ratio (1.1-2.1) L 09/15/23 05:28 Total PSA 6.41 ng/mL (0.13-4.0) H 09/15/23 05:28 Specimen Type Clean catch urine 09/13/23 01:05 Urine Color Pale yellow (YELLOW) 09/13/23 01:05 Urine Appearance Clear (CLEAR) 09/13/23 01:05 Urine pH 8.0 (5.0 - 8.0) 09/13/23 01:05 Ur Specific [place] 1.015 (1.000-1.030) 09/13/23 01:05 Urine Protein Negative (NEGATIVE) 09/13/23 01:05 Urine Glucose (UA) Negative (NEGATIVE) 09/13/23 01:05 Urine Ketones Negative (NEGATIVE) 09/13/23 01:05 Urine Blood Negative (NEGATIVE) 09/13/23 01:05 Urine Nitrite Negative (NEGATIVE) 09/13/23 01:05 Urine Bilirubin Negative (NEGATIVE) 09/13/23 01:05 Urine Urobilinogen Normal (NORMAL) 09/13/23 01:05 Ur Leukocyte Esterase 2+ (NEGATIVE) 09/13/23 01:05 Urine RBC 0-2 /HPF (0-3) 09/13/23 01:05 Urine WBC 3-5 /HPF (0-5) 09/13/23 01:05 Ur Squamous Epith Cells Negative /HPF (NEGATIVE) 09/13/23 01:05 Amorphous Sediment Trace /HPF (NEGATIVE) 09/13/23 01:05 Urine Bacteria Negative /HPF (NEGATIVE) 09/13/23 01:05 Ur Culture Indicated? No/not indicated 09/13/23 01:05 Fluid pH 8 09/14/23 12:20 Pleural Glucose 76 09/14/23 12:20 Resp Viral Panel (PCR) See scanned report 09/13/23 00:35 Infect Dis PCR Plus Cancelled 09/14/23 12:20 Plan (1) Pneumonia: Status: Acute Plan: Continue Levaquin 750 mg IV daily and add Fortaz 1 g IV every 8 hours. Repeat CBC in AM. I will also repeat a chest x-ray again tomorrow morning. Follow-up with culture of pleural fluid. (2) Hypoxemia: Status: Acute Plan: Supplemental O2 via nasal cannula. (3) Pleural effusion: Status: Acute Plan: General surgery did a thoracentesis today on the patient we will follow-up cytology and fluid analysis. We will see if the fluid is a transudate versus an exudate. (4) COPD exacerbation: Status: Acute Plan: Supplemental O2, Nebs and IV Rocephin and Levaquin. (5) Leukocytosis: Status: Acute Plan: Follow daily CBCs. (6) Chronic low back pain: Status: Chronic Qualifiers: Sciatica presence: without sciatica Plan: Continue patient's hydrocodone for chronic pain control. (7) Ascites: Status: Acute Plan: IV Lasix.
[2023-09-15] MEDS: LIPITOR TAB 40 MG PO SCH (21:05)
[2023-09-15] MEDS: REQUIP PO SCH (21:05)
[2023-09-16] MEDS: DUONEB 0.5 MG/3 MG (3 mL) NEB SCH ×4 (00:32→17:09)
[2023-09-16] MEDS: NORCO 10/325 TAB PO PRN ×2 (06:39→12:09)
[2023-09-16] MEDS: FORTAZ or TAZICEF VIAL INJ 1 G in NS 100 ML IV 100 ML IV SCH ×3 (06:39→21:46)
[2023-09-16 06:45] LABS: BASOPHILS % (AUTO) 0.1 % (0.2-1.0); EOSINOPHILS % (AUTO) 0.1 % (0.9-2.9); HEMATOCRIT 33.1 % (42.0-54.0); HEMOGLOBIN 11.2 g/dL (13.5-18.0); LYMPHOCYTES # (AUTO) 1.3 X10^3/uL (1.3-2.9); LYMPHOCYTES % (AUTO) 6.4 % (21.0-51.0); MEAN CORPUSCULAR HGB CONC 33.9 g/dL (33.0-35.0); MEAN CORPUSCULAR VOLUME 94.5 fL (80.0-100.0); MONOCYTES # (AUTO) 2.7 x10^3/uL (0.3-0.8); MONOCYTES % (AUTO) 13.7 % (0.0-13.0); NEUTROPHILS # (AUTO) 15.7 x10^3/uL (2.2-4.8); NEUTROPHILS % (AUTO) 79.7 % (42.0-75.0); PLATELET COUNT 154 X10^3/uL (150.0-450.0); RED CELL DISTRIBUTION WIDTH 18.2 % (11.6-16.5); WHITE BLOOD COUNT 19.7 X10^3/uL (3.6-10.0)
[2023-09-16 07:00] LABS: ALANINE AMINOTRANSFERASE 31 Units/L (12-78); ALBUMIN 1.1 g/dL (3.4-5.0); ALKALINE PHOSPHATASE 132 Units/L (46-116); ASPARTATE AMINO TRANSFERASE 19 Units/L (15-37); BLOOD UREA NITROGEN 27 mg/dL (7-18); CALCIUM 7.7 mg/dL (8.5-10.1); CARBON DIOXIDE 29.8 mmol/L (21-32); CHLORIDE 100 mmol/L (98-107); CREATININE 0.71 mg/dL (0.70-1.30); GLUCOSE 84 mg/dL (65-99); MAGNESIUM 1.9 mg/dL (2.0-2.9); POTASSIUM 4.2 mmol/L (3.5-5.1); SODIUM 131 mmol/L (136-145); TOTAL PROTEIN 4.3 g/dL (6.4-8.2); eGFR NON BLACK RACES > 60 (>60)
--- NOTE | 2023-09-16 07:05 | RAD ---
EXAM:CHEST, PA/LAT ADULTHISTORY:Pneumonia/right-sided pleural effusion;COMPARISON:09/15/2023.TECHNIQUE: .br.br.br.br and mediastinal contours appear stable. Similar-appearing right mid to lower lung opacity and moderate right pleural effusion. No pneumothorax.IMPRESSION:No significant change compared to prior radiograph. Moderate right pleural effusion. Associated opacity consistent with pneumonia in the appropriate clinical setting. Continued follow-up to resolution is recommended.Background of COPD. If there is clinical need to evaluate for pulmonary nodules, CT chest is recommended (better after acute disease resolves).THIS IS AN ELECTRONICALLY VERIFIED FINAL REPORT09/16/2023 7:02 AM - Electronically signed by Keo Hernandez MD
[2023-09-16 07:26] LABS: BAND NEUTROPHILS % 5 % (0-10); METAMYELOCYTES % 1
[2023-09-16 07:27] LABS: ANISOCYTOSIS SLIGHT; PLATELET MORPHOLOGY COMMENT NORMAL (NORMAL)
[2023-09-16] MEDS: PULMICORT NEB TX 0.5 MG NEB SCH ×2 (08:59→20:34)
[2023-09-16] MEDS: LEVAQUIN PREMIX IV 750 MG 750 MG/150 ML BAG IV SCH (09:05)
[2023-09-16] MEDS: CELEXA PO SCH (09:06)
[2023-09-16] MEDS: LOVENOX INJ 40 MG SYR SC SCH (09:06)
[2023-09-16] MEDS: COREG TAB 12.5 MG PO SCH ×2 (09:06→20:38)
[2023-09-16] MEDS: MAG-OX TAB PO SCH ×2 (09:06→20:37)
[2023-09-16] MEDS: RAMIPRIL 1.25 MG PO SCH (09:07)
[2023-09-16] MEDS: PROTONIX TAB 40 MG PO SCH (09:07)
[2023-09-16] MEDS: PATIENT'S HOME MEDICATION PO SCH ×2 (09:07→20:38)
[2023-09-16] MEDS ORDERED: NS 250 ML IV 250 ML IV ONE (11:07)
[2023-09-16] MEDS: DIFLUCAN 100 MG IV (MIX by PHARMACY)* 100 MG/50 ML BAG IV SCH (11:27)
[2023-09-16] MEDS: VSL#3 PO SCH (11:27)
--- NOTE | 2023-09-16 20:18 | PCM.PROG ---
Progress Note Progress Note for Day of Date of Exam: 09/16/23 Subjective Subjective: The patient is alert and awake this morning. He feels better this morning he reports. His dyspnea has improved as well. We are still currently awaiting his pleural effusion culture and we will follow-up with that when available. He still has a profound leukocytosis but it has slightly decreased since yesterday. He is currently receiving IV Levaquin and Fortaz. Past Medical Family Social History Allergies: Allergies No Known Drug Allergies Allergy (Unknown, Verified 09/12/23 19:44) Onset Date: 06/23/2022 Review of Systems ROS: No change since H&P Vital Signs and I&O's Vital Signs: Vital Signs Temperature 98.3 F Pulse Rate [Brachial] 96 Respiratory Rate 20 Respiratory Rate 18 Blood Pressure [Left Arm] 106/63 O2 Sat by Pulse Oximetry 90 Intake and Output: Intake & Output 09/14/23 09/15/23 09/16/23 09/17/23 11:59 11:59 11:59 11:59 Intake Total 900 / 900 1821 / 1821 1162 / 1162 1045 / 1045 Output Total 800 / 800 3250 / 3250 1200 / 1200 500 / 500 Balance 100 / 100 -1429 / -1429 -38 / -38 545 / 545 Physical Exam Oriented: Normal, Time, Person and Place Eyes: Normal Ear: Normal Nose: Normal Throat: Normal Respiratory: Right, Generalized, Diminished and Rhonchi Cardiovascular: Normal : Normal Auscultation: Bowel Sounds: Normal Tenderness: Normal Skin: Normal Musculoskeletal: Normal Psychiatric: Normal Mood Description: Calm Affect: Normal Speech Pattern: Clear and Appropriate Laboratory and Diagnostics 09/16/23 05:18 09/16/23 05:18 Labs: 09/14/23 13:40 Pleural Fluid - Preliminary 09/14/23 13:40 Pleural Fluid Gram Stain - Final 09/12/23 21:45 Blood Blood Culture - Preliminary 09/12/23 21:40 Blood Blood Culture - Preliminary Laboratory WBC 19.7 X10^3/uL (3.6-10.0) H 09/16/23 05:18 RBC 3.50 X10^6/uL (4.7-6.0) L 09/16/23 05:18 Hgb 11.2 g/dL (13.5-18.0) L 09/16/23 05:18 Hct 33.1 % (42.0-54.0) L 09/16/23 05:18 MCV 94.5 fL (80.0-100.0) 09/16/23 05:18 MCH 32.0 pg (27.0-34.0) 09/16/23 05:18 MCHC 33.9 g/dL (33.0-35.0) 09/16/23 05:18 RDW 18.2 % (11.6-16.5) H 09/16/23 05:18 Plt Count 154 X10^3/uL (150.0-450.0) 09/16/23 05:18 Plt Count Comment Adequate (ADEQUATE) 09/16/23 05:18 MPV 8.0 fL (7.4-11.0) 09/16/23 05:18 Neut % (Auto) 79.7 % (42.0-75.0) H 09/16/23 05:18 Lymph % (Auto) 6.4 % (21.0-51.0) L 09/16/23 05:18 [place] % (Auto) 13.7 % (0.0-13.0) H 09/16/23 05:18 Eos % (Auto) 0.1 % (0.9-2.9) L 09/16/23 05:18 Baso % (Auto) 0.1 % (0.2-1.0) L 09/16/23 05:18 Neut # (Auto) 15.7 x10^3/uL (2.2-4.8) H 09/16/23 05:18 Lymph # (Auto) 1.3 X10^3/uL (1.3-2.9) 09/16/23 05:18 [place] # (Auto) 2.7 x10^3/uL (0.3-0.8) H 09/16/23 05:18 Eos # (Auto) 0.0 x10^3/uL (0.0-0.2) 09/16/23 05:18 Baso # (Auto) 0.0 X10^3/uL (0.0-0.1) 09/16/23 05:18 Absolute Nucleated RBC 0.0 /100WBC 09/16/23 05:18 Total Counted 100 09/16/23 05:18 Neutrophils % (Manual) 80 % (39-76) H 09/16/23 05:18 Band Neutrophils % 5 % (0-10) 09/16/23 05:18 Lymphocytes % (Manual) 6 % (13-43) L 09/16/23 05:18 Monocytes % (Manual) 8 % (4-9) 09/16/23 05:18 Metamyelocytes % 1 09/16/23 05:18 Myelocytes % 4 09/13/23 05:24 Atypical Lymphocytes Present 09/13/23 05:24 Smudge Cells Slight A 09/15/23 05:28 Plt Morphology Comment Normal (NORMAL) 09/16/23 05:18 RBC Morphology Abnormal (NORMAL) 09/16/23 05:18 Anisocytosis Slight A 09/16/23 05:18 Sample Site Rra 09/12/23 18:20 ABG pH 7.520 (7.35-7.45) H 09/12/23 18:20 ABG pCO2 39.0 mmHg (35.0-45.0) 09/12/23 18:20 ABG pO2 55.0 mmHg (80.0-100.0) L 09/12/23 18:20 ABG HCO3 31.8 mmol/L (22-26) H* 09/12/23 18:20 ABG O2 Saturation 91.0 % (90-100) 09/12/23 18:20 ABG Base Excess 8.3 mmol/L (-2.0-2.0) H 09/12/23 18:20 Isai Test Pos 09/12/23 18:20 A-a Gradient 181.0 mmHg 09/12/23 18:20 FiO2 40.0 09/12/23 18:20 Blood Gas Comments Pt ramon well eb 09/12/23 18:20 Sodium 131 mmol/L (136-145) L 09/16/23 05:18 Corrected Sodium TNP 09/16/23 05:18 Potassium 4.2 mmol/L (3.5-5.1) 09/16/23 05:18 Chloride 100 mmol/L (98-107) 09/16/23 05:18 Carbon Dioxide 29.8 mmol/L (21-32) 09/16/23 05:18 BUN 27 mg/dL (7-18) H 09/16/23 05:18 Creatinine 0.71 mg/dL (0.70-1.30) 09/16/23 05:18 Est GFR (MDRD) Af Amer > 60 (>60) 09/16/23 05:18 Est GFR (MDRD) Non-Af > 60 (>60) 09/16/23 05:18 Glucose 84 mg/dL (65-99) 09/16/23 05:18 POC Glucose (mg/dL) 94 mg/dL (65-99) 09/14/23 04:14 Lactic Acid 0.9 mmol/L (0.4-2.0) 09/12/23 21:45 Calcium 7.7 mg/dL (8.5-10.1) L 09/16/23 05:18 Corrected Calcium 10.0 mg/dL (8.5-10.1) 09/16/23 05:18 Magnesium 1.9 mg/dL (2.0-2.9) L 09/16/23 05:18 Total Bilirubin 0.50 mg/dL (0.2-1.0) 09/16/23 05:18 AST 19 Units/L (15-37) 09/16/23 05:18 ALT 31 Units/L (12-78) 09/16/23 05:18 Alkaline Phosphatase 132 Units/L (46-116) H 09/16/23 05:18 Creatine Kinase 26 Units/L (39-308) L 09/12/23 18:28 Troponin I High Sens 15.3 ng/L (4.0-60.0) 09/12/23 18:28 B-Natriuretic Peptide 75.3 pg/mL (0-79) 09/15/23 05:28 Total Protein 4.3 g/dL (6.4-8.2) L 09/16/23 05:18 Albumin 1.1 g/dL (3.4-5.0) L 09/16/23 05:18 Globulin 3.2 g/dL (2.5-4.5) 09/16/23 05:18 Albumin/Globulin Ratio 0.3 Ratio (1.1-2.1) L 09/16/23 05:18 Alpha Fetoprotein 1 ng/mL (0-9) 09/15/23 05:28 Total PSA 6.41 ng/mL (0.13-4.0) H 09/15/23 05:28 Specimen Type Clean catch urine 09/13/23 01:05 Urine Color Pale yellow (YELLOW) 09/13/23 01:05 Urine Appearance Clear (CLEAR) 09/13/23 01:05 Urine pH 8.0 (5.0 - 8.0) 09/13/23 01:05 Ur Specific [place] 1.015 (1.000-1.030) 09/13/23 01:05 Urine Protein Negative (NEGATIVE) 09/13/23 01:05 Urine Glucose (UA) Negative (NEGATIVE) 09/13/23 01:05 Urine Ketones Negative (NEGATIVE) 09/13/23 01:05 Urine Blood Negative (NEGATIVE) 09/13/23 01:05 Urine Nitrite Negative (NEGATIVE) 09/13/23 01:05 Urine Bilirubin Negative (NEGATIVE) 09/13/23 01:05 Urine Urobilinogen Normal (NORMAL) 09/13/23 01:05 Ur Leukocyte Esterase 2+ (NEGATIVE) 09/13/23 01:05 Urine RBC 0-2 /HPF (0-3) 09/13/23 01:05 Urine WBC 3-5 /HPF (0-5) 09/13/23 01:05 Ur Squamous Epith Cells Negative /HPF (NEGATIVE) 09/13/23 01:05 Amorphous Sediment Trace /HPF (NEGATIVE) 09/13/23 01:05 Urine Bacteria Negative /HPF (NEGATIVE) 09/13/23 01:05 Ur Culture Indicated? No/not indicated 09/13/23 01:05 Fluid pH 8 09/14/23 12:20 Pleural Glucose 76 09/14/23 12:20 Resp Viral Panel (PCR) See scanned report 09/13/23 00:35 Infect Dis PCR Plus Cancelled 09/14/23 12:20 Cytology See comment. 09/14/23 12:20 Radiology Reviewed: Yes Plan (1) Pneumonia: Status: Acute Narrative Support Text: Patient's chest x-ray is still unchanged over the last few days. Plan: Continue Levaquin 750 mg IV daily and add Fortaz 1 g IV every 8 hours. Repeat CBC in AM. I will also repeat a chest x-ray again tomorrow morning. Follow-up with culture of pleural fluid. (2) Hypoxemia: Status: Acute Plan: Supplemental O2 via nasal cannula. (3) Pleural effusion: Status: Acute Plan: General surgery did a thoracentesis today on the patient we will follow-up cytology and fluid analysis. We will see if the fluid is a transudate versus an exudate. (4) COPD exacerbation: Status: Acute Plan: Supplemental O2, Nebs and IV Rocephin and Levaquin. (5) Leukocytosis: Status: Acute Plan: Follow daily CBCs. (6) Chronic low back pain: Status: Chronic Qualifiers: Sciatica presence: without sciatica Plan: Continue patient's hydrocodone for chronic pain control. (7) Ascites: Status: Acute Plan: IV Lasix.
[2023-09-16] MEDS: LIPITOR TAB 40 MG PO SCH (20:37)
[2023-09-16] MEDS: REQUIP PO SCH (20:38)
[2023-09-17] MEDS: DUONEB 0.5 MG/3 MG (3 mL) NEB SCH ×5 (01:32→17:33)
[2023-09-17] MEDS: FORTAZ or TAZICEF VIAL INJ 1 G in NS 100 ML IV 100 ML IV SCH (05:14)
[2023-09-17 06:24] LABS: BASOPHILS % (AUTO) 0.1 % (0.2-1.0); EOSINOPHILS % (AUTO) 0.1 % (0.9-2.9); HEMATOCRIT 33.1 % (42.0-54.0); HEMOGLOBIN 11.3 g/dL (13.5-18.0); LYMPHOCYTES # (AUTO) 1.2 X10^3/uL (1.3-2.9); LYMPHOCYTES % (AUTO) 6.3 % (21.0-51.0); MEAN CORPUSCULAR HEMOGLOBIN 31.9 pg (27.0-34.0); MEAN CORPUSCULAR HGB CONC 34.1 g/dL (33.0-35.0); MEAN CORPUSCULAR VOLUME 93.6 fL (80.0-100.0); MONOCYTES # (AUTO) 2.7 x10^3/uL (0.3-0.8); MONOCYTES % (AUTO) 13.7 % (0.0-13.0); NEUTROPHILS # (AUTO) 15.5 x10^3/uL (2.2-4.8); NEUTROPHILS % (AUTO) 79.8 % (42.0-75.0); PLATELET COUNT 121 X10^3/uL (150.0-450.0); RED BLOOD COUNT 3.54 X10^6/uL (4.7-6.0); RED CELL DISTRIBUTION WIDTH 18.5 % (11.6-16.5); WHITE BLOOD COUNT 19.5 X10^3/uL (3.6-10.0)
[2023-09-17 07:01] LABS: ALANINE AMINOTRANSFERASE 22 Units/L (12-78); ALKALINE PHOSPHATASE 141 Units/L (46-116); ASPARTATE AMINO TRANSFERASE 30 Units/L (15-37); BLOOD UREA NITROGEN 24 mg/dL (7-18); CALCIUM 7.5 mg/dL (8.5-10.1); CARBON DIOXIDE 23.8 mmol/L (21-32); CHLORIDE 99 mmol/L (98-107); COR CA(FOR HYPOALB) 9.9 mg/dL (8.5-10.1); CREATININE 0.52 mg/dL (0.70-1.30); GLUCOSE 65 mg/dL (65-99); POTASSIUM 4.5 mmol/L (3.5-5.1); SODIUM 127 mmol/L (136-145); TOTAL PROTEIN 4.5 g/dL (6.4-8.2); eGFR NON BLACK RACES > 60 (>60)
[2023-09-17] MEDS: PULMICORT NEB TX 0.5 MG NEB SCH ×2 (08:31→20:36)
[2023-09-17] MEDS: MERREM VIAL 500 MG in NS 50 ML IV 50 ML IV SCH ×3 (09:41→21:24)
[2023-09-17] MEDS: COREG TAB 12.5 MG PO SCH (09:41)
[2023-09-17] MEDS: CELEXA PO SCH (09:41)
[2023-09-17] MEDS: LOVENOX INJ 40 MG SYR SC SCH (09:41)
[2023-09-17] MEDS: LEVAQUIN PREMIX IV 750 MG 750 MG/150 ML BAG IV SCH (09:41)
[2023-09-17] MEDS: DIFLUCAN 100 MG IV (MIX by PHARMACY)* 100 MG/50 ML BAG IV SCH (09:41)
[2023-09-17] MEDS: PROTONIX TAB 40 MG PO SCH (09:42)
[2023-09-17] MEDS: MAG-OX TAB PO SCH ×2 (09:42→20:23)
[2023-09-17] MEDS: PATIENT'S HOME MEDICATION PO SCH ×2 (09:42→20:23)
[2023-09-17] MEDS: RAMIPRIL 1.25 MG PO SCH (09:42)
[2023-09-17] MEDS: VSL#3 PO SCH (09:42)
[2023-09-17] MEDS: NS 1,000 ML IV 1,000 ML IV SCH (12:51)
[2023-09-17] MEDS: NORCO 10/325 TAB PO PRN (17:23)
[2023-09-17] MEDS: LIPITOR TAB 40 MG PO SCH (20:22)
[2023-09-17] MEDS: REQUIP PO SCH (20:23)
--- NOTE | 2023-09-17 20:28 | PCM.PROG ---
Progress Note Progress Note for Day of Date of Exam: 09/17/23 Subjective Subjective: The patient is alert and awake this morning. He states that his breathing is doing okay at this time. He is CA125 came back, and it is elevated, which can mean possible gastrointestinal cancer. The rest of his tumor markers were normal. The pleural effusion culture came back and grew out Staphylococcus epidermidis and this is likely contamination. His white blood cell count is still elevated at 19,500 so I will add IV meropenem today along with his Levaquin and Fortaz. I will plan on repeating another PA and lateral chest x-ray tomorrow to see if his pneumonia is improving. Past Medical Family Social History Allergies: Allergies No Known Drug Allergies Allergy (Unknown, Verified 09/12/23 19:44) Onset Date: 06/23/2022 Review of Systems ROS: No change since H&P Vital Signs and I&O's Vital Signs: Vital Signs Temperature 97.4 F Pulse Rate [Brachial] 105 Respiratory Rate 18 Respiratory Rate 18 Respiratory Rate 22 Blood Pressure [Left Arm] 95/59 O2 Sat by Pulse Oximetry 92 Intake and Output: Intake & Output 09/15/23 09/16/23 09/17/23 09/18/23 11:59 11:59 11:59 11:59 Intake Total 1821 / 1821 1162 / 1162 1395 / 1395 1639 / 1639 Output Total 3250 / 3250 1200 / 1200 1200 / 1200 375 / 375 Balance -1429 / -1429 -38 / -38 195 / 195 1264 / 1264 Physical Exam Oriented: Normal, Time, Person and Place Eyes: Normal Ear: Normal Nose: Normal Throat: Normal Respiratory: Right, Generalized, Diminished and Rhonchi Cardiovascular: Normal : Normal Auscultation: Bowel Sounds: Normal Tenderness: Normal Skin: Normal Musculoskeletal: Normal Psychiatric: Normal Mood Description: Calm Affect: Normal Speech Pattern: Clear and Appropriate Laboratory and Diagnostics 09/17/23 05:30 09/17/23 05:30 Labs: 09/14/23 13:40 Pleural Fluid - Final Staphylococcus Epidermidis 09/14/23 13:40 Pleural Fluid Gram Stain - Final 09/12/23 21:45 Blood Blood Culture - Preliminary 09/12/23 21:40 Blood Blood Culture - Preliminary Laboratory WBC 19.5 X10^3/uL (3.6-10.0) H 09/17/23 05:30 RBC 3.54 X10^6/uL (4.7-6.0) L 09/17/23 05:30 Hgb 11.3 g/dL (13.5-18.0) L 09/17/23 05:30 Hct 33.1 % (42.0-54.0) L 09/17/23 05:30 MCV 93.6 fL (80.0-100.0) 09/17/23 05:30 MCH 31.9 pg (27.0-34.0) 09/17/23 05:30 MCHC 34.1 g/dL (33.0-35.0) 09/17/23 05:30 RDW 18.5 % (11.6-16.5) H 09/17/23 05:30 Plt Count 121 X10^3/uL (150.0-450.0) L 09/17/23 05:30 Plt Count Comment Adequate (ADEQUATE) 09/16/23 05:18 MPV 8.0 fL (7.4-11.0) 09/17/23 05:30 Neut % (Auto) 79.8 % (42.0-75.0) H 09/17/23 05:30 Lymph % (Auto) 6.3 % (21.0-51.0) L 09/17/23 05:30 [place] % (Auto) 13.7 % (0.0-13.0) H 09/17/23 05:30 Eos % (Auto) 0.1 % (0.9-2.9) L 09/17/23 05:30 Baso % (Auto) 0.1 % (0.2-1.0) L 09/17/23 05:30 Neut # (Auto) 15.5 x10^3/uL (2.2-4.8) H 09/17/23 05:30 Lymph # (Auto) 1.2 X10^3/uL (1.3-2.9) L 09/17/23 05:30 [place] # (Auto) 2.7 x10^3/uL (0.3-0.8) H 09/17/23 05:30 Eos # (Auto) 0.0 x10^3/uL (0.0-0.2) 09/17/23 05:30 Baso # (Auto) 0.0 X10^3/uL (0.0-0.1) 09/17/23 05:30 Absolute Nucleated RBC 0.0 /100WBC 09/17/23 05:30 Total Counted 100 09/16/23 05:18 Neutrophils % (Manual) 80 % (39-76) H 09/16/23 05:18 Band Neutrophils % 5 % (0-10) 09/16/23 05:18 Lymphocytes % (Manual) 6 % (13-43) L 09/16/23 05:18 Monocytes % (Manual) 8 % (4-9) 09/16/23 05:18 Metamyelocytes % 1 09/16/23 05:18 Myelocytes % 4 09/13/23 05:24 Atypical Lymphocytes Present 09/13/23 05:24 Smudge Cells Slight A 09/15/23 05:28 Plt Morphology Comment Normal (NORMAL) 09/16/23 05:18 RBC Morphology Abnormal (NORMAL) 09/16/23 05:18 Anisocytosis Slight A 09/16/23 05:18 Sample Site Rra 09/12/23 18:20 ABG pH 7.520 (7.35-7.45) H 09/12/23 18:20 ABG pCO2 39.0 mmHg (35.0-45.0) 09/12/23 18:20 ABG pO2 55.0 mmHg (80.0-100.0) L 09/12/23 18:20 ABG HCO3 31.8 mmol/L (22-26) H* 09/12/23 18:20 ABG O2 Saturation 91.0 % (90-100) 09/12/23 18:20 ABG Base Excess 8.3 mmol/L (-2.0-2.0) H 09/12/23 18:20 Isai Test Pos 09/12/23 18:20 A-a Gradient 181.0 mmHg 09/12/23 18:20 FiO2 40.0 09/12/23 18:20 Blood Gas Comments Pt ramon well eb 09/12/23 18:20 Sodium 127 mmol/L (136-145) L 09/17/23 05:30 Corrected Sodium TNP 09/17/23 05:30 Potassium 4.5 mmol/L (3.5-5.1) 09/17/23 05:30 Chloride 99 mmol/L (98-107) 09/17/23 05:30 Carbon Dioxide 23.8 mmol/L (21-32) 09/17/23 05:30 BUN 24 mg/dL (7-18) H 09/17/23 05:30 Creatinine 0.52 mg/dL (0.70-1.30) L 09/17/23 05:30 Est GFR (MDRD) Af Amer > 60 (>60) 09/17/23 05:30 Est GFR (MDRD) Non-Af > 60 (>60) 09/17/23 05:30 Glucose 65 mg/dL (65-99) 09/17/23 05:30 POC Glucose (mg/dL) 94 mg/dL (65-99) 09/14/23 04:14 Lactic Acid 0.9 mmol/L (0.4-2.0) 09/12/23 21:45 Calcium 7.5 mg/dL (8.5-10.1) L 09/17/23 05:30 Corrected Calcium 9.9 mg/dL (8.5-10.1) 09/17/23 05:30 Magnesium 1.9 mg/dL (2.0-2.9) L 09/17/23 05:30 Total Bilirubin 0.60 mg/dL (0.2-1.0) 09/17/23 05:30 AST 30 Units/L (15-37) 09/17/23 05:30 ALT 22 Units/L (12-78) 09/17/23 05:30 Alkaline Phosphatase 141 Units/L (46-116) H 09/17/23 05:30 Creatine Kinase 26 Units/L (39-308) L 09/12/23 18:28 Troponin I High Sens 15.3 ng/L (4.0-60.0) 09/12/23 18:28 B-Natriuretic Peptide 75.3 pg/mL (0-79) 09/15/23 05:28 Total Protein 4.5 g/dL (6.4-8.2) L 09/17/23 05:30 Albumin 1.0 g/dL (3.4-5.0) L 09/17/23 05:30 Globulin 3.5 g/dL (2.5-4.5) 09/17/23 05:30 Albumin/Globulin Ratio 0.3 Ratio (1.1-2.1) L 09/17/23 05:30 Alpha Fetoprotein 1 ng/mL (0-9) 09/15/23 05:28 Carcinoembryonic Ag 2.1 ng/mL 09/15/23 05:28 CA 19-9 Antigen 14 U/mL (<=35) 09/15/23 05:28 CA 125 Antigen 125 U/mL (<=38) H 09/15/23 05:28 Total PSA 6.41 ng/mL (0.13-4.0) H 09/15/23 05:28 Specimen Type Clean catch urine 09/13/23 01:05 Urine Color Pale yellow (YELLOW) 09/13/23 01:05 Urine Appearance Clear (CLEAR) 09/13/23 01:05 Urine pH 8.0 (5.0 - 8.0) 09/13/23 01:05 Ur Specific [place] 1.015 (1.000-1.030) 09/13/23 01:05 Urine Protein Negative (NEGATIVE) 09/13/23 01:05 Urine Glucose (UA) Negative (NEGATIVE) 09/13/23 01:05 Urine Ketones Negative (NEGATIVE) 09/13/23 01:05 Urine Blood Negative (NEGATIVE) 09/13/23 01:05 Urine Nitrite Negative (NEGATIVE) 09/13/23 01:05 Urine Bilirubin Negative (NEGATIVE) 09/13/23 01:05 Urine Urobilinogen Normal (NORMAL) 09/13/23 01:05 Ur Leukocyte Esterase 2+ (NEGATIVE) 09/13/23 01:05 Urine RBC 0-2 /HPF (0-3) 09/13/23 01:05 Urine WBC 3-5 /HPF (0-5) 09/13/23 01:05 Ur Squamous Epith Cells Negative /HPF (NEGATIVE) 09/13/23 01:05 Amorphous Sediment Trace /HPF (NEGATIVE) 09/13/23 01:05 Urine Bacteria Negative /HPF (NEGATIVE) 09/13/23 01:05 Ur Culture Indicated? No/not indicated 09/13/23 01:05 Fluid pH 8 09/14/23 12:20 Pleural Glucose 76 09/14/23 12:20 Resp Viral Panel (PCR) See scanned report 09/13/23 00:35 Infect Dis PCR Plus Cancelled 09/14/23 12:20 Cytology See comment. 09/14/23 12:20 Miscellaneous Test Pleural flui albumin 09/14/23 12:20 Miscellaneous Test Pleural fluid chlori 09/14/23 12:20 Miscellaneous Test Pleural fluid sodium 09/14/23 12:20 Plan (1) Pneumonia: Status: Acute Plan: Continue Levaquin 750 mg IV daily and continue Fortaz 1 g IV every 8 hours. Repeat CBC in AM. I will also repeat a chest x-ray again tomorrow morning. Add IV meropenem today. (2) Hypoxemia: Status: Acute Plan: Supplemental O2 via nasal cannula. (3) Pleural effusion: Status: Acute Plan: Follow-up cytology of the pleural effusion as well as the rest of the studies when available. (4) COPD exacerbation: Status: Acute Plan: Supplemental O2, Nebs and IV Rocephin and Levaquin. (5) Leukocytosis: Status: Acute Plan: Follow daily CBCs. (6) Chronic low back pain: Status: Chronic Qualifiers: Sciatica presence: without sciatica Plan: Continue patient's hydrocodone for chronic pain control. (7) Ascites: Status: Acute Plan: IV Lasix.
[2023-09-18] MEDS: DUONEB 0.5 MG/3 MG (3 mL) NEB SCH ×5 (00:45→17:31)
[2023-09-18] MEDS: MERREM VIAL 500 MG in NS 50 ML IV 50 ML IV SCH ×3 (05:11→21:29)
[2023-09-18 05:25] LABS: BASOPHILS # (AUTO) 0.1 X10^3/uL (0.0-0.1); BASOPHILS % (AUTO) 0.3 % (0.2-1.0); EOSINOPHILS % (AUTO) 0.1 % (0.9-2.9); HEMATOCRIT 32.3 % (42.0-54.0); HEMOGLOBIN 10.9 g/dL (13.5-18.0); LYMPHOCYTES # (AUTO) 0.9 X10^3/uL (1.3-2.9); LYMPHOCYTES % (AUTO) 5.2 % (21.0-51.0); MEAN CORPUSCULAR HEMOGLOBIN 31.5 pg (27.0-34.0); MEAN CORPUSCULAR HGB CONC 33.6 g/dL (33.0-35.0); MEAN CORPUSCULAR VOLUME 93.8 fL (80.0-100.0); MEAN PLATELET VOLUME 7.7 fL (7.4-11.0); MONOCYTES # (AUTO) 2.4 x10^3/uL (0.3-0.8); MONOCYTES % (AUTO) 13.6 % (0.0-13.0); NEUTROPHILS # (AUTO) 14.1 x10^3/uL (2.2-4.8); NEUTROPHILS % (AUTO) 80.8 % (42.0-75.0); PLATELET COUNT 141 X10^3/uL (150.0-450.0); RED BLOOD COUNT 3.45 X10^6/uL (4.7-6.0); RED CELL DISTRIBUTION WIDTH 18.3 % (11.6-16.5); WHITE BLOOD COUNT 17.4 X10^3/uL (3.6-10.0)
[2023-09-18 05:41] LABS: ALANINE AMINOTRANSFERASE 22 Units/L (12-78); ALBUMIN 1.1 g/dL (3.4-5.0); ALKALINE PHOSPHATASE 152 Units/L (46-116); ASPARTATE AMINO TRANSFERASE 23 Units/L (15-37); BLOOD UREA NITROGEN 23 mg/dL (7-18); CALCIUM 7.5 mg/dL (8.5-10.1); CHLORIDE 101 mmol/L (98-107); COR CA(FOR HYPOALB) 9.8 mg/dL (8.5-10.1); CREATININE 0.56 mg/dL (0.70-1.30); GLUCOSE 75 mg/dL (65-99); MAGNESIUM 1.9 mg/dL (2.0-2.9); POTASSIUM 4.2 mmol/L (3.5-5.1); SODIUM 131 mmol/L (136-145); TOTAL PROTEIN 4.4 g/dL (6.4-8.2); eGFR NON BLACK RACES > 60 (>60)
[2023-09-18] MEDS ORDERED: CONSULT PHARMACY - POTASSIUM & MAGNESIUM XX SCH (06:00)
--- NOTE | 2023-09-18 06:57 | RAD ---
EXAM:Chest PA and lateral viewsHISTORY:Pneumonia left pleural effusionCOMPARISON:09/16/2023FINDINGS:Si milar extent and distribution of right basal opacity consistent with airspace disease and pleural effusion. Heart size remains normal. Slight nonspecific interstitial prominence in the left lower lobe.IMPRESSION:No change. Findings in the right lower chest remain consistent with pneumonia/atelectasis and pleural effusion.THIS IS AN ELECTRONICALLY VERIFIED FINAL REPORT09/18/2023 6:54 AM - Electronically signed by Kenney Dejesus MD
[2023-09-18] MEDS: PULMICORT NEB TX 0.5 MG NEB SCH ×2 (08:30→21:26)
[2023-09-18] MEDS ORDERED: PHARMACY CONSULT - TPN XX SCH (09:00)
[2023-09-18] MEDS: ALBUMIN HUMAN 25%- 100 ML 100 ML IV SCH (10:22)
[2023-09-18] MEDS: CELEXA PO SCH (10:23)
[2023-09-18] MEDS: DIFLUCAN 100 MG IV (MIX by PHARMACY)* 100 MG/50 ML BAG IV SCH (10:23)
[2023-09-18] MEDS: VSL#3 PO SCH (10:24)
[2023-09-18] MEDS: PROTONIX TAB 40 MG PO SCH (10:24)
[2023-09-18] MEDS: LEVAQUIN PREMIX IV 750 MG 750 MG/150 ML BAG IV SCH (10:24)
[2023-09-18] MEDS: PATIENT'S HOME MEDICATION PO SCH ×2 (10:25→21:28)
[2023-09-18] MEDS: LOVENOX INJ 40 MG SYR SC SCH (10:25)
[2023-09-18] MEDS: MAGIC MOUTHWASH (Orig. Formula) MT SCH ×4 (10:26→21:28)
[2023-09-18] MEDS: MAG-OX TAB PO SCH ×4 (10:26→21:28)
[2023-09-18] MEDS ORDERED: DRUG FILTER EXTENSION SET ONE (10:28)
[2023-09-18] MEDS: CLINIMIX 4.25%-5% 1,000 ML with MVI INJ (ADULT) 10 ML IV SCH ×2 (10:29)
[2023-09-18] MEDS: NORCO 10/325 TAB PO PRN ×2 (10:51→21:29)
[2023-09-18] MEDS: NS 1,000 ML IV 1,000 ML IV SCH (14:37)
[2023-09-18 17:58] VITALS: BMI 20.2
[2023-09-18] MEDS: LIPITOR TAB 40 MG PO SCH (21:28)
[2023-09-18] MEDS: REQUIP PO SCH (21:28)
[2023-09-18] MEDS: TESSALON PERLES PO PRN (21:30)
[2023-09-19] MEDS: DUONEB 0.5 MG/3 MG (3 mL) NEB SCH ×5 (00:51→17:01)
[2023-09-19] MEDS: MERREM VIAL 500 MG in NS 50 ML IV 50 ML IV SCH ×3 (05:11→21:30)
[2023-09-19 05:47] LABS: BASOPHILS % (AUTO) 0.1 % (0.2-1.0); EOSINOPHILS % (AUTO) 0.2 % (0.9-2.9); HEMATOCRIT 31.1 % (42.0-54.0); HEMOGLOBIN 10.4 g/dL (13.5-18.0); LYMPHOCYTES # (AUTO) 0.8 X10^3/uL (1.3-2.9); LYMPHOCYTES % (AUTO) 4.7 % (21.0-51.0); MEAN CORPUSCULAR HEMOGLOBIN 31.4 pg (27.0-34.0); MEAN CORPUSCULAR HGB CONC 33.4 g/dL (33.0-35.0); MEAN CORPUSCULAR VOLUME 93.9 fL (80.0-100.0); MEAN PLATELET VOLUME 7.7 fL (7.4-11.0); MONOCYTES % (AUTO) 12.5 % (0.0-13.0); NEUTROPHILS # (AUTO) 13.3 x10^3/uL (2.2-4.8); NEUTROPHILS % (AUTO) 82.5 % (42.0-75.0); PLATELET COUNT 119 X10^3/uL (150.0-450.0); RED BLOOD COUNT 3.31 X10^6/uL (4.7-6.0); RED CELL DISTRIBUTION WIDTH 18.5 % (11.6-16.5); WHITE BLOOD COUNT 16.1 X10^3/uL (3.6-10.0)
[2023-09-19 06:01] LABS: ALANINE AMINOTRANSFERASE 17 Units/L (12-78); ALBUMIN 1.4 g/dL (3.4-5.0); ALKALINE PHOSPHATASE 135 Units/L (46-116); ASPARTATE AMINO TRANSFERASE 22 Units/L (15-37); BLOOD UREA NITROGEN 19 mg/dL (7-18); CALCIUM 7.7 mg/dL (8.5-10.1); CARBON DIOXIDE 29.6 mmol/L (21-32); CHLORIDE 101 mmol/L (98-107); COR CA(FOR HYPOALB) 9.8 mg/dL (8.5-10.1); CREATININE 0.47 mg/dL (0.70-1.30); GLUCOSE 83 mg/dL (65-99); SODIUM 134 mmol/L (136-145); TOTAL PROTEIN 4.5 g/dL (6.4-8.2); eGFR NON BLACK RACES > 60 (>60)
[2023-09-19] MEDS: PULMICORT NEB TX 0.5 MG NEB SCH ×2 (09:10→20:20)
[2023-09-19] MEDS: LEVAQUIN PREMIX IV 750 MG 750 MG/150 ML BAG IV SCH (09:43)
[2023-09-19] MEDS: CLINIMIX 4.25%-5% 1,000 ML with MVI INJ (ADULT) 10 ML IV SCH ×2 (09:43)
[2023-09-19] MEDS: DIFLUCAN 100 MG IV (MIX by PHARMACY)* 100 MG/50 ML BAG IV SCH (09:43)
[2023-09-19] MEDS: CELEXA PO SCH (09:43)
[2023-09-19] MEDS: ALBUMIN HUMAN 25%- 100 ML 100 ML IV SCH (09:43)
[2023-09-19] MEDS: PROTONIX TAB 40 MG PO SCH (09:44)
[2023-09-19] MEDS: VSL#3 PO SCH (09:44)
[2023-09-19] MEDS: LOVENOX INJ 40 MG SYR SC SCH (09:44)
[2023-09-19] MEDS: PATIENT'S HOME MEDICATION PO SCH ×2 (09:44→21:30)
[2023-09-19] MEDS: MAGIC MOUTHWASH (Orig. Formula) MT SCH ×5 (09:44→21:29)
[2023-09-19] MEDS: MAG-OX TAB PO SCH ×2 (09:44→21:29)
[2023-09-19] MEDS: NS 1,000 ML IV 1,000 ML IV SCH (13:16)
[2023-09-19] MEDS: NORCO 10/325 TAB PO PRN ×2 (13:16→21:31)
--- NOTE | 2023-09-19 14:08 | PCM.PROG ---
Progress Note - Progress Note for Day of Date of Exam: 09/18/23 - Subjective Subjective: IS INPATIENT STATUS FOR TREATMENT OF PNEUMONIA, HYPOXEMIA, PLEURAL EFFUSION, COPD EXACERBATION, LEUKOCYTOSIS, AND CHRONIC LOW BACK PAIN. HE HAD A PLEUROCENTESIS ON 09/14/22. TODAY, HE IS ALERT AND ORIENTED, SITTING UP IN BED ON MORNING ROUNDS. HE COMPLAINS OF GENERALIZED WEAKNESS, COUGH AND SHORTNESS OF BREATH AT TIMES, AND ALSO REPORTS MOUTH AND GUM PAIN. UPON EXAMINATION, HEART IS REGULAR IN RATE AND RHYTHM. BILATERAL LUNGS ARE NOTED WITH RHONCHI THROUGHOUT. ABDOMEN IN ROUND, SOFT, AND NON-TENDER WITH NORMAL BOWEL SOUNDS NOTED IN ALL QUADRANTS. NORMAL BOWEL SOUNDS NOTED IN ALL QUADRANTS. GOOD RANGE OF MOTION NOTED TO UPPER AND LOWER EXTREMITIES WITH NO EDEMA NOTED. HIS VITALS THIS MORNING ARE: 97.8-87-24-93%-101/58. LABS WERE OBTAINED. WBC 17.4, RBC 3.45, HGB 10.9, HCT 32.3, PLT COUNT 141, SODIUM 131, POTASSIUM 4.2, CHLORIDE 101, BUN 23, CREATININE 0.56, GLUCOSE 75, CALCIUM 7.5, MAGNESIUM 1.9, AST 23, ALT 22, ALK PHOS 152, TOTAL PROTEIN 4.4, ALBUMIN 1.1. RESPIRATORY VIRAL PANEL IS POSITIVE FOR MORAXELLA CATARRHALIS. CHEST XRAY REVEALED: No change. Findings in the [facility] lower chest remain consistent with pneumonia/atelectasis and pleural effusion. TODAY, WE WILL ADD TPN, ALBUMIN 25% IV DAILY, AND MAGIC MOUTHWASH QID. OTHERWISE, WE WILL CONTINUE WITH CURRENT PLAN OF CARE. WE PLAN TO FOLLOW-UP WITH AM LABS AND CONTINUE TO MONITOR. TIME SPENT ON CLINICAL ASSESSMENT, REVIEWING LABS AND IMAGING, DECISION MAKING, AND DOCUMENTATION GREATER THAN 45 MINUTES. - Past Medical Family Social History Allergies: Allergies No Known Drug Allergies Allergy (Unknown, Verified 09/12/23 19:44) Onset Date: 06/23/2022 - Review of Systems ROS: No change since H&P - Vital Signs and I&O's Vital Signs: Vital Signs Temperature 98.0 F Temperature 98.1 F Pulse Rate [Brachial] 93 Pulse Rate [Brachial] 88 Pulse Rate 93 Respiratory Rate 21 Respiratory Rate 22 Respiratory Rate 22 Blood Pressure [Left Arm] 105/52 Blood Pressure [Left Arm] 99/72 O2 Sat by Pulse Oximetry 91 O2 Sat by Pulse Oximetry 94 O2 Sat by Pulse Oximetry 93 Intake and Output: Intake & Output 09/17/23 09/18/23 09/19/23 09/20/23 11:59 11:59 11:59 11:59 Intake Total 1615 / 1615 3061 / 3061 1583 / 1583 Output Total 1400 / 1400 600 / 600 750 / 750 Balance 215 / 215 2461 / 2461 833 / 833 - Physical Exam Oriented: Normal, Time, Person, Place Eyes: Normal Ear: Normal Nose: Normal Throat: Normal Respiratory: Right, Generalized, Diminished, Rhonchi Cardiovascular: Normal : Normal Auscultation: Bowel Sounds: Normal Tenderness: Normal Skin: Normal Musculoskeletal: Normal Psychiatric: Normal Mood Description: Calm Affect: Normal Speech Pattern: Clear, Appropriate - Laboratory and Diagnostics Result Diagrams: 09/19/23 05:21 09/19/23 05:21 Labs: 09/12/23 21:45 Blood Blood Culture - Final 09/12/23 21:40 Blood Blood Culture - Final 09/14/23 13:40 Pleural Fluid - Final Staphylococcus Epidermidis 09/14/23 13:40 Pleural Fluid Gram Stain - Final Laboratory WBC 16.1 X10^3/uL (3.6-10.0) H 09/19/23 05:21 RBC 3.31 X10^6/uL (4.7-6.0) L 09/19/23 05:21 Hgb 10.4 g/dL (13.5-18.0) L 09/19/23 05:21 Hct 31.1 % (42.0-54.0) L 09/19/23 05:21 MCV 93.9 fL (80.0-100.0) 09/19/23 05:21 MCH 31.4 pg (27.0-34.0) 09/19/23 05:21 MCHC 33.4 g/dL (33.0-35.0) 09/19/23 05:21 RDW 18.5 % (11.6-16.5) H 09/19/23 05:21 Plt Count 119 X10^3/uL (150.0-450.0) L 09/19/23 05:21 Plt Count Comment Adequate (ADEQUATE) 09/16/23 05:18 MPV 7.7 fL (7.4-11.0) 09/19/23 05:21 Neut % (Auto) 82.5 % (42.0-75.0) H 09/19/23 05:21 Lymph % (Auto) 4.7 % (21.0-51.0) L 09/19/23 05:21 [place] % (Auto) 12.5 % (0.0-13.0) 09/19/23 05:21 Eos % (Auto) 0.2 % (0.9-2.9) L 09/19/23 05:21 Baso % (Auto) 0.1 % (0.2-1.0) L 09/19/23 05:21 Neut # (Auto) 13.3 x10^3/uL (2.2-4.8) H 09/19/23 05:21 Lymph # (Auto) 0.8 X10^3/uL (1.3-2.9) L 09/19/23 05:21 [place] # (Auto) 2.0 x10^3/uL (0.3-0.8) H 09/19/23 05:21 Eos # (Auto) 0.0 x10^3/uL (0.0-0.2) 09/19/23 05:21 Baso # (Auto) 0.0 X10^3/uL (0.0-0.1) 09/19/23 05:21 Absolute Nucleated RBC 0.0 /100WBC 09/19/23 05:21 Total Counted 100 09/16/23 05:18 Neutrophils % (Manual) 80 % (39-76) H 09/16/23 05:18 Band Neutrophils % 5 % (0-10) 09/16/23 05:18 Lymphocytes % (Manual) 6 % (13-43) L 09/16/23 05:18 Monocytes % (Manual) 8 % (4-9) 09/16/23 05:18 Metamyelocytes % 1 09/16/23 05:18 Myelocytes % 4 09/13/23 05:24 Atypical Lymphocytes Present 09/13/23 05:24 Smudge Cells Slight A 09/15/23 05:28 Plt Morphology Comment Normal (NORMAL) 09/16/23 05:18 RBC Morphology Abnormal (NORMAL) 09/16/23 05:18 Anisocytosis Slight A 09/16/23 05:18 Sample Site Rra 09/12/23 18:20 ABG pH 7.520 (7.35-7.45) H 09/12/23 18:20 ABG pCO2 39.0 mmHg (35.0-45.0) 09/12/23 18:20 ABG pO2 55.0 mmHg (80.0-100.0) L 09/12/23 18:20 ABG HCO3 31.8 mmol/L (22-26) H* 09/12/23 18:20 ABG O2 Saturation 91.0 % (90-100) 09/12/23 18:20 ABG Base Excess 8.3 mmol/L (-2.0-2.0) H 09/12/23 18:20 Isai Test Pos 09/12/23 18:20 A-a Gradient 181.0 mmHg 09/12/23 18:20 FiO2 40.0 09/12/23 18:20 Blood Gas Comments Pt ramon well eb 09/12/23 18:20 Sodium 134 mmol/L (136-145) L 09/19/23 05:21 Corrected Sodium TNP 09/19/23 05:21 Potassium 4.0 mmol/L (3.5-5.1) 09/19/23 05:21 Chloride 101 mmol/L (98-107) 09/19/23 05:21 Carbon Dioxide 29.6 mmol/L (21-32) 09/19/23 05:21 BUN 19 mg/dL (7-18) H 09/19/23 05:21 Creatinine 0.47 mg/dL (0.70-1.30) L 09/19/23 05:21 Est GFR (MDRD) Af Amer > 60 (>60) 09/19/23 05:21 Est GFR (MDRD) Non-Af > 60 (>60) 09/19/23 05:21 Glucose 83 mg/dL (65-99) 09/19/23 05:21 POC Glucose (mg/dL) 87 mg/dL (65-99) 09/19/23 11:23 Lactic Acid 0.9 mmol/L (0.4-2.0) 09/12/23 21:45 Calcium 7.7 mg/dL (8.5-10.1) L 09/19/23 05:21 Corrected Calcium 9.8 mg/dL (8.5-10.1) 09/19/23 05:21 Magnesium 2.0 mg/dL (2.0-2.9) 09/19/23 05:21 Total Bilirubin 0.60 mg/dL (0.2-1.0) 09/19/23 05:21 AST 22 Units/L (15-37) 09/19/23 05:21 ALT 17 Units/L (12-78) 09/19/23 05:21 Alkaline Phosphatase 135 Units/L (46-116) H 09/19/23 05:21 Creatine Kinase 26 Units/L (39-308) L 09/12/23 18:28 Troponin I High Sens 15.3 ng/L (4.0-60.0) 09/12/23 18:28 B-Natriuretic Peptide 75.3 pg/mL (0-79) 09/15/23 05:28 Total Protein 4.5 g/dL (6.4-8.2) L 09/19/23 05:21 Albumin 1.4 g/dL (3.4-5.0) L 09/19/23 05:21 Globulin 3.1 g/dL (2.5-4.5) 09/19/23 05:21 Albumin/Globulin Ratio 0.5 Ratio (1.1-2.1) L 09/19/23 05:21 Alpha Fetoprotein 1 ng/mL (0-9) 09/15/23 05:28 Carcinoembryonic Ag 2.1 ng/mL 09/15/23 05:28 CA 19-9 Antigen 14 U/mL (<=35) 09/15/23 05:28 CA 125 Antigen 125 U/mL (<=38) H 09/15/23 05:28 Total PSA 6.41 ng/mL (0.13-4.0) H 09/15/23 05:28 Specimen Type Clean catch urine 09/13/23 01:05 Urine Color Pale yellow (YELLOW) 09/13/23 01:05 Urine Appearance Clear (CLEAR) 09/13/23 01:05 Urine pH 8.0 (5.0 - 8.0) 09/13/23 01:05 Ur Specific [place] 1.015 (1.000-1.030) 09/13/23 01:05 Urine Protein Negative (NEGATIVE) 09/13/23 01:05 Urine Glucose (UA) Negative (NEGATIVE) 09/13/23 01:05 Urine Ketones Negative (NEGATIVE) 09/13/23 01:05 Urine Blood Negative (NEGATIVE) 09/13/23 01:05 Urine Nitrite Negative (NEGATIVE) 09/13/23 01:05 Urine Bilirubin Negative (NEGATIVE) 09/13/23 01:05 Urine Urobilinogen Normal (NORMAL) 09/13/23 01:05 Ur Leukocyte Esterase 2+ (NEGATIVE) 09/13/23 01:05 Urine RBC 0-2 /HPF (0-3) 09/13/23 01:05 Urine WBC 3-5 /HPF (0-5) 09/13/23 01:05 Ur Squamous Epith Cells Negative /HPF (NEGATIVE) 09/13/23 01:05 Amorphous Sediment Trace /HPF (NEGATIVE) 09/13/23 01:05 Urine Bacteria Negative /HPF (NEGATIVE) 09/13/23 01:05 Ur Culture Indicated? No/not indicated 09/13/23 01:05 Fluid pH 8 09/14/23 12:20 Pleural Glucose 76 09/14/23 12:20 Resp Viral Panel (PCR) See scanned report 09/13/23 00:35 Infect Dis PCR Plus Cancelled 09/14/23 12:20 Cytology See comment. 09/14/23 12:20 Miscellaneous Test Pleural flui albumin 09/14/23 12:20 Miscellaneous Test Pleural fluid chlori 09/14/23 12:20 Miscellaneous Test Pleural fluid sodium 09/14/23 12:20 - Plan (1) Pneumonia Status: Acute Qualifiers: Pneumonia type: due to unspecified organism Laterality: unspecified laterality Lung location: unspecified part of lung Qualified Code(s): J18.9 - Pneumonia, unspecified organism Plan: Continue IV antibiotics, Repeat LABS AND XRAY in AM. (2) Hypoxemia Status: Acute Plan: Supplemental O2 via nasal cannula. (3) Pleural effusion Status: Acute Plan: Follow-up cytology of the pleural effusion as well as the rest of the studies when available. (4) Acute exacerbation of chronic obstructive pulmonary disease Status: Acute (5) Leukocytosis Status: Acute Qualifiers: Leukocytosis type: bandemia Qualified Code(s): D72.825 - Bandemia Plan: Follow daily CBCs. (6) Hypertension Status: Chronic Qualifiers: Hypertension type: primary hypertension (7) Hypercholesteremia Status: Acute
[2023-09-19] MEDS: LIPITOR TAB 40 MG PO SCH (21:29)
[2023-09-19] MEDS: REQUIP PO SCH (21:30)
[2023-09-19] MEDS: TESSALON PERLES PO PRN (21:31)
--- NOTE | 2023-09-19 22:11 | PCM.PROG ---
Progress Note - Progress Note for Day of Date of Exam: 09/19/23 - Subjective Subjective: IS INPATIENT STATUS FOR TREATMENT OF PNEUMONIA, HYPOXEMIA, PLEURAL EFFUSION, COPD EXACERBATION, LEUKOCYTOSIS, AND CHRONIC LOW BACK PAIN. HE HAD A PLEUROCENTESIS ON 09/14/22. TODAY, HE IS ALERT AND ORIENTED, SITTING UP IN BED ON MORNING ROUNDS. HE COMPLAINS OF GENERALIZED WEAKNESS, COUGH AND SHORTNESS OF BREATH AT TIMES, AND ALSO REPORTS MOUTH AND GUM PAIN. UPON EXAMINATION, HEART IS REGULAR IN RATE AND RHYTHM. BILATERAL LUNGS ARE NOTED WITH RHONCHI THROUGHOUT. ABDOMEN IN ROUND, SOFT, AND NON-TENDER WITH NORMAL BOWEL SOUNDS NOTED IN ALL QUADRANTS. NORMAL BOWEL SOUNDS NOTED IN ALL QUADRANTS. GOOD RANGE OF MOTION NOTED TO UPPER AND LOWER EXTREMITIES WITH NO EDEMA NOTED. HIS VITALS THIS MORNING ARE: 98.1-88-22-93%-99/72. HE IS CURRENTLY UTILIZING OXYGEN VIA NASAL CANNULA AT 4 LPM. LABS WERE OBTAINED. WBC 16.1, RBC 3.31, HGB 10.4, HCT 31.1, PLT COUNT 119, SODIUM 134, POTASSIUM 4.0, CHLORIDE 101, BUN 19, CREATININE 0.47, GLUCOSE 83, CALCIUM 7.7, MAGNESIUM 2.0, AST 22, ALT 17, ALK PHOS 135, TOTAL PROTEIN 4.5, ALBUMIN 1.4. RESPIRATORY VIRAL PANEL IS POSITIVE FOR MORAXELLA CATARRHALIS. CHEST XRAY REVEALED: No change. Findings in the right lower chest remain consistent with pneumonia/atelectasis and pleural effusion. WE WILL CONTINUE WITH IV FLUIDS, TPN, IV ANTIBIOTICS, AND CURRENT PLAN OF CARE TODAY. WE PLAN TO FOLLOW-UP WITH AM LABS AND CONTINUE TO MONITOR. TIME SPENT ON CLINICAL ASSESSMENT, REVIEWING LABS AND IMAGING, DECISION MAKING, AND DOCUMENTATION GREATER THAN 45 MINUTES. - Past Medical Family Social History Allergies: Allergies No Known Drug Allergies Allergy (Unknown, Verified 09/12/23 19:44) Onset Date: 06/23/2022 - Review of Systems ROS: No change since H&P - Vital Signs and I&O's Vital Signs: Vital Signs Temperature 98.6 F Pulse Rate [Brachial] 92 Pulse Rate 86 Respiratory Rate 22 Respiratory Rate 20 Respiratory Rate 21 Blood Pressure [Left Arm] 112/62 O2 Sat by Pulse Oximetry 97 O2 Sat by Pulse Oximetry 90 Intake and Output: Intake & Output 09/17/23 09/18/23 09/19/23/15/24 11:59 11:59 11:59 11:59 Intake Total 1615 / 1615 3061 / 3061 1583 / 1583 240 / 240 Output Total 1400 / 1400 600 / 600 750 / 750 500 / 500 Balance 215 / 215 2461 / 2461 833 / 833 -260 / -260 - Physical Exam Oriented: Normal, Time, Person, Place Eyes: Normal Ear: Normal Nose: Normal Throat: Normal Respiratory: Right, Generalized, Diminished, Rhonchi Cardiovascular: Normal : Normal Auscultation: Bowel Sounds: Normal Tenderness: Normal Skin: Normal Musculoskeletal: Normal Psychiatric: Normal Mood Description: Calm Affect: Normal Speech Pattern: Clear, Appropriate - Laboratory and Diagnostics Result Diagrams: 09/19/23 05:21 09/19/23 05:21 Labs: 09/12/23 21:45 Blood Blood Culture - Final 09/12/23 21:40 Blood Blood Culture - Final 09/14/23 13:40 Pleural Fluid - Final Staphylococcus Epidermidis 09/14/23 13:40 Pleural Fluid Gram Stain - Final Laboratory WBC 16.1 X10^3/uL (3.6-10.0) H 09/19/23 05:21 RBC 3.31 X10^6/uL (4.7-6.0) L 09/19/23 05:21 Hgb 10.4 g/dL (13.5-18.0) L 09/19/23 05:21 Hct 31.1 % (42.0-54.0) L 09/19/23 05:21 MCV 93.9 fL (80.0-100.0) 09/19/23 05:21 MCH 31.4 pg (27.0-34.0) 09/19/23 05:21 MCHC 33.4 g/dL (33.0-35.0) 09/19/23 05:21 RDW 18.5 % (11.6-16.5) H 09/19/23 05:21 Plt Count 119 X10^3/uL (150.0-450.0) L 09/19/23 05:21 Plt Count Comment Adequate (ADEQUATE) 09/16/23 05:18 MPV 7.7 fL (7.4-11.0) 09/19/23 05:21 Neut % (Auto) 82.5 % (42.0-75.0) H 09/19/23 05:21 Lymph % (Auto) 4.7 % (21.0-51.0) L 09/19/23 05:21 [place] % (Auto) 12.5 % (0.0-13.0) 09/19/23 05:21 Eos % (Auto) 0.2 % (0.9-2.9) L 09/19/23 05:21 Baso % (Auto) 0.1 % (0.2-1.0) L 09/19/23 05:21 Neut # (Auto) 13.3 x10^3/uL (2.2-4.8) H 09/19/23 05:21 Lymph # (Auto) 0.8 X10^3/uL (1.3-2.9) L 09/19/23 05:21 [place] # (Auto) 2.0 x10^3/uL (0.3-0.8) H 09/19/23 05:21 Eos # (Auto) 0.0 x10^3/uL (0.0-0.2) 09/19/23 05:21 Baso # (Auto) 0.0 X10^3/uL (0.0-0.1) 09/19/23 05:21 Absolute Nucleated RBC 0.0 /100WBC 09/19/23 05:21 Total Counted 100 09/16/23 05:18 Neutrophils % (Manual) 80 % (39-76) H 09/16/23 05:18 Band Neutrophils % 5 % (0-10) 09/16/23 05:18 Lymphocytes % (Manual) 6 % (13-43) L 09/16/23 05:18 Monocytes % (Manual) 8 % (4-9) 09/16/23 05:18 Metamyelocytes % 1 09/16/23 05:18 Myelocytes % 4 09/13/23 05:24 Atypical Lymphocytes Present 09/13/23 05:24 Smudge Cells Slight A 09/15/23 05:28 Plt Morphology Comment Normal (NORMAL) 09/16/23 05:18 RBC Morphology Abnormal (NORMAL) 09/16/23 05:18 Anisocytosis Slight A 09/16/23 05:18 Sample Site Rra 09/12/23 18:20 ABG pH 7.520 (7.35-7.45) H 09/12/23 18:20 ABG pCO2 39.0 mmHg (35.0-45.0) 09/12/23 18:20 ABG pO2 55.0 mmHg (80.0-100.0) L 09/12/23 18:20 ABG HCO3 31.8 mmol/L (22-26) H* 09/12/23 18:20 ABG O2 Saturation 91.0 % (90-100) 09/12/23 18:20 ABG Base Excess 8.3 mmol/L (-2.0-2.0) H 09/12/23 18:20 Isai Test Pos 09/12/23 18:20 A-a Gradient 181.0 mmHg 09/12/23 18:20 FiO2 40.0 09/12/23 18:20 Blood Gas Comments Pt ramon well eb 09/12/23 18:20 Sodium 134 mmol/L (136-145) L 09/19/23 05:21 Corrected Sodium TNP 09/19/23 05:21 Potassium 4.0 mmol/L (3.5-5.1) 09/19/23 05:21 Chloride 101 mmol/L (98-107) 09/19/23 05:21 Carbon Dioxide 29.6 mmol/L (21-32) 09/19/23 05:21 BUN 19 mg/dL (7-18) H 09/19/23 05:21 Creatinine 0.47 mg/dL (0.70-1.30) L 09/19/23 05:21 Est GFR (MDRD) Af Amer > 60 (>60) 09/19/23 05:21 Est GFR (MDRD) Non-Af > 60 (>60) 09/19/23 05:21 Glucose 83 mg/dL (65-99) 09/19/23 05:21 POC Glucose (mg/dL) 110 mg/dL (65-99) H 09/19/23 18:52 Lactic Acid 0.9 mmol/L (0.4-2.0) 09/12/23 21:45 Calcium 7.7 mg/dL (8.5-10.1) L 09/19/23 05:21 Corrected Calcium 9.8 mg/dL (8.5-10.1) 09/19/23 05:21 Magnesium 2.0 mg/dL (2.0-2.9) 09/19/23 05:21 Total Bilirubin 0.60 mg/dL (0.2-1.0) 09/19/23 05:21 AST 22 Units/L (15-37) 09/19/23 05:21 ALT 17 Units/L (12-78) 09/19/23 05:21 Alkaline Phosphatase 135 Units/L (46-116) H 09/19/23 05:21 Creatine Kinase 26 Units/L (39-308) L 09/12/23 18:28 Troponin I High Sens 15.3 ng/L (4.0-60.0) 09/12/23 18:28 B-Natriuretic Peptide 75.3 pg/mL (0-79) 09/15/23 05:28 Total Protein 4.5 g/dL (6.4-8.2) L 09/19/23 05:21 Albumin 1.4 g/dL (3.4-5.0) L 09/19/23 05:21 Globulin 3.1 g/dL (2.5-4.5) 09/19/23 05:21 Albumin/Globulin Ratio 0.5 Ratio (1.1-2.1) L 09/19/23 05:21 Alpha Fetoprotein 1 ng/mL (0-9) 09/15/23 05:28 Carcinoembryonic Ag 2.1 ng/mL 09/15/23 05:28 CA 19-9 Antigen 14 U/mL (<=35) 09/15/23 05:28 CA 125 Antigen 125 U/mL (<=38) H 09/15/23 05:28 Total PSA 6.41 ng/mL (0.13-4.0) H 09/15/23 05:28 Specimen Type Clean catch urine 09/13/23 01:05 Urine Color Pale yellow (YELLOW) 09/13/23 01:05 Urine Appearance Clear (CLEAR) 09/13/23 01:05 Urine pH 8.0 (5.0 - 8.0) 09/13/23 01:05 Ur Specific [place] 1.015 (1.000-1.030) 09/13/23 01:05 Urine Protein Negative (NEGATIVE) 09/13/23 01:05 Urine Glucose (UA) Negative (NEGATIVE) 09/13/23 01:05 Urine Ketones Negative (NEGATIVE) 09/13/23 01:05 Urine Blood Negative (NEGATIVE) 09/13/23 01:05 Urine Nitrite Negative (NEGATIVE) 09/13/23 01:05 Urine Bilirubin Negative (NEGATIVE) 09/13/23 01:05 Urine Urobilinogen Normal (NORMAL) 09/13/23 01:05 Ur Leukocyte Esterase 2+ (NEGATIVE) 09/13/23 01:05 Urine RBC 0-2 /HPF (0-3) 09/13/23 01:05 Urine WBC 3-5 /HPF (0-5) 09/13/23 01:05 Ur Squamous Epith Cells Negative /HPF (NEGATIVE) 09/13/23 01:05 Amorphous Sediment Trace /HPF (NEGATIVE) 09/13/23 01:05 Urine Bacteria Negative /HPF (NEGATIVE) 09/13/23 01:05 Ur Culture Indicated? No/not indicated 09/13/23 01:05 Fluid pH 8 09/14/23 12:20 Pleural Glucose 76 09/14/23 12:20 Resp Viral Panel (PCR) See scanned report 09/13/23 00:35 Infect Dis PCR Plus Cancelled 09/14/23 12:20 Cytology See comment. 09/14/23 12:20 Miscellaneous Test Pleural flui albumin 09/14/23 12:20 Miscellaneous Test Pleural fluid chlori 09/14/23 12:20 Miscellaneous Test Pleural fluid sodium 09/14/23 12:20 - Plan (1) Pneumonia Status: Acute Qualifiers: Pneumonia type: due to unspecified organism Laterality: unspecified laterality Lung location: unspecified part of lung Qualified Code(s): J18.9 - Pneumonia, unspecified organism Plan: Continue IV antibiotics, Repeat LABS AND XRAY in AM. (2) Hypoxemia Status: Acute Plan: Supplemental O2 via nasal cannula. (3) Pleural effusion Status: Acute Plan: Follow-up cytology of the pleural effusion as well as the rest of the studies when available. (4) Acute exacerbation of chronic obstructive pulmonary disease Status: Acute (5) Leukocytosis Status: Acute Qualifiers: Leukocytosis type: bandemia Qualified Code(s): D72.825 - Bandemia Plan: Follow daily CBCs. (6) Hypertension Status: Chronic Qualifiers: Hypertension type: primary hypertension (7) Hypercholesteremia Status: Acute
[2023-09-20] MEDS: NS 1,000 ML IV 1,000 ML IV SCH ×2 (01:04→13:06)
[2023-09-20] MEDS: MERREM VIAL 500 MG in NS 50 ML IV 50 ML IV SCH ×3 (05:23→22:36)
[2023-09-20 05:25] LABS: BASOPHILS % (AUTO) 0.3 % (0.2-1.0); EOSINOPHILS % (AUTO) 0.2 % (0.9-2.9); HEMATOCRIT 28.7 % (42.0-54.0); HEMOGLOBIN 9.7 g/dL (13.5-18.0); LYMPHOCYTES % (AUTO) 6.4 % (21.0-51.0); MEAN CORPUSCULAR HEMOGLOBIN 31.4 pg (27.0-34.0); MEAN CORPUSCULAR HGB CONC 33.8 g/dL (33.0-35.0); MEAN CORPUSCULAR VOLUME 93.1 fL (80.0-100.0); MEAN PLATELET VOLUME 8.1 fL (7.4-11.0); MONOCYTES # (AUTO) 1.7 x10^3/uL (0.3-0.8); MONOCYTES % (AUTO) 11.1 % (0.0-13.0); NEUTROPHILS # (AUTO) 12.3 x10^3/uL (2.2-4.8); PLATELET COUNT 110 X10^3/uL (150.0-450.0); RED BLOOD COUNT 3.08 X10^6/uL (4.7-6.0); RED CELL DISTRIBUTION WIDTH 18.3 % (11.6-16.5)
[2023-09-20] MEDS: DUONEB 0.5 MG/3 MG (3 mL) NEB SCH ×4 (05:29→18:36)
[2023-09-20 05:40] LABS: ALANINE AMINOTRANSFERASE 18 Units/L (12-78); ALBUMIN 1.6 g/dL (3.4-5.0); ALKALINE PHOSPHATASE 140 Units/L (46-116); ASPARTATE AMINO TRANSFERASE 24 Units/L (15-37); BLOOD UREA NITROGEN 21 mg/dL (7-18); CALCIUM 7.5 mg/dL (8.5-10.1); CARBON DIOXIDE 30.8 mmol/L (21-32); CHLORIDE 100 mmol/L (98-107); COR CA(FOR HYPOALB) 9.4 mg/dL (8.5-10.1); CREATININE 0.45 mg/dL (0.70-1.30); GLUCOSE 82 mg/dL (65-99); POTASSIUM 4.1 mmol/L (3.5-5.1); SODIUM 132 mmol/L (136-145); TOTAL PROTEIN 4.5 g/dL (6.4-8.2); eGFR NON BLACK RACES > 60 (>60)
[2023-09-20] MEDS: MAGIC MOUTHWASH (Orig. Formula) MT SCH ×4 (09:08→20:18)
[2023-09-20] MEDS: CLINIMIX 4.25%-5% 1,000 ML with MVI INJ (ADULT) 10 ML IV SCH ×4 (09:08→14:16)
[2023-09-20] MEDS: PATIENT'S HOME MEDICATION PO SCH ×2 (09:08→20:16)
[2023-09-20] MEDS: VSL#3 PO SCH (09:09)
[2023-09-20] MEDS: MAG-OX TAB PO SCH ×3 (09:20→20:17)
[2023-09-20] MEDS: LOVENOX INJ 40 MG SYR SC SCH (09:20)
[2023-09-20] MEDS: LEVAQUIN PREMIX IV 750 MG 750 MG/150 ML BAG IV SCH (09:20)
[2023-09-20] MEDS: PROTONIX TAB 40 MG PO SCH (09:20)
[2023-09-20] MEDS: ALBUMIN HUMAN 25%- 100 ML 100 ML IV SCH (09:20)
[2023-09-20] MEDS: CELEXA PO SCH (09:21)
[2023-09-20] MEDS: PULMICORT NEB TX 0.5 MG NEB SCH ×2 (09:25→20:10)
[2023-09-20] MEDS: NORCO 10/325 TAB PO PRN ×2 (09:26→20:28)
[2023-09-20] MEDS: DIFLUCAN 200 MG IV PREMIX* 200 MG/100 ML BAG IV SCH (10:15)
[2023-09-20] MEDS: LIPITOR TAB 40 MG PO SCH (20:17)
[2023-09-20] MEDS: REQUIP PO SCH (20:31)
--- NOTE | 2023-09-20 21:08 | PCM.PROG ---
Progress Note Progress Note for Day of Date of Exam: 09/20/23 Subjective Subjective: The patient is breathing better today he states. I see his white blood cell count is down to 15,000 since we added meropenem 4 days ago. There is no chest x-ray today but I will plan on ordering one for tomorrow morning and repeating his CBC. Once the patient is getting over his pneumonia we will plan on discharging him to [facility]. Past Medical Family Social History Allergies: Allergies No Known Drug Allergies Allergy (Unknown, Verified 09/12/23 19:44) Onset Date: 06/23/2022 Review of Systems ROS: No change since H&P Vital Signs and I&O's Vital Signs: Vital Signs Temperature 98.2 F Pulse Rate [Brachial] 91 Pulse Rate 96 Pulse Rate 92 Respiratory Rate 20 Respiratory Rate 20 Blood Pressure [Left Arm] 106/52 O2 Sat by Pulse Oximetry 92 O2 Sat by Pulse Oximetry 94 O2 Sat by Pulse Oximetry 94 Intake and Output: Intake & Output 09/18/23 09/19/23 09/20/23 09/21/23 11:59 11:59 11:59 11:59 Intake Total 3061 / 3061 1703 / 1703 940 / 940 997 / 997 Output Total 600 / 600 950 / 950 625 / 625 200 / 200 Balance 2461 / 2461 753 / 753 315 / 315 797 / 797 Physical Exam Oriented: Normal, Time, Person and Place Eyes: Normal Ear: Normal Nose: Normal Throat: Normal Respiratory: Right, Generalized, Diminished and Rhonchi Cardiovascular: Normal : Normal Auscultation: Bowel Sounds: Normal Tenderness: Normal Skin: Normal Musculoskeletal: Normal Psychiatric: Normal Mood Description: Calm Affect: Normal Speech Pattern: Clear and Appropriate Laboratory and Diagnostics 09/20/23 04:58 09/20/23 04:58 Labs: 09/12/23 21:45 Blood Blood Culture - Final 09/12/23 21:40 Blood Blood Culture - Final 09/14/23 13:40 Pleural Fluid - Final Staphylococcus Epidermidis 09/14/23 13:40 Pleural Fluid Gram Stain - Final Laboratory WBC 15.0 X10^3/uL (3.6-10.0) H 09/20/23 04:58 RBC 3.08 X10^6/uL (4.7-6.0) L 09/20/23 04:58 Hgb 9.7 g/dL (13.5-18.0) L 09/20/23 04:58 Hct 28.7 % (42.0-54.0) L 09/20/23 04:58 MCV 93.1 fL (80.0-100.0) 09/20/23 04:58 MCH 31.4 pg (27.0-34.0) 09/20/23 04:58 MCHC 33.8 g/dL (33.0-35.0) 09/20/23 04:58 RDW 18.3 % (11.6-16.5) H 09/20/23 04:58 Plt Count 110 X10^3/uL (150.0-450.0) L 09/20/23 04:58 Plt Count Comment Adequate (ADEQUATE) 09/16/23 05:18 MPV 8.1 fL (7.4-11.0) 09/20/23 04:58 Neut % (Auto) 82.0 % (42.0-75.0) H 09/20/23 04:58 Lymph % (Auto) 6.4 % (21.0-51.0) L 09/20/23 04:58 [place] % (Auto) 11.1 % (0.0-13.0) 09/20/23 04:58 Eos % (Auto) 0.2 % (0.9-2.9) L 09/20/23 04:58 Baso % (Auto) 0.3 % (0.2-1.0) 09/20/23 04:58 Neut # (Auto) 12.3 x10^3/uL (2.2-4.8) H 09/20/23 04:58 Lymph # (Auto) 1.0 X10^3/uL (1.3-2.9) L 09/20/23 04:58 [place] # (Auto) 1.7 x10^3/uL (0.3-0.8) H 09/20/23 04:58 Eos # (Auto) 0.0 x10^3/uL (0.0-0.2) 09/20/23 04:58 Baso # (Auto) 0.0 X10^3/uL (0.0-0.1) 09/20/23 04:58 Absolute Nucleated RBC 0.0 /100WBC 09/20/23 04:58 Total Counted 100 09/16/23 05:18 Neutrophils % (Manual) 80 % (39-76) H 09/16/23 05:18 Band Neutrophils % 5 % (0-10) 09/16/23 05:18 Lymphocytes % (Manual) 6 % (13-43) L 09/16/23 05:18 Monocytes % (Manual) 8 % (4-9) 09/16/23 05:18 Metamyelocytes % 1 09/16/23 05:18 Myelocytes % 4 09/13/23 05:24 Atypical Lymphocytes Present 09/13/23 05:24 Smudge Cells Slight A 09/15/23 05:28 Plt Morphology Comment Normal (NORMAL) 09/16/23 05:18 RBC Morphology Abnormal (NORMAL) 09/16/23 05:18 Anisocytosis Slight A 09/16/23 05:18 Sample Site Rra 09/12/23 18:20 ABG pH 7.520 (7.35-7.45) H 09/12/23 18:20 ABG pCO2 39.0 mmHg (35.0-45.0) 09/12/23 18:20 ABG pO2 55.0 mmHg (80.0-100.0) L 09/12/23 18:20 ABG HCO3 31.8 mmol/L (22-26) H* 09/12/23 18:20 ABG O2 Saturation 91.0 % (90-100) 09/12/23 18:20 ABG Base Excess 8.3 mmol/L (-2.0-2.0) H 09/12/23 18:20 Isai Test Pos 09/12/23 18:20 A-a Gradient 181.0 mmHg 09/12/23 18:20 FiO2 40.0 09/12/23 18:20 Blood Gas Comments Pt ramon well eb 09/12/23 18:20 Sodium 132 mmol/L (136-145) L 09/20/23 04:58 Corrected Sodium TNP 09/20/23 04:58 Potassium 4.1 mmol/L (3.5-5.1) 09/20/23 04:58 Chloride 100 mmol/L (98-107) 09/20/23 04:58 Carbon Dioxide 30.8 mmol/L (21-32) 09/20/23 04:58 BUN 21 mg/dL (7-18) H 09/20/23 04:58 Creatinine 0.45 mg/dL (0.70-1.30) L 09/20/23 04:58 Est GFR (MDRD) Af Amer > 60 (>60) 09/20/23 04:58 Est GFR (MDRD) Non-Af > 60 (>60) 09/20/23 04:58 Glucose 82 mg/dL (65-99) 09/20/23 04:58 POC Glucose (mg/dL) 91 mg/dL (65-99) 09/20/23 20:06 Lactic Acid 0.9 mmol/L (0.4-2.0) 09/12/23 21:45 Calcium 7.5 mg/dL (8.5-10.1) L 09/20/23 04:58 Corrected Calcium 9.4 mg/dL (8.5-10.1) 09/20/23 04:58 Magnesium 2.0 mg/dL (2.0-2.9) 09/19/23 05:21 Total Bilirubin 0.60 mg/dL (0.2-1.0) 09/20/23 04:58 AST 24 Units/L (15-37) 09/20/23 04:58 ALT 18 Units/L (12-78) 09/20/23 04:58 Alkaline Phosphatase 140 Units/L (46-116) H 09/20/23 04:58 Creatine Kinase 26 Units/L (39-308) L 09/12/23 18:28 Troponin I High Sens 15.3 ng/L (4.0-60.0) 09/12/23 18:28 B-Natriuretic Peptide 75.3 pg/mL (0-79) 09/15/23 05:28 Total Protein 4.5 g/dL (6.4-8.2) L 09/20/23 04:58 Albumin 1.6 g/dL (3.4-5.0) L 09/20/23 04:58 Globulin 2.9 g/dL (2.5-4.5) 09/20/23 04:58 Albumin/Globulin Ratio 0.6 Ratio (1.1-2.1) L 09/20/23 04:58 Alpha Fetoprotein 1 ng/mL (0-9) 09/15/23 05:28 Carcinoembryonic Ag 2.1 ng/mL 09/15/23 05:28 CA 19-9 Antigen 14 U/mL (<=35) 09/15/23 05:28 CA 125 Antigen 125 U/mL (<=38) H 09/15/23 05:28 Total PSA 6.41 ng/mL (0.13-4.0) H 09/15/23 05:28 Specimen Type Clean catch urine 09/13/23 01:05 Urine Color Pale yellow (YELLOW) 09/13/23 01:05 Urine Appearance Clear (CLEAR) 09/13/23 01:05 Urine pH 8.0 (5.0 - 8.0) 09/13/23 01:05 Ur Specific [place] 1.015 (1.000-1.030) 09/13/23 01:05 Urine Protein Negative (NEGATIVE) 09/13/23 01:05 Urine Glucose (UA) Negative (NEGATIVE) 09/13/23 01:05 Urine Ketones Negative (NEGATIVE) 09/13/23 01:05 Urine Blood Negative (NEGATIVE) 09/13/23 01:05 Urine Nitrite Negative (NEGATIVE) 09/13/23 01:05 Urine Bilirubin Negative (NEGATIVE) 09/13/23 01:05 Urine Urobilinogen Normal (NORMAL) 09/13/23 01:05 Ur Leukocyte Esterase 2+ (NEGATIVE) 09/13/23 01:05 Urine RBC 0-2 /HPF (0-3) 09/13/23 01:05 Urine WBC 3-5 /HPF (0-5) 09/13/23 01:05 Ur Squamous Epith Cells Negative /HPF (NEGATIVE) 09/13/23 01:05 Amorphous Sediment Trace /HPF (NEGATIVE) 09/13/23 01:05 Urine Bacteria Negative /HPF (NEGATIVE) 09/13/23 01:05 Ur Culture Indicated? No/not indicated 09/13/23 01:05 Fluid pH 8 09/14/23 12:20 Pleural Glucose 76 09/14/23 12:20 Resp Viral Panel (PCR) See scanned report 09/13/23 00:35 Infect Dis PCR Plus Cancelled 09/14/23 12:20 Cytology See comment. 09/14/23 12:20 Miscellaneous Test Pleural flui albumin 09/14/23 12:20 Miscellaneous Test Pleural fluid chlori 09/14/23 12:20 Miscellaneous Test Pleural fluid sodium 09/14/23 12:20 Plan (1) Pneumonia: Status: Acute Qualifiers: Laterality: unspecified laterality Lung location: unspecified part of lung Pneumonia type: due to unspecified organism Qualified Code(s): J18.9 - Pneumonia, unspecified organism Plan: Continue IV antibiotics, Repeat LABS AND XRAY in AM. (2) Hypoxemia: Status: Acute Plan: Supplemental O2 via nasal cannula. (3) Pleural effusion: Status: Acute Plan: Follow-up cytology of the pleural effusion as well as the rest of the studies when available. (4) Acute exacerbation of chronic obstructive pulmonary disease: Status: Acute (5) Leukocytosis: Status: Acute Qualifiers: Leukocytosis type: bandemia Qualified Code(s): D72.825 - Bandemia Plan: Follow daily CBCs. (6) Hypertension: Status: Chronic Qualifiers: Hypertension type: primary hypertension (7) Hypercholesteremia: Status: Acute
[2023-09-21] MEDS: DUONEB 0.5 MG/3 MG (3 mL) NEB SCH ×4 (00:02→17:35)
[2023-09-21] MEDS: MERREM VIAL 500 MG in NS 50 ML IV 50 ML IV SCH ×3 (05:49→22:29)
--- NOTE | 2023-09-21 05:56 | RAD ---
EXAM:CHEST, PA/LAT ADULTHISTORY:PNEUMONIA, RIGHT SIDED PLEURAL EFFUSION ;COMPARISON:09/18/2023FINDINGS:The trachea is midline. The cardiac silhouette is unremarkable. Right basilar opacity consistent with airspace disease and pleural effusion again noted. Right upper lobe infiltrate. The left lung remains clear.. The bony thorax is unremarkable.IMPRESSION:Right basilar opacity consistent with pleural effusion, atelectasis and consolidation with right upper lobe infiltrate similar to previous 09/18/2023THIS IS AN ELECTRONICALLY VERIFIED FINAL REPORT09/21/2023 5:42 AM - Electronically signed by Russell Jo MD
[2023-09-21 06:37] LABS: BASOPHILS % (AUTO) 0.1 % (0.2-1.0); EOSINOPHILS % (AUTO) 0.2 % (0.9-2.9); HEMATOCRIT 28.8 % (42.0-54.0); HEMOGLOBIN 9.9 g/dL (13.5-18.0); LYMPHOCYTES # (AUTO) 1.1 X10^3/uL (1.3-2.9); LYMPHOCYTES % (AUTO) 6.8 % (21.0-51.0); MEAN CORPUSCULAR HEMOGLOBIN 32.4 pg (27.0-34.0); MEAN CORPUSCULAR HGB CONC 34.3 g/dL (33.0-35.0); MEAN CORPUSCULAR VOLUME 94.4 fL (80.0-100.0); MEAN PLATELET VOLUME 8.2 fL (7.4-11.0); MONOCYTES # (AUTO) 1.6 x10^3/uL (0.3-0.8); MONOCYTES % (AUTO) 10.5 % (0.0-13.0); NEUTROPHILS % (AUTO) 82.4 % (42.0-75.0); PLATELET COUNT 106 X10^3/uL (150.0-450.0); RED BLOOD COUNT 3.05 X10^6/uL (4.7-6.0); WHITE BLOOD COUNT 15.7 X10^3/uL (3.6-10.0)
[2023-09-21 06:48] LABS: ALANINE AMINOTRANSFERASE 13 Units/L (12-78); ALBUMIN 1.7 g/dL (3.4-5.0); ALKALINE PHOSPHATASE 139 Units/L (46-116); ASPARTATE AMINO TRANSFERASE 29 Units/L (15-37); BLOOD UREA NITROGEN 19 mg/dL (7-18); CALCIUM 7.6 mg/dL (8.5-10.1); CHLORIDE 100 mmol/L (98-107); COR CA(FOR HYPOALB) 9.4 mg/dL (8.5-10.1); CREATININE 0.36 mg/dL (0.70-1.30); GLUCOSE 85 mg/dL (65-99); SODIUM 131 mmol/L (136-145); TOTAL PROTEIN 4.8 g/dL (6.4-8.2); eGFR NON BLACK RACES > 60 (>60)
[2023-09-21] MEDS: PULMICORT NEB TX 0.5 MG NEB SCH ×2 (08:56→20:21)
[2023-09-21] MEDS: CELEXA PO SCH (09:28)
[2023-09-21] MEDS: MAG-OX TAB PO SCH ×2 (09:28→20:15)
[2023-09-21] MEDS: PROTONIX TAB 40 MG PO SCH (09:29)
[2023-09-21] MEDS: VSL#3 PO SCH (09:29)
[2023-09-21] MEDS: PATIENT'S HOME MEDICATION PO SCH ×2 (09:30→21:28)
[2023-09-21] MEDS: LOVENOX INJ 40 MG SYR SC SCH (09:30)
[2023-09-21] MEDS: LEVAQUIN PREMIX IV 750 MG 750 MG/150 ML BAG IV SCH (09:30)
[2023-09-21] MEDS: MAGIC MOUTHWASH (Orig. Formula) MT SCH ×4 (09:43→22:28)
[2023-09-21] MEDS: ALBUMIN HUMAN 25%- 100 ML 100 ML IV SCH (12:17)
[2023-09-21] MEDS: NORCO 10/325 TAB PO PRN ×2 (12:24→18:35)
[2023-09-21] MEDS: DIFLUCAN 200 MG IV PREMIX* 200 MG/100 ML BAG IV SCH (13:24)
[2023-09-21] MEDS: NS 1,000 ML IV 1,000 ML IV SCH (13:24)
[2023-09-21] MEDS: CLINIMIX 4.25%-5% 1,000 ML with MVI INJ (ADULT) 10 ML IV SCH ×4 (13:25→18:27)
[2023-09-21] MEDS ORDERED: DRUG FILTER EXTENSION SET ONE (14:57)
[2023-09-21] MEDS: REQUIP PO SCH (20:15)
[2023-09-21] MEDS: LIPITOR TAB 40 MG PO SCH (20:15)
--- NOTE | 2023-09-21 21:30 | PCM.PROG ---
Progress Note Progress Note for Day of Date of Exam: 09/21/23 Subjective Subjective: The patient is breathing okay today. Chest x-ray this morning shows a right sided pleural effusion with a right upper lobe infiltrate. The left lung is clear at this time. His white blood cell count went up slightly to 15,700 from 15,000 yesterday. He states that he feels better and feels the best that he has in a very long time. I told him we will continue him on IV antibiotics for the next day or 2 then discharging to the group home for temporary inpatient rehabilitation. Repeat CBC and CMP in the morning. Past Medical Family Social History Allergies: Allergies No Known Drug Allergies Allergy (Unknown, Verified 09/12/23 19:44) Onset Date: 06/23/2022 Review of Systems ROS: No change since H&P Vital Signs and I&O's Vital Signs: Vital Signs Temperature 98.1 F Pulse Rate [Brachial] 93 Pulse Rate 97 Respiratory Rate 19 Respiratory Rate 22 Respiratory Rate 22 Blood Pressure [Left Arm] 109/73 O2 Sat by Pulse Oximetry 93 O2 Sat by Pulse Oximetry 91 Intake and Output: Intake & Output 09/19/23 09/20/23 09/21/23 09/22/23 11:59 11:59 11:59 11:59 Intake Total 1703 / 1703 940 / 940 2456 / 2456 480 / 480 Output Total 950 / 950 625 / 625 800 / 800 1000 / 1000 Balance 753 / 753 315 / 315 1656 / 1656 -520 / -520 Physical Exam Oriented: Normal, Time, Person and Place Eyes: Normal Ear: Normal Nose: Normal Throat: Normal Respiratory: Right, Generalized, Diminished and Rhonchi Cardiovascular: Normal : Normal Auscultation: Bowel Sounds: Normal Tenderness: Normal Skin: Normal Musculoskeletal: Normal Psychiatric: Normal Mood Description: Calm Affect: Normal Speech Pattern: Clear and Appropriate Laboratory and Diagnostics 09/21/23 05:38 09/21/23 05:38 Labs: 09/12/23 21:45 Blood Blood Culture - Final 09/12/23 21:40 Blood Blood Culture - Final 09/14/23 13:40 Pleural Fluid - Final Staphylococcus Epidermidis 09/14/23 13:40 Pleural Fluid Gram Stain - Final Laboratory WBC 15.7 X10^3/uL (3.6-10.0) H 09/21/23 05:38 RBC 3.05 X10^6/uL (4.7-6.0) L 09/21/23 05:38 Hgb 9.9 g/dL (13.5-18.0) L 09/21/23 05:38 Hct 28.8 % (42.0-54.0) L 09/21/23 05:38 MCV 94.4 fL (80.0-100.0) 09/21/23 05:38 MCH 32.4 pg (27.0-34.0) 09/21/23 05:38 MCHC 34.3 g/dL (33.0-35.0) 09/21/23 05:38 RDW 18.0 % (11.6-16.5) H 09/21/23 05:38 Plt Count 106 X10^3/uL (150.0-450.0) L 09/21/23 05:38 Plt Count Comment Adequate (ADEQUATE) 09/16/23 05:18 MPV 8.2 fL (7.4-11.0) 09/21/23 05:38 Neut % (Auto) 82.4 % (42.0-75.0) H 09/21/23 05:38 Lymph % (Auto) 6.8 % (21.0-51.0) L 09/21/23 05:38 [place] % (Auto) 10.5 % (0.0-13.0) 09/21/23 05:38 Eos % (Auto) 0.2 % (0.9-2.9) L 09/21/23 05:38 Baso % (Auto) 0.1 % (0.2-1.0) L 09/21/23 05:38 Neut # (Auto) 13.0 x10^3/uL (2.2-4.8) H 09/21/23 05:38 Lymph # (Auto) 1.1 X10^3/uL (1.3-2.9) L 09/21/23 05:38 [place] # (Auto) 1.6 x10^3/uL (0.3-0.8) H 09/21/23 05:38 Eos # (Auto) 0.0 x10^3/uL (0.0-0.2) 09/21/23 05:38 Baso # (Auto) 0.0 X10^3/uL (0.0-0.1) 09/21/23 05:38 Absolute Nucleated RBC 0.0 /100WBC 09/21/23 05:38 Total Counted 100 09/16/23 05:18 Neutrophils % (Manual) 80 % (39-76) H 09/16/23 05:18 Band Neutrophils % 5 % (0-10) 09/16/23 05:18 Lymphocytes % (Manual) 6 % (13-43) L 09/16/23 05:18 Monocytes % (Manual) 8 % (4-9) 09/16/23 05:18 Metamyelocytes % 1 09/16/23 05:18 Myelocytes % 4 09/13/23 05:24 Atypical Lymphocytes Present 09/13/23 05:24 Smudge Cells Slight A 09/15/23 05:28 Plt Morphology Comment Normal (NORMAL) 09/16/23 05:18 RBC Morphology Abnormal (NORMAL) 09/16/23 05:18 Anisocytosis Slight A 09/16/23 05:18 Sample Site Rra 09/12/23 18:20 ABG pH 7.520 (7.35-7.45) H 09/12/23 18:20 ABG pCO2 39.0 mmHg (35.0-45.0) 09/12/23 18:20 ABG pO2 55.0 mmHg (80.0-100.0) L 09/12/23 18:20 ABG HCO3 31.8 mmol/L (22-26) H* 09/12/23 18:20 ABG O2 Saturation 91.0 % (90-100) 09/12/23 18:20 ABG Base Excess 8.3 mmol/L (-2.0-2.0) H 09/12/23 18:20 Isai Test Pos 09/12/23 18:20 A-a Gradient 181.0 mmHg 09/12/23 18:20 FiO2 40.0 09/12/23 18:20 Blood Gas Comments Pt ramon well eb 09/12/23 18:20 Sodium 131 mmol/L (136-145) L 09/21/23 05:38 Corrected Sodium TNP 09/21/23 05:38 Potassium 4.0 mmol/L (3.5-5.1) 09/21/23 05:38 Chloride 100 mmol/L (98-107) 09/21/23 05:38 Carbon Dioxide 26.0 mmol/L (21-32) 09/21/23 05:38 BUN 19 mg/dL (7-18) H 09/21/23 05:38 Creatinine 0.36 mg/dL (0.70-1.30) L 09/21/23 05:38 Est GFR (MDRD) Af Amer > 60 (>60) 09/21/23 05:38 Est GFR (MDRD) Non-Af > 60 (>60) 09/21/23 05:38 Glucose 85 mg/dL (65-99) 09/21/23 05:38 POC Glucose (mg/dL) 121 mg/dL (65-99) H 09/21/23 20:37 Lactic Acid 0.9 mmol/L (0.4-2.0) 09/12/23 21:45 Calcium 7.6 mg/dL (8.5-10.1) L 09/21/23 05:38 Corrected Calcium 9.4 mg/dL (8.5-10.1) 09/21/23 05:38 Magnesium 2.0 mg/dL (2.0-2.9) 09/19/23 05:21 Total Bilirubin 0.60 mg/dL (0.2-1.0) 09/21/23 05:38 AST 29 Units/L (15-37) 09/21/23 05:38 ALT 13 Units/L (12-78) 09/21/23 05:38 Alkaline Phosphatase 139 Units/L (46-116) H 09/21/23 05:38 Creatine Kinase 26 Units/L (39-308) L 09/12/23 18:28 Troponin I High Sens 15.3 ng/L (4.0-60.0) 09/12/23 18:28 B-Natriuretic Peptide 75.3 pg/mL (0-79) 09/15/23 05:28 Total Protein 4.8 g/dL (6.4-8.2) L 09/21/23 05:38 Albumin 1.7 g/dL (3.4-5.0) L 09/21/23 05:38 Globulin 3.1 g/dL (2.5-4.5) 09/21/23 05:38 Albumin/Globulin Ratio 0.5 Ratio (1.1-2.1) L 09/21/23 05:38 Alpha Fetoprotein 1 ng/mL (0-9) 09/15/23 05:28 Carcinoembryonic Ag 2.1 ng/mL 09/15/23 05:28 CA 19-9 Antigen 14 U/mL (<=35) 09/15/23 05:28 CA 125 Antigen 125 U/mL (<=38) H 09/15/23 05:28 Total PSA 6.41 ng/mL (0.13-4.0) H 09/15/23 05:28 Specimen Type Clean catch urine 09/13/23 01:05 Urine Color Pale yellow (YELLOW) 09/13/23 01:05 Urine Appearance Clear (CLEAR) 09/13/23 01:05 Urine pH 8.0 (5.0 - 8.0) 09/13/23 01:05 Ur Specific [place] 1.015 (1.000-1.030) 09/13/23 01:05 Urine Protein Negative (NEGATIVE) 09/13/23 01:05 Urine Glucose (UA) Negative (NEGATIVE) 09/13/23 01:05 Urine Ketones Negative (NEGATIVE) 09/13/23 01:05 Urine Blood Negative (NEGATIVE) 09/13/23 01:05 Urine Nitrite Negative (NEGATIVE) 09/13/23 01:05 Urine Bilirubin Negative (NEGATIVE) 09/13/23 01:05 Urine Urobilinogen Normal (NORMAL) 09/13/23 01:05 Ur Leukocyte Esterase 2+ (NEGATIVE) 09/13/23 01:05 Urine RBC 0-2 /HPF (0-3) 09/13/23 01:05 Urine WBC 3-5 /HPF (0-5) 09/13/23 01:05 Ur Squamous Epith Cells Negative /HPF (NEGATIVE) 09/13/23 01:05 Amorphous Sediment Trace /HPF (NEGATIVE) 09/13/23 01:05 Urine Bacteria Negative /HPF (NEGATIVE) 09/13/23 01:05 Ur Culture Indicated? No/not indicated 09/13/23 01:05 Fluid pH 8 09/14/23 12:20 Pleural Glucose 76 09/14/23 12:20 Resp Viral Panel (PCR) See scanned report 09/13/23 00:35 Infect Dis PCR Plus Cancelled 09/14/23 12:20 Cytology See comment. 09/14/23 12:20 Miscellaneous Test Pleural flui albumin 09/14/23 12:20 Miscellaneous Test Pleural fluid chlori 09/14/23 12:20 Miscellaneous Test Pleural fluid sodium 09/14/23 12:20 Radiology Reviewed: Yes Plan (1) Pneumonia: Status: Acute Qualifiers: Laterality: unspecified laterality Lung location: unspecified part of lung Pneumonia type: due to unspecified organism Qualified Code(s): J18.9 - Pneumonia, unspecified organism Plan: Continue IV antibiotics, Repeat LABS AND XRAY in AM. (2) Hypoxemia: Status: Acute Plan: Supplemental O2 via nasal cannula. (3) Pleural effusion: Status: Acute Plan: Follow-up cytology of the pleural effusion as well as the rest of the studies when available. (4) Acute exacerbation of chronic obstructive pulmonary disease: Status: Acute (5) Leukocytosis: Status: Acute Qualifiers: Leukocytosis type: bandemia Qualified Code(s): D72.825 - Bandemia Plan: Follow daily CBCs. (6) Hypertension: Status: Chronic Qualifiers: Hypertension type: primary hypertension (7) Hypercholesteremia: Status: Acute
[2023-09-22] MEDS: MERREM VIAL 500 MG in NS 50 ML IV 50 ML IV SCH ×3 (05:58→21:07)
[2023-09-22] MEDS: DUONEB 0.5 MG/3 MG (3 mL) NEB SCH ×5 (06:03→16:16)
[2023-09-22 06:45] LABS: BASOPHILS % (AUTO) 0.2 % (0.2-1.0); EOSINOPHILS % (AUTO) 0.3 % (0.9-2.9); HEMATOCRIT 27.8 % (42.0-54.0); HEMOGLOBIN 9.4 g/dL (13.5-18.0); LYMPHOCYTES # (AUTO) 1.2 X10^3/uL (1.3-2.9); LYMPHOCYTES % (AUTO) 7.9 % (21.0-51.0); MEAN CORPUSCULAR HGB CONC 33.9 g/dL (33.0-35.0); MEAN CORPUSCULAR VOLUME 94.3 fL (80.0-100.0); MEAN PLATELET VOLUME 8.1 fL (7.4-11.0); MONOCYTES # (AUTO) 1.6 x10^3/uL (0.3-0.8); MONOCYTES % (AUTO) 10.5 % (0.0-13.0); NEUTROPHILS # (AUTO) 11.9 x10^3/uL (2.2-4.8); NEUTROPHILS % (AUTO) 81.1 % (42.0-75.0); PLATELET COUNT 115 X10^3/uL (150.0-450.0); RED BLOOD COUNT 2.95 X10^6/uL (4.7-6.0); RED CELL DISTRIBUTION WIDTH 17.7 % (11.6-16.5); WHITE BLOOD COUNT 14.7 X10^3/uL (3.6-10.0)
[2023-09-22 07:15] LABS: ALANINE AMINOTRANSFERASE 13 Units/L (12-78); ALBUMIN 1.9 g/dL (3.4-5.0); ALKALINE PHOSPHATASE 135 Units/L (46-116); ASPARTATE AMINO TRANSFERASE 24 Units/L (15-37); BLOOD UREA NITROGEN 16 mg/dL (7-18); CALCIUM 7.6 mg/dL (8.5-10.1); CARBON DIOXIDE 28.5 mmol/L (21-32); CHLORIDE 100 mmol/L (98-107); COR CA(FOR HYPOALB) 9.3 mg/dL (8.5-10.1); CREATININE 0.43 mg/dL (0.70-1.30); GLUCOSE 79 mg/dL (65-99); POTASSIUM 3.6 mmol/L (3.5-5.1); SODIUM 132 mmol/L (136-145); TOTAL PROTEIN 4.8 g/dL (6.4-8.2); eGFR NON BLACK RACES > 60 (>60)
[2023-09-22] MEDS ORDERED: CONSULT PHARMACY - POTASSIUM & MAGNESIUM XX SCH (08:00)
[2023-09-22] MEDS: PULMICORT NEB TX 0.5 MG NEB SCH ×2 (09:00→20:30)
[2023-09-22] MEDS: PROTONIX TAB 40 MG PO SCH (11:00)
[2023-09-22] MEDS: PATIENT'S HOME MEDICATION PO SCH ×2 (11:00→20:19)
[2023-09-22] MEDS: VSL#3 PO SCH (11:00)
[2023-09-22] MEDS: CELEXA PO SCH (11:00)
[2023-09-22] MEDS: MAG-OX TAB PO SCH ×2 (11:01→20:19)
[2023-09-22] MEDS: MAGIC MOUTHWASH (Orig. Formula) MT SCH ×4 (11:01→20:20)
[2023-09-22] MEDS: LOVENOX INJ 40 MG SYR SC SCH (11:01)
[2023-09-22] MEDS: NORCO 10/325 TAB PO PRN ×2 (11:01→16:39)
[2023-09-22] MEDS: DIFLUCAN 200 MG IV PREMIX* 200 MG/100 ML BAG IV SCH (11:02)
--- NOTE | 2023-09-22 11:30 | RAD ---
EXAM:CHEST, 1 VIEWHISTORY:PNEUMONIA;COMPARISON:Prior study or studies were utilized for comparison during interpretation with the most relevant dated yesterdayTECHNIQUE:CHEST, 1 VIEWFINDINGS:Chest:Lines and tubes: NoneMediastinum: Cardiac and mediastinal shadow is within normal limits for size and contour.Pulmonary vessels: There is pulmonary vascular congestion.Lung camara: Patchy opacities are seen in both lungs. There is right base atelectasis.Pleura: Large right pleural effusionBones and soft tissues: No acute osseous or soft tissue abnormality.IMPRESSION:1. Large right pleural effusion2. Bilateral pneumoniaTHIS IS AN ELECTRONICALLY VERIFIED FINAL REPORT09/22/2023 11:27 AM - Electronically signed by James Hogue MD
[2023-09-22] MEDS: ALBUMIN HUMAN 25%- 100 ML 100 ML IV SCH (11:49)
[2023-09-22] MEDS: LEVAQUIN PREMIX IV 750 MG 750 MG/150 ML BAG IV SCH (13:08)
[2023-09-22] MEDS: NS 1,000 ML IV 1,000 ML IV SCH (13:08)
[2023-09-22] MEDS ORDERED: CLINIMIX 4.25%-5% 1,000 ML with MVI INJ (ADULT) 10 ML, POTASSIUM CHLORIDE INJ 20 MEQ VI... IV SCH ×3 (15:00)
[2023-09-22] MEDS: LIPITOR TAB 40 MG PO SCH (20:19)
[2023-09-22] MEDS: REQUIP PO SCH (20:19)
[2023-09-22] MEDS: TYLENOL 325 MG TAB PO PRN (21:06)
[2023-09-23] MEDS: DUONEB 0.5 MG/3 MG (3 mL) NEB SCH ×6 (00:25→17:19)
[2023-09-23] MEDS: NS 1,000 ML IV 1,000 ML IV SCH ×2 (02:19→13:48)
[2023-09-23] MEDS: MERREM VIAL 500 MG in NS 50 ML IV 50 ML IV SCH ×3 (05:00→21:20)
[2023-09-23 06:26] LABS: BASOPHILS % (AUTO) 0.1 % (0.2-1.0); EOSINOPHILS # (AUTO) 0.1 x10^3/uL (0.0-0.2); EOSINOPHILS % (AUTO) 0.6 % (0.9-2.9); HEMOGLOBIN 9.1 g/dL (13.5-18.0); LYMPHOCYTES # (AUTO) 0.9 X10^3/uL (1.3-2.9); LYMPHOCYTES % (AUTO) 6.8 % (21.0-51.0); MEAN CORPUSCULAR HEMOGLOBIN 31.8 pg (27.0-34.0); MEAN CORPUSCULAR HGB CONC 33.6 g/dL (33.0-35.0); MEAN CORPUSCULAR VOLUME 94.7 fL (80.0-100.0); MONOCYTES # (AUTO) 1.5 x10^3/uL (0.3-0.8); MONOCYTES % (AUTO) 11.3 % (0.0-13.0); NEUTROPHILS # (AUTO) 10.6 x10^3/uL (2.2-4.8); NEUTROPHILS % (AUTO) 81.2 % (42.0-75.0); PLATELET COUNT 131 X10^3/uL (150.0-450.0); RED BLOOD COUNT 2.85 X10^6/uL (4.7-6.0); RED CELL DISTRIBUTION WIDTH 17.5 % (11.6-16.5); WHITE BLOOD COUNT 13.1 X10^3/uL (3.6-10.0)
[2023-09-23 06:35] LABS: ALANINE AMINOTRANSFERASE 12 Units/L (12-78); ALBUMIN 1.8 g/dL (3.4-5.0); ALKALINE PHOSPHATASE 119 Units/L (46-116); ASPARTATE AMINO TRANSFERASE 18 Units/L (15-37); BLOOD UREA NITROGEN 14 mg/dL (7-18); CALCIUM 7.5 mg/dL (8.5-10.1); CARBON DIOXIDE 30.4 mmol/L (21-32); CHLORIDE 103 mmol/L (98-107); COR CA(FOR HYPOALB) 9.3 mg/dL (8.5-10.1); CREATININE 0.44 mg/dL (0.70-1.30); GLUCOSE 81 mg/dL (65-99); POTASSIUM 3.5 mmol/L (3.5-5.1); SODIUM 135 mmol/L (136-145); TOTAL PROTEIN 4.6 g/dL (6.4-8.2); eGFR NON BLACK RACES > 60 (>60)
[2023-09-23] MEDS ORDERED: CONSULT PHARMACY - POTASSIUM & MAGNESIUM XX SCH (07:00)
[2023-09-23] MEDS ORDERED: DRUG FILTER EXTENSION SET ONE (08:31)
[2023-09-23] MEDS: ALBUMIN HUMAN 25%- 100 ML 100 ML IV SCH (08:47)
[2023-09-23] MEDS: CELEXA PO SCH (08:48)
[2023-09-23] MEDS: PROTONIX TAB 40 MG PO SCH (08:48)
[2023-09-23] MEDS: MAG-OX TAB PO SCH ×2 (08:48→21:18)
[2023-09-23] MEDS: VSL#3 PO SCH (08:48)
[2023-09-23] MEDS: MAGIC MOUTHWASH (Orig. Formula) MT SCH ×4 (08:48→22:41)
[2023-09-23] MEDS: PATIENT'S HOME MEDICATION PO SCH ×2 (08:49→22:14)
[2023-09-23] MEDS: LOVENOX INJ 40 MG SYR SC SCH (08:49)
[2023-09-23] MEDS: PULMICORT NEB TX 0.5 MG NEB SCH ×2 (08:56→20:17)
[2023-09-23] MEDS ORDERED: K-DUR TAB 20 MEQ PO SCH (09:00)
[2023-09-23] MEDS ORDERED: CLINIMIX 4.25%-5% 1,000 ML with MVI INJ (ADULT) 10 ML, POTASSIUM CHLORIDE INJ 40 MEQ VI... IV SCH ×3 (09:00)
[2023-09-23] MEDS: DIFLUCAN 200 MG IV PREMIX* 200 MG/100 ML BAG IV SCH (10:13)
--- NOTE | 2023-09-23 12:01 | RAD ---
EXAM:CHEST, PA/LAT ADULTHISTORY:INCREASED SOB; CAD, CHF, HTN, A-FIB, COPD, EMPHYSEMACOMPARISON:Prior study or studies were utilized for comparison during interpretation with the most relevant dated 03/12/2024TECHNIQUE:CHEST, PA/LAT ADULTFINDINGS:Chest:Lines and tubes: Cardiac leads overlie the chest.Mediastinum: Cardiac and mediastinal shadow is within normal limits for size and contour.Pulmonary vessels: No pulmonary vascular congestion.Lung camara: Patchy opacities are seen bilaterally. There is emphysema.Pleura: There is blunting of the right costophrenic angle. No pneumothorax.Bones and soft tissues: No acute osseous or soft tissue abnormality.IMPRESSION:1. Bilateral pneumonia with a large right pleural effusion.THIS IS AN ELECTRONICALLY VERIFIED FINAL REPORT09/23/2023 11:58 AM - Electronically signed by James Hogue MD
[2023-09-23] MEDS: LEVAQUIN PREMIX IV 750 MG 750 MG/150 ML BAG IV SCH (12:05)
--- NOTE | 2023-09-23 14:58 | PCM.PROG ---
Progress Note Progress Note for Day of Date of Exam: 09/22/23 Subjective Subjective: The patient reports he is having a little more difficulty breathing today. Chest x-ray shows that he has a moderate size right pleural effusion and bilateral infiltrates. His chest x-ray the day before send his left lung was clear. His white blood cell count is dropped down to 14,700 today from 15,700 today before. The patient is currently receiving IV Levaquin, meropenem and IV fluconazole from her recent sputum culture that grew out yeast. Since addition of meropenem a week ago this is been the only antibiotic that started bringing his white blood cell count down. We will continue the patient on his current treatment. Repeat routine labs in a.m. and a PA and lateral chest x-ray. Past Medical Family Social History Allergies: Allergies No Known Drug Allergies Allergy (Unknown, Verified 09/12/23 19:44) Onset Date: 06/23/2022 Review of Systems ROS: No change since H&P Vital Signs and I&O's Vital Signs: Vital Signs Temperature 98.3 F Temperature 98.0 F Pulse Rate [Brachial] 92 Pulse Rate [Brachial] 89 Pulse Rate 100 Respiratory Rate 24 Respiratory Rate 20 Respiratory Rate 26 Blood Pressure [Left Arm] 120/55 Blood Pressure [Left Arm] 147/71 O2 Sat by Pulse Oximetry 94 O2 Sat by Pulse Oximetry 94 O2 Sat by Pulse Oximetry 91 Intake and Output: Intake & Output 09/21/23 09/22/23 09/23/23 09/24/23 11:59 11:59 11:59 11:59 Intake Total 2456 / 2456 2280 / 2280 3090 / 3090 Output Total 800 / 800 1900 / 1900 1925 / 1925 Balance 1656 / 1656 380 / 380 1165 / 1165 Physical Exam Oriented: Normal, Time, Person and Place Eyes: Normal Ear: Normal Nose: Normal Throat: Normal Respiratory: Right, Generalized, Diminished and Rhonchi Cardiovascular: Normal : Normal Auscultation: Bowel Sounds: Normal Tenderness: Normal Skin: Normal Musculoskeletal: Normal Psychiatric: Normal Mood Description: Calm Affect: Normal Speech Pattern: Clear and Appropriate Laboratory and Diagnostics 09/23/23 05:24 09/23/23 05:24 Labs: 09/12/23 21:45 Blood Blood Culture - Final 09/12/23 21:40 Blood Blood Culture - Final 09/14/23 13:40 Pleural Fluid - Final Staphylococcus Epidermidis 09/14/23 13:40 Pleural Fluid Gram Stain - Final Laboratory WBC 13.1 X10^3/uL (3.6-10.0) H 09/23/23 05:24 RBC 2.85 X10^6/uL (4.7-6.0) L 09/23/23 05:24 Hgb 9.1 g/dL (13.5-18.0) L 09/23/23 05:24 Hct 27.0 % (42.0-54.0) L 09/23/23 05:24 MCV 94.7 fL (80.0-100.0) 09/23/23 05:24 MCH 31.8 pg (27.0-34.0) 09/23/23 05:24 MCHC 33.6 g/dL (33.0-35.0) 09/23/23 05:24 RDW 17.5 % (11.6-16.5) H 09/23/23 05:24 Plt Count 131 X10^3/uL (150.0-450.0) L 09/23/23 05:24 Plt Count Comment Adequate (ADEQUATE) 09/16/23 05:18 MPV 8.0 fL (7.4-11.0) 09/23/23 05:24 Neut % (Auto) 81.2 % (42.0-75.0) H 09/23/23 05:24 Lymph % (Auto) 6.8 % (21.0-51.0) L 09/23/23 05:24 [place] % (Auto) 11.3 % (0.0-13.0) 09/23/23 05:24 Eos % (Auto) 0.6 % (0.9-2.9) L 09/23/23 05:24 Baso % (Auto) 0.1 % (0.2-1.0) L 09/23/23 05:24 Neut # (Auto) 10.6 x10^3/uL (2.2-4.8) H 09/23/23 05:24 Lymph # (Auto) 0.9 X10^3/uL (1.3-2.9) L 09/23/23 05:24 [place] # (Auto) 1.5 x10^3/uL (0.3-0.8) H 09/23/23 05:24 Eos # (Auto) 0.1 x10^3/uL (0.0-0.2) 09/23/23 05:24 Baso # (Auto) 0.0 X10^3/uL (0.0-0.1) 09/23/23 05:24 Absolute Nucleated RBC 0.0 /100WBC 09/23/23 05:24 Total Counted 100 09/16/23 05:18 Neutrophils % (Manual) 80 % (39-76) H 09/16/23 05:18 Band Neutrophils % 5 % (0-10) 09/16/23 05:18 Lymphocytes % (Manual) 6 % (13-43) L 09/16/23 05:18 Monocytes % (Manual) 8 % (4-9) 09/16/23 05:18 Metamyelocytes % 1 09/16/23 05:18 Myelocytes % 4 09/13/23 05:24 Atypical Lymphocytes Present 09/13/23 05:24 Smudge Cells Slight A 09/15/23 05:28 Plt Morphology Comment Normal (NORMAL) 09/16/23 05:18 RBC Morphology Abnormal (NORMAL) 09/16/23 05:18 Anisocytosis Slight A 09/16/23 05:18 Sample Site Rra 09/12/23 18:20 ABG pH 7.520 (7.35-7.45) H 09/12/23 18:20 ABG pCO2 39.0 mmHg (35.0-45.0) 09/12/23 18:20 ABG pO2 55.0 mmHg (80.0-100.0) L 09/12/23 18:20 ABG HCO3 31.8 mmol/L (22-26) H* 09/12/23 18:20 ABG O2 Saturation 91.0 % (90-100) 09/12/23 18:20 ABG Base Excess 8.3 mmol/L (-2.0-2.0) H 09/12/23 18:20 Isai Test Pos 09/12/23 18:20 A-a Gradient 181.0 mmHg 09/12/23 18:20 FiO2 40.0 09/12/23 18:20 Blood Gas Comments Pt ramon well eb 09/12/23 18:20 Sodium 135 mmol/L (136-145) L 09/23/23 05:24 Corrected Sodium TNP 09/23/23 05:24 Potassium 3.5 mmol/L (3.5-5.1) 09/23/23 05:24 Chloride 103 mmol/L (98-107) 09/23/23 05:24 Carbon Dioxide 30.4 mmol/L (21-32) 09/23/23 05:24 BUN 14 mg/dL (7-18) 09/23/23 05:24 Creatinine 0.44 mg/dL (0.70-1.30) L 09/23/23 05:24 Est GFR (MDRD) Af Amer > 60 (>60) 09/23/23 05:24 Est GFR (MDRD) Non-Af > 60 (>60) 09/23/23 05:24 Glucose 81 mg/dL (65-99) 09/23/23 05:24 POC Glucose (mg/dL) 117 mg/dL (65-99) H 09/23/23 12:32 Lactic Acid 0.9 mmol/L (0.4-2.0) 09/12/23 21:45 Calcium 7.5 mg/dL (8.5-10.1) L 09/23/23 05:24 Corrected Calcium 9.3 mg/dL (8.5-10.1) 09/23/23 05:24 Magnesium 1.9 mg/dL (2.0-2.9) L 09/23/23 05:24 Total Bilirubin 0.90 mg/dL (0.2-1.0) 09/23/23 05:24 AST 18 Units/L (15-37) 09/23/23 05:24 ALT 12 Units/L (12-78) 09/23/23 05:24 Alkaline Phosphatase 119 Units/L (46-116) H 09/23/23 05:24 Creatine Kinase 26 Units/L (39-308) L 09/12/23 18:28 Troponin I High Sens 15.3 ng/L (4.0-60.0) 09/12/23 18:28 B-Natriuretic Peptide 75.3 pg/mL (0-79) 09/15/23 05:28 Total Protein 4.6 g/dL (6.4-8.2) L 09/23/23 05:24 Albumin 1.8 g/dL (3.4-5.0) L 09/23/23 05:24 Globulin 2.8 g/dL (2.5-4.5) 09/23/23 05: Albumin/Globulin Ratio 0.6 Ratio (1.1-2.1) L 09/23/23 05:24 Alpha Fetoprotein 1 ng/mL (0-9) 09/15/23 05: Carcinoembryonic Ag 2.1 ng/mL 09/15/23 05:28 CA 19-9 Antigen 14 U/mL (<=35) 09/15/23 05: CA 125 Antigen 125 U/mL (<=38) H 09/15/23 05: Total PSA 6.41 ng/mL (0.13-4.0) H 09/15/23 05:28 Specimen Type Clean catch urine 09/13/23 01:05 Urine Color Pale yellow (YELLOW) 09/13/23 01:05 Urine Appearance Clear (CLEAR) 09/13/23 01:05 Urine pH 8.0 (5.0 - 8.0) 09/13/23 01:05 Ur Specific [place] 1.015 (1.000-1.030) 09/13/23 01:05 Urine Protein Negative (NEGATIVE) 09/13/23 01:05 Urine Glucose (UA) Negative (NEGATIVE) 09/13/23 01:05 Urine Ketones Negative (NEGATIVE) 09/13/23 01:05 Urine Blood Negative (NEGATIVE) 09/13/23 01:05 Urine Nitrite Negative (NEGATIVE) 09/13/23 01:05 Urine Bilirubin Negative (NEGATIVE) 09/13/23 01:05 Urine Urobilinogen Normal (NORMAL) 09/13/23 01:05 Ur Leukocyte Esterase 2+ (NEGATIVE) 09/13/23 01:05 Urine RBC 0-2 /HPF (0-3) 09/13/23 01:05 Urine WBC 3-5 /HPF (0-5) 09/13/23 01:05 Ur Squamous Epith Cells Negative /HPF (NEGATIVE) 09/13/23 01:05 Amorphous Sediment Trace /HPF (NEGATIVE) 09/13/23 01:05 Urine Bacteria Negative /HPF (NEGATIVE) 09/13/23 01:05 Ur Culture Indicated? No/not indicated 09/13/23 01:05 Fluid pH 8 09/14/23 12:20 Pleural Glucose 76 09/14/23 12:20 Resp Viral Panel (PCR) See scanned report 09/13/23 00:35 Infect Dis PCR Plus Cancelled 09/14/23 12:20 Cytology See comment. 09/14/23 12:20 Miscellaneous Test Pleural flui albumin 09/14/23 12:20 Miscellaneous Test Pleural fluid chlori 09/14/23 12:20 Miscellaneous Test Pleural fluid sodium 09/14/23 12:20 Radiology Reviewed: Yes Plan (1) Pneumonia: Status: Acute Qualifiers: Laterality: unspecified laterality Lung location: unspecified part of lung Pneumonia type: due to unspecified organism Qualified Code(s): J18.9 - Pneumonia, unspecified organism Plan: Continue IV antibiotics, Repeat LABS AND XRAY in AM. (2) Hypoxemia: Status: Acute Plan: Supplemental O2 via nasal cannula. (3) Pleural effusion: Status: Acute Plan: Follow-up cytology of the pleural effusion as well as the rest of the studies when available. (4) Acute exacerbation of chronic obstructive pulmonary disease: Status: Acute (5) Leukocytosis: Status: Acute Qualifiers: Leukocytosis type: bandemia Qualified Code(s): D72.825 - Bandemia Plan: Follow daily CBCs. (6) Hypertension: Status: Chronic Qualifiers: Hypertension type: primary hypertension (7) Hypercholesteremia: Status: Acute
[2023-09-23] MEDS: NORCO 10/325 TAB PO PRN (15:06)
--- NOTE | 2023-09-23 15:19 | PCM.PROG ---
Progress Note Progress Note for Day of Date of Exam: 09/23/23 Subjective Subjective: The patient reports he is feeling more short of breath today. His hemoglobin is 9.1 today down from 9.4 yesterday. His white blood cell count today is 13,100 down from 14,700 the day before. His chest x-ray today shows a large right-sided pleural effusion and bilateral infiltrates still. I am going to have our general surgeon, Dr. Douglas perform another right-sided thoracentesis because of his right-sided pleural effusion and hopefully this will help improve his dyspnea. I discussed the patient wanted to be a full code today and he states that he does. He would like to to be intubated as long as he thought that we can get him better and get him off of the ventilator. He also would like to have CPR if needed and he does understand that this would more than likely break his ribs during the process. The patient is currently on heated high flow because he has developed more hypoxia over the last few days. We will recheck cytology testing and another culture on the pleural fluid from the paracentesis we plan on doing tomorrow. Past Medical Family Social History Allergies: Allergies No Known Drug Allergies Allergy (Unknown, Verified 09/12/23 19:44) Onset Date: 06/23/2022 Review of Systems ROS: No change since H&P Vital Signs and I&O's Vital Signs: Vital Signs Temperature 98.3 F Temperature 98.0 F Pulse Rate [Brachial] 92 Pulse Rate [Brachial] 89 Pulse Rate 100 Respiratory Rate 24 Respiratory Rate 20 Respiratory Rate 26 Blood Pressure [Left Arm] 120/55 Blood Pressure [Left Arm] 147/71 O2 Sat by Pulse Oximetry 94 O2 Sat by Pulse Oximetry 94 O2 Sat by Pulse Oximetry 91 Intake and Output: Intake & Output 09/21/23 09/22/23 09/23/23 09/24/23 11:59 11:59 11:59 11:59 Intake Total 2456 / 2456 2280 / 2280 3090 / 3090 Output Total 800 / 800 1900 / 1900 1925 / 1925 Balance 1656 / 1656 380 / 380 1165 / 1165 Physical Exam Oriented: Normal, Time, Person and Place Eyes: Normal Ear: Normal Nose: Normal Throat: Normal Respiratory: Right, Generalized, Diminished and Rhonchi Cardiovascular: Normal : Normal Auscultation: Bowel Sounds: Normal Tenderness: Normal Skin: Normal Musculoskeletal: Normal Psychiatric: Normal Mood Description: Calm Affect: Normal Speech Pattern: Clear and Appropriate Laboratory and Diagnostics 09/23/23 05:24 09/23/23 05:24 Labs: 09/12/23 21:45 Blood Blood Culture - Final 09/12/23 21:40 Blood Blood Culture - Final 09/14/23 13:40 Pleural Fluid - Final Staphylococcus Epidermidis 09/14/23 13:40 Pleural Fluid Gram Stain - Final Laboratory WBC 13.1 X10^3/uL (3.6-10.0) H 09/23/23 05:24 RBC 2.85 X10^6/uL (4.7-6.0) L 09/23/23 05:24 Hgb 9.1 g/dL (13.5-18.0) L 09/23/23 05:24 Hct 27.0 % (42.0-54.0) L 09/23/23 05:24 MCV 94.7 fL (80.0-100.0) 09/23/23 05:24 MCH 31.8 pg (27.0-34.0) 09/23/23 05:24 MCHC 33.6 g/dL (33.0-35.0) 09/23/23 05:24 RDW 17.5 % (11.6-16.5) H 09/23/23 05:24 Plt Count 131 X10^3/uL (150.0-450.0) L 09/23/23 05:24 Plt Count Comment Adequate (ADEQUATE) 09/16/23 05:18 MPV 8.0 fL (7.4-11.0) 09/23/23 05:24 Neut % (Auto) 81.2 % (42.0-75.0) H 09/23/23 05:24 Lymph % (Auto) 6.8 % (21.0-51.0) L 09/23/23 05:24 [place] % (Auto) 11.3 % (0.0-13.0) 09/23/23 05:24 Eos % (Auto) 0.6 % (0.9-2.9) L 09/23/23 05:24 Baso % (Auto) 0.1 % (0.2-1.0) L 09/23/23 05:24 Neut # (Auto) 10.6 x10^3/uL (2.2-4.8) H 09/23/23 05:24 Lymph # (Auto) 0.9 X10^3/uL (1.3-2.9) L 09/23/23 05:24 [place] # (Auto) 1.5 x10^3/uL (0.3-0.8) H 09/23/23 05:24 Eos # (Auto) 0.1 x10^3/uL (0.0-0.2) 09/23/23 05:24 Baso # (Auto) 0.0 X10^3/uL (0.0-0.1) 09/23/23 05:24 Absolute Nucleated RBC 0.0 /100WBC 09/23/23 05:24 Total Counted 100 09/16/23 05:18 Neutrophils % (Manual) 80 % (39-76) H 09/16/23 05:18 Band Neutrophils % 5 % (0-10) 09/16/23 05:18 Lymphocytes % (Manual) 6 % (13-43) L 09/16/23 05:18 Monocytes % (Manual) 8 % (4-9) 09/16/23 05:18 Metamyelocytes % 1 09/16/23 05:18 Myelocytes % 4 09/13/23 05:24 Atypical Lymphocytes Present 09/13/23 05:24 Smudge Cells Slight A 09/15/23 05:28 Plt Morphology Comment Normal (NORMAL) 09/16/23 05:18 RBC Morphology Abnormal (NORMAL) 09/16/23 05:18 Anisocytosis Slight A 09/16/23 05:18 Sample Site Rra 09/12/23 18:20 ABG pH 7.520 (7.35-7.45) H 09/12/23 18:20 ABG pCO2 39.0 mmHg (35.0-45.0) 09/12/23 18:20 ABG pO2 55.0 mmHg (80.0-100.0) L 09/12/23 18:20 ABG HCO3 31.8 mmol/L (22-26) H* 09/12/23 18:20 ABG O2 Saturation 91.0 % (90-100) 09/12/23 18:20 ABG Base Excess 8.3 mmol/L (-2.0-2.0) H 09/12/23 18:20 Isai Test Pos 09/12/23 18:20 A-a Gradient 181.0 mmHg 09/12/23 18:20 FiO2 40.0 09/12/23 18:20 Blood Gas Comments Pt ramon well eb 09/12/23 18:20 Sodium 135 mmol/L (136-145) L 09/23/23 05:24 Corrected Sodium TNP 09/23/23 05:24 Potassium 3.5 mmol/L (3.5-5.1) 09/23/23 05:24 Chloride 103 mmol/L (98-107) 09/23/23 05:24 Carbon Dioxide 30.4 mmol/L (21-32) 09/23/23 05:24 BUN 14 mg/dL (7-18) 09/23/23 05:24 Creatinine 0.44 mg/dL (0.70-1.30) L 09/23/23 05:24 Est GFR (MDRD) Af Amer > 60 (>60) 09/23/23 05:24 Est GFR (MDRD) Non-Af > 60 (>60) 09/23/23 05:24 Glucose 81 mg/dL (65-99) 09/23/23 05:24 POC Glucose (mg/dL) 117 mg/dL (65-99) H 09/23/23 12:32 Lactic Acid 0.9 mmol/L (0.4-2.0) 09/12/23 21:45 Calcium 7.5 mg/dL (8.5-10.1) L 09/23/23 05:24 Corrected Calcium 9.3 mg/dL (8.5-10.1) 09/23/23 05:24 Magnesium 1.9 mg/dL (2.0-2.9) L 09/23/23 05:24 Total Bilirubin 0.90 mg/dL (0.2-1.0) 09/23/23 05:24 AST 18 Units/L (15-37) 09/23/23 05:24 ALT 12 Units/L (12-78) 09/23/23 05:24 Alkaline Phosphatase 119 Units/L (46-116) H 09/23/23 05:24 Creatine Kinase 26 Units/L (39-308) L 09/12/23 18:28 Troponin I High Sens 15.3 ng/L (4.0-60.0) 09/12/23 18:28 B-Natriuretic Peptide 75.3 pg/mL (0-79) 09/15/23 05:28 Total Protein 4.6 g/dL (6.4-8.2) L 09/23/23 05:24 Albumin 1.8 g/dL (3.4-5.0) L 09/23/23 05:24 Globulin 2.8 g/dL (2.5-4.5) 09/23/23 05:24 Albumin/Globulin Ratio 0.6 Ratio (1.1-2.1) L 09/23/23 05:24 Alpha Fetoprotein 1 ng/mL (0-9) 09/15/23 05:28 Carcinoembryonic Ag 2.1 ng/mL 09/15/23 05:28 CA 19-9 Antigen 14 U/mL (<=35) 09/15/23 05:28 CA 125 Antigen 125 U/mL (<=38) H 09/15/23 05:28 Total PSA 6.41 ng/mL (0.13-4.0) H 09/15/23 05:28 Specimen Type Clean catch urine 09/13/23 01:05 Urine Color Pale yellow (YELLOW) 09/13/23 01:05 Urine Appearance Clear (CLEAR) 09/13/23 01:05 Urine pH 8.0 (5.0 - 8.0) 09/13/23 01:05 Ur Specific [place] 1.015 (1.000-1.030) 09/13/23 01:05 Urine Protein Negative (NEGATIVE) 09/13/23 01:05 Urine Glucose (UA) Negative (NEGATIVE) 09/13/23 01:05 Urine Ketones Negative (NEGATIVE) 09/13/23 01:05 Urine Blood Negative (NEGATIVE) 09/13/23 01:05 Urine Nitrite Negative (NEGATIVE) 09/13/23 01:05 Urine Bilirubin Negative (NEGATIVE) 09/13/23 01:05 Urine Urobilinogen Normal (NORMAL) 09/13/23 01:05 Ur Leukocyte Esterase 2+ (NEGATIVE) 09/13/23 01:05 Urine RBC 0-2 /HPF (0-3) 09/13/23 01:05 Urine WBC 3-5 /HPF (0-5) 09/13/23 01:05 Ur Squamous Epith Cells Negative /HPF (NEGATIVE) 09/13/23 01:05 Amorphous Sediment Trace /HPF (NEGATIVE) 09/13/23 01:05 Urine Bacteria Negative /HPF (NEGATIVE) 09/13/23 01:05 Ur Culture Indicated? No/not indicated 09/13/23 01:05 Fluid pH 8 09/14/23 12:20 Pleural Glucose 76 09/14/23 12:20 Resp Viral Panel (PCR) See scanned report 09/13/23 00:35 Infect Dis PCR Plus Cancelled 09/14/23 12:20 Cytology See comment. 09/14/23 12:20 Miscellaneous Test Pleural flui albumin 09/14/23 12:20 Miscellaneous Test Pleural fluid chlori 09/14/23 12:20 Miscellaneous Test Pleural fluid sodium 09/14/23 12:20 Radiology Reviewed: Yes Plan (1) Pneumonia: Status: Acute Qualifiers: Laterality: unspecified laterality Lung location: unspecified part of lung Pneumonia type: due to unspecified organism Qualified Code(s): J18.9 - Pneumonia, unspecified organism Plan: Continue IV antibiotics, Repeat LABS AND XRAY in AM. (2) Hypoxemia: Status: Acute Plan: Supplemental O2 via nasal cannula. (3) Pleural effusion: Status: Acute Plan: Follow-up cytology of the pleural effusion as well as the rest of the studies when available. (4) Acute exacerbation of chronic obstructive pulmonary disease: Status: Acute (5) Leukocytosis: Status: Acute Qualifiers: Leukocytosis type: bandemia Qualified Code(s): D72.825 - Bandemia Plan: Follow daily CBCs. (6) Hypertension: Status: Chronic Qualifiers: Hypertension type: primary hypertension (7) Hypercholesteremia: Status: Acute (8) Pleural effusion on right: Status: Acute Plan: We will consult general surgery for a right-sided pleurocentesis.
[2023-09-23] MEDS: LIPITOR TAB 40 MG PO SCH (21:18)
[2023-09-23] MEDS: REQUIP PO SCH (21:20)
[2023-09-23] MEDS ORDERED: NORCO 10/325 TAB PO ONE (21:33)
[2023-09-24] MEDS: DUONEB 0.5 MG/3 MG (3 mL) NEB SCH ×4 (00:19→17:30)
[2023-09-24] MEDS: MERREM VIAL 500 MG in NS 50 ML IV 50 ML IV SCH ×3 (05:04→21:30)
[2023-09-24 05:51] LABS: BASOPHILS % (AUTO) 0.3 % (0.2-1.0); EOSINOPHILS # (AUTO) 0.1 x10^3/uL (0.0-0.2); EOSINOPHILS % (AUTO) 0.4 % (0.9-2.9); HEMATOCRIT 27.9 % (42.0-54.0); HEMOGLOBIN 9.3 g/dL (13.5-18.0); LYMPHOCYTES # (AUTO) 1.1 X10^3/uL (1.3-2.9); LYMPHOCYTES % (AUTO) 8.5 % (21.0-51.0); MEAN CORPUSCULAR HEMOGLOBIN 31.6 pg (27.0-34.0); MEAN CORPUSCULAR HGB CONC 33.4 g/dL (33.0-35.0); MEAN CORPUSCULAR VOLUME 94.4 fL (80.0-100.0); MEAN PLATELET VOLUME 7.9 fL (7.4-11.0); MONOCYTES # (AUTO) 1.9 x10^3/uL (0.3-0.8); MONOCYTES % (AUTO) 14.6 % (0.0-13.0); NEUTROPHILS # (AUTO) 10.1 x10^3/uL (2.2-4.8); NEUTROPHILS % (AUTO) 76.2 % (42.0-75.0); PLATELET COUNT 156 X10^3/uL (150.0-450.0); RED BLOOD COUNT 2.95 X10^6/uL (4.7-6.0); RED CELL DISTRIBUTION WIDTH 18.1 % (11.6-16.5); WHITE BLOOD COUNT 13.3 X10^3/uL (3.6-10.0)
[2023-09-24 06:04] LABS: ALANINE AMINOTRANSFERASE 18 Units/L (12-78); ALKALINE PHOSPHATASE 176 Units/L (46-116); ASPARTATE AMINO TRANSFERASE 36 Units/L (15-37); BLOOD UREA NITROGEN 18 mg/dL (7-18); CALCIUM 7.8 mg/dL (8.5-10.1); CARBON DIOXIDE 30.6 mmol/L (21-32); CHLORIDE 103 mmol/L (98-107); COR CA(FOR HYPOALB) 9.4 mg/dL (8.5-10.1); CREATININE 0.43 mg/dL (0.70-1.30); GLUCOSE 80 mg/dL (65-99); POTASSIUM 4.8 mmol/L (3.5-5.1); SODIUM 137 mmol/L (136-145); eGFR NON BLACK RACES > 60 (>60)
[2023-09-24] MEDS: PULMICORT NEB TX 0.5 MG NEB SCH ×2 (08:41→20:14)
[2023-09-24] MEDS: LOVENOX INJ 40 MG SYR SC SCH (09:15)
[2023-09-24] MEDS: CELEXA PO SCH (09:15)
[2023-09-24] MEDS: DIFLUCAN 200 MG IV PREMIX* 200 MG/100 ML BAG IV SCH (09:15)
[2023-09-24] MEDS: MAG-OX TAB PO SCH ×2 (09:15→20:57)
[2023-09-24] MEDS: PROTONIX TAB 40 MG PO SCH (09:15)
[2023-09-24] MEDS: VSL#3 PO SCH (09:15)
[2023-09-24] MEDS: PATIENT'S HOME MEDICATION PO SCH ×2 (09:16→22:48)
[2023-09-24] MEDS: CLINIMIX 4.25%-5% 1,000 ML with MVI INJ (ADULT) 10 ML IV SCH ×2 (09:44)
[2023-09-24] MEDS: MAGIC MOUTHWASH (Orig. Formula) MT SCH ×4 (09:45→20:57)
[2023-09-24] MEDS: LEVAQUIN PREMIX IV 750 MG 750 MG/150 ML BAG IV SCH (11:13)
[2023-09-24] MEDS: ALBUMIN HUMAN 25%- 100 ML 100 ML IV SCH (12:54)
[2023-09-24] MEDS: NS 1,000 ML IV 1,000 ML IV SCH (13:33)
[2023-09-24] MEDS: LIPITOR TAB 40 MG PO SCH (20:57)
[2023-09-24] MEDS: REQUIP PO SCH (20:57)
[2023-09-24] MEDS: TYLENOL 325 MG TAB PO PRN (21:25)
[2023-09-24] MEDS: NORCO 5/325 MG TAB PO PRN (22:48)
[2023-09-25] MEDS: DUONEB 0.5 MG/3 MG (3 mL) NEB SCH ×4 (00:28→17:57)
[2023-09-25] MEDS: MERREM VIAL 500 MG in NS 50 ML IV 50 ML IV SCH ×3 (05:05→21:26)
[2023-09-25] MEDS: NS 1,000 ML IV 1,000 ML IV SCH ×2 (05:50→14:19)
[2023-09-25 06:30] LABS: BASOPHILS # (AUTO) 0.1 X10^3/uL (0.0-0.1); BASOPHILS % (AUTO) 0.5 % (0.2-1.0); EOSINOPHILS # (AUTO) 0.1 x10^3/uL (0.0-0.2); EOSINOPHILS % (AUTO) 0.6 % (0.9-2.9); HEMATOCRIT 27.8 % (42.0-54.0); HEMOGLOBIN 9.2 g/dL (13.5-18.0); LYMPHOCYTES # (AUTO) 1.1 X10^3/uL (1.3-2.9); LYMPHOCYTES % (AUTO) 8.1 % (21.0-51.0); MEAN CORPUSCULAR HEMOGLOBIN 31.5 pg (27.0-34.0); MEAN CORPUSCULAR HGB CONC 33.3 g/dL (33.0-35.0); MEAN CORPUSCULAR VOLUME 94.8 fL (80.0-100.0); MEAN PLATELET VOLUME 8.1 fL (7.4-11.0); MONOCYTES % (AUTO) 14.7 % (0.0-13.0); NEUTROPHILS # (AUTO) 10.4 x10^3/uL (2.2-4.8); NEUTROPHILS % (AUTO) 76.1 % (42.0-75.0); PLATELET COUNT 158 X10^3/uL (150.0-450.0); RED BLOOD COUNT 2.93 X10^6/uL (4.7-6.0); RED CELL DISTRIBUTION WIDTH 17.6 % (11.6-16.5); WHITE BLOOD COUNT 13.6 X10^3/uL (3.6-10.0)
[2023-09-25 06:39] LABS: ALANINE AMINOTRANSFERASE 19 Units/L (12-78); ALBUMIN 2.1 g/dL (3.4-5.0); ALKALINE PHOSPHATASE 165 Units/L (46-116); ASPARTATE AMINO TRANSFERASE 30 Units/L (15-37); BLOOD UREA NITROGEN 18 mg/dL (7-18); CARBON DIOXIDE 29.1 mmol/L (21-32); CHLORIDE 103 mmol/L (98-107); COR CA(FOR HYPOALB) 9.5 mg/dL (8.5-10.1); CREATININE 0.47 mg/dL (0.70-1.30); GLUCOSE 85 mg/dL (65-99); POTASSIUM 4.1 mmol/L (3.5-5.1); SODIUM 135 mmol/L (136-145); TOTAL PROTEIN 5.1 g/dL (6.4-8.2); eGFR NON BLACK RACES > 60 (>60)
--- NOTE | 2023-09-25 08:41 | PCM.PROG ---
Progress Note Progress Note for Day of Date of Exam: 09/24/23 Subjective Subjective: Patient is a 78-year-old male admitted for COPD exacerbation and acute respiratory failure. This morning he remains on heated high flow oxygen. No acute events overnight. Labs: WBC 13.3, hemoglobin 9.3, platelets 156, sodium 131, potassium 4.8, creatinine 0.43, glucose 80. Patient is receiving respiratory therapy, bronchodilators scheduled. Continue to wean/titrate oxygen as tolerated. Home medications have been resumed. Otherwise continue current treatment plan. Continue to closely monitor and follow-up labs/imaging. Past Medical Family Social History Allergies: Allergies No Known Drug Allergies Allergy (Unknown, Verified 09/12/23 19:44) Onset Date: 06/23/2022 Review of Systems ROS: No change since H&P Vital Signs and I&O's Vital Signs: Vital Signs Temperature 97.5 F Temperature 97.9 F Pulse Rate [Brachial] 75 Pulse Rate [Brachial] 75 Respiratory Rate 20 Respiratory Rate 18 Blood Pressure [Left Arm] 109/58 Blood Pressure [Left Arm] 99/57 O2 Sat by Pulse Oximetry 100 O2 Sat by Pulse Oximetry 98 Intake and Output: Intake & Output 09/22/23 09/23/23 09/24/23 09/25/23 23:59 23:59 23:59 23:59 Intake Total 2963 / 2963 2539 / 2539 1770 / 1770 731 / 731 Output Total 2425 / 2425 1550 / 1550 2700 / 2700 800 / 800 Balance 538 / 538 989 / 989 -930 / -930 -69 / -69 Physical Exam Oriented: Normal, Time, Person and Place Eyes: Normal Ear: Normal Nose: Normal Throat: Normal Respiratory: Right, Generalized, Diminished and Rhonchi Cardiovascular: Normal : Normal Auscultation: Bowel Sounds: Normal Tenderness: Normal Skin: Normal Musculoskeletal: Normal Psychiatric: Normal Mood Description: Calm Affect: Normal Speech Pattern: Clear and Appropriate Laboratory and Diagnostics 09/25/23 06:05 09/25/23 06:05 Labs: 09/12/23 21:45 Blood Blood Culture - Final 09/12/23 21:40 Blood Blood Culture - Final 09/14/23 13:40 Pleural Fluid - Final Staphylococcus Epidermidis 09/14/23 13:40 Pleural Fluid Gram Stain - Final Laboratory WBC 13.6 X10^3/uL (3.6-10.0) H 09/25/23 06:05 RBC 2.93 X10^6/uL (4.7-6.0) L 09/25/23 06:05 Hgb 9.2 g/dL (13.5-18.0) L 09/25/23 06:05 Hct 27.8 % (42.0-54.0) L 09/25/23 06:05 MCV 94.8 fL (80.0-100.0) 09/25/23 06:05 MCH 31.5 pg (27.0-34.0) 09/25/23 06:05 MCHC 33.3 g/dL (33.0-35.0) 09/25/23 06:05 RDW 17.6 % (11.6-16.5) H 09/25/23 06:05 Plt Count 158 X10^3/uL (150.0-450.0) 09/25/23 06:05 Plt Count Comment Adequate (ADEQUATE) 09/16/23 05:18 MPV 8.1 fL (7.4-11.0) 09/25/23 06:05 Neut % (Auto) 76.1 % (42.0-75.0) H 09/25/23 06:05 Lymph % (Auto) 8.1 % (21.0-51.0) L 09/25/23 06:05 [place] % (Auto) 14.7 % (0.0-13.0) H 09/25/23 06:05 Eos % (Auto) 0.6 % (0.9-2.9) L 09/25/23 06:05 Baso % (Auto) 0.5 % (0.2-1.0) 09/25/23 06:05 Neut # (Auto) 10.4 x10^3/uL (2.2-4.8) H 09/25/23 06:05 Lymph # (Auto) 1.1 X10^3/uL (1.3-2.9) L 09/25/23 06:05 [place] # (Auto) 2.0 x10^3/uL (0.3-0.8) H 09/25/23 06:05 Eos # (Auto) 0.1 x10^3/uL (0.0-0.2) 09/25/23 06:05 Baso # (Auto) 0.1 X10^3/uL (0.0-0.1) 09/25/23 06:05 Absolute Nucleated RBC 0.0 /100WBC 09/25/23 06:05 Total Counted 100 09/16/23 05:18 Neutrophils % (Manual) 80 % (39-76) H 09/16/23 05:18 Band Neutrophils % 5 % (0-10) 09/16/23 05:18 Lymphocytes % (Manual) 6 % (13-43) L 09/16/23 05:18 Monocytes % (Manual) 8 % (4-9) 09/16/23 05:18 Metamyelocytes % 1 09/16/23 05:18 Myelocytes % 4 09/13/23 05:24 Atypical Lymphocytes Present 09/13/23 05:24 Smudge Cells Slight A 09/15/23 05:28 Plt Morphology Comment Normal (NORMAL) 09/16/23 05:18 RBC Morphology Abnormal (NORMAL) 09/16/23 05:18 Anisocytosis Slight A 09/16/23 05:18 Sample Site Rra 09/12/23 18:20 ABG pH 7.520 (7.35-7.45) H 09/12/23 18:20 ABG pCO2 39.0 mmHg (35.0-45.0) 09/12/23 18:20 ABG pO2 55.0 mmHg (80.0-100.0) L 09/12/23 18:20 ABG HCO3 31.8 mmol/L (22-26) H* 09/12/23 18:20 ABG O2 Saturation 91.0 % (90-100) 09/12/23 18:20 ABG Base Excess 8.3 mmol/L (-2.0-2.0) H 09/12/23 18:20 Isai Test Pos 09/12/23 18:20 A-a Gradient 181.0 mmHg 09/12/23 18:20 FiO2 40.0 09/12/23 18:20 Blood Gas Comments Pt ramon well eb 09/12/23 18:20 Sodium 135 mmol/L (136-145) L 09/25/23 06:05 Corrected Sodium TNP 09/25/23 06:05 Potassium 4.1 mmol/L (3.5-5.1) 09/25/23 06:05 Chloride 103 mmol/L (98-107) 09/25/23 06:05 Carbon Dioxide 29.1 mmol/L (21-32) 09/25/23 06:05 BUN 18 mg/dL (7-18) 09/25/23 06:05 Creatinine 0.47 mg/dL (0.70-1.30) L 09/25/23 06:05 Est GFR (MDRD) Af Amer > 60 (>60) 09/25/23 06:05 Est GFR (MDRD) Non-Af > 60 (>60) 09/25/23 06:05 Glucose 85 mg/dL (65-99) 09/25/23 06:05 POC Glucose (mg/dL) 91 mg/dL (65-99) 09/25/23 02:57 Lactic Acid 0.9 mmol/L (0.4-2.0) 09/12/23 21:45 Calcium 8.0 mg/dL (8.5-10.1) L 09/25/23 06:05 Corrected Calcium 9.5 mg/dL (8.5-10.1) 09/25/23 06:05 Magnesium 2.0 mg/dL (2.0-2.9) 09/24/23 05:31 Total Bilirubin 0.80 mg/dL (0.2-1.0) 09/25/23 06:05 AST 30 Units/L (15-37) 09/25/23 06:05 ALT 19 Units/L (12-78) 09/25/23 06:05 Alkaline Phosphatase 165 Units/L (46-116) H 09/25/23 06:05 Creatine Kinase 26 Units/L (39-308) L 09/12/23 18:28 Troponin I High Sens 15.3 ng/L (4.0-60.0) 09/12/23 18:28 B-Natriuretic Peptide 75.3 pg/mL (0-79) 09/15/23 05:28 Total Protein 5.1 g/dL (6.4-8.2) L 09/25/23 06:05 Albumin 2.1 g/dL (3.4-5.0) L 09/25/23 06:05 Globulin 3.0 g/dL (2.5-4.5) 09/25/23 06:05 Albumin/Globulin Ratio 0.7 Ratio (1.1-2.1) L 09/25/23 06:05 Alpha Fetoprotein 1 ng/mL (0-9) 09/15/23 05:28 Carcinoembryonic Ag 2.1 ng/mL 09/15/23 05:28 CA 19-9 Antigen 14 U/mL (<=35) 09/15/23 05:28 CA 125 Antigen 125 U/mL (<=38) H 09/15/23 05:28 Total PSA 6.41 ng/mL (0.13-4.0) H 09/15/23 05:28 Specimen Type Clean catch urine 09/13/23 01:05 Urine Color Pale yellow (YELLOW) 09/13/23 01:05 Urine Appearance Clear (CLEAR) 09/13/23 01:05 Urine pH 8.0 (5.0 - 8.0) 09/13/23 01:05 Ur Specific [place] 1.015 (1.000-1.030) 09/13/23 01:05 Urine Protein Negative (NEGATIVE) 09/13/23 01:05 Urine Glucose (UA) Negative (NEGATIVE) 09/13/23 01:05 Urine Ketones Negative (NEGATIVE) 09/13/23 01:05 Urine Blood Negative (NEGATIVE) 09/13/23 01:05 Urine Nitrite Negative (NEGATIVE) 09/13/23 01:05 Urine Bilirubin Negative (NEGATIVE) 09/13/23 01:05 Urine Urobilinogen Normal (NORMAL) 09/13/23 01:05 Ur Leukocyte Esterase 2+ (NEGATIVE) 09/13/23 01:05 Urine RBC 0-2 /HPF (0-3) 09/13/23 01:05 Urine WBC 3-5 /HPF (0-5) 09/13/23 01:05 Ur Squamous Epith Cells Negative /HPF (NEGATIVE) 09/13/23 01:05 Amorphous Sediment Trace /HPF (NEGATIVE) 09/13/23 01:05 Urine Bacteria Negative /HPF (NEGATIVE) 09/13/23 01:05 Ur Culture Indicated? No/not indicated 09/13/23 01:05 Fluid pH 8 09/14/23 12:20 Pleural Glucose 76 09/14/23 12:20 Resp Viral Panel (PCR) See scanned report 09/13/23 00:35 Infect Dis PCR Plus Cancelled 09/14/23 12:20 Cytology See comment. 09/14/23 12:20 Miscellaneous Test Pleural flui albumin 09/14/23 12:20 Miscellaneous Test Pleural fluid chlori 09/14/23 12:20 Miscellaneous Test Pleural fluid sodium 09/14/23 12:20 Plan (1) Pneumonia: Status: Acute Qualifiers: Laterality: unspecified laterality Lung location: unspecified part of lung Pneumonia type: due to unspecified organism Qualified Code(s): J18.9 - Pneumonia, unspecified organism Plan: Continue IV antibiotics, Repeat LABS AND XRAY in AM. (2) Hypoxemia: Status: Acute Plan: Supplemental O2 via nasal cannula. (3) Pleural effusion: Status: Acute Plan: Follow-up cytology of the pleural effusion as well as the rest of the studies when available. (4) Acute exacerbation of chronic obstructive pulmonary disease: Status: Acute (5) Leukocytosis: Status: Acute Qualifiers: Leukocytosis type: bandemia Qualified Code(s): D72.825 - Bandemia Plan: Follow daily CBCs. (6) Hypertension: Status: Chronic Qualifiers: Hypertension type: primary hypertension (7) Hypercholesteremia: Status: Acute (8) Pleural effusion on right: Status: Acute Plan: We will consult general surgery for a right-sided pleurocentesis.
[2023-09-25] MEDS: PULMICORT NEB TX 0.5 MG NEB SCH ×2 (08:55→20:18)
[2023-09-25] MEDS: DIFLUCAN 200 MG IV PREMIX* 200 MG/100 ML BAG IV SCH (09:52)
[2023-09-25] MEDS: PROTONIX TAB 40 MG PO SCH (09:54)
[2023-09-25] MEDS: CELEXA PO SCH (09:54)
[2023-09-25] MEDS: MAG-OX TAB PO SCH ×2 (09:54→21:24)
[2023-09-25] MEDS: VSL#3 PO SCH (09:54)
[2023-09-25] MEDS: LOVENOX INJ 40 MG SYR SC SCH (09:55)
[2023-09-25] MEDS: MAGIC MOUTHWASH (Orig. Formula) MT SCH ×4 (10:00→21:30)
[2023-09-25] MEDS: CLINIMIX 4.25%-5% 1,000 ML with MVI INJ (ADULT) 10 ML IV SCH ×2 (10:39)
[2023-09-25] MEDS: PATIENT'S HOME MEDICATION PO SCH ×2 (10:39→21:30)
[2023-09-25] MEDS: NORCO 5/325 MG TAB PO PRN ×2 (10:39→17:00)
[2023-09-25] MEDS: ALBUMIN HUMAN 25%- 100 ML 100 ML IV SCH (11:23)
--- NOTE | 2023-09-25 11:39 | PCM.PROG ---
Progress Note Progress Note for Day of Date of Exam: 09/25/23 Subjective Subjective: Patient is a 78-year-old male admitted for COPD exacerbation and acute respiratory failure. This morning he continues to require heated high flow oxygen. No acute events overnight. Labs: WBC 13.6, hemoglobin 9.2, platelets 158, sodium 135, potassium 4.1, creatinine 0.47, glucose 85. Patient is receiving respiratory therapy, bronchodilators scheduled. Continue to wean/titrate oxygen as tolerated. Home medications have been resumed. Otherwise continue current treatment plan. Continue to closely monitor and follow-up labs/imaging. Past Medical Family Social History Allergies: Allergies No Known Drug Allergies Allergy (Unknown, Verified 09/12/23 19:44) Onset Date: 06/23/2022 Review of Systems ROS: No change since H&P Vital Signs and I&O's Vital Signs: Vital Signs Temperature 97.5 F Temperature 97.9 F Pulse Rate [Brachial] 75 Pulse Rate [Brachial] 75 Pulse Rate 80 Respiratory Rate 20 Respiratory Rate 20 Respiratory Rate 18 Blood Pressure [Left Arm] 109/58 Blood Pressure [Left Arm] 99/57 O2 Sat by Pulse Oximetry 95 O2 Sat by Pulse Oximetry 100 O2 Sat by Pulse Oximetry 98 Intake and Output: Intake & Output 09/22/23 09/23/23 09/24/23 09/25/23 23:59 23:59 23:59 23:59 Intake Total 2963 / 2963 2539 / 2539 1770 / 1770 731 / 731 Output Total 2425 / 2425 1550 / 1550 2700 / 2700 800 / 800 Balance 538 / 538 989 / 989 -930 / -930 -69 / -69 Physical Exam Oriented: Normal, Time, Person and Place Eyes: Normal Ear: Normal Nose: Normal Throat: Normal Respiratory: Right, Generalized, Diminished and Rhonchi Cardiovascular: Normal : Normal Auscultation: Bowel Sounds: Normal Tenderness: Normal Skin: Normal Musculoskeletal: Normal Psychiatric: Normal Mood Description: Calm Affect: Normal Speech Pattern: Clear and Appropriate Laboratory and Diagnostics 09/25/23 06:05 09/25/23 06:05 Labs: 09/12/23 21:45 Blood Blood Culture - Final 09/12/23 21:40 Blood Blood Culture - Final 09/14/23 13:40 Pleural Fluid - Final Staphylococcus Epidermidis 09/14/23 13:40 Pleural Fluid Gram Stain - Final Laboratory WBC 13.6 X10^3/uL (3.6-10.0) H 09/25/23 06:05 RBC 2.93 X10^6/uL (4.7-6.0) L 09/25/23 06:05 Hgb 9.2 g/dL (13.5-18.0) L 09/25/23 06:05 Hct 27.8 % (42.0-54.0) L 09/25/23 06:05 MCV 94.8 fL (80.0-100.0) 09/25/23 06:05 MCH 31.5 pg (27.0-34.0) 09/25/23 06:05 MCHC 33.3 g/dL (33.0-35.0) 09/25/23 06:05 RDW 17.6 % (11.6-16.5) H 09/25/23 06:05 Plt Count 158 X10^3/uL (150.0-450.0) 09/25/23 06:05 Plt Count Comment Adequate (ADEQUATE) 09/16/23 05:18 MPV 8.1 fL (7.4-11.0) 09/25/23 06:05 Neut % (Auto) 76.1 % (42.0-75.0) H 09/25/23 06:05 Lymph % (Auto) 8.1 % (21.0-51.0) L 09/25/23 06:05 [place] % (Auto) 14.7 % (0.0-13.0) H 09/25/23 06:05 Eos % (Auto) 0.6 % (0.9-2.9) L 09/25/23 06:05 Baso % (Auto) 0.5 % (0.2-1.0) 09/25/23 06:05 Neut # (Auto) 10.4 x10^3/uL (2.2-4.8) H 09/25/23 06:05 Lymph # (Auto) 1.1 X10^3/uL (1.3-2.9) L 09/25/23 06:05 [place] # (Auto) 2.0 x10^3/uL (0.3-0.8) H 09/25/23 06:05 Eos # (Auto) 0.1 x10^3/uL (0.0-0.2) 09/25/23 06:05 Baso # (Auto) 0.1 X10^3/uL (0.0-0.1) 09/25/23 06:05 Absolute Nucleated RBC 0.0 /100WBC 09/25/23 06:05 Total Counted 100 09/16/23 05:18 Neutrophils % (Manual) 80 % (39-76) H 09/16/23 05:18 Band Neutrophils % 5 % (0-10) 09/16/23 05:18 Lymphocytes % (Manual) 6 % (13-43) L 09/16/23 05:18 Monocytes % (Manual) 8 % (4-9) 09/16/23 05:18 Metamyelocytes % 1 09/16/23 05:18 Myelocytes % 4 09/13/23 05:24 Atypical Lymphocytes Present 09/13/23 05:24 Smudge Cells Slight A 09/15/23 05:28 Plt Morphology Comment Normal (NORMAL) 09/16/23 05:18 RBC Morphology Abnormal (NORMAL) 09/16/23 05:18 Anisocytosis Slight A 09/16/23 05:18 Sample Site Rra 09/12/23 18:20 ABG pH 7.520 (7.35-7.45) H 09/12/23 18:20 ABG pCO2 39.0 mmHg (35.0-45.0) 09/12/23 18:20 ABG pO2 55.0 mmHg (80.0-100.0) L 09/12/23 18:20 ABG HCO3 31.8 mmol/L (22-26) H* 09/12/23 18:20 ABG O2 Saturation 91.0 % (90-100) 09/12/23 18:20 ABG Base Excess 8.3 mmol/L (-2.0-2.0) H 09/12/23 18:20 Isai Test Pos 09/12/23 18:20 A-a Gradient 181.0 mmHg 09/12/23 18:20 FiO2 40.0 09/12/23 18:20 Blood Gas Comments Pt ramon well eb 09/12/23 18:20 Sodium 135 mmol/L (136-145) L 09/25/23 06:05 Corrected Sodium TNP 09/25/23 06:05 Potassium 4.1 mmol/L (3.5-5.1) 09/25/23 06:05 Chloride 103 mmol/L (98-107) 09/25/23 06:05 Carbon Dioxide 29.1 mmol/L (21-32) 09/25/23 06:05 BUN 18 mg/dL (7-18) 09/25/23 06:05 Creatinine 0.47 mg/dL (0.70-1.30) L 09/25/23 06:05 Est GFR (MDRD) Af Amer > 60 (>60) 09/25/23 06:05 Est GFR (MDRD) Non-Af > 60 (>60) 09/25/23 06:05 Glucose 85 mg/dL (65-99) 09/25/23 06:05 POC Glucose (mg/dL) 89 mg/dL (65-99) 09/25/23 11:17 Lactic Acid 0.9 mmol/L (0.4-2.0) 09/12/23 21:45 Calcium 8.0 mg/dL (8.5-10.1) L 09/25/23 06:05 Corrected Calcium 9.5 mg/dL (8.5-10.1) 09/25/23 06:05 Magnesium 2.0 mg/dL (2.0-2.9) 09/24/23 05:31 Total Bilirubin 0.80 mg/dL (0.2-1.0) 09/25/23 06:05 AST 30 Units/L (15-37) 09/25/23 06:05 ALT 19 Units/L (12-78) 09/25/23 06:05 Alkaline Phosphatase 165 Units/L (46-116) H 09/25/23 06:05 Creatine Kinase 26 Units/L (39-308) L 09/12/23 18:28 Troponin I High Sens 15.3 ng/L (4.0-60.0) 09/12/23 18:28 B-Natriuretic Peptide 75.3 pg/mL (0-79) 09/15/23 05:28 Total Protein 5.1 g/dL (6.4-8.2) L 09/25/23 06:05 Albumin 2.1 g/dL (3.4-5.0) L 09/25/23 06:05 Globulin 3.0 g/dL (2.5-4.5) 09/25/23 06:05 Albumin/Globulin Ratio 0.7 Ratio (1.1-2.1) L 09/25/23 06:05 Alpha Fetoprotein 1 ng/mL (0-9) 09/15/23 05:28 Carcinoembryonic Ag 2.1 ng/mL 09/15/23 05:28 CA 19-9 Antigen 14 U/mL (<=35) 09/15/23 05:28 CA 125 Antigen 125 U/mL (<=38) H 09/15/23 05:28 Total PSA 6.41 ng/mL (0.13-4.0) H 09/15/23 05:28 Specimen Type Clean catch urine 09/13/23 01:05 Urine Color Pale yellow (YELLOW) 09/13/23 01:05 Urine Appearance Clear (CLEAR) 09/13/23 01:05 Urine pH 8.0 (5.0 - 8.0) 09/13/23 01:05 Ur Specific [place] 1.015 (1.000-1.030) 09/13/23 01:05 Urine Protein Negative (NEGATIVE) 09/13/23 01:05 Urine Glucose (UA) Negative (NEGATIVE) 09/13/23 01:05 Urine Ketones Negative (NEGATIVE) 09/13/23 01:05 Urine Blood Negative (NEGATIVE) 09/13/23 01:05 Urine Nitrite Negative (NEGATIVE) 09/13/23 01:05 Urine Bilirubin Negative (NEGATIVE) 09/13/23 01:05 Urine Urobilinogen Normal (NORMAL) 09/13/23 01:05 Ur Leukocyte Esterase 2+ (NEGATIVE) 09/13/23 01:05 Urine RBC 0-2 /HPF (0-3) 09/13/23 01:05 Urine WBC 3-5 /HPF (0-5) 09/13/23 01:05 Ur Squamous Epith Cells Negative /HPF (NEGATIVE) 09/13/23 01:05 Amorphous Sediment Trace /HPF (NEGATIVE) 09/13/23 01:05 Urine Bacteria Negative /HPF (NEGATIVE) 09/13/23 01:05 Ur Culture Indicated? No/not indicated 09/13/23 01:05 Fluid pH 8 09/14/23 12:20 Pleural Glucose 76 01/09/24 12:20 Resp Viral Panel (PCR) See scanned report 09/13/23 00:35 Infect Dis PCR Plus Cancelled 09/14/23 12:20 Cytology See comment. 09/14/23 12:20 Miscellaneous Test Pleural flui albumin 09/14/23 12:20 Miscellaneous Test Pleural fluid chlori 09/14/23 12:20 Miscellaneous Test Pleural fluid sodium 09/14/23 12:20 Plan (1) Pneumonia: Status: Acute Qualifiers: Laterality: unspecified laterality Lung location: unspecified part of lung Pneumonia type: due to unspecified organism Qualified Code(s): J18.9 - Pneumonia, unspecified organism Plan: Continue IV antibiotics, Repeat LABS AND XRAY in AM. (2) Hypoxemia: Status: Acute Plan: Supplemental O2 via nasal cannula. (3) Pleural effusion: Status: Acute Plan: Follow-up cytology of the pleural effusion as well as the rest of the studies when available. (4) Acute exacerbation of chronic obstructive pulmonary disease: Status: Acute (5) Leukocytosis: Status: Acute Qualifiers: Leukocytosis type: bandemia Qualified Code(s): D72.825 - Bandemia Plan: Follow daily CBCs. (6) Hypertension: Status: Chronic Qualifiers: Hypertension type: primary hypertension (7) Hypercholesteremia: Status: Acute (8) Pleural effusion on right: Status: Acute Plan: We will consult general surgery for a right-sided pleurocentesis.
[2023-09-25] MEDS: LEVAQUIN PREMIX IV 750 MG 750 MG/150 ML BAG IV SCH (12:28)
[2023-09-25 12:42] LABS: CRYPTOSPORIDIUM PARVUM ANTIGEN NEGATIVE (NEGATIVE); GIARDIA LAMBLIA ANTIGEN NEGATIVE (NEGATIVE)
[2023-09-25] MEDS: REQUIP PO SCH (21:24)
[2023-09-25] MEDS: LIPITOR TAB 40 MG PO SCH (21:25)
[2023-09-26] MEDS: DUONEB 0.5 MG/3 MG (3 mL) NEB SCH ×4 (00:04→17:54)
[2023-09-26] MEDS: MERREM VIAL 500 MG in NS 50 ML IV 50 ML IV SCH ×3 (05:27→21:10)
[2023-09-26] MEDS: NORCO 5/325 MG TAB PO PRN ×3 (05:45→22:57)
[2023-09-26 06:24] LABS: BASOPHILS # (AUTO) 0.1 X10^3/uL (0.0-0.1); BASOPHILS % (AUTO) 0.7 % (0.2-1.0); EOSINOPHILS # (AUTO) 0.1 x10^3/uL (0.0-0.2); EOSINOPHILS % (AUTO) 0.9 % (0.9-2.9); HEMATOCRIT 28.6 % (42.0-54.0); HEMOGLOBIN 9.6 g/dL (13.5-18.0); LYMPHOCYTES # (AUTO) 1.4 X10^3/uL (1.3-2.9); LYMPHOCYTES % (AUTO) 10.6 % (21.0-51.0); MEAN CORPUSCULAR HEMOGLOBIN 31.5 pg (27.0-34.0); MEAN CORPUSCULAR HGB CONC 33.6 g/dL (33.0-35.0); MEAN CORPUSCULAR VOLUME 93.8 fL (80.0-100.0); MEAN PLATELET VOLUME 7.5 fL (7.4-11.0); MONOCYTES # (AUTO) 2.1 x10^3/uL (0.3-0.8); MONOCYTES % (AUTO) 15.7 % (0.0-13.0); NEUTROPHILS # (AUTO) 9.7 x10^3/uL (2.2-4.8); NEUTROPHILS % (AUTO) 72.1 % (42.0-75.0); PLATELET COUNT 217 X10^3/uL (150.0-450.0); RED BLOOD COUNT 3.05 X10^6/uL (4.7-6.0); RED CELL DISTRIBUTION WIDTH 17.5 % (11.6-16.5); WHITE BLOOD COUNT 13.4 X10^3/uL (3.6-10.0)
[2023-09-26 06:35] LABS: ALANINE AMINOTRANSFERASE 16 Units/L (12-78); ALKALINE PHOSPHATASE 158 Units/L (46-116); ASPARTATE AMINO TRANSFERASE 25 Units/L (15-37); BLOOD UREA NITROGEN 17 mg/dL (7-18); CALCIUM 7.8 mg/dL (8.5-10.1); CARBON DIOXIDE 29.6 mmol/L (21-32); CHLORIDE 101 mmol/L (98-107); COR CA(FOR HYPOALB) 9.4 mg/dL (8.5-10.1); GLUCOSE 81 mg/dL (65-99); POTASSIUM 4.1 mmol/L (3.5-5.1); SODIUM 132 mmol/L (136-145); eGFR NON BLACK RACES > 60 (>60)
[2023-09-26] MEDS: TYLENOL 325 MG TAB PO PRN (07:46)
[2023-09-26] MEDS ORDERED: DRUG FILTER EXTENSION SET ONE (08:08)
[2023-09-26] MEDS: PROTONIX TAB 40 MG PO SCH (09:20)
[2023-09-26] MEDS: MAG-OX TAB PO SCH ×2 (09:20→21:02)
[2023-09-26] MEDS: CELEXA PO SCH (09:20)
[2023-09-26] MEDS: MAGIC MOUTHWASH (Orig. Formula) MT SCH ×4 (09:21→21:09)
[2023-09-26] MEDS: VSL#3 PO SCH (09:21)
[2023-09-26] MEDS: LOVENOX INJ 40 MG SYR SC SCH (09:21)
[2023-09-26] MEDS: DIFLUCAN 200 MG IV PREMIX* 200 MG/100 ML BAG IV SCH (09:21)
[2023-09-26] MEDS: PATIENT'S HOME MEDICATION PO SCH ×2 (09:21→21:10)
[2023-09-26] MEDS: PULMICORT NEB TX 0.5 MG NEB SCH ×2 (09:31→20:03)
[2023-09-26] MEDS: CLINIMIX 4.25%-5% 1,000 ML with MVI INJ (ADULT) 10 ML IV SCH ×2 (10:30)
--- NOTE | 2023-09-26 10:30 | PCM.PROG ---
Progress Note Progress Note for Day of Date of Exam: 09/26/23 Subjective Subjective: Patient is a 78-year-old male admitted for COPD exacerbation and acute respiratory failure. This morning he is currently receiving heated high flow oxygen. No acute events overnight. Labs: WBC 13.4, hemoglobin 9.6, platelets 217, sodium 132, potassium 4.1, creatinine 0.50, glucose 81. Patient is receiving respiratory therapy, bronchodilators scheduled. Continue to wean/titrate oxygen as tolerated. Home medications have been resumed. Otherwise continue current treatment plan. Continue to closely monitor and follow-up labs/imaging. Past Medical Family Social History Allergies: Allergies No Known Drug Allergies Allergy (Unknown, Verified 09/12/23 19:44) Onset Date: 06/23/2022 Review of Systems ROS changes noted: see HPI Vital Signs and I&O's Vital Signs: Vital Signs Temperature 98.3 F Temperature 98.1 F Pulse Rate [Brachial] 102 Pulse Rate [Brachial] 88 Pulse Rate 96 Pulse Rate 87 Respiratory Rate 20 Respiratory Rate 22 Respiratory Rate 20 Respiratory Rate 20 Respiratory Rate 20 Respiratory Rate 18 Blood Pressure [Left Arm] 109/69 Blood Pressure [Left Arm] 100/56 O2 Sat by Pulse Oximetry 95 O2 Sat by Pulse Oximetry 90 O2 Sat by Pulse Oximetry 93 O2 Sat by Pulse Oximetry 96 Intake and Output: Intake & Output 09/23/23 09/24/23 09/25/23 09/26/23 23:59 23:59 23:59 23:59 Intake Total 2539 / 2539 1770 / 1770 2639 / 2639 464 / 464 Output Total 1550 / 1550 2700 / 2700 1950 / 1950 350 / 350 Balance 989 / 989 -930 / -930 689 / 689 114 / 114 Physical Exam Oriented: Normal, Time, Person and Place Eyes: Normal Ear: Normal Nose: Normal Throat: Normal Respiratory: Right, Generalized, Diminished and Rhonchi Cardiovascular: Normal : Normal Auscultation: Bowel Sounds: Normal Tenderness: Normal Skin: Normal Musculoskeletal: Normal Psychiatric: Normal Mood Description: Calm Affect: Normal Speech Pattern: Clear and Appropriate Laboratory and Diagnostics 09/26/23 06:15 09/26/23 06:15 Labs: 09/25/23 10:50 Stool Stool Culture - Preliminary 09/25/23 10:50 Stool - Final 09/12/23 21:45 Blood Blood Culture - Final 09/12/23 21:40 Blood Blood Culture - Final 09/14/23 13:40 Pleural Fluid - Final Staphylococcus Epidermidis 09/14/23 13:40 Pleural Fluid Gram Stain - Final Laboratory WBC 13.4 X10^3/uL (3.6-10.0) H 09/26/23 06:15 RBC 3.05 X10^6/uL (4.7-6.0) L 09/26/23 06:15 Hgb 9.6 g/dL (13.5-18.0) L 09/26/23 06:15 Hct 28.6 % (42.0-54.0) L 09/26/23 06:15 MCV 93.8 fL (80.0-100.0) 09/26/23 06:15 MCH 31.5 pg (27.0-34.0) 09/26/23 06:15 MCHC 33.6 g/dL (33.0-35.0) 09/26/23 06:15 RDW 17.5 % (11.6-16.5) H 09/26/23 06:15 Plt Count 217 X10^3/uL (150.0-450.0) 09/26/23 06:15 Plt Count Comment Adequate (ADEQUATE) 09/16/23 05:18 MPV 7.5 fL (7.4-11.0) 09/26/23 06:15 Neut % (Auto) 72.1 % (42.0-75.0) 09/26/23 06:15 Lymph % (Auto) 10.6 % (21.0-51.0) L 09/26/23 06:15 [place] % (Auto) 15.7 % (0.0-13.0) H 09/26/23 06:15 Eos % (Auto) 0.9 % (0.9-2.9) 09/26/23 06:15 Baso % (Auto) 0.7 % (0.2-1.0) 09/26/23 06:15 Neut # (Auto) 9.7 x10^3/uL (2.2-4.8) H 09/26/23 06:15 Lymph # (Auto) 1.4 X10^3/uL (1.3-2.9) 09/26/23 06:15 [place] # (Auto) 2.1 x10^3/uL (0.3-0.8) H 09/26/23 06:15 Eos # (Auto) 0.1 x10^3/uL (0.0-0.2) 09/26/23 06:15 Baso # (Auto) 0.1 X10^3/uL (0.0-0.1) 09/26/23 06:15 Absolute Nucleated RBC 0.0 /100WBC 09/26/23 06:15 Total Counted 100 09/16/23 05:18 Neutrophils % (Manual) 80 % (39-76) H 09/16/23 05:18 Band Neutrophils % 5 % (0-10) 09/16/23 05:18 Lymphocytes % (Manual) 6 % (13-43) L 09/16/23 05:18 Monocytes % (Manual) 8 % (4-9) 09/16/23 05:18 Metamyelocytes % 1 09/16/23 05:18 Myelocytes % 4 09/13/23 05:24 Atypical Lymphocytes Present 09/13/23 05:24 Smudge Cells Slight A 09/15/23 05:28 Plt Morphology Comment Normal (NORMAL) 09/16/23 05:18 RBC Morphology Abnormal (NORMAL) 09/16/23 05:18 Anisocytosis Slight A 09/16/23 05:18 Sample Site Rra 09/12/23 18:20 ABG pH 7.520 (7.35-7.45) H 09/12/23 18:20 ABG pCO2 39.0 mmHg (35.0-45.0) 09/12/23 18:20 ABG pO2 55.0 mmHg (80.0-100.0) L 09/12/23 18:20 ABG HCO3 31.8 mmol/L (22-26) H* 09/12/23 18:20 ABG O2 Saturation 91.0 % (90-100) 09/12/23 18:20 ABG Base Excess 8.3 mmol/L (-2.0-2.0) H 09/12/23 18:20 Isai Test Pos 09/12/23 18:20 A-a Gradient 181.0 mmHg 09/12/23 18:20 FiO2 40.0 09/12/23 18:20 Blood Gas Comments Pt ramon well eb 09/12/23 18:20 Sodium 132 mmol/L (136-145) L 09/26/23 06:15 Corrected Sodium TNP 09/26/23 06:15 Potassium 4.1 mmol/L (3.5-5.1) 09/26/23 06:15 Chloride 101 mmol/L (98-107) 09/26/23 06:15 Carbon Dioxide 29.6 mmol/L (21-32) 09/26/23 06:15 BUN 17 mg/dL (7-18) 09/26/23 06:15 Creatinine 0.50 mg/dL (0.70-1.30) L 09/26/23 06:15 Est GFR (MDRD) Af Amer > 60 (>60) 09/26/23 06:15 Est GFR (MDRD) Non-Af > 60 (>60) 09/26/23 06:15 Glucose 81 mg/dL (65-99) 09/26/23 06:15 POC Glucose (mg/dL) 87 mg/dL (65-99) 09/26/23 02:37 Lactic Acid 0.9 mmol/L (0.4-2.0) 09/12/23 21:45 Calcium 7.8 mg/dL (8.5-10.1) L 09/26/23 06:15 Corrected Calcium 9.4 mg/dL (8.5-10.1) 09/26/23 06:15 Magnesium 2.0 mg/dL (2.0-2.9) 09/24/23 05:31 Total Bilirubin 1.00 mg/dL (0.2-1.0) 09/26/23 06:15 AST 25 Units/L (15-37) 09/26/23 06:15 ALT 16 Units/L (12-78) 09/26/23 06:15 Alkaline Phosphatase 158 Units/L (46-116) H 09/26/23 06:15 Creatine Kinase 26 Units/L (39-308) L 09/12/23 18:28 Troponin I High Sens 15.3 ng/L (4.0-60.0) 09/12/23 18:28 B-Natriuretic Peptide 75.3 pg/mL (0-79) 09/15/23 05:28 Total Protein 5.0 g/dL (6.4-8.2) L 09/26/23 06:15 Albumin 2.0 g/dL (3.4-5.0) L 09/26/23 06:15 Globulin 3.0 g/dL (2.5-4.5) 09/26/23 06:15 Albumin/Globulin Ratio 0.7 Ratio (1.1-2.1) L 09/26/23 06:15 Alpha Fetoprotein 1 ng/mL (0-9) 09/15/23 05:28 Carcinoembryonic Ag 2.1 ng/mL 09/15/23 05:28 CA 19-9 Antigen 14 U/mL (<=35) 09/15/23 05:28 CA 125 Antigen 125 U/mL (<=38) H 09/15/23 05:28 Total PSA 6.41 ng/mL (0.13-4.0) H 09/15/23 05:28 Specimen Type Clean catch urine 09/13/23 01:05 Urine Color Pale yellow (YELLOW) 09/13/23 01:05 Urine Appearance Clear (CLEAR) 09/13/23 01:05 Urine pH 8.0 (5.0 - 8.0) 09/13/23 01:05 Ur Specific [place] 1.015 (1.000-1.030) 09/13/23 01:05 Urine Protein Negative (NEGATIVE) 09/13/23 01:05 Urine Glucose (UA) Negative (NEGATIVE) 09/13/23 01:05 Urine Ketones Negative (NEGATIVE) 09/13/23 01:05 Urine Blood Negative (NEGATIVE) 09/13/23 01:05 Urine Nitrite Negative (NEGATIVE) 09/13/23 01:05 Urine Bilirubin Negative (NEGATIVE) 09/13/23 01:05 Urine Urobilinogen Normal (NORMAL) 09/13/23 01:05 Ur Leukocyte Esterase 2+ (NEGATIVE) 09/13/23 01:05 Urine RBC 0-2 /HPF (0-3) 09/13/23 01:05 Urine WBC 3-5 /HPF (0-5) 09/13/23 01:05 Ur Squamous Epith Cells Negative /HPF (NEGATIVE) 09/13/23 01:05 Amorphous Sediment Trace /HPF (NEGATIVE) 09/13/23 01:05 Urine Bacteria Negative /HPF (NEGATIVE) 09/13/23 01:05 Ur Culture Indicated? No/not indicated 09/13/23 01:05 Fluid pH 8 09/14/23 12:20 Pleural Glucose 76 09/14/23 12:20 Stl Occult Blood (IFOB) Negative (NEGATIVE) 09/25/23 10:50 Stl C. diff Tox B Gene Negative (NEGATIVE) 09/25/23 10:50 Stl C. diff [id number] Presumptive negative (NEGATIVE) 09/25/23 10:50 Cryptosporid parvum Ag Negative (NEGATIVE) 09/25/23 10:50 Giardia lamblia Ag Negative (NEGATIVE) 09/25/23 10:50 Resp Viral Panel (PCR) See scanned report 09/13/23 00:35 Infect Dis PCR Plus Cancelled 09/14/23 12:20 Cytology See comment. 09/14/23 12:20 Miscellaneous Test Pleural flui albumin 09/14/23 12:20 Miscellaneous Test Pleural fluid chlori 09/14/23 12:20 Miscellaneous Test Pleural fluid sodium 09/14/23 12:20 Plan (1) Pneumonia: Status: Acute Qualifiers: Laterality: unspecified laterality Lung location: unspecified part of lung Pneumonia type: due to unspecified organism Qualified Code(s): J18.9 - Pneumonia, unspecified organism Plan: Continue IV antibiotics, Repeat LABS AND XRAY in AM. (2) Hypoxemia: Status: Acute Plan: Supplemental O2 via nasal cannula. (3) Pleural effusion: Status: Acute Plan: Follow-up cytology of the pleural effusion as well as the rest of the studies when available. (4) Acute exacerbation of chronic obstructive pulmonary disease: Status: Acute (5) Leukocytosis: Status: Acute Qualifiers: Leukocytosis type: bandemia Qualified Code(s): D72.825 - Bandemia Plan: Follow daily CBCs. (6) Hypertension: Status: Chronic Qualifiers: Hypertension type: primary hypertension (7) Hypercholesteremia: Status: Acute (8) Pleural effusion on right: Status: Acute Plan: We will consult general surgery for a right-sided pleurocentesis.
[2023-09-26] MEDS: ALBUMIN HUMAN 25%- 100 ML 100 ML IV SCH (10:48)
[2023-09-26] MEDS: LEVAQUIN PREMIX IV 750 MG 750 MG/150 ML BAG IV SCH (12:16)
[2023-09-26] MEDS: NS 1,000 ML IV 1,000 ML IV SCH (13:36)
[2023-09-26] MEDS: LIPITOR TAB 40 MG PO SCH (21:00)
[2023-09-26] MEDS: REQUIP PO SCH (21:02)
[2023-09-27] MEDS: DUONEB 0.5 MG/3 MG (3 mL) NEB SCH ×4 (00:02→15:53)
--- NOTE | 2023-09-27 01:32 | EKG ---
Test Reason : Rhythm change Blood Pressure : */* mmHG Vent. Rate : 105 BPM Atrial Rate : 105 BPM P-R Int : 120 ms QRS Dur : 76 ms QT Int : 366 ms P-R-T Axes : 76 71 63 degrees QTc Int : 483 ms Sinus tachycardia with occasional premature ventricular complexes /pacs Otherwise normal ECG When compared with ECG of 12-SEP-2023 18:20, pvcs and pacs are now present Confirmed by Bryan Ramirez MD ([id number]) on 09/28/2023 1:43:39 PM Referred By: Confirmed By: Bryan Ramirez MD
[2023-09-27] MEDS: MERREM VIAL 500 MG in NS 50 ML IV 50 ML IV SCH ×3 (05:19→21:08)
[2023-09-27] MEDS: NORCO 5/325 MG TAB PO PRN ×4 (06:20→23:03)
[2023-09-27 06:26] LABS: BASOPHILS # (AUTO) 0.1 X10^3/uL (0.0-0.1); BASOPHILS % (AUTO) 0.8 % (0.2-1.0); EOSINOPHILS # (AUTO) 0.1 x10^3/uL (0.0-0.2); EOSINOPHILS % (AUTO) 0.8 % (0.9-2.9); HEMATOCRIT 28.8 % (42.0-54.0); HEMOGLOBIN 9.6 g/dL (13.5-18.0); LYMPHOCYTES # (AUTO) 1.4 X10^3/uL (1.3-2.9); LYMPHOCYTES % (AUTO) 12.3 % (21.0-51.0); MEAN CORPUSCULAR HEMOGLOBIN 31.5 pg (27.0-34.0); MEAN CORPUSCULAR HGB CONC 33.4 g/dL (33.0-35.0); MEAN CORPUSCULAR VOLUME 94.3 fL (80.0-100.0); MEAN PLATELET VOLUME 8.1 fL (7.4-11.0); MONOCYTES # (AUTO) 1.8 x10^3/uL (0.3-0.8); MONOCYTES % (AUTO) 16.3 % (0.0-13.0); NEUTROPHILS # (AUTO) 7.9 x10^3/uL (2.2-4.8); NEUTROPHILS % (AUTO) 69.8 % (42.0-75.0); PLATELET COUNT 222 X10^3/uL (150.0-450.0); RED BLOOD COUNT 3.06 X10^6/uL (4.7-6.0); RED CELL DISTRIBUTION WIDTH 17.6 % (11.6-16.5); WHITE BLOOD COUNT 11.3 X10^3/uL (3.6-10.0)
[2023-09-27 06:46] LABS: ALANINE AMINOTRANSFERASE 12 Units/L (12-78); ALBUMIN 2.2 g/dL (3.4-5.0); ALKALINE PHOSPHATASE 151 Units/L (46-116); ASPARTATE AMINO TRANSFERASE 28 Units/L (15-37); BLOOD UREA NITROGEN 17 mg/dL (7-18); CALCIUM 8.3 mg/dL (8.5-10.1); CARBON DIOXIDE 26.6 mmol/L (21-32); CHLORIDE 102 mmol/L (98-107); COR CA(FOR HYPOALB) 9.7 mg/dL (8.5-10.1); CREATININE 0.39 mg/dL (0.70-1.30); GLUCOSE 79 mg/dL (65-99); POTASSIUM 4.2 mmol/L (3.5-5.1); SODIUM 133 mmol/L (136-145); TOTAL PROTEIN 5.3 g/dL (6.4-8.2); eGFR NON BLACK RACES > 60 (>60)
--- NOTE | 2023-09-27 07:36 | RAD ---
EXAM:CHEST, 1 VIEWHISTORY:pneumonia, pleural effusion, asicites;COMPARISON:09/24/2023.TECHNIQUE: .br.br.br.br contours are normal in size. Moderate right pleural effusion. Similar-appearing bilateral airspace and interstitial pulmonary opacities. No pneumothorax.IMPRESSION:Moderate right pleural effusion is worse than prior. Bilateral airspace and interstitial pulmonary opacities appear similar. These could represent pneumonia in the appropriate clinical setting. Recommend follow-up imaging to document resolution after appropriate treatment.THIS IS AN ELECTRONICALLY VERIFIED FINAL REPORT09/27/2023 7:33 AM - Electronically signed by Keo Hernandez MD
[2023-09-27] MEDS ORDERED: DRUG FILTER EXTENSION SET ONE (08:14)
[2023-09-27] MEDS: PULMICORT NEB TX 0.5 MG NEB SCH ×2 (08:30→21:00)
[2023-09-27] MEDS: DIFLUCAN 200 MG IV PREMIX* 200 MG/100 ML BAG IV SCH (09:42)
[2023-09-27] MEDS: MAG-OX TAB PO SCH ×2 (09:42→21:05)
[2023-09-27] MEDS: PROTONIX TAB 40 MG PO SCH (09:42)
[2023-09-27] MEDS: CELEXA PO SCH (09:43)
[2023-09-27] MEDS: LOVENOX INJ 40 MG SYR SC SCH (09:43)
[2023-09-27] MEDS: CLINIMIX 4.25%-5% 1,000 ML with MVI INJ (ADULT) 10 ML IV SCH ×2 (09:43)
[2023-09-27] MEDS: VSL#3 PO SCH (09:43)
[2023-09-27] MEDS: MAGIC MOUTHWASH (Orig. Formula) MT SCH ×4 (09:52→21:14)
[2023-09-27] MEDS: PATIENT'S HOME MEDICATION PO SCH ×2 (09:52→21:06)
[2023-09-27] MEDS: ALBUMIN HUMAN 25%- 100 ML 100 ML IV SCH (11:21)
[2023-09-27] MEDS: LEVAQUIN PREMIX IV 750 MG 750 MG/150 ML BAG IV SCH (12:55)
[2023-09-27] MEDS: NS 1,000 ML IV 1,000 ML IV SCH ×2 (13:22→22:59)
[2023-09-27] MEDS: TYLENOL 325 MG TAB PO PRN ×2 (15:50→21:50)
--- NOTE | 2023-09-27 16:03 | RAD ---
EXAM:CHEST, 1 VIEWHISTORY:short of breath;COMPARISON:No relevant prior studies were available for comparison at the time of interpretation.TECHNIQUE:CHEST, 1 VIEWFINDINGS:Chest:Lines and tubes: Cardiac leads overlie the chest.Mediastinum: Cardiomegaly.Pulmonary vessels: There is pulmonary vascular congestion.Lung camara: Patchy opacities are seenPleura: There is blunting of the right costophrenic angle. No pneumothorax.Bones and soft tissues: No acute osseous or soft tissue abnormality.IMPRESSION:1. There is a large right pleural effusion2. Patchy airspace opacities are similar to prior studiesTHIS IS AN ELECTRONICALLY VERIFIED FINAL REPORT09/24/2023 10:40 AM - Electronically signed by James Hogue MD
--- NOTE | 2023-09-27 16:03 | RAD ---
EXAM:CHEST, 1 VIEWHISTORY:POST THORACENTISIS; PNEUMONIA, PLEURAL EFFUSION, ASICITESCOMPARISON:Prior study or studies were utilized for comparison during interpretation with the most relevant dated todayTECHNIQUE:CHEST, 1 VIEWFINDINGS:No significant change to bilateral airspace opacities. There is improved aeration of the right lung secondary to interval thoracentesis. No postprocedural pneumothorax.IMPRESSION:1. No postprocedural pneumothoraxTHIS IS AN ELECTRONICALLY VERIFIED FINAL REPORT09/24/2023 11:52 AM - Electronically signed by James Hogue MD
[2023-09-27] MEDS: REQUIP PO SCH (21:05)
[2023-09-27] MEDS: LIPITOR TAB 40 MG PO SCH (21:05)
[2023-09-28] MEDS: TYLENOL 325 MG TAB PO PRN ×2 (03:56→09:36)
[2023-09-28] MEDS: DUONEB 0.5 MG/3 MG (3 mL) NEB SCH ×4 (05:30→11:26)
[2023-09-28] MEDS: NORCO 5/325 MG TAB PO PRN ×2 (05:49→11:19)
[2023-09-28] MEDS: MERREM VIAL 500 MG in NS 50 ML IV 50 ML IV SCH (05:49)
[2023-09-28 05:53] LABS: BASOPHILS # (AUTO) 0.1 X10^3/uL (0.0-0.1); BASOPHILS % (AUTO) 0.8 % (0.2-1.0); EOSINOPHILS # (AUTO) 0.2 x10^3/uL (0.0-0.2); EOSINOPHILS % (AUTO) 1.6 % (0.9-2.9); HEMATOCRIT 27.6 % (42.0-54.0); HEMOGLOBIN 9.3 g/dL (13.5-18.0); LYMPHOCYTES # (AUTO) 1.1 X10^3/uL (1.3-2.9); LYMPHOCYTES % (AUTO) 10.7 % (21.0-51.0); MEAN CORPUSCULAR HEMOGLOBIN 31.6 pg (27.0-34.0); MEAN CORPUSCULAR HGB CONC 33.6 g/dL (33.0-35.0); MEAN CORPUSCULAR VOLUME 94.1 fL (80.0-100.0); MEAN PLATELET VOLUME 7.7 fL (7.4-11.0); MONOCYTES # (AUTO) 1.7 x10^3/uL (0.3-0.8); NEUTROPHILS # (AUTO) 7.1 x10^3/uL (2.2-4.8); NEUTROPHILS % (AUTO) 69.9 % (42.0-75.0); PLATELET COUNT 238 X10^3/uL (150.0-450.0); RED BLOOD COUNT 2.93 X10^6/uL (4.7-6.0); RED CELL DISTRIBUTION WIDTH 17.1 % (11.6-16.5); WHITE BLOOD COUNT 10.1 X10^3/uL (3.6-10.0)
[2023-09-28 06:08] LABS: ALANINE AMINOTRANSFERASE 13 Units/L (12-78); ALBUMIN 2.3 g/dL (3.4-5.0); ALKALINE PHOSPHATASE 142 Units/L (46-116); ASPARTATE AMINO TRANSFERASE 24 Units/L (15-37); BLOOD UREA NITROGEN 14 mg/dL (7-18); CALCIUM 8.2 mg/dL (8.5-10.1); CARBON DIOXIDE 28.6 mmol/L (21-32); CHLORIDE 104 mmol/L (98-107); COR CA(FOR HYPOALB) 9.6 mg/dL (8.5-10.1); CREATININE 0.44 mg/dL (0.70-1.30); GLUCOSE 83 mg/dL (65-99); POTASSIUM 4.2 mmol/L (3.5-5.1); SODIUM 135 mmol/L (136-145); TOTAL PROTEIN 5.2 g/dL (6.4-8.2); eGFR NON BLACK RACES > 60 (>60)
[2023-09-28] MEDS: ALBUMIN HUMAN 25%- 100 ML 100 ML IV SCH ×2 (07:37→08:59)
--- NOTE | 2023-09-28 07:41 | RAD ---
EXAM:Portable chestHISTORY:PneumoniaCOMPARISON: 024FINDINGS:Heart size is normal. Moderately large right pleural effusion is unchanged. It obscures the lung markings in the right middle and right lower lobe. No left pleural effusion is identified. Diffuse interstitial lung changes are present not significantly different from the prior examination. There does appear to be some alveolar infiltrate in the right upper lobe unchanged. There is some patchy infiltrate peripherally in the left mid lung unchanged. Bony thorax is unremarkable with the exception of bilateral glenohumeral degenerative joint disease.IMPRESSION:No significant change from the prior examinationTHIS IS AN ELECTRONICALLY VERIFIED FINAL REPORT09/28/2023 7:28 AM - Electronically signed by Derrick Sandhu MD
[2023-09-28] MEDS: PULMICORT NEB TX 0.5 MG NEB SCH (08:28)
[2023-09-28] MEDS: CLINIMIX 4.25%-5% 1,000 ML with MVI INJ (ADULT) 10 ML IV SCH ×2 (08:59)
[2023-09-28] MEDS: CELEXA PO SCH (08:59)
[2023-09-28] MEDS: DIFLUCAN 200 MG IV PREMIX* 200 MG/100 ML BAG IV SCH (09:00)
[2023-09-28] MEDS: PROTONIX TAB 40 MG PO SCH (09:01)
[2023-09-28] MEDS: LOVENOX INJ 40 MG SYR SC SCH (09:01)
[2023-09-28] MEDS: PATIENT'S HOME MEDICATION PO SCH (09:01)
[2023-09-28] MEDS: MAGIC MOUTHWASH (Orig. Formula) MT SCH (09:01)
[2023-09-28] MEDS: MAG-OX TAB PO SCH (09:01)
[2023-09-28] MEDS: VSL#3 PO SCH (09:02)
[2023-09-28 09:37] VITALS: RESP 20
[2023-09-28] MEDS: LEVAQUIN PREMIX IV 750 MG 750 MG/150 ML BAG IV SCH (10:07)
[2023-09-28 12:44] VITALS: BP 94/58; PULSE 124; TEMP 98; O2SAT 93
== END 2023-09-28 12:56 | disposition short-term general hospital (02) | DRG 194 ==
LOC: ER 17:57 → MED/SURG 17:57
PROVIDERS: ADMIT Internal Medicine; ATTEND Family Medicine

== ENCOUNTER 2023-10-31 19:11 | Inpatient (IN) ==
[2023-10-31] MEDS ORDERED: DUONEB 0.5 MG/3 MG (3 mL) NEB ONE (19:18)
--- NOTE | 2023-10-31 19:23 | DR.SOBA ---
HPI Time Seen Time Seen by Provider: 10/31/23 19:16 Complaints Chief Complaint Doctors Comments: 78-year-old male, currently resident of [place], developed sudden onset of shortness of breath tonight. Patient with a history of severe COPD, per nurses who know him, he gets these episodes at times. Having some chest back discomfort. Has a dry cough, nonproductive. Denies fever, chills. No report of nausea, vomiting, diarrhea. Denies bowel or bladder issues. Reviewed Nurses Notes Reviewed: Yes Source History Provided: Patient [facility] Mode of Arrival Mode of Arrival: Stretcher PMH PM Past Medical History: COPD, Coronary Artery Disease, Dyslipidemia, GERD and Hypertension Past Surgical History: Yes Surgical History: Other Family History Family Medical History: Diabetes Mellitus, Cancer, [place] and Hypertension Social History Does patient currently use any type of tobacco product: Yes Alcohol Use: None Do you use any recreational Drugs:: No ROS Review of Systems Constitutional: No Symptoms Reported Eyes: No Symptoms Reported ENTM: No Symptoms Reported Respiratoy: Non-Productive Cough and Short of Breath Cardiovascular: Chest Pain Gastrointestinal/Abdominal: No Symptoms Reported Genitourinary: No Symptoms Reported Neurological: No Symptoms Reported Musculoskeletal: No Symptoms Reported Integumentary: No Symptoms Reported Hematologic/Lymphatic: No Symptoms Reported All Other Systems: Reviewed and Negative PE Vital Signs Vitals: Vital Signs Pulse Rate [Left Brachial] 99 Pulse Rate 98 Pulse Rate 100 Pulse Rate 135 Respiratory Rate 28 Blood Pressure 151/90 O2 Sat by Pulse Oximetry 87 O2 Sat by Pulse Oximetry 97 O2 Sat by Pulse Oximetry 94 O2 Sat by Pulse Oximetry 53 General General Appearance: Alert and In Distress (mild respiratory distress.) Eyes Eye exam: PERRL and EOMI ENT ENT Exam: Normal Oropharynx and Mucous Membranes Moist Neck Neck Exam: Normal Inspection Chest Chest Inspection: Normal Inspection Respiratory Respiratory Exam: Respiratory Distress and Other (scattered rhonchi, slight exp wheeze) Abdominal Exam Abdominal Exam: Normal Bowel Sounds and Soft; negative Tenderness Extremities Extremities Exam: negative Edema Neurologic Neurological Exam: Alert, Oriented X3 and CN II-XII Intact; negative Motor Sensory Deficit Skin Skin Exam: Warm and Dry COURSE Treatment Treatment: 78-year-old male, history of COPD, [facility] with [facility] distress. Pulse ox on arrival 60%, O2 probably not on. Patient was placed in cardiac room, put on O2, pulse ox up to 91%. Will give a breathing treatment and IV Solu-Medrol. Workup initiated. ROR Labs Reviewed Laboratory Results Reviewed?: Yes 11/02/23 04:06 11/02/23 04:06 Laboratory: WBC 16.2 X10^3/uL (3.6-10.0) H 10/31/23 19:30 RBC 4.16 X10^6/uL (4.7-6.0) L 10/31/23 19:30 Hgb 12.4 g/dL (13.5-18.0) L 10/31/23 19:30 Hct 38.4 % (42.0-54.0) L 10/31/23 19:30 MCV 92.2 fL (80.0-100.0) 10/31/23 19: MCH 29.8 pg (27.0-34.0) 10/31/23 19: MCHC 32.3 g/dL (33.0-35.0) L 10/31/23: RDW 16.0 % (11.6-16.5) 10/31/23 19:30 Plt Count 363 X10^3/uL (150.0-450.0) 10/31/23 19: MPV 7.5 fL (7.4-11.0) 10/31/23 19: Neut % (Auto) 83.0 % (42.0-75.0) H 10/31/23 19:30 Lymph % (Auto) 9.0 % (21.0-51.0) L 10/31/23 19:30 [place] % (Auto) 6.2 % (0.0-13.0) 10/31/23 19:30 Eos % (Auto) 1.4 % (0.9-2.9) 10/31/23 19:30 Baso % (Auto) 0.4 % (0.2-1.0) 10/31/23 19: Neut # (Auto) 13.5 x10^3/uL (2.2-4.8) H 10/31/23 19:30 Lymph # (Auto) 1.5 X10^3/uL (1.3-2.9) 10/31/23 19:30 [place] # (Auto) 1.0 x10^3/uL (0.3-0.8) H 10/31/23 19:30 Eos # (Auto) 0.2 x10^3/uL (0.0-0.2) 10/31/23 19:30 Baso # (Auto) 0.1 X10^3/uL (0.0-0.1) 10/31/23 19:30 Absolute Nucleated RBC 0.1 /100WBC 10/31/23 19:30 Sodium 142 mmol/L (136-145) 10/31/23 19:30 Corrected Sodium TNP 10/31/23 19:30 Potassium 4.3 mmol/L (3.5-5.1) 10/31/23 19:30 Chloride 106 mmol/L (98-107) 10/31/23 19: Carbon Dioxide 26.4 mmol/L (21-32) 10/31/23 19:30 BUN 16 mg/dL (7-18) 10/31/23 19:30 Creatinine 0.87 mg/dL (0.70-1.30) 10/31/23 19:30 Est GFR (MDRD) Af Amer > 60 (>60) 10/31/23 19:30 Est GFR (MDRD) Non-Af > 60 (>60) 10/31/23 19:30 Glucose 88 mg/dL (65-99) 10/31/23 19:30 Lactic Acid 2.6 mmol/L (0.4-2.0) H 10/31/23 19:30 Calcium 8.4 mg/dL (8.5-10.1) L 10/31/23 19:30 Corrected Calcium 9.9 mg/dL (8.5-10.1) 10/31/23 19:30 Total Bilirubin 0.40 mg/dL (0.2-1.0) 10/31/23 19:30 AST 32 Units/L (15-37) 10/31/23 19:30 ALT 16 Units/L (12-78) 10/31/23 19:30 Alkaline Phosphatase 158 Units/L (46-116) H 10/31/23 19:30 Creatine Kinase 30 Units/L (39-308) L 10/31/23 19:30 Troponin I High Sens 13.7 ng/L (4.0-60.0) 02/25/24 19:30 B-Natriuretic Peptide 174 pg/mL (0-79) H 10/31/23 19:30 Total Protein 6.2 g/dL (6.4-8.2) L 10/31/23 19:30 Albumin 2.1 g/dL (3.4-5.0) L 10/31/23 19:30 Globulin 4.1 g/dL (2.5-4.5) 10/31/23 19:30 Albumin/Globulin Ratio 0.5 Ratio (1.1-2.1) L 10/31/23 19:30 SARS-CoV-2 (PCR) Negative (NEGATIVE) 10/31/23 19:19 Influenza Type A (PCR) Negative (NEGATIVE) 10/31/23 19:19 Influenza Type B (PCR) Negative (NEGATIVE) 10/31/23 19:19 RSV (PCR) Negative (NEGATIVE) 10/31/23 19:19 Labs overall acceptable. EKG Rate: 98 [place]: RAD Rhythm: NSR ST: Nonsp Opioid Opioid Risk Tool Age (Alexander box if 16-45): No History of Preadolescent Sexual Abuse: No Total: 0 Total Score Risk Category: Low Risk Copyright: Adithya JACOBSEN predicting aberrant behaviors Discharge Plan Diagnosis Discharge Problem: Pneumonia, Acute exacerbation of chronic obstructive pulmonary disease Discharge Plan Patient Disposition: 09 ADMITTED INPATIENT Condition: Stable
[2023-10-31] MEDS: DUONEB 0.5 MG/3 MG (3 mL) NEB ONE (19:25)
[2023-10-31] MEDS ORDERED: SOLU-Medrol 125 MG VIAL ONE (19:29)
[2023-10-31] MEDS: SOLU-Medrol 125 MG VIAL IVP ONE (19:38)
--- NOTE | 2023-10-31 19:38 | EKG ---
Test Reason : shortness of breath Blood Pressure : */* mmHG Vent. Rate : 98 BPM Atrial Rate : 98 BPM P-R Int : 108 ms QRS Dur : 74 ms QT Int : 364 ms P-R-T Axes : 87 100 52 degrees QTc Int : 464 ms Sinus rhythm with short [place] with premature atrial complexes Rightward axis Nonspecific ST abnormality Abnormal ECG When compared with ECG of 27-SEP-2023 01:18, premature ventricular complexes are no longer present premature atrial complexes are now present Confirmed by Bryan Ramirez MD ([id number]) on 11/01/2023 7:36:44 AM Referred By: Confirmed By: Bryan Ramirez MD
[2023-10-31 19:46] LABS: MEAN CORPUSCULAR VOLUME 92.2 fL (80.0-100.0)
[2023-10-31 19:48] LABS: BASOPHILS # (AUTO) 0.1 X10^3/uL (0.0-0.1); BASOPHILS % (AUTO) 0.4 % (0.2-1.0); EOSINOPHILS # (AUTO) 0.2 x10^3/uL (0.0-0.2); EOSINOPHILS % (AUTO) 1.4 % (0.9-2.9); HEMATOCRIT 38.4 % (42.0-54.0); HEMOGLOBIN 12.4 g/dL (13.5-18.0); LYMPHOCYTES # (AUTO) 1.5 X10^3/uL (1.3-2.9); MEAN CORPUSCULAR HEMOGLOBIN 29.8 pg (27.0-34.0); MEAN CORPUSCULAR HGB CONC 32.3 g/dL (33.0-35.0); MEAN PLATELET VOLUME 7.5 fL (7.4-11.0); MONOCYTES % (AUTO) 6.2 % (0.0-13.0); NEUTROPHILS # (AUTO) 13.5 x10^3/uL (2.2-4.8); PLATELET COUNT 363 X10^3/uL (150.0-450.0); RED BLOOD COUNT 4.16 X10^6/uL (4.7-6.0); WHITE BLOOD COUNT 16.2 X10^3/uL (3.6-10.0)
[2023-10-31 20:00] LABS: ALANINE AMINOTRANSFERASE 16 Units/L (12-78); ALBUMIN 2.1 g/dL (3.4-5.0); ALKALINE PHOSPHATASE 158 Units/L (46-116); ASPARTATE AMINO TRANSFERASE 32 Units/L (15-37); BLOOD UREA NITROGEN 16 mg/dL (7-18); CALCIUM 8.4 mg/dL (8.5-10.1); CARBON DIOXIDE 26.4 mmol/L (21-32); CHLORIDE 106 mmol/L (98-107); COR CA(FOR HYPOALB) 9.9 mg/dL (8.5-10.1); CREATINE KINASE 30 Units/L (39-308); CREATININE 0.87 mg/dL (0.70-1.30); GLUCOSE 88 mg/dL (65-99); POTASSIUM 4.3 mmol/L (3.5-5.1); SODIUM 142 mmol/L (136-145); TOTAL PROTEIN 6.2 g/dL (6.4-8.2); eGFR NON BLACK RACES > 60 (>60)
[2023-10-31] MEDS ORDERED: NS 1,000 ML IV 1,000 ML ONE (20:07)
[2023-10-31] MEDS: NS 1,000 ML IV 1,000 ML IV ONE (20:12)
[2023-10-31] MEDS ORDERED: LEVAQUIN TAB 500 MG ONE (21:20)
[2023-10-31] MEDS ORDERED: LEVAQUIN TAB 250 MG ONE (21:20)
--- NOTE | 2023-10-31 21:23 | DR.SOBA ---
HPI Time Seen Time Seen by Provider: 10/31/23 19:16 Primary Care Physician Primary Care Physician: DR. BECERRA Complaints Chief Complaint:: TONH CHARGE NURSE STATES PTS O2 WAS 40% ON ROOM AIR PRIOR TO ARIVAL. STATES PT WAS PLACED ON 4L TO ATTEMPT TO GET O2 SAT UP WITH O2 SAT IMPROVING TO 65%. PT SOB AND TACHYPNIC UPON ARIVING TO ER VIA STRETCHER. O2 SAT 50% HR IN THE 140S. Self Treatment fo Chief Complaint: PT PLACED ON 4L NC COVID-19 Coronavirus risk:travel/contact w/high risk person: No Has patient experienced Coronavirus symptoms: No Source History Provided: Patient and [facility] Mode of Arrival Mode of Arrival: Stretcher Timing Onset of Chief Complaint: 10/31/23 PMH PMH Past Medical History: Yes Past Medical History: COPD, Coronary Artery Disease, Dyslipidemia, GERD and Hypertension Past Medical History Comment: A-SAAD Past Surgical History: Yes Surgical History: Other Family History History of Family Medical Conditions: Yes Family Medical History: Diabetes Mellitus, Cancer, [place] and Hypertension Social History Does patient currently use any type of tobacco product: Yes Have you used tobacco products in the last 12 months: No Type of Tobacco Use: None Does any household member use tobacco: No Alcohol Use: None Do you use any recreational Drugs:: No Lives With: Other Lives Where: [facility] Travel Risk Coronavirus risk:travel/contact w/high risk person: No Has patient experienced Coronavirus symptoms: No Infectious screening Have you traveled outside the country in the last 6 months?: No Isolation: Standard PE Vital Signs Vitals: Vital Signs Temperature 98.2 F Pulse Rate [Left Brachial] 99 Pulse Rate 82 Pulse Rate 93 Pulse Rate 96 Pulse Rate 97 Pulse Rate 91 Pulse Rate 97 Pulse Rate 99 Pulse Rate 98 Pulse Rate 107 Pulse Rate 100 Pulse Rate 135 Respiratory Rate 23 Respiratory Rate 24 Respiratory Rate 27 Respiratory Rate 29 Respiratory Rate 22 Respiratory Rate 26 Respiratory Rate 40 Respiratory Rate 28 Blood Pressure 115/63 Blood Pressure 151/90 O2 Sat by Pulse Oximetry 92 O2 Sat by Pulse Oximetry 91 O2 Sat by Pulse Oximetry 90 O2 Sat by Pulse Oximetry 87 O2 Sat by Pulse Oximetry 89 O2 Sat by Pulse Oximetry 88 O2 Sat by Pulse Oximetry 85 O2 Sat by Pulse Oximetry 87 O2 Sat by Pulse Oximetry 84 O2 Sat by Pulse Oximetry 97 O2 Sat by Pulse Oximetry 94 O2 Sat by Pulse Oximetry 53 COURSE Treatment Treatment: Lavaquin, IVFs, admission, neb treatments Reevaluation 1st: Improved Education/Counseling Education/Counseling: Patient ROR Labs Reviewed Laboratory Results Reviewed?: Yes 10/31/23 19:30 10/31/23 19: Laboratory: WBC 16.2 X10^3/uL (3.6-10.0) H 10/31/23 19:30 RBC 4.16 X10^6/uL (4.7-6.0) L 10/31/23 19: Hgb 12.4 g/dL (13.5-18.0) L 10/31/23 19: Hct 38.4 % (42.0-54.0) L 10/31/23: MCV 92.2 fL (80.0-100.0) 10/31/23: MCH 29.8 pg (27.0-34.0) 10/31/23: MCHC 32.3 g/dL (33.0-35.0) L 10/31/23: RDW 16.0 % (11.6-16.5) 10/31/23: Plt Count 363 X10^3/uL (150.0-450.0) 10/31/23: MPV 7.5 fL (7.4-11.0) 10/31/23: Neut % (Auto) 83.0 % (42.0-75.0) H 10/31/23: Lymph % (Auto) 9.0 % (21.0-51.0) L 10/31/23: [place] % (Auto) 6.2 % (0.0-13.0) 10/31/23 19: Eos % (Auto) 1.4 % (0.9-2.9) 10/31/23: Baso % (Auto) 0.4 % (0.2-1.0) 10/31/23: Neut # (Auto) 13.5 x10^3/uL (2.2-4.8) H 10/31/23 19: Lymph # (Auto) 1.5 X10^3/uL (1.3-2.9) 10/31/23 19: [place] # (Auto) 1.0 x10^3/uL (0.3-0.8) H 10/31/23 19:30 Eos # (Auto) 0.2 x10^3/uL (0.0-0.2) 10/31/23 19:30 Baso # (Auto) 0.1 X10^3/uL (0.0-0.1) 10/31/23 19:30 Absolute Nucleated RBC 0.1 /100WBC 10/31/23 19:30 Sodium 142 mmol/L (136-145) 10/31/23 19:30 Corrected Sodium TNP 10/31/23 19:30 Potassium 4.3 mmol/L (3.5-5.1) 10/31/23 19:30 Chloride 106 mmol/L (98-107) 10/31/23 19:30 Carbon Dioxide 26.4 mmol/L (21-32) 10/31/23 19:30 BUN 16 mg/dL (7-18) 10/31/23 19:30 Creatinine 0.87 mg/dL (0.70-1.30) 10/31/23 19:30 Est GFR (MDRD) Af Amer > 60 (>60) 10/31/23 19:30 Est GFR (MDRD) Non-Af > 60 (>60) 10/31/23 19:30 Glucose 88 mg/dL (65-99) 10/31/23 19:30 Lactic Acid 2.6 mmol/L (0.4-2.0) H 10/31/23 19:30 Calcium 8.4 mg/dL (8.5-10.1) L 10/31/23 19:30 Corrected Calcium 9.9 mg/dL (8.5-10.1) 10/31/23 19:30 Total Bilirubin 0.40 mg/dL (0.2-1.0) 10/31/23 19:30 AST 32 Units/L (15-37) 10/31/23 19:30 ALT 16 Units/L (12-78) 10/31/23 19:30 Alkaline Phosphatase 158 Units/L (46-116) H 10/31/23 19:30 Creatine Kinase 30 Units/L (39-308) L 10/31/23 19:30 Troponin I High Sens 13.7 ng/L (4.0-60.0) 10/31/23 19:30 B-Natriuretic Peptide 174 pg/mL (0-79) H 10/31/23 19:30 Total Protein 6.2 g/dL (6.4-8.2) L 10/31/23 19:30 Albumin 2.1 g/dL (3.4-5.0) L 10/31/23 19:30 Globulin 4.1 g/dL (2.5-4.5) 10/31/23 19:30 Albumin/Globulin Ratio 0.5 Ratio (1.1-2.1) L 10/31/23 19:30 SARS-CoV-2 (PCR) Negative (NEGATIVE) 10/31/23 19:19 Influenza Type A (PCR) Negative (NEGATIVE) 10/31/23 19:19 Influenza Type B (PCR) Negative (NEGATIVE) 10/31/23 19:19 RSV (PCR) Negative (NEGATIVE) 10/31/23 19:19 XRAY XRAY Interpreted by: Radiologist Opioid Opioid Risk Tool Age (Alexander box if 16-45): No History of Preadolescent Sexual Abuse: No Total: 0 Total Score Risk Category: Low Risk Copyright: Adithya predicting aberrant behaviors Discharge Plan Diagnosis Discharge Problem: Pneumonia, Acute exacerbation of chronic obstructive pulmonary disease Discharge Plan Patient Disposition: 09 ADMITTED INPATIENT Condition: Stable Prescriptions: No Action prednisone 5 mg tablet 5 mg PO QDAY Qty: 30 0RF dronabinol [Marinol] 5 mg capsule 5 mg PO BID MDD 2 tablets per 24 hours 30 Days Qty: 60 0RF Rx Instructions: administer before lunch and evening meal/dinner diltiazem HCl [Cardizem CD] 120 mg capsule,extended release 24hr 120 mg PO QAM Qty: 90 3RF citalopram 20 mg tablet 20 mg PO QDAY atorvastatin 40 mg Tablet 40 mg PO HS pantoprazole 40 mg Tablet,Delayed Release (Dr/Ec) 40 mg PO DAILY dofetilide 250 mcg capsule 250 mcg PO BID docusate sodium [Colace] 100 mg Capsule 100 mg PO BID melatonin 5 mg Tablet 5 mg PO HS PRN Trelegy Ellipta 100-62.5-25 mcg blister with device 1 ea inhalation QDAY hydrocodone-acetaminophen 10-325 mg tablet 1 tab PO Q4H MDD 6 tablets per 24 hours PRN (Reason: pain) ipratropium-albuterol 0.5 mg-3 mg(2.5 mg base)/3 mL solution for nebulization 3 ml INHALATION QID Patient Comments: [NO ORIGINAL SIG] Trelekavita Ellipta 100-62.5-25 mcg Blister With Device 1 inh INHALATION DAILY Health Concerns: Post Hospitalization: new medications and changes needed to prevent readmission or further decline. Pt educated and given instructions on all concerns. Plan of Treatment: Continue with present treatment and follow up plan. Pt is to keep follow up a ppointment as instructed and take medications as ordered. Follow ups/Referrals Follow ups/Referrals: Lawrence Becerra [Primary Care Provider] - 3 days
--- NOTE | 2023-10-31 21:30 | RAD ---
EXAM:CHEST, 1 VIEWHISTORY:SOB, LOW O2 LEVELS ; HX- COPD, HTN, CHF, CORONARY ARTERY DISEASE, A-FIBCOMPARISON:10/26/2023FINDINGS:The trachea is midline. The cardiac silhouette is unremarkable. COPD. Moderate-sized right pleural effusion with associated atelectasis or consolidation in the right lung base.. The bony thorax is unremarkable.IMPRESSION:Moderate-sized right pleural effusion with right basilar atelectasis and/or consolidation.No significant change from 10/26/2023THIS IS AN ELECTRONICALLY VERIFIED FINAL REPORT10/31/2023 9:27 PM - Electronically signed by Russell Jo MD
[2023-10-31] MEDS: LEVAQUIN TAB 250 MG PO ONE (21:35)
[2023-10-31] MEDS: LEVAQUIN TAB 500 MG PO ONE (21:36)
[2023-10-31] MEDS ORDERED: LEVAQUIN TAB 750 MG PO SCH (22:00)
[2023-10-31] MEDS: NS 1,000 ML IV 1,000 ML IV SCH (22:25)
[2023-10-31 22:35] VITALS: BMI 18.6
[2023-11-01] MEDS: DUONEB 0.5 MG/3 MG (3 mL) NEB SCH (00:16)
[2023-11-01] MEDS: MAALOX or MYLANTA PO PRN (01:31)
[2023-11-01] MEDS: NORCO 10/325 TAB PO PRN (03:25)
[2023-11-01 05:17] LABS: BASOPHILS % (AUTO) 0.2 % (0.2-1.0); HEMOGLOBIN 11.1 g/dL (13.5-18.0); LYMPHOCYTES # (AUTO) 0.4 X10^3/uL (1.3-2.9); LYMPHOCYTES % (AUTO) 5.2 % (21.0-51.0); MEAN CORPUSCULAR HEMOGLOBIN 30.1 pg (27.0-34.0); MEAN CORPUSCULAR HGB CONC 32.6 g/dL (33.0-35.0); MEAN CORPUSCULAR VOLUME 92.3 fL (80.0-100.0); MEAN PLATELET VOLUME 7.7 fL (7.4-11.0); MONOCYTES # (AUTO) 0.1 x10^3/uL (0.3-0.8); MONOCYTES % (AUTO) 1.5 % (0.0-13.0); NEUTROPHILS # (AUTO) 7.5 x10^3/uL (2.2-4.8); NEUTROPHILS % (AUTO) 93.1 % (42.0-75.0); PLATELET COUNT 285 X10^3/uL (150.0-450.0); RED BLOOD COUNT 3.68 X10^6/uL (4.7-6.0); RED CELL DISTRIBUTION WIDTH 15.4 % (11.6-16.5)
[2023-11-01 05:31] LABS: ALANINE AMINOTRANSFERASE 12 Units/L (12-78); ALBUMIN 1.8 g/dL (3.4-5.0); ALKALINE PHOSPHATASE 137 Units/L (46-116); ASPARTATE AMINO TRANSFERASE 27 Units/L (15-37); BLOOD UREA NITROGEN 16 mg/dL (7-18); CALCIUM 8.1 mg/dL (8.5-10.1); CARBON DIOXIDE 29.2 mmol/L (21-32); CHLORIDE 109 mmol/L (98-107); COR CA(FOR HYPOALB) 9.9 mg/dL (8.5-10.1); CREATININE 0.77 mg/dL (0.70-1.30); GLUCOSE 106 mg/dL (65-99); POTASSIUM 3.9 mmol/L (3.5-5.1); SODIUM 145 mmol/L (136-145); TOTAL PROTEIN 5.5 g/dL (6.4-8.2); eGFR NON BLACK RACES > 60 (>60)
[2023-11-01 05:35] LABS: PLATELET MORPHOLOGY COMMENT NORMAL (NORMAL)
[2023-11-01] MEDS: MORPHINE SULFATE INJ 2 MG INJ IVP ONE (05:51)
[2023-11-01] MEDS: CONSULT PHARMACY - POTASSIUM & MAGNESIUM XX SCH (05:56)
--- NOTE | 2023-11-01 06:14 | RAD ---
EXAM:Portable chestHISTORY:Follow-up pneumoniaCOMPARISON:10/31/2023FINDINGS:T here is an implanted loop recorder device overlying the left lung apex medially. Heart size is normal. Peri appear normal. Large right pleural effusion remains present not significantly changed from the prior examination. Underlying atelectasis or consolidation may well be present. Areas of subsegmental atelectasis are present in the right upper lobe slightly more prominent than on the prior examination. Left lung is mildly hyperinflated but free of acute alveolar infiltrates. There are some chronic appearing interstitial lung changes on the left, stable. No left pleural effusion identified. Bony thorax is unremarkable with the exception of right-sided glenohumeral joint degenerative joint disease.IMPRESSION:No change large right pleural effusion obscuring a large portion of the right lower lobe. Underlying consolidation or infiltrate could be present.Areas of subsegmental atelectasis in the right upper lobe somewhat more prominent than on prior examinationLeft lung hyperinflated but free of acute alveolar infiltrates. Stable interstitial lung changes present.THIS IS AN ELECTRONICALLY VERIFIED FINAL REPORT11/01/2023 6:11 AM - Electronically signed by Derrick Sandhu MD
[2023-11-01] MEDS: PULMICORT NEB TX 0.5 MG NEB SCH (09:04)
[2023-11-01] MEDS: LASIX IVP ONE (09:30)
[2023-11-01] MEDS: PREDNISONE TAB 5 MG PO SCH (10:33)
[2023-11-01] MEDS: ALPRAZOLAM ODT PO PRN (10:33)
[2023-11-01] MEDS: LOVENOX INJ 40 MG SYR SC SCH (10:34)
[2023-11-01 11:12] LABS: BILIRUBIN,URINE NEGATIVE (NEGATIVE); BLOOD/HEMOGLOBIN,URINE NEGATIVE (NEGATIVE); GLUCOSE, URINE NEGATIVE (NEGATIVE); KETONES,URINE NEGATIVE (NEGATIVE); LEUKOCYTE ESTERASE ,URINE 2+ (NEGATIVE); NITRITES,URINE NEGATIVE (NEGATIVE); PROTEIN,URINE NEGATIVE (NEGATIVE); UROBILINOGEN,URINE NORMAL (NORMAL)
[2023-11-01 11:21] LABS: APPEARANCE,URINE CLEAR (CLEAR); COLOR,URINE YELLOW (YELLOW); RBC,URINE 0-2 /HPF (0-3); SQUAMOUS EPITHELIAL CELL,UR RARE /HPF (NEGATIVE)
[2023-11-01 11:22] LABS: BACTERIA,URINE NEGATIVE /HPF (NEGATIVE); YEAST,URINE FEW /HPF (NEGATIVE)
[2023-11-01] MEDS: ALPRAZOLAM ODT ONE (11:50)
[2023-11-01] MEDS: PATIENT'S HOME MEDICATION PO SCH (14:10)
[2023-11-01] MEDS: CARDIZEM CD 120 MG 24-HR PO SCH (16:00)
[2023-11-01] MEDS: COLACE CAP 100 MG PO SCH (20:26)
[2023-11-01] MEDS: LIPITOR TAB 40 MG PO SCH (20:26)
[2023-11-01] MEDS: LEVAQUIN TAB 750 MG PO SCH (20:59)
[2023-11-01] MEDS: MARINOL PO SCH (21:00)
--- NOTE | 2023-11-01 21:07 | DR.H&P ---
H&P History & Physical for Day of: H&P Date: 11/01/23 Chief Complaint Chief Complaint: shortness of breath Allergies Allergies Allergy/AdvReac Type Severity Reaction Status Date / Time No Known Drug Allergies Allergy Unknown Verified 09/12/23 19:44 History of Present Illness History of Present Illness: Patient is a 78-year-old male with past medical history of severe COPD, CAD, hyperlipidemia, hypertension, presenting with shortness of breath at [facility]. He was taken to the ER and was noted to have oxygen sat of 50% on room air prior to arrival. He was placed on supplemental oxygen of 4 to 5 L. Labs/imaging: WBC 16.2>8, hemoglobin 11.1, platelets 285, sodium 145, potassium 3.9, creatinine 0.77, glucose 106, lactic acid 6>0.8, troponin negative, BNP 174, AIT pending, chest x-ray revealed a large right pleural effusion. Patient was admitted for pneumonia, COPD exacerbation, CHF exacerbation. Patient is started on IV antibiotics Levaquin, scheduled bronchodilators, IV fluids at KVO, incentive spirometry. Will give patient IV Lasix 40 mg x 1 dose due to large pleural effusion. Restart home medications. Continue to closely monitor and follow-up labs/imaging. Time spent on clinical assessment, reviewing labs and imaging, decision making, and documentation greater than 45 minutes. Past Medical History Past Medical History: COPD, Coronary Artery Disease, Dyslipidemia, GERD and Hype rtension Past Surgical History Surgical History: Other Family History Family Medical History: Diabetes Mellitus, Cancer, [place] and Hypertension Social History Does patient currently use any type of tobacco product: No Have you used tobacco products in the last 12 months: No Type of Tobacco Use: None Does any household member use tobacco: No Alcohol Use: None Drug Use: Prescription Drugs Medications Home Medications: Home Medications Medication Instructions Recorded Confirmed Type atorvastatin 40 mg tablet 40 mg PO HS 08/04/23 10/31/23 History citalopram 20 mg tablet 20 mg PO QDAY 08/04/23 10/31/23 History pantoprazole 40 mg tablet,delayed 40 mg PO DAILY 08/04/23 10/31/23 History release ipratropium 0.5 mg-albuterol 3 mg 3 ml inhalation QID 09/12/23 10/31/23 History (2.5 mg base)/3 mL nebulization soln fluticasone fur. 100 mcg-umeclid 1 inh inhalation DAILY 09/13/23 10/31/23 History 62.5 mcg-vilant 25 mcg inhalat.powder (Trelegy Ellipta) docusate sodium 100 mg capsule 100 mg PO BID 10/31/23 10/31/23 History (Colace) dofetilide 250 mcg capsule 250 mcg PO BID 10/31/23 10/31/23 History fluticasone fur. 100 mcg-umeclid 1 ea inhalation QDAY 10/31/23 10/31/23 History 62.5 mcg-vilant 25 mcg inhalat.powder (Trelegy Ellipta) hydrocodone 10 mg-acetaminophen 1 tab PO Q4H PRN pain 10/31/23 10/31/23 History 325 mg tablet melatonin 5 mg tablet 5 mg PO HS PRN 10/31/23 10/31/23 History Labs 11/01/23 04:03 11/01/23 04:03 Labs: Laboratory WBC 8.0 X10^3/uL (3.6-10.0) D 11/01/23 04:03 RBC 3.68 X10^6/uL (4.7-6.0) L 11/01/23 04:03 Hgb 11.1 g/dL (13.5-18.0) L 11/01/23 04:03 Hct 34.0 % (42.0-54.0) L 11/01/23 04:03 MCV 92.3 fL (80.0-100.0) 11/01/23 04:03 MCH 30.1 pg (27.0-34.0) 11/01/23 04:03 MCHC 32.6 g/dL (33.0-35.0) L 11/01/23 04:03 RDW 15.4 % (11.6-16.5) 11/01/23 04:03 Plt Count 285 X10^3/uL (150.0-450.0) 11/01/23 04:03 Plt Count Comment Adequate (ADEQUATE) 11/01/23 04:03 MPV 7.7 fL (7.4-11.0) 11/01/23 04:03 Neut % (Auto) 93.1 % (42.0-75.0) H 11/01/23 04:03 Lymph % (Auto) 5.2 % (21.0-51.0) L 11/01/23 04:03 [place] % (Auto) 1.5 % (0.0-13.0) 11/01/23 04:03 Eos % (Auto) 0.0 % (0.9-2.9) L 11/01/23 04:03 Baso % (Auto) 0.2 % (0.2-1.0) 11/01/23 04:03 Neut # (Auto) 7.5 x10^3/uL (2.2-4.8) H 11/01/23 04:03 Lymph # (Auto) 0.4 X10^3/uL (1.3-2.9) L 11/01/23 04:03 [place] # (Auto) 0.1 x10^3/uL (0.3-0.8) L 11/01/23 04:03 Eos # (Auto) 0.0 x10^3/uL (0.0-0.2) 11/01/23 04:03 Baso # (Auto) 0.0 X10^3/uL (0.0-0.1) 11/01/23 04:03 Absolute Nucleated RBC 0.0 /100WBC 11/01/23 04:03 Total Counted 100 11/01/23 04:03 Neutrophils % (Manual) 95 % (39-76) H 11/01/23 04:03 Lymphocytes % (Manual) 4 % (13-43) L 11/01/23 04:03 Monocytes % (Manual) 1 % (4-9) L 11/01/23 04:03 Plt Morphology Comment Normal (NORMAL) 11/01/23 04:03 RBC Morphology Normal (NORMAL) 11/01/23 04:03 Sodium 145 mmol/L (136-145) 11/01/23 04:03 Corrected Sodium TNP 11/01/23 04:03 Potassium 3.9 mmol/L (3.5-5.1) 11/01/23 04:03 Chloride 109 mmol/L (98-107) H 11/01/23 04:03 Carbon Dioxide 29.2 mmol/L (21-32) 11/01/23 04:03 BUN 16 mg/dL (7-18) 11/01/23 04:03 Creatinine 0.77 mg/dL (0.70-1.30) 11/01/23 04:03 Est GFR (MDRD) Af Amer > 60 (>60) 11/01/23 04:03 Est GFR (MDRD) Non-Af > 60 (>60) 11/01/23 04:03 Glucose 106 mg/dL (65-99) H 11/01/23 04:03 Lactic Acid 0.8 mmol/L (0.4-2.0) 10/31/23 21:28 Calcium 8.1 mg/dL (8.5-10.1) L 11/01/23 04:03 Corrected Calcium 9.9 mg/dL (8.5-10.1) 11/01/23 04:03 Total Bilirubin 0.30 mg/dL (0.2-1.0) 11/01/23 04:03 AST 27 Units/L (15-37) 11/01/23 04:03 ALT 12 Units/L (12-78) 11/01/23 04:03 Alkaline Phosphatase 137 Units/L (46-116) H 11/01/23 04:03 Creatine Kinase 30 Units/L (39-308) L 10/31/23 19:30 Troponin I High Sens 13.7 ng/L (4.0-60.0) 10/31/23 19:30 B-Natriuretic Peptide 174 pg/mL (0-79) H 10/31/23 19:30 Total Protein 5.5 g/dL (6.4-8.2) L 11/01/23 04:03 Albumin 1.8 g/dL (3.4-5.0) L 11/01/23 04:03 Globulin 3.7 g/dL (2.5-4.5) 11/01/23 04:03 Albumin/Globulin Ratio 0.5 Ratio (1.1-2.1) L 11/01/23 04:03 SARS-CoV-2 (PCR) Negative (NEGATIVE) 10/31/23 19:19 Influenza Type A (PCR) Negative (NEGATIVE) 10/31/23 19:19 Influenza Type B (PCR) Negative (NEGATIVE) 10/31/23 19:19 RSV (PCR) Negative (NEGATIVE) 10/31/23 19:19 Review of Systems Constitutional: No Symptoms Reported Eyes: No Symptoms Reported ENT: No Symptoms Reported Respiratory: Cough and Shortness of Breath Cardiovascular: No Symptoms Reported Gastrointestinal: No Symptoms Reported Genitourinary: No Symptoms Reported Musculoskeletal: No Symptoms Reported Skin: No Symptoms Reported Neurological: No Symptoms Reported Physical Exam Vital Signs: Vital Signs Temperature 98.0 F Temperature 98.0 F Pulse Rate 94 Pulse Rate 90 Respiratory Rate 36 Respiratory Rate 19 Respiratory Rate 38 Respiratory Rate 33 Respiratory Rate 33 Respiratory Rate 35 Blood Pressure 112/67 Blood Pressure 123/70 Blood Pressure 106/71 O2 Sat by Pulse Oximetry 87 O2 Sat by Pulse Oximetry 97 O2 Sat by Pulse Oximetry 90 Oriented: Normal Eyes: Normal Ear: Normal Nose: Normal Throat: Normal Respiratory: Diminished Throughout Cardiovascular: Normal : Normal Auscultation: Bowel Sounds: Normal Palpation: Normal Tenderness: Normal Skin: Normal Musculoskeletal: Normal Psychiatric: Normal Mood Description: Calm and Appropriate Affect: Normal Speech Pattern: Clear and Appropriate Assessment/Plan (1) COPD exacerbation: Status: Acute Plan: Scheduled bronchodilators, supplemental oxygen. (2) CHF (congestive heart failure): Status: Acute Plan: IV Lasix 40 mg x 1 dose. Monitor I's and O's. (3) Pneumonia: Status: Acute Plan: IV Levaquin daily. (4) Hypertension: Qualifiers: Hypertension type: primary hypertension Status: Chronic (5) Hypercholesteremia: Status: Acute (6) Chronic low back pain: Qualifiers: Sciatica presence: without sciatica Status: Chronic Review H&P Reviewed: Yes Patient was examined?: Yes
[2023-11-02 05:29] LABS: BASOPHILS % (AUTO) 0 % (0.2-1.0); HEMATOCRIT 31.4 % (42.0-54.0); HEMOGLOBIN 10.2 g/dL (13.5-18.0); LYMPHOCYTES # (AUTO) 0.8 X10^3/uL (1.3-2.9); LYMPHOCYTES % (AUTO) 6.8 % (21.0-51.0); MEAN CORPUSCULAR HEMOGLOBIN 30.1 pg (27.0-34.0); MEAN CORPUSCULAR HGB CONC 32.6 g/dL (33.0-35.0); MEAN CORPUSCULAR VOLUME 92.3 fL (80.0-100.0); MEAN PLATELET VOLUME 7.9 fL (7.4-11.0); MONOCYTES # (AUTO) 1.3 x10^3/uL (0.3-0.8); MONOCYTES % (AUTO) 11.9 % (0.0-13.0); NEUTROPHILS # (AUTO) 8.9 x10^3/uL (2.2-4.8); NEUTROPHILS % (AUTO) 81.3 % (42.0-75.0); PLATELET COUNT 280 X10^3/uL (150.0-450.0); RED CELL DISTRIBUTION WIDTH 15.6 % (11.6-16.5)
[2023-11-02 05:44] LABS: ALANINE AMINOTRANSFERASE 13 Units/L (12-78); ALBUMIN 1.7 g/dL (3.4-5.0); ALKALINE PHOSPHATASE 114 Units/L (46-116); ASPARTATE AMINO TRANSFERASE 22 Units/L (15-37); BLOOD UREA NITROGEN 16 mg/dL (7-18); CALCIUM 8.2 mg/dL (8.5-10.1); CARBON DIOXIDE 30.7 mmol/L (21-32); CHLORIDE 107 mmol/L (98-107); CREATININE 0.74 mg/dL (0.70-1.30); GLUCOSE 62 mg/dL (65-99); MAGNESIUM 1.6 mg/dL (2.0-2.9); POTASSIUM 3.2 mmol/L (3.5-5.1); SODIUM 144 mmol/L (136-145); TOTAL PROTEIN 5.1 g/dL (6.4-8.2); eGFR NON BLACK RACES > 60 (>60)
--- NOTE | 2023-11-02 06:00 | RAD ---
EXAM:CHEST, 1 VIEWHISTORY:CHF, COPD, CAD, GERD, HTN, AFIB ;COMPARISON:11/01/2023FINDINGS:The trachea is midline. The cardiac silhouette is mildly enlarged.. Large right pleural effusion with atelectasis or consolidation in the right lung base. Subsegmental atelectasis within the right upper lobe. The left lung is clear.. The bony thorax is unremarkable.IMPRESSION:Stable portable chest no change from previous 11/01/2023THIS IS AN ELECTRONICALLY VERIFIED FINAL REPORT11/02/2023 5:57 AM - Electronically signed by Russell Jo MD
[2023-11-02] MEDS ORDERED: CONSULT PHARMACY - POTASSIUM & MAGNESIUM XX SCH (07:00)
[2023-11-02] MEDS: CELEXA PO SCH (09:56)
[2023-11-02] MEDS: K-DUR TAB 20 MEQ PO SCH (09:57)
[2023-11-02] MEDS: LEVAQUIN PREMIX IV 750 MG 750 MG/150 ML BAG IV SCH (09:57)
[2023-11-02] MEDS: MAG-OX TAB PO SCH (09:58)
[2023-11-02] MEDS: PROTONIX TAB 40 MG PO SCH (09:59)
[2023-11-02] MEDS: MELATONIN PO PRN (20:52)
[2023-11-03 05:10] LABS: BASOPHILS % (AUTO) 0.2 % (0.2-1.0); EOSINOPHILS # (AUTO) 0.1 x10^3/uL (0.0-0.2); EOSINOPHILS % (AUTO) 0.8 % (0.9-2.9); HEMATOCRIT 30.9 % (42.0-54.0); HEMOGLOBIN 10.2 g/dL (13.5-18.0); LYMPHOCYTES % (AUTO) 10.4 % (21.0-51.0); MEAN CORPUSCULAR HEMOGLOBIN 30.6 pg (27.0-34.0); MEAN CORPUSCULAR VOLUME 92.7 fL (80.0-100.0); MEAN PLATELET VOLUME 7.2 fL (7.4-11.0); MONOCYTES # (AUTO) 1.1 x10^3/uL (0.3-0.8); MONOCYTES % (AUTO) 11.3 % (0.0-13.0); NEUTROPHILS # (AUTO) 7.4 x10^3/uL (2.2-4.8); NEUTROPHILS % (AUTO) 77.3 % (42.0-75.0); PLATELET COUNT 247 X10^3/uL (150.0-450.0); RED BLOOD COUNT 3.33 X10^6/uL (4.7-6.0); RED CELL DISTRIBUTION WIDTH 14.9 % (11.6-16.5); WHITE BLOOD COUNT 9.5 X10^3/uL (3.6-10.0)
[2023-11-03 05:23] LABS: ALANINE AMINOTRANSFERASE 20 Units/L (12-78); ALBUMIN 1.7 g/dL (3.4-5.0); ALKALINE PHOSPHATASE 116 Units/L (46-116); ASPARTATE AMINO TRANSFERASE 47 Units/L (15-37); BLOOD UREA NITROGEN 16 mg/dL (7-18); CALCIUM 7.9 mg/dL (8.5-10.1); CARBON DIOXIDE 31.1 mmol/L (21-32); CHLORIDE 110 mmol/L (98-107); COR CA(FOR HYPOALB) 9.7 mg/dL (8.5-10.1); CREATININE 0.62 mg/dL (0.70-1.30); GLUCOSE 87 mg/dL (65-99); MAGNESIUM 1.6 mg/dL (2.0-2.9); POTASSIUM 4.1 mmol/L (3.5-5.1); SODIUM 144 mmol/L (136-145); TOTAL PROTEIN 4.9 g/dL (6.4-8.2); eGFR NON BLACK RACES > 60 (>60)
--- NOTE | 2023-11-03 05:32 | RAD ---
EXAM:CHEST, 1 VIEWHISTORY:PNEUMONIA, COPD; CHF, COPD, CAD, GERD, HTN, AFIBCOMPARISON:11/02/2023FINDINGS:The trachea is midline. The cardiac silhouette is mildly enlarged.. Large right pleural effusion with atelectasis and/or consolidation in the right lung base. Subsegmental atelectasis within the right upper lobe.. The bony thorax is unremarkable.IMPRESSION:Stable portable chestTHIS IS AN ELECTRONICALLY VERIFIED FINAL REPORT11/03/2023 5:29 AM - Electronically signed by Russell Jo MD
--- NOTE | 2023-11-03 08:20 | PCM.PROG ---
Progress Note Progress Note for Day of Date of Exam: 11/02/23 Subjective Subjective: Patient is a 78-year-old male [place] resident with past medical history of severe COPD, CAD, hyperlipidemia, hypertension, admitted for pneumonia, COPD exacerbation, CHF exacerbation This morning he reports some improvement in his symptoms and breathing. No acute events overnight. He is requiring supplemental oxygen of 6L. Labs/imaging: WBC 11, hemoglobin 10.2, platelets 280, sodium 144, potassium 3.2, creatinine 0.74, glucose 62, AIT pending, chest x-ray continues to reveal a large right pleural effusion. Patient is started on IV antibiotics Levaquin, scheduled bronchodilators, IV fluids at KVO, incentive spirometry. Home medications have been resumed. Will consult general surgery-Dr Pineda for large right pleural effusion. Otherwise, will continue with current treatment plan. Continue to closely monitor and follow-up labs/imaging. Time spent on clinical assessment, reviewing labs and imaging, decision making, and documentation greater than 45 minutes. Past Medical Family Social History Allergies: Allergies No Known Drug Allergies Allergy (Unknown, Verified 09/12/23 19:44) Onset Date: 06/23/2022 Review of Systems ROS changes noted: see HPI Vital Signs and I&O's Vital Signs: Vital Signs Temperature 97.7 F Pulse Rate 78 Pulse Rate 80 Pulse Rate 81 Pulse Rate 82 Pulse Rate 80 Respiratory Rate 21 Respiratory Rate 24 Respiratory Rate 26 Respiratory Rate 25 Respiratory Rate 26 Blood Pressure 104/55 Blood Pressure 98/61 Blood Pressure 107/58 Blood Pressure 107/60 Blood Pressure 121/53 O2 Sat by Pulse Oximetry 100 O2 Sat by Pulse Oximetry 100 O2 Sat by Pulse Oximetry 100 O2 Sat by Pulse Oximetry 100 O2 Sat by Pulse Oximetry 100 Intake and Output: Intake & Output 10/31/23 11/01/23 11/02/23 11/03/23 23:59 23:59 23:59 23:59 Intake Total 1120 / 1120 895 / 895 1009 / 1009 240 / 240 Output Total 0 / 0 1865 / 1865 850 / 850 100 / 100 Balance 1120 / 1120 -970 / -970 159 / 159 140 / 140 Physical Exam Oriented: Normal Eyes: Normal Ear: Normal Nose: Normal Throat: Normal Respiratory: Diminished Cardiovascular: Normal : Normal Auscultation: Bowel Sounds: Normal Tenderness: Normal Skin: Normal Musculoskeletal: Normal Psychiatric: Normal Mood Description: Calm and Appropriate Affect: Normal Speech Pattern: Clear and Appropriate Laboratory and Diagnostics 11/03/23 04:57 11/03/23 04:57 Labs: 10/31/23 19:26 Blood Blood Culture - Preliminary 11/01/23 10:46 Urine,Catheterized Urine Culture - Preliminary 10/31/23 19:30 Blood Blood Culture Gram Stain - Final Laboratory WBC 9.5 X10^3/uL (3.6-10.0) 11/03/23 04:57 RBC 3.33 X10^6/uL (4.7-6.0) L 11/03/23 04:57 Hgb 10.2 g/dL (13.5-18.0) L 11/03/23 04:57 Hct 30.9 % (42.0-54.0) L 11/03/23 04:57 MCV 92.7 fL (80.0-100.0) 11/03/23 04:57 MCH 30.6 pg (27.0-34.0) 11/03/23 04:57 MCHC 33.0 g/dL (33.0-35.0) 11/03/23 04:57 RDW 14.9 % (11.6-16.5) 11/03/23 04:57 Plt Count 247 X10^3/uL (150.0-450.0) 11/03/23 04:57 Plt Count Comment Adequate (ADEQUATE) 11/01/23 04:03 MPV 7.2 fL (7.4-11.0) L 11/03/23 04:57 Neut % (Auto) 77.3 % (42.0-75.0) H 11/03/23 04:57 Lymph % (Auto) 10.4 % (21.0-51.0) L 11/03/23 04:57 [place] % (Auto) 11.3 % (0.0-13.0) 11/03/23 04:57 Eos % (Auto) 0.8 % (0.9-2.9) L 11/03/23 04:57 Baso % (Auto) 0.2 % (0.2-1.0) 11/03/23 04:57 Neut # (Auto) 7.4 x10^3/uL (2.2-4.8) H 11/03/23 04:57 Lymph # (Auto) 1.0 X10^3/uL (1.3-2.9) L 11/03/23 04:57 [place] # (Auto) 1.1 x10^3/uL (0.3-0.8) H 11/03/23 04:57 Eos # (Auto) 0.1 x10^3/uL (0.0-0.2) 11/03/23 04:57 Baso # (Auto) 0.0 X10^3/uL (0.0-0.1) 11/03/23 04:57 Absolute Nucleated RBC 0.0 /100WBC 11/03/23 04:57 Total Counted 100 11/01/23 04:03 Neutrophils % (Manual) 95 % (39-76) H 11/01/23 04:03 Lymphocytes % (Manual) 4 % (13-43) L 11/01/23 04:03 Monocytes % (Manual) 1 % (4-9) L 11/01/23 04:03 Plt Morphology Comment Normal (NORMAL) 11/01/23 04:03 RBC Morphology Normal (NORMAL) 11/01/23 04:03 Sodium 144 mmol/L (136-145) 11/03/23 04:57 Corrected Sodium TNP 11/03/23 04:57 Potassium 4.1 mmol/L (3.5-5.1) 11/03/23 04:57 Chloride 110 mmol/L (98-107) H 11/03/23 04:57 Carbon Dioxide 31.1 mmol/L (21-32) 11/03/23 04:57 BUN 16 mg/dL (7-18) 11/03/23 04:57 Creatinine 0.62 mg/dL (0.70-1.30) L 11/03/23 04:57 Est GFR (MDRD) Af Amer > 60 (>60) 11/03/23 04:57 Est GFR (MDRD) Non-Af > 60 (>60) 11/03/23 04:57 Glucose 87 mg/dL (65-99) 11/03/23 04:57 Lactic Acid 0.8 mmol/L (0.4-2.0) 10/31/23 21:28 Calcium 7.9 mg/dL (8.5-10.1) L 11/03/23 04:57 Corrected Calcium 9.7 mg/dL (8.5-10.1) 11/03/23 04:57 Magnesium 1.6 mg/dL (2.0-2.9) L 11/03/23 04:57 Total Bilirubin 0.30 mg/dL (0.2-1.0) 11/03/23 04:57 AST 47 Units/L (15-37) H 11/03/23 04:57 ALT 20 Units/L (12-78) 11/03/23 04:57 Alkaline Phosphatase 116 Units/L (46-116) 11/03/23 04:57 Creatine Kinase 30 Units/L (39-308) L 10/31/23 19:30 Troponin I High Sens 13.7 ng/L (4.0-60.0) 10/31/23 19:30 B-Natriuretic Peptide 174 pg/mL (0-79) H 10/31/23 19:30 Total Protein 4.9 g/dL (6.4-8.2) L 11/03/23 04:57 Albumin 1.7 g/dL (3.4-5.0) L 11/03/23 04:57 Globulin 3.2 g/dL (2.5-4.5) 11/03/23 04:57 Albumin/Globulin Ratio 0.5 Ratio (1.1-2.1) L 11/03/23 04:57 Specimen Type Catherized urine 11/01/23 10:46 Urine Color Yellow (YELLOW) 11/01/23 10:46 Urine Appearance Clear (CLEAR) 11/01/23 10:46 Urine pH 6.0 (5.0 - 8.0) 11/01/23 10:46 Ur Specific [place] 1.015 (1.000-1.030) 11/01/23 10:46 Urine Protein Negative (NEGATIVE) 11/01/23 10:46 Urine Glucose (UA) Negative (NEGATIVE) 11/01/23 10:46 Urine Ketones Negative (NEGATIVE) 11/01/23 10:46 Urine Blood Negative (NEGATIVE) 11/01/23 10:46 Urine Nitrite Negative (NEGATIVE) 11/01/23 10:46 Urine Bilirubin Negative (NEGATIVE) 11/01/23 10:46 Urine Urobilinogen Normal (NORMAL) 11/01/23 10:46 Ur Leukocyte Esterase 2+ (NEGATIVE) 11/01/23 10:46 Urine RBC 0-2 /HPF (0-3) 11/01/23 10:46 Urine WBC 5-10 /HPF (0-5) A 11/01/23 10:46 Ur Squamous Epith Cells Rare /HPF (NEGATIVE) 11/01/23 10:46 Urine Bacteria Negative /HPF (NEGATIVE) 11/01/23 10:46 Urine Yeast Few /HPF (NEGATIVE) 11/01/23 10:46 Ur Culture Indicated? Yes/culture set up 11/01/23 10:46 SARS-CoV-2 (PCR) Negative (NEGATIVE) 10/31/23 19:19 Influenza Type A (PCR) Negative (NEGATIVE) 10/31/23 19:19 Influenza Type B (PCR) Negative (NEGATIVE) 10/31/23 19:19 RSV (PCR) Negative (NEGATIVE) 10/31/23 19:19 Resp Viral Panel (PCR) See scanned report 10/31/23 22:43 Plan (1) COPD exacerbation: Status: Acute Plan: Scheduled bronchodilators, supplemental oxygen. (2) CHF (congestive heart failure): Status: Acute Plan: IV Lasix 40 mg x 1 dose. Monitor I's and O's. (3) Pneumonia: Status: Acute Plan: IV Levaquin daily. (4) Hypertension: Status: Chronic Qualifiers: Hypertension type: primary hypertension (5) Hypercholesteremia: Status: Acute (6) Chronic low back pain: Status: Chronic Qualifiers: Sciatica presence: without sciatica
[2023-11-03] MEDS ORDERED: PHARMACY CONSULT LTC MEDICATIONS XX SCH (09:00)
[2023-11-03] MEDS: FLONASE NASAL SPRAY ENOSTRIL SCH (09:44)
[2023-11-03] MEDS: MAG-OX TAB PO SCH (09:46)
--- NOTE | 2023-11-03 12:22 | PCM.PROG ---
Progress Note Progress Note for Day of Date of Exam: 11/03/23 Subjective Subjective: Patient is a 78-year-old male [place] resident with past medical history of severe COPD, CAD, hyperlipidemia, hypertension, admitted for pneumonia, COPD exacerbation, CHF exacerbation. This morning, he reports no change in his symptoms and breathing. No acute events overnight. He is requiring supplemental oxygen of 6L. Labs/imaging: WBC 9.5, hemoglobin 10.2, platelets 247, sodium 144, potassium 4.1, creatinine 0.62, glucose 87, AIT positive for Group B Strep, chest x-ray continues to reveal a large right pleural effusion. Patient is on IV antibiotics Levaquin, will add Rocephin. 1/2 blood cultures positive for gram negative rods, will repeat blood cultures. Continue scheduled bronchodilators, IV fluids at KVO, incentive spirometry. Home medications have been resumed. Wean/titrate supplemental oxygen as tolerated. General surgery-Dr Pineda consulted, will review records from [facility] before deciding on options for large right pleural effusion. Otherwise, will continue with current treatment plan. Continue to closely monitor and follow-up labs/imaging. Time spent on clinical assessment, reviewing labs and imaging, decision making, and documentation greater than 45 minutes. Past Medical Family Social History Allergies: Allergies No Known Drug Allergies Allergy (Unknown, Verified 09/12/23 19:44) Onset Date: 06/23/2022 Review of Systems ROS changes noted: see HPI Vital Signs and I&O's Vital Signs: Vital Signs Pulse Rate 89 Pulse Rate 76 Pulse Rate 78 Respiratory Rate 25 Respiratory Rate 16 Respiratory Rate 22 Respiratory Rate 21 Blood Pressure 115/75 Blood Pressure 109/62 Blood Pressure 104/55 O2 Sat by Pulse Oximetry 100 O2 Sat by Pulse Oximetry 98 O2 Sat by Pulse Oximetry 100 Intake and Output: Intake & Output 10/31/23 11/01/23 11/02/23 11/03/23 23:59 23:59 23:59 23:59 Intake Total 1120 / 1120 895 / 895 1009 / 1009 240 / 240 Output Total 0 / 0 1865 / 1865 850 / 850 100 / 100 Balance 1120 / 1120 -970 / -970 159 / 159 140 / 140 Physical Exam Oriented: Normal Eyes: Normal Ear: Normal Nose: Normal Throat: Normal Respiratory: Diminished Cardiovascular: Normal : Normal Auscultation: Bowel Sounds: Normal Tenderness: Normal Skin: Normal Musculoskeletal: Normal Psychiatric: Normal Mood Description: Calm and Appropriate Affect: Normal Speech Pattern: Clear and Appropriate Laboratory and Diagnostics 11/03/23 04:57 11/03/23 04:57 Labs: 10/31/23 19:30 Blood Blood Culture Gram Stain - Final 10/31/23 19:30 Blood Blood Culture - Preliminary 11/01/23 10:46 Urine,Catheterized Urine Culture - Preliminary 10/31/23 19:26 Blood Blood Culture - Preliminary Laboratory WBC 9.5 X10^3/uL (3.6-10.0) 11/03/23 04:57 RBC 3.33 X10^6/uL (4.7-6.0) L 11/03/23 04:57 Hgb 10.2 g/dL (13.5-18.0) L 11/03/23 04:57 Hct 30.9 % (42.0-54.0) L 11/03/23 04:57 MCV 92.7 fL (80.0-100.0) 11/03/23 04:57 MCH 30.6 pg (27.0-34.0) 11/03/23 04:57 MCHC 33.0 g/dL (33.0-35.0) 11/03/23 04:57 RDW 14.9 % (11.6-16.5) 11/03/23 04:57 Plt Count 247 X10^3/uL (150.0-450.0) 11/03/23 04:57 Plt Count Comment Adequate (ADEQUATE) 11/01/23 04:03 MPV 7.2 fL (7.4-11.0) L 11/03/23 04:57 Neut % (Auto) 77.3 % (42.0-75.0) H 11/03/23 04:57 Lymph % (Auto) 10.4 % (21.0-51.0) L 11/03/23 04:57 [place] % (Auto) 11.3 % (0.0-13.0) 11/03/23 04:57 Eos % (Auto) 0.8 % (0.9-2.9) L 11/03/23 04:57 Baso % (Auto) 0.2 % (0.2-1.0) 11/03/23 04:57 Neut # (Auto) 7.4 x10^3/uL (2.2-4.8) H 11/03/23 04:57 Lymph # (Auto) 1.0 X10^3/uL (1.3-2.9) L 11/03/23 04:57 [place] # (Auto) 1.1 x10^3/uL (0.3-0.8) H 11/03/23 04:57 Eos # (Auto) 0.1 x10^3/uL (0.0-0.2) 11/03/23 04:57 Baso # (Auto) 0.0 X10^3/uL (0.0-0.1) 11/03/23 04:57 Absolute Nucleated RBC 0.0 /100WBC 11/03/23 04:57 Total Counted 100 11/01/23 04:03 Neutrophils % (Manual) 95 % (39-76) H 11/01/23 04:03 Lymphocytes % (Manual) 4 % (13-43) L 11/01/23 04:03 Monocytes % (Manual) 1 % (4-9) L 11/01/23 04:03 Plt Morphology Comment Normal (NORMAL) 11/01/23 04:03 RBC Morphology Normal (NORMAL) 11/01/23 04:03 Sodium 144 mmol/L (136-145) 11/03/23 04:57 Corrected Sodium TNP 11/03/23 04:57 Potassium 4.1 mmol/L (3.5-5.1) 11/03/23 04:57 Chloride 110 mmol/L (98-107) H 11/03/23 04:57 Carbon Dioxide 31.1 mmol/L (21-32) 11/03/23 04:57 BUN 16 mg/dL (7-18) 11/03/23 04:57 Creatinine 0.62 mg/dL (0.70-1.30) L 11/03/23 04:57 Est GFR (MDRD) Af Amer > 60 (>60) 11/03/23 04:57 Est GFR (MDRD) Non-Af > 60 (>60) 11/03/23 04:57 Glucose 87 mg/dL (65-99) 11/03/23 04:57 Lactic Acid 0.8 mmol/L (0.4-2.0) 10/31/23 21:28 Calcium 7.9 mg/dL (8.5-10.1) L 11/03/23 04:57 Corrected Calcium 9.7 mg/dL (8.5-10.1) 11/03/23 04:57 Magnesium 1.6 mg/dL (2.0-2.9) L 11/03/23 04:57 Total Bilirubin 0.30 mg/dL (0.2-1.0) 11/03/23 04:57 AST 47 Units/L (15-37) H 11/03/23 04:57 ALT 20 Units/L (12-78) 11/03/23 04:57 Alkaline Phosphatase 116 Units/L (46-116) 11/03/23 04:57 Creatine Kinase 30 Units/L (39-308) L 10/31/23 19:30 Troponin I High Sens 13.7 ng/L (4.0-60.0) 10/31/23 19:30 B-Natriuretic Peptide 174 pg/mL (0-79) H 10/31/23 19:30 Total Protein 4.9 g/dL (6.4-8.2) L 11/03/23 04:57 Albumin 1.7 g/dL (3.4-5.0) L 11/03/23 04:57 Globulin 3.2 g/dL (2.5-4.5) 11/03/23 04:57 Albumin/Globulin Ratio 0.5 Ratio (1.1-2.1) L 11/03/23 04:57 Specimen Type Catherized urine 11/01/23 10:46 Urine Color Yellow (YELLOW) 11/01/23 10:46 Urine Appearance Clear (CLEAR) 11/01/23 10:46 Urine pH 6.0 (5.0 - 8.0) 11/01/23 10:46 Ur Specific [place] 1.015 (1.000-1.030) 11/01/23 10:46 Urine Protein Negative (NEGATIVE) 11/01/23 10:46 Urine Glucose (UA) Negative (NEGATIVE) 11/01/23 10:46 Urine Ketones Negative (NEGATIVE) 11/01/23 10:46 Urine Blood Negative (NEGATIVE) 11/01/23 10:46 Urine Nitrite Negative (NEGATIVE) 11/01/23 10:46 Urine Bilirubin Negative (NEGATIVE) 11/01/23 10:46 Urine Urobilinogen Normal (NORMAL) 11/01/23 10:46 Ur Leukocyte Esterase 2+ (NEGATIVE) 11/01/23 10:46 Urine RBC 0-2 /HPF (0-3) 11/01/23 10:46 Urine WBC 5-10 /HPF (0-5) A 11/01/23 10:46 Ur Squamous Epith Cells Rare /HPF (NEGATIVE) 11/01/23 10:46 Urine Bacteria Negative /HPF (NEGATIVE) 11/01/23 10:46 Urine Yeast Few /HPF (NEGATIVE) 11/01/23 10:46 Ur Culture Indicated? Yes/culture set up 11/01/23 10:46 SARS-CoV-2 (PCR) Negative (NEGATIVE) 10/31/23 19:19 Influenza Type A (PCR) Negative (NEGATIVE) 10/31/23 19:19 Influenza Type B (PCR) Negative (NEGATIVE) 10/31/23 19:19 RSV (PCR) Negative (NEGATIVE) 10/31/23 19:19 Resp Viral Panel (PCR) See scanned report 10/31/23 22:43 Plan (1) COPD exacerbation: Status: Acute Plan: Scheduled bronchodilators, supplemental oxygen. (2) CHF (congestive heart failure): Status: Acute Plan: IV Lasix 40 mg x 1 dose. Monitor I's and O's. (3) Pneumonia: Status: Acute Plan: IV Levaquin daily. (4) Hypertension: Status: Chronic Qualifiers: Hypertension type: primary hypertension (5) Hypercholesteremia: Status: Acute (6) Chronic low back pain: Status: Chronic Qualifiers: Sciatica presence: without sciatica
[2023-11-03] MEDS: ROCEPHIN VIAL 1 GRAM 1 G in NS 100 ML IV 100 ML IV SCH (12:38)
[2023-11-03] MEDS: CONSULT PHARMACY - POTASSIUM & MAGNESIUM XX SCH (19:06)
--- NOTE | 2023-11-04 05:17 | RAD ---
EXAM: CHEST, 1 VIEW HISTORY: PNEUMONIA, COPD ; CHF, COPD, CAD, GERD, HTN, AFIB COMPARISON: 11/03/2023 FINDINGS: The cardiomediastinal silhouette is stable. Loop recorder overlying the left chest. Similar chronic changes, bilateral opacities, and right-sided effusion. No pneumothorax or effusion. No acute osseous abnormality. IMPRESSION: Similar bilateral opacities and right-sided effusion. Continued follow-up recommended. THIS IS AN ELECTRONICALLY VERIFIED FINAL REPORT 11/04/2023 5:14 AM - Electronically signed by Derrick Sandhu MD
[2023-11-04 05:22] LABS: BASOPHILS % (AUTO) 0.1 % (0.2-1.0); EOSINOPHILS # (AUTO) 0.2 x10^3/uL (0.0-0.2); EOSINOPHILS % (AUTO) 2.1 % (0.9-2.9); HEMATOCRIT 31.4 % (42.0-54.0); HEMOGLOBIN 10.5 g/dL (13.5-18.0); LYMPHOCYTES # (AUTO) 0.8 X10^3/uL (1.3-2.9); MEAN CORPUSCULAR HEMOGLOBIN 30.6 pg (27.0-34.0); MEAN CORPUSCULAR HGB CONC 33.4 g/dL (33.0-35.0); MEAN CORPUSCULAR VOLUME 91.8 fL (80.0-100.0); MEAN PLATELET VOLUME 7.6 fL (7.4-11.0); MONOCYTES # (AUTO) 0.8 x10^3/uL (0.3-0.8); MONOCYTES % (AUTO) 9.7 % (0.0-13.0); NEUTROPHILS # (AUTO) 6.2 x10^3/uL (2.2-4.8); NEUTROPHILS % (AUTO) 78.1 % (42.0-75.0); PLATELET COUNT 233 X10^3/uL (150.0-450.0); RED BLOOD COUNT 3.43 X10^6/uL (4.7-6.0); RED CELL DISTRIBUTION WIDTH 15.6 % (11.6-16.5); WHITE BLOOD COUNT 7.9 X10^3/uL (3.6-10.0)
[2023-11-04 05:42] LABS: ALANINE AMINOTRANSFERASE 19 Units/L (12-78); ALBUMIN 1.7 g/dL (3.4-5.0); ALKALINE PHOSPHATASE 122 Units/L (46-116); ASPARTATE AMINO TRANSFERASE 41 Units/L (15-37); BLOOD UREA NITROGEN 16 mg/dL (7-18); CHLORIDE 110 mmol/L (98-107); COR CA(FOR HYPOALB) 9.8 mg/dL (8.5-10.1); CREATININE 0.63 mg/dL (0.70-1.30); GLUCOSE 85 mg/dL (65-99); MAGNESIUM 1.8 mg/dL (2.0-2.9); POTASSIUM 4.3 mmol/L (3.5-5.1); SODIUM 143 mmol/L (136-145); TOTAL PROTEIN 4.9 g/dL (6.4-8.2); eGFR NON BLACK RACES > 60 (>60)
[2023-11-04] MEDS: COLACE CAP 100 MG PO PRN (21:30)
[2023-11-05 04:04] VITALS: TEMP 97.9
--- NOTE | 2023-11-05 05:45 | RAD ---
EXAM: CHEST, 1 VIEW HISTORY: pneumonia, copd ; CHF, COPD, CAD, GERD, HTN, AFIB COMPARISON: 11/04/2023 FINDINGS: The trachea is midline. The cardiac silhouette is unremarkable. Similar chronic changes including b ilateral opacities with right-sided pleural effusion unchanged. No pneumothorax.. The bony thorax i s unremarkable. IMPRESSION: Stable portable chest THIS IS AN ELECTRONICALLY VERIFIED FINAL REPORT 11/05/2023 5:42 AM - Electronically signed by Russell Jo MD
[2023-11-05 05:48] LABS: BASOPHILS % (AUTO) 0.1 % (0.2-1.0); EOSINOPHILS # (AUTO) 0.3 x10^3/uL (0.0-0.2); HEMATOCRIT 33.4 % (42.0-54.0); HEMOGLOBIN 10.8 g/dL (13.5-18.0); LYMPHOCYTES # (AUTO) 0.8 X10^3/uL (1.3-2.9); LYMPHOCYTES % (AUTO) 8.3 % (21.0-51.0); MEAN CORPUSCULAR HGB CONC 32.4 g/dL (33.0-35.0); MEAN CORPUSCULAR VOLUME 92.4 fL (80.0-100.0); MEAN PLATELET VOLUME 7.7 fL (7.4-11.0); MONOCYTES # (AUTO) 0.8 x10^3/uL (0.3-0.8); MONOCYTES % (AUTO) 8.4 % (0.0-13.0); NEUTROPHILS # (AUTO) 8.1 x10^3/uL (2.2-4.8); NEUTROPHILS % (AUTO) 80.2 % (42.0-75.0); PLATELET COUNT 260 X10^3/uL (150.0-450.0); RED BLOOD COUNT 3.61 X10^6/uL (4.7-6.0); RED CELL DISTRIBUTION WIDTH 15.7 % (11.6-16.5)
[2023-11-05 05:55] LABS: ALANINE AMINOTRANSFERASE 23 Units/L (12-78); ALBUMIN 1.7 g/dL (3.4-5.0); ALKALINE PHOSPHATASE 123 Units/L (46-116); ASPARTATE AMINO TRANSFERASE 39 Units/L (15-37); BLOOD UREA NITROGEN 17 mg/dL (7-18); CALCIUM 7.8 mg/dL (8.5-10.1); CARBON DIOXIDE 29.2 mmol/L (21-32); CHLORIDE 112 mmol/L (98-107); COR CA(FOR HYPOALB) 9.6 mg/dL (8.5-10.1); CREATININE 0.84 mg/dL (0.70-1.30); GLUCOSE 84 mg/dL (65-99); POTASSIUM 4.3 mmol/L (3.5-5.1); SODIUM 146 mmol/L (136-145); eGFR NON BLACK RACES > 60 (>60)
--- NOTE | 2023-11-05 07:35 | PCM.PROG ---
Progress Note Progress Note for Day of Date of Exam: 11/04/23 Subjective Subjective: Patient is a 78-year-old male [place] resident with past medical history of severe COPD, CAD, hyperlipidemia, hypertension, admitted for pneumonia, COPD exacerbation, CHF exacerbation. This morning patient appears to be at his baseline. Reports breathing has improved. No acute events overnight. He is requiring supplemental oxygen of 5L. Labs/imaging: WBC 7.9, hemoglobin 10.5, platelets 233, sodium 143, potassium 4.3, creatinine 0.63, glucose 85, AIT positive for Group B Strep, chest x-ray continues to reveal a large right pleural effusion. Patient is on IV antibiotics Levaquin and Rocephin. 1/2 blood cultures positive for gram negative rods, repeat blood cultures pending. Continue scheduled bronchodilators, IV fluids at KVO, incentive spirometry. Home medications have been resumed. Wean/titrate supplemental oxygen as tolerated. General surgery-Dr Pineda consulted, does not recommend intervention of large right pleural effusion, recommends conservative treatment as patient has improved back to his baseline. Otherwise, will continue with current treatment plan. Continue to closely monitor and follow up labs/imaging. Past Medical Family Social History Allergies: Allergies No Known Drug Allergies Allergy (Unknown, Verified 09/12/23 19:44) Onset Date: 06/23/2022 Review of Systems ROS changes noted: see HPI Vital Signs and I&O's Vital Signs: Vital Signs Temperature 98.3 F Temperature 98.5 F Pulse Rate 78 Pulse Rate 84 Pulse Rate 83 Pulse Rate 82 Pulse Rate 83 Respiratory Rate 19 Respiratory Rate 24 Respiratory Rate 33 Respiratory Rate 43 Respiratory Rate 20 Respiratory Rate 28 Blood Pressure 104/61 Blood Pressure 106/65 Blood Pressure 104/68 Blood Pressure 104/68 O2 Sat by Pulse Oximetry 98 O2 Sat by Pulse Oximetry 100 O2 Sat by Pulse Oximetry 100 O2 Sat by Pulse Oximetry 97 O2 Sat by Pulse Oximetry 100 Intake and Output: Intake & Output 11/01/23 11/02/23 11/03/23 11/04/23 23:59 23:59 23:59 23:59 Intake Total 895 / 895 1009 / 1009 999 / 999 132 / 132 Output Total 1865 / 1865 850 / 850 800 / 800 280 / 280 Balance -970 / -970 159 / 159 199 / 199 -148 / -148 Physical Exam Oriented: Normal Eyes: Normal Ear: Normal Nose: Normal Throat: Normal Respiratory: Diminished Cardiovascular: Normal : Normal Auscultation: Bowel Sounds: Normal Tenderness: Normal Skin: Normal Musculoskeletal: Normal Psychiatric: Normal Mood Description: Calm and Appropriate Affect: Normal Speech Pattern: Clear and Appropriate Laboratory and Diagnostics 11/05/23 04:25 11/05/23 04:25 Labs: 10/31/23 19:30 Blood Blood Culture Gram Stain - Final 10/31/23 19:30 Blood Blood Culture - Preliminary 11/01/23 10:46 Urine,Catheterized Urine Culture - Preliminary 10/31/23 19:26 Blood Blood Culture - Preliminary Laboratory WBC 7.9 X10^3/uL (3.6-10.0) 11/04/23 04:31 RBC 3.43 X10^6/uL (4.7-6.0) L 11/04/23 04:31 Hgb 10.5 g/dL (13.5-18.0) L 11/04/23 04:31 Hct 31.4 % (42.0-54.0) L 11/04/23 04:31 MCV 91.8 fL (80.0-100.0) 11/04/23 04:31 MCH 30.6 pg (27.0-34.0) 11/04/23 04:31 MCHC 33.4 g/dL (33.0-35.0) 11/04/23 04:31 RDW 15.6 % (11.6-16.5) 11/04/23 04:31 Plt Count 233 X10^3/uL (150.0-450.0) 11/04/23 04:31 Plt Count Comment Adequate (ADEQUATE) 11/01/23 04:03 MPV 7.6 fL (7.4-11.0) 11/04/23 04:31 Neut % (Auto) 78.1 % (42.0-75.0) H 11/04/23 04:31 Lymph % (Auto) 10.0 % (21.0-51.0) L 11/04/23 04:31 [place] % (Auto) 9.7 % (0.0-13.0) 11/04/23 04:31 Eos % (Auto) 2.1 % (0.9-2.9) 11/04/23 04:31 Baso % (Auto) 0.1 % (0.2-1.0) L 11/04/23 04:31 Neut # (Auto) 6.2 x10^3/uL (2.2-4.8) H 11/04/23 04:31 Lymph # (Auto) 0.8 X10^3/uL (1.3-2.9) L 11/04/23 04:31 [place] # (Auto) 0.8 x10^3/uL (0.3-0.8) 11/04/23 04:31 Eos # (Auto) 0.2 x10^3/uL (0.0-0.2) 11/04/23 04:31 Baso # (Auto) 0.0 X10^3/uL (0.0-0.1) 11/04/23 04:31 Absolute Nucleated RBC 0.0 /100WBC 11/04/23 04:31 Total Counted 100 11/01/23 04:03 Neutrophils % (Manual) 95 % (39-76) H 11/01/23 04:03 Lymphocytes % (Manual) 4 % (13-43) L 11/01/23 04:03 Monocytes % (Manual) 1 % (4-9) L 11/01/23 04:03 Plt Morphology Comment Normal (NORMAL) 11/01/23 04:03 RBC Morphology Normal (NORMAL) 11/01/23 04:03 Sodium 143 mmol/L (136-145) 11/04/23 04:31 Corrected Sodium TNP 11/04/23 04:31 Potassium 4.3 mmol/L (3.5-5.1) 11/04/23 04:31 Chloride 110 mmol/L (98-107) H 11/04/23 04:31 Carbon Dioxide 28.0 mmol/L (21-32) 11/04/23 04:31 BUN 16 mg/dL (7-18) 11/04/23 04:31 Creatinine 0.63 mg/dL (0.70-1.30) L 11/04/23 04:31 Est GFR (MDRD) Af Amer > 60 (>60) 11/04/23 04:31 Est GFR (MDRD) Non-Af > 60 (>60) 11/04/23 04:31 Glucose 85 mg/dL (65-99) 11/04/23 04:31 Lactic Acid 0.8 mmol/L (0.4-2.0) 10/31/23 21:28 Calcium 8.0 mg/dL (8.5-10.1) L 11/04/23 04:31 Corrected Calcium 9.8 mg/dL (8.5-10.1) 11/04/23 04:31 Magnesium 1.8 mg/dL (2.0-2.9) L 11/04/23 04:31 Total Bilirubin 0.30 mg/dL (0.2-1.0) 11/04/23 04:31 AST 41 Units/L (15-37) H 11/04/23 04:31 ALT 19 Units/L (12-78) 11/04/23 04:31 Alkaline Phosphatase 122 Units/L (46-116) H 11/04/23 04:31 Creatine Kinase 30 Units/L (39-308) L 10/31/23 19:30 Troponin I High Sens 13.7 ng/L (4.0-60.0) 10/31/23 19:30 B-Natriuretic Peptide 174 pg/mL (0-79) H 10/31/23 19:30 Total Protein 4.9 g/dL (6.4-8.2) L 11/04/23 04:31 Albumin 1.7 g/dL (3.4-5.0) L 11/04/23 04:31 Globulin 3.2 g/dL (2.5-4.5) 11/04/23 04:31 Albumin/Globulin Ratio 0.5 Ratio (1.1-2.1) L 11/04/23 04:31 Specimen Type Catherized urine 11/01/23 10:46 Urine Color Yellow (YELLOW) 11/01/23 10:46 Urine Appearance Clear (CLEAR) 11/01/23 10:46 Urine pH 6.0 (5.0 - 8.0) 11/01/23 10:46 Ur Specific [place] 1.015 (1.000-1.030) 11/01/23 10:46 Urine Protein Negative (NEGATIVE) 11/01/23 10:46 Urine Glucose (UA) Negative (NEGATIVE) 11/01/23 10:46 Urine Ketones Negative (NEGATIVE) 11/01/23 10:46 Urine Blood Negative (NEGATIVE) 11/01/23 10:46 Urine Nitrite Negative (NEGATIVE) 11/01/23 10:46 Urine Bilirubin Negative (NEGATIVE) 11/01/23 10:46 Urine Urobilinogen Normal (NORMAL) 11/01/23 10:46 Ur Leukocyte Esterase 2+ (NEGATIVE) 11/01/23 10:46 Urine RBC 0-2 /HPF (0-3) 11/01/23 10:46 Urine WBC 5-10 /HPF (0-5) A 11/01/23 10:46 Ur Squamous Epith Cells Rare /HPF (NEGATIVE) 11/01/23 10:46 Urine Bacteria Negative /HPF (NEGATIVE) 11/01/23 10:46 Urine Yeast Few /HPF (NEGATIVE) 11/01/23 10:46 Ur Culture Indicated? Yes/culture set up 11/01/23 10:46 SARS-CoV-2 (PCR) Negative (NEGATIVE) 10/31/23 19:19 Influenza Type A (PCR) Negative (NEGATIVE) 10/31/23 19:19 Influenza Type B (PCR) Negative (NEGATIVE) 10/31/23 19:19 RSV (PCR) Negative (NEGATIVE) 10/31/23 19:19 Resp Viral Panel (PCR) See scanned report 10/31/23 22:43 Plan (1) COPD exacerbation: Status: Acute Plan: Scheduled bronchodilators, supplemental oxygen. (2) CHF (congestive heart failure): Status: Acute Plan: IV Lasix 40 mg x 1 dose. Monitor I's and O's. (3) Pneumonia: Status: Acute Plan: IV Levaquin daily. (4) Hypertension: Status: Chronic Qualifiers: Hypertension type: primary hypertension (5) Hypercholesteremia: Status: Acute (6) Chronic low back pain: Status: Chronic Qualifiers: Sciatica presence: without sciatica
[2023-11-05] MEDS: DIFLUCAN PO SCH (09:38)
[2023-11-05 12:40] VITALS: BP 110/62; PULSE 93; O2SAT 98
[2023-11-05 12:41] VITALS: RESP 25
== END 2023-11-05 13:45 | DRG 194 ==
LOC: ER 19:11 → ICU 21:24
PROVIDERS: ADMIT Family Medicine; ATTEND Family Medicine
DX: J18.8 Other pneumonia, unspecified organism; R06.02 Shortness of breath; J44.1 Chronic obstructive pulmonary disease with (acute) exacerbation; B95.1 Streptococcus, group B, as the cause of diseases classified elsewhere; I48.91 Unspecified atrial fibrillation; M54.50 Low back pain, unspecified; Z20.822 Contact with and (suspected) exposure to COVID-19; I25.10 Atherosclerotic heart disease of native coronary artery without angina pectoris; J90 Pleural effusion, not elsewhere classified; I50.9 Heart failure, unspecified; B37.89 Other sites of candidiasis; E78.5 Hyperlipidemia, unspecified; I11.0 Hypertensive heart disease with heart failure

== ENCOUNTER 2023-11-08 13:10 | Inpatient (IN) ==
[2023-11-08] MEDS ORDERED: NS 500 ML IV 500 ML IV ONE (13:42)
--- NOTE | 2023-11-08 13:42 | DR.SOBA ---
HPI Time Seen Time Seen by Provider: 11/08/23 13:37 Primary Care Physician Primary Care Physician: Kam Complaints Chief Complaint:: [facility]sg home staff brought patient to ED stating he was hypoxic at 50% with SOB. Patient currently CAOx3, denies SOB or pain. He states he was attemping to get on the bed srivastava and became SOB. He states they gave him a breath ing tx and he felt better prior to leaving half-way Self Treatment fo Chief Complaint: Breathing tx COVID-19 Coronavirus risk:travel/contact w/high risk person: No Has patient experienced Coronavirus symptoms: No Source History Provided: Patient and Assisted Mode of Arrival Mode of Arrival: Stretcher Timing Onset of Chief Complaint: 11/08/23 PMH PMH Past Medical History: Yes Past Medical History: COPD, Coronary Artery Disease, Dyslipidemia, GERD and Hypertension Past Surgical History: Yes Surgical History: Other Family History History of Family Medical Conditions: Yes Family Medical History: Diabetes Mellitus, Cancer, [place] and Hypertension Social History Does patient currently use any type of tobacco product: No Have you used tobacco products in the last 12 months: No Type of Tobacco Use: None Does any household member use tobacco: No Alcohol Use: None Do you use any recreational Drugs:: No Lives With: Other Lives Where: Assisted Travel Risk Coronavirus risk:travel/contact w/high risk person: No Has patient experienced Coronavirus symptoms: No Infectious screening In the last 2 months have you had wt loss of >10#?: NO Have you had fever, night sweats or hemotysis?: No Have you traveled outside the country in the last 6 months?: No Isolation: Standard PE Vital Signs Vitals: Vital Signs Temperature 98.1 F Pulse Rate 94 Pulse Rate 94 Pulse Rate 85 Pulse Rate 95 Pulse Rate 92 Pulse Rate 92 Pulse Rate 94 Pulse Rate 94 Pulse Rate 93 Pulse Rate 94 Pulse Rate 95 Pulse Rate 95 Pulse Rate 95 Pulse Rate 93 Pulse Rate 98 Pulse Rate 96 Pulse Rate 95 Pulse Rate 102 Pulse Rate 104 Pulse Rate 94 Pulse Rate 108 Pulse Rate 109 Respiratory Rate 22 Blood Pressure 116/70 Blood Pressure 105/79 Blood Pressure 109/66 Blood Pressure 103/68 Blood Pressure 100/66 Blood Pressure 94/65 Blood Pressure 108/63 Blood Pressure 100/64 Blood Pressure 94/51 Blood Pressure 95/57 Blood Pressure 86/59 Blood Pressure 103/69 O2 Sat by Pulse Oximetry 93 O2 Sat by Pulse Oximetry 92 O2 Sat by Pulse Oximetry 93 O2 Sat by Pulse Oximetry 94 O2 Sat by Pulse Oximetry 94 O2 Sat by Pulse Oximetry 94 O2 Sat by Pulse Oximetry 94 O2 Sat by Pulse Oximetry 91 O2 Sat by Pulse Oximetry 95 O2 Sat by Pulse Oximetry 93 O2 Sat by Pulse Oximetry 91 O2 Sat by Pulse Oximetry 93 O2 Sat by Pulse Oximetry 94 O2 Sat by Pulse Oximetry 94 O2 Sat by Pulse Oximetry 88 O2 Sat by Pulse Oximetry 92 O2 Sat by Pulse Oximetry 91 O2 Sat by Pulse Oximetry 91 O2 Sat by Pulse Oximetry 88 O2 Sat by Pulse Oximetry 90 O2 Sat by Pulse Oximetry 90 O2 Sat by Pulse Oximetry 84 ROR Labs Reviewed 11/08/23 13:53 11/08/23 13:53 Laboratory: WBC 12.2 X10^3/uL (3.6-10.0) H 11/08/23 13:53 RBC 3.69 X10^6/uL (4.7-6.0) L 11/08/23 13:53 Hgb 11.1 g/dL (13.5-18.0) L 11/08/23 13:53 Hct 33.9 % (42.0-54.0) L 11/08/23 13:53 MCV 91.8 fL (80.0-100.0) 11/08/23 13:53 MCH 29.9 pg (27.0-34.0) 11/08/23 13:53 MCHC 32.6 g/dL (33.0-35.0) L 11/08/23 13:53 RDW 15.5 % (11.6-16.5) 11/08/23 13:53 Plt Count 239 X10^3/uL (150.0-450.0) 11/08/23 13:53 MPV 7.4 fL (7.4-11.0) 11/08/23 13:53 Neut % (Auto) 77.0 % (42.0-75.0) H 11/08/23 13:53 Lymph % (Auto) 10.9 % (21.0-51.0) L 11/08/23 13:53 [place] % (Auto) 10.1 % (0.0-13.0) 11/08/23 13:53 Eos % (Auto) 1.6 % (0.9-2.9) 11/08/23 13:53 Baso % (Auto) 0.4 % (0.2-1.0) 11/08/23 13:53 Neut # (Auto) 9.4 x10^3/uL (2.2-4.8) H 11/08/23 13:53 Lymph # (Auto) 1.3 X10^3/uL (1.3-2.9) 11/08/23 13:53 [place] # (Auto) 1.2 x10^3/uL (0.3-0.8) H 11/08/23 13:53 Eos # (Auto) 0.2 x10^3/uL (0.0-0.2) 11/08/23 13:53 Baso # (Auto) 0.0 X10^3/uL (0.0-0.1) 11/08/23 13:53 Absolute Nucleated RBC 0.0 /100WBC 11/08/23 13:53 Sodium 141 mmol/L (136-145) 11/08/23 13:53 Corrected Sodium TNP 11/08/23 13:53 Potassium 3.9 mmol/L (3.5-5.1) 11/08/23 13:53 Chloride 107 mmol/L (98-107) 11/08/23 13:53 Carbon Dioxide 27.5 mmol/L (21-32) 11/08/23 13:53 BUN 12 mg/dL (7-18) 11/08/23 13:53 Creatinine 0.57 mg/dL (0.70-1.30) L 11/08/23 13:53 Est GFR (MDRD) Af Amer > 60 (>60) 11/08/23 13:53 Est GFR (MDRD) Non-Af > 60 (>60) 11/08/23 13:53 Glucose 79 mg/dL (65-99) 11/08/23 13:53 Calcium 8.0 mg/dL (8.5-10.1) L 11/08/23 13:53 Corrected Calcium 9.8 mg/dL (8.5-10.1) 11/08/23 13:53 Total Bilirubin 0.40 mg/dL (0.2-1.0) 11/08/23 13:53 AST 25 Units/L (15-37) 11/08/23 13:53 ALT 18 Units/L (12-78) 11/08/23 13:53 Alkaline Phosphatase 114 Units/L (46-116) 11/08/23 13:53 B-Natriuretic Peptide 166 pg/mL (0-79) H 11/08/23 13:53 Total Protein 5.2 g/dL (6.4-8.2) L 11/08/23 13:53 Albumin 1.8 g/dL (3.4-5.0) L 11/08/23 13:53 Globulin 3.4 g/dL (2.5-4.5) 11/08/23 13:53 Albumin/Globulin Ratio 0.5 Ratio (1.1-2.1) L 11/08/23 13:53 Opioid Opioid Risk Tool Age (Alexander box if 16-45): No History of Preadolescent Sexual Abuse: No Total: 0 Total Score Risk Category: Low Risk Copyright: Adithya JACOBSEN predicting aberrant behaviors Discharge Plan Diagnosis Discharge Problem: Hypotension, Pleural effusion, Hypoxia Discharge Plan Patient Disposition: 09 ADMITTED INPATIENT Condition: Stable Discharge Comment: Return to er if worse. Orders to Discharge Patient Discharge Orders: Transfer (Routine); Ordered 11/08/23 Ordered By: BOB FENTON
[2023-11-08] MEDS: NS 500 ML IV 500 ML IV ONE (13:57)
[2023-11-08 14:06] LABS: BASOPHILS % (AUTO) 0.4 % (0.2-1.0); EOSINOPHILS # (AUTO) 0.2 x10^3/uL (0.0-0.2); EOSINOPHILS % (AUTO) 1.6 % (0.9-2.9); HEMATOCRIT 33.9 % (42.0-54.0); HEMOGLOBIN 11.1 g/dL (13.5-18.0); LYMPHOCYTES # (AUTO) 1.3 X10^3/uL (1.3-2.9); LYMPHOCYTES % (AUTO) 10.9 % (21.0-51.0); MEAN CORPUSCULAR HEMOGLOBIN 29.9 pg (27.0-34.0); MEAN CORPUSCULAR HGB CONC 32.6 g/dL (33.0-35.0); MEAN CORPUSCULAR VOLUME 91.8 fL (80.0-100.0); MEAN PLATELET VOLUME 7.4 fL (7.4-11.0); MONOCYTES # (AUTO) 1.2 x10^3/uL (0.3-0.8); MONOCYTES % (AUTO) 10.1 % (0.0-13.0); NEUTROPHILS # (AUTO) 9.4 x10^3/uL (2.2-4.8); PLATELET COUNT 239 X10^3/uL (150.0-450.0); RED BLOOD COUNT 3.69 X10^6/uL (4.7-6.0); RED CELL DISTRIBUTION WIDTH 15.5 % (11.6-16.5); WHITE BLOOD COUNT 12.2 X10^3/uL (3.6-10.0)
--- NOTE | 2023-11-08 14:17 | RAD ---
EXAM: CHEST, 1 VIEW HISTORY: Shortness of breath COMPARISON: 11/05/2023 FINDINGS: The trachea is midline. The cardiac silhouette is unremarkable. Worsening right-sided pleural effus ion is observed with the underlying subsegmental atelectasis noted to be present. Chronic interstiti al lung changes of the left hemithorax remain. The bony thorax is unremarkable. IMPRESSION: Worsening right-sided pleural effusion with diffuse chronic interstitial lung changes throughout the right and left hemithorax. Associated subsegmental atelectasis of the right hemithorax is observed. THIS IS AN ELECTRONICALLY VERIFIED FINAL REPORT 11/08/2023 2:14 PM - Electronically signed by Rey Phillips MD
[2023-11-08 14:20] LABS: ALANINE AMINOTRANSFERASE 18 Units/L (12-78); ALBUMIN 1.8 g/dL (3.4-5.0); ALKALINE PHOSPHATASE 114 Units/L (46-116); ASPARTATE AMINO TRANSFERASE 25 Units/L (15-37); BLOOD UREA NITROGEN 12 mg/dL (7-18); CARBON DIOXIDE 27.5 mmol/L (21-32); CHLORIDE 107 mmol/L (98-107); COR CA(FOR HYPOALB) 9.8 mg/dL (8.5-10.1); CREATININE 0.57 mg/dL (0.70-1.30); GLUCOSE 79 mg/dL (65-99); POTASSIUM 3.9 mmol/L (3.5-5.1); SODIUM 141 mmol/L (136-145); TOTAL PROTEIN 5.2 g/dL (6.4-8.2); eGFR NON BLACK RACES > 60 (>60)
--- NOTE | 2023-11-08 14:28 | EKG ---
Test Reason : HYPOTENSION Blood Pressure : */* mmHG Vent. Rate : 97 BPM Atrial Rate : 97 BPM P-R Int : 128 ms QRS Dur : 78 ms QT Int : 388 ms P-R-T Axes : 73 69 79 degrees QTc Int : 492 ms Sinus rhythm with sinus arrhythmia with occasional premature ventricular complexes Prolonged QT Abnormal ECG When compared with ECG of 31-OCT-2023 19:30, premature ventricular complexes are now present premature atrial complexes are no longer present Confirmed by Bryan Ramirez MD ([id number]) on 11/09/2023 8:49:59 AM Referred By: Confirmed By: Bryan Ramirez MD
[2023-11-08] MEDS ORDERED: SOLU-Medrol 125 MG VIAL ONE (17:05)
[2023-11-08] MEDS: SOLU-Medrol 125 MG VIAL IVP ONE (17:11)
--- NOTE | 2023-11-08 19:23 | EKG ---
Test Reason : HYPOTENSION Blood Pressure : */* mmHG Vent. Rate : 96 BPM Atrial Rate : * BPM P-R Int : * ms QRS Dur : 76 ms QT Int : 372 ms P-R-T Axes : * 61 50 degrees QTc Int : 469 ms sinus rtyhtm with premature ventricular or aberrantly conducted complexes Nonspecific T wave abnormality Prolonged QT Abnormal ECG When compared with ECG of 08-NOV-2023 14:09, (Unconfirmed) Nonspecific T wave abnormality now evident in Inferior leads Confirmed by Bryan Ramirez MD ([id number]) on 11/09/2023 8:47:44 AM Referred By: Confirmed By: Bryan Ramirez MD
[2023-11-08] MEDS: NS 1,000 ML IV 1,000 ML IV SCH (19:51)
[2023-11-08 21:37] LABS: BILIRUBIN,URINE NEGATIVE (NEGATIVE); BLOOD/HEMOGLOBIN,URINE NEGATIVE (NEGATIVE); GLUCOSE, URINE NEGATIVE (NEGATIVE); KETONES,URINE 3+ (NEGATIVE); LEUKOCYTE ESTERASE ,URINE 1+ (NEGATIVE); NITRITES,URINE NEGATIVE (NEGATIVE); PROTEIN,URINE NEGATIVE (NEGATIVE); UROBILINOGEN,URINE NORMAL (NORMAL)
[2023-11-08 21:42] VITALS: BMI 19.1
[2023-11-08] MEDS: PULMICORT NEB TX 0.5 MG NEB SCH (21:45)
[2023-11-08] MEDS: DUONEB 0.5 MG/3 MG (3 mL) NEB SCH (21:45)
[2023-11-08 21:49] LABS: APPEARANCE,URINE HAZY (CLEAR); COLOR,URINE YELLOW (YELLOW)
[2023-11-08 22:00] LABS: BACTERIA,URINE TRACE /HPF (NEGATIVE); RBC,URINE 0-2 /HPF (0-3); SQUAMOUS EPITHELIAL CELL,UR RARE /HPF (NEGATIVE)
[2023-11-08] MEDS: ROBITUSSIN DM PO PRN (22:16)
[2023-11-08] MEDS: TYLENOL 325 MG TAB PO PRN (23:49)
[2023-11-09 05:45] LABS: BASOPHILS % (AUTO) 0.1 % (0.2-1.0); HEMATOCRIT 35.7 % (42.0-54.0); HEMOGLOBIN 11.8 g/dL (13.5-18.0); LYMPHOCYTES # (AUTO) 0.6 X10^3/uL (1.3-2.9); LYMPHOCYTES % (AUTO) 9.7 % (21.0-51.0); MEAN CORPUSCULAR HEMOGLOBIN 30.2 pg (27.0-34.0); MEAN CORPUSCULAR VOLUME 91.4 fL (80.0-100.0); MEAN PLATELET VOLUME 7.7 fL (7.4-11.0); MONOCYTES # (AUTO) 0.2 x10^3/uL (0.3-0.8); MONOCYTES % (AUTO) 2.4 % (0.0-13.0); NEUTROPHILS # (AUTO) 5.6 x10^3/uL (2.2-4.8); NEUTROPHILS % (AUTO) 87.8 % (42.0-75.0); PLATELET COUNT 293 X10^3/uL (150.0-450.0); RED CELL DISTRIBUTION WIDTH 15.6 % (11.6-16.5); WHITE BLOOD COUNT 6.4 X10^3/uL (3.6-10.0)
[2023-11-09 06:10] LABS: ALANINE AMINOTRANSFERASE 17 Units/L (12-78); ALBUMIN 2.1 g/dL (3.4-5.0); ALKALINE PHOSPHATASE 127 Units/L (46-116); ASPARTATE AMINO TRANSFERASE 23 Units/L (15-37); BLOOD UREA NITROGEN 13 mg/dL (7-18); CALCIUM 8.3 mg/dL (8.5-10.1); CARBON DIOXIDE 24.6 mmol/L (21-32); CHLORIDE 106 mmol/L (98-107); COR CA(FOR HYPOALB) 9.8 mg/dL (8.5-10.1); CREATININE 0.61 mg/dL (0.70-1.30); GLUCOSE 110 mg/dL (65-99); MAGNESIUM 1.8 mg/dL (2.0-2.9); POTASSIUM 4.2 mmol/L (3.5-5.1); SODIUM 141 mmol/L (136-145); TOTAL PROTEIN 5.7 g/dL (6.4-8.2); eGFR NON BLACK RACES > 60 (>60)
[2023-11-09] MEDS ORDERED: CONSULT PHARMACY - POTASSIUM & MAGNESIUM XX SCH (07:00)
[2023-11-09] MEDS: MAG-OX TAB PO SCH (08:43)
--- NOTE | 2023-11-09 09:34 | DR.H&P ---
H&P History & Physical for Day of: H&P Date: 11/09/23 Chief Complaint Chief Complaint: Shortness of breath Allergies Allergies Allergy/AdvReac Type Severity Reaction Status Date / Time No Known Drug Allergies Allergy Unknown Verified 09/12/23 19:44 History of Present Illness History of Present Illness: Mr. Flores is a 78-year-old male who is currently a resident of [facility] with a past medical history of COPD, CAD, dyslipidemia, GERD and hypertension. He also has a history of chronic right pleural effusion with recurrent admissions for pneumonia and hypoxia. He was found to be hypoxic in the custodial and brought to the ER for further evalua tion. Chest x-ray on admission showed worsening right-sided pleural effusion. Patient was admitted for further evaluation. He is currently on nonrebreather at 5 L. He does not appear to be in any respiratory distress. Surgery was also consulted. Labs and imaging reviewed -WBC 6.4 hemoglobin 11.8 magnesium 1.8 BNP 166 -Chest x-ray reviewed Plan: Follow-up repeat chest x-ray, follow surgery recommendations. Wean O2 as tolerated. Patient likely needs to have thoracentesis/chest tube placement due to worsening right pleural effusion. Will add Levaquin for empiric pneumonia coverage. Resume home medications. Replace electrolytes as needed. Monitor a.m. labs and imaging Past Medical History Past Medical History: COPD, Coronary Artery Disease, Dyslipidemia, GERD and Hypertension Past Surgical History Surgical History: Other Family History Family Medical History: Heart Failure Social History Does patient currently use any type of tobacco product: No Have you used tobacco products in the last 12 months: No Type of Tobacco Use: None Does any household member use tobacco: No Alcohol Use: None Drug Use: None Medications Home Medications: Home Medications Medication Instructions Recorded Confirmed Type atorvastatin 40 mg tablet 40 mg PO HS 08/04/23 10/31/23 History citalopram 20 mg tablet 20 mg PO QDAY 08/04/23 10/31/23 History pantoprazole 40 mg tablet,delayed 40 mg PO DAILY 08/04/23 10/31/23 History release ipratropium 0.5 mg-albuterol 3 mg 3 ml inhalation QID 09/12/23 10/31/23 History (2.5 mg base)/3 mL nebulization soln fluticasone fur. 100 mcg-umeclid 1 inh inhalation DAILY 09/13/23 10/31/23 History 62.5 mcg-vilant 25 mcg inhalat.powder (Trelegy Ellipta) docusate sodium 100 mg capsule 100 mg PO BID 10/31/23 10/31/23 History (Colace) dofetilide 250 mcg capsule 250 mcg PO BID 10/31/23 10/31/23 History fluticasone fur. 100 mcg-umeclid 1 ea inhalation QDAY 10/31/23 10/31/23 History 62.5 mcg-vilant 25 mcg inhalat.powder (Trelegy Ellipta) hydrocodone 10 mg-acetaminophen 1 tab PO Q4H PRN pain 10/31/23 10/31/23 History 325 mg tablet melatonin 5 mg tablet 5 mg PO HS PRN 10/31/23 10/31/23 History Labs 11/09/23 05:10 11/09/23 05:10 Labs: Laboratory WBC 6.4 X10^3/uL (3.6-10.0) 11/09/23 05:10 RBC 3.90 X10^6/uL (4.7-6.0) L 11/09/23 05:10 Hgb 11.8 g/dL (13.5-18.0) L 11/09/23 05:10 Hct 35.7 % (42.0-54.0) L 11/09/23 05:10 MCV 91.4 fL (80.0-100.0) 11/09/23 05:10 MCH 30.2 pg (27.0-34.0) 11/09/23 05:10 MCHC 33.0 g/dL (33.0-35.0) 11/09/23 05:10 RDW 15.6 % (11.6-16.5) 11/09/23 05:10 Plt Count 293 X10^3/uL (150.0-450.0) 11/09/23 05:10 MPV 7.7 fL (7.4-11.0) 11/09/23 05:10 Neut % (Auto) 87.8 % (42.0-75.0) H 11/09/23 05:10 Lymph % (Auto) 9.7 % (21.0-51.0) L 11/09/23 05:10 [place] % (Auto) 2.4 % (0.0-13.0) 11/09/23 05:10 Eos % (Auto) 0.0 % (0.9-2.9) L 11/09/23 05:10 Baso % (Auto) 0.1 % (0.2-1.0) L 11/09/23 05:10 Neut # (Auto) 5.6 x10^3/uL (2.2-4.8) H 11/09/23 05:10 Lymph # (Auto) 0.6 X10^3/uL (1.3-2.9) L 11/09/23 05:10 [place] # (Auto) 0.2 x10^3/uL (0.3-0.8) L 11/09/23 05:10 Eos # (Auto) 0.0 x10^3/uL (0.0-0.2) 11/09/23 05:10 Baso # (Auto) 0.0 X10^3/uL (0.0-0.1) 11/09/23 05:10 Absolute Nucleated RBC 0.1 /100WBC 11/09/23 05:10 Sodium 141 mmol/L (136-145) 11/09/23 05:10 Corrected Sodium TNP 11/09/23 05:10 Potassium 4.2 mmol/L (3.5-5.1) 11/09/23 05:10 Chloride 106 mmol/L (98-107) 11/09/23 05:10 Carbon Dioxide 24.6 mmol/L (21-32) 11/09/23 05:10 BUN 13 mg/dL (7-18) 11/09/23 05:10 Creatinine 0.61 mg/dL (0.70-1.30) L 11/09/23 05:10 Est GFR (MDRD) Af Amer > 60 (>60) 11/09/23 05:10 Est GFR (MDRD) Non-Af > 60 (>60) 11/09/23 05:10 Glucose 110 mg/dL (65-99) H 11/09/23 05:10 Calcium 8.3 mg/dL (8.5-10.1) L 11/09/23 05:10 Corrected Calcium 9.8 mg/dL (8.5-10.1) 11/09/23 05:10 Magnesium 1.8 mg/dL (2.0-2.9) L 11/09/23 05:10 Total Bilirubin 0.40 mg/dL (0.2-1.0) 11/09/23 05:10 AST 23 Units/L (15-37) 11/09/23 05:10 ALT 17 Units/L (12-78) 11/09/23 05:10 Alkaline Phosphatase 127 Units/L (46-116) H 11/09/23 05:10 B-Natriuretic Peptide 166 pg/mL (0-79) H 11/08/23 13:53 Total Protein 5.7 g/dL (6.4-8.2) L 11/09/23 05:10 Albumin 2.1 g/dL (3.4-5.0) L 11/09/23 05:10 Globulin 3.6 g/dL (2.5-4.5) 11/09/23 05:10 Albumin/Globulin Ratio 0.6 Ratio (1.1-2.1) L 11/09/23 05:10 Specimen Type Random urine 11/08/23 21:30 Urine Color Yellow (YELLOW) 11/08/23 21:30 Urine Appearance Hazy (CLEAR) 11/08/23 21:30 Urine pH 7.0 (5.0 - 8.0) 11/08/23 21:30 Ur Specific [place] 1.015 (1.000-1.030) 11/08/23 21:30 Urine Protein Negative (NEGATIVE) 11/08/23 21:30 Urine Glucose (UA) Negative (NEGATIVE) 11/08/23 21:30 Urine Ketones 3+ (NEGATIVE) 11/08/23 21:30 Urine Blood Negative (NEGATIVE) 11/08/23 21:30 Urine Nitrite Negative (NEGATIVE) 11/08/23 21:30 Urine Bilirubin Negative (NEGATIVE) 11/08/23 21:30 Urine Urobilinogen Normal (NORMAL) 11/08/23 21:30 Ur Leukocyte Esterase 1+ (NEGATIVE) 11/08/23 21:30 Urine RBC 0-2 /HPF (0-3) 11/08/23 21:30 Urine WBC 3-5 /HPF (0-5) 11/08/23 21:30 Ur Squamous Epith Cells Rare /HPF (NEGATIVE) 11/08/23 21:30 Amorphous Sediment 2+ /HPF (NEGATIVE) 11/08/23 21:30 Urine Bacteria Trace /HPF (NEGATIVE) 11/08/23 21:30 Ur Culture Indicated? No/not indicated 11/08/23 21:30 Review of Systems Constitutional: No Symptoms Reported Eyes: No Symptoms Reported ENT: No Symptoms Reported Respiratory: Cough and Shortness of Breath Cardiovascular: No Symptoms Reported Gastrointestinal: No Symptoms Reported Musculoskeletal: No Symptoms Reported Skin: No Symptoms Reported Neurological: No Symptoms Reported Physical Exam Vital Signs: Vital Signs Temperature 98.7 F Temperature 98.0 F Pulse Rate [Left Brachial] 109 Pulse Rate [Left Brachial] 90 Pulse Rate 93 Respiratory Rate 28 Respiratory Rate 19 Blood Pressure [Left Arm] 133/65 Blood Pressure [Left Arm] 113/69 O2 Sat by Pulse Oximetry 89 O2 Sat by Pulse Oximetry 86 O2 Sat by Pulse Oximetry 93 Oriented: Normal Ear: Normal Throat: Normal Respiratory: Diminished Throughout Cardiovascular: Normal Auscultation: Bowel Sounds: Normal Tenderness: Normal Skin: Normal Musculoskeletal: Normal Psychiatric: Normal Mood Description: Calm Affect: Normal Speech Pattern: Clear, Appropriate and Delayed Assessment/Plan (1) Hypoxia: Status: Acute (2) Pleural effusion: Status: Acute (3) Pneumonia: Qualifiers: Laterality: unspecified laterality Lung location: unspecified part of lung Pneumonia type: due to unspecified organism Qualified Code(s): J18.9 - Pneumonia, unspecified organism Status: Acute (4) Hypomagnesemia: Status: Acute (5) Atrial fibrillation: Qualifiers: Atrial fibrillation type: unspecified Qualified Code(s): I48.91 - Unspecified atrial fibrillation Status: Acute (6) Severe chronic obstructive pulmonary disease: Status: Acute Review H&P Reviewed: Yes Patient was examined?: Yes
[2023-11-09] MEDS: LEVAQUIN PREMIX IV 750 MG 750 MG/150 ML BAG IV SCH (10:34)
[2023-11-09] MEDS: CARDIZEM CD 120 MG 24-HR PO SCH (12:20)
[2023-11-09] MEDS: PROTONIX TAB 40 MG PO SCH (12:20)
[2023-11-09] MEDS: PREDNISONE TAB 5 MG PO SCH (12:21)
[2023-11-09] MEDS: NORCO 5/325 MG TAB PO PRN (12:57)
--- NOTE | 2023-11-09 14:57 | RAD ---
EXAM: CHEST HISTORY: PLEURAL EFFUSION ; COMPARISON: November 08, 2023. TECHNIQUE: Frontal view of the chest was submitted for interpretation. FINDINGS: The cardiomediastinal silhouette is within normal limits. Lungs show right pleural effusion which is moderate. Background chronic interstitial lung changes are seen. IMPRESSION: Persistent moderate right pleural effusion. Chronic underlying lung changes are noted. THIS IS AN ELECTRONICALLY VERIFIED FINAL REPORT 11/09/2023 2:54 PM - Electronically signed by Lawrence Paredes MD
[2023-11-09] MEDS: ROCEPHIN VIAL 1 GRAM 1 G in NS 100 ML IV 100 ML IV SCH (15:42)
[2023-11-09] MEDS: LIPITOR TAB 40 MG PO SCH (21:00)
[2023-11-10] MEDS: MELATONIN PO PRN (00:50)
[2023-11-10 05:31] LABS: BASOPHILS % (AUTO) 0.1 % (0.2-1.0); EOSINOPHILS % (AUTO) 0.1 % (0.9-2.9); HEMATOCRIT 31.7 % (42.0-54.0); HEMOGLOBIN 10.7 g/dL (13.5-18.0); LYMPHOCYTES # (AUTO) 1.3 X10^3/uL (1.3-2.9); MEAN CORPUSCULAR HEMOGLOBIN 30.7 pg (27.0-34.0); MEAN CORPUSCULAR HGB CONC 33.9 g/dL (33.0-35.0); MEAN CORPUSCULAR VOLUME 90.6 fL (80.0-100.0); MEAN PLATELET VOLUME 7.4 fL (7.4-11.0); MONOCYTES # (AUTO) 1.7 x10^3/uL (0.3-0.8); MONOCYTES % (AUTO) 16.8 % (0.0-13.0); NEUTROPHILS # (AUTO) 7.1 x10^3/uL (2.2-4.8); PLATELET COUNT 285 X10^3/uL (150.0-450.0); WHITE BLOOD COUNT 10.2 X10^3/uL (3.6-10.0)
[2023-11-10 05:53] LABS: ALANINE AMINOTRANSFERASE 15 Units/L (12-78); ALKALINE PHOSPHATASE 102 Units/L (46-116); ASPARTATE AMINO TRANSFERASE 20 Units/L (15-37); BLOOD UREA NITROGEN 12 mg/dL (7-18); CALCIUM 8.2 mg/dL (8.5-10.1); CARBON DIOXIDE 26.4 mmol/L (21-32); CHLORIDE 109 mmol/L (98-107); COR CA(FOR HYPOALB) 9.8 mg/dL (8.5-10.1); CREATININE 0.57 mg/dL (0.70-1.30); GLUCOSE 71 mg/dL (65-99); MAGNESIUM 1.8 mg/dL (2.0-2.9); POTASSIUM 3.8 mmol/L (3.5-5.1); SODIUM 142 mmol/L (136-145); TOTAL PROTEIN 5.2 g/dL (6.4-8.2); eGFR NON BLACK RACES > 60 (>60)
[2023-11-10] MEDS ORDERED: CONSULT PHARMACY - POTASSIUM & MAGNESIUM XX SCH (07:00)
[2023-11-10] MEDS: NS + KCL 20 MEQ/L 1,000 ML with MAGNESIUM SULFATE 50% INJ VIAL 1 G IV SCH (08:31)
[2023-11-10] MEDS: CELEXA PO SCH (08:31)
--- NOTE | 2023-11-10 08:37 | DR.PROGNOT ---
HOSPITAL PROGRESS NOTE Progress Note for Day of: Progress Note Date: 11/10/23 Chief Complaint Chief Complaint: Patient was seen today, he seems to be stable with no new complaint. Mild to moderate shortness of breath. Alert but confused to time and place. Patient continues to have right pleural effusion which recurred after several thoracentesis in the past. Past Medical Family Social History Allergies: Allergies No Known Drug Allergies Allergy (Unknown, Verified 09/12/23 19:44) Onset Date: 06/23/2022 Vital Signs Vital Signs: Vital Signs Temperature 98.2 F Temperature 97.9 F Pulse Rate [Left Brachial] 80 Pulse Rate [Left Brachial] 74 Pulse Rate 93 Respiratory Rate 22 Respiratory Rate 19 Blood Pressure [Left Arm] 122/69 Blood Pressure [Left Arm] 110/61 O2 Sat by Pulse Oximetry 98 O2 Sat by Pulse Oximetry 94 O2 Sat by Pulse Oximetry 92 Physical Exam Oriented: Normal Ear: Normal Throat: Normal Respiratory: OTHER (Diminished breath sounds on the right) Cardiovascular: Normal GI:Auscultation: Normal GI: Tenderness: Normal Skin: Normal Musculoskeletal: Normal Psychiatric: Normal Mood Description: Calm Affect: Normal Speech Pattern: Clear and Appropriate Laboratory and Diagnostics 11/10/23 04:45 11/10/23 04:45 Labs: Laboratory WBC 10.2 X10^3/uL (3.6-10.0) H 11/10/23 04:45 RBC 3.50 X10^6/uL (4.7-6.0) L 11/10/23 04:45 Hgb 10.7 g/dL (13.5-18.0) L 11/10/23 04:45 Hct 31.7 % (42.0-54.0) L 11/10/23 04:45 MCV 90.6 fL (80.0-100.0) 11/10/23 04:45 MCH 30.7 pg (27.0-34.0) 11/10/23 04:45 MCHC 33.9 g/dL (33.0-35.0) 11/10/23 04:45 RDW 16.0 % (11.6-16.5) 11/10/23 04:45 Plt Count 285 X10^3/uL (150.0-450.0) 11/10/23 04:45 MPV 7.4 fL (7.4-11.0) 11/10/23 04:45 Neut % (Auto) 70.0 % (42.0-75.0) 11/10/23 04:45 Lymph % (Auto) 13.0 % (21.0-51.0) L 11/10/23 04:45 [place] % (Auto) 16.8 % (0.0-13.0) H 11/10/23 04:45 Eos % (Auto) 0.1 % (0.9-2.9) L 11/10/23 04:45 Baso % (Auto) 0.1 % (0.2-1.0) L 11/10/23 04:45 Neut # (Auto) 7.1 x10^3/uL (2.2-4.8) H 11/10/23 04:45 Lymph # (Auto) 1.3 X10^3/uL (1.3-2.9) 11/10/23 04:45 [place] # (Auto) 1.7 x10^3/uL (0.3-0.8) H 11/10/23 04:45 Eos # (Auto) 0.0 x10^3/uL (0.0-0.2) 11/10/23 04:45 Baso # (Auto) 0.0 X10^3/uL (0.0-0.1) 11/10/23 04:45 Absolute Nucleated RBC 0.0 /100WBC 11/10/23 04:45 Sodium 142 mmol/L (136-145) 11/10/23 04:45 Corrected Sodium TNP 11/10/23 04:45 Potassium 3.8 mmol/L (3.5-5.1) 11/10/23 04:45 Chloride 109 mmol/L (98-107) H 11/10/23 04:45 Carbon Dioxide 26.4 mmol/L (21-32) 11/10/23 04:45 BUN 12 mg/dL (7-18) 11/10/23 04:45 Creatinine 0.57 mg/dL (0.70-1.30) L 11/10/23 04:45 Est GFR (MDRD) Af Amer > 60 (>60) 11/10/23 04:45 Est GFR (MDRD) Non-Af > 60 (>60) 11/10/23 04:45 Glucose 71 mg/dL (65-99) 11/10/23 04:45 Calcium 8.2 mg/dL (8.5-10.1) L 11/10/23 04:45 Corrected Calcium 9.8 mg/dL (8.5-10.1) 11/10/23 04:45 Magnesium 1.8 mg/dL (2.0-2.9) L 11/10/23 04:45 Total Bilirubin 0.40 mg/dL (0.2-1.0) 11/10/23 04:45 AST 20 Units/L (15-37) 11/10/23 04:45 ALT 15 Units/L (12-78) 11/10/23 04:45 Alkaline Phosphatase 102 Units/L (46-116) 11/10/23 04:45 B-Natriuretic Peptide 166 pg/mL (0-79) H 11/08/23 13:53 Total Protein 5.2 g/dL (6.4-8.2) L 11/10/23 04:45 Albumin 2.0 g/dL (3.4-5.0) L 11/10/23 04:45 Globulin 3.2 g/dL (2.5-4.5) 11/10/23 04:45 Albumin/Globulin Ratio 0.6 Ratio (1.1-2.1) L 11/10/23 04:45 Specimen Type Random urine 11/08/23 21:30 Urine Color Yellow (YELLOW) 11/08/23 21:30 Urine Appearance Hazy (CLEAR) 11/08/23 21:30 Urine pH 7.0 (5.0 - 8.0) 11/08/23 21:30 Ur Specific [place] 1.015 (1.000-1.030) 11/08/23 21:30 Urine Protein Negative (NEGATIVE) 11/08/23 21:30 Urine Glucose (UA) Negative (NEGATIVE) 11/08/23 21:30 Urine Ketones 3+ (NEGATIVE) 11/08/23 21:30 Urine Blood Negative (NEGATIVE) 11/08/23 21:30 Urine Nitrite Negative (NEGATIVE) 11/08/23 21:30 Urine Bilirubin Negative (NEGATIVE) 11/08/23 21:30 Urine Urobilinogen Normal (NORMAL) 11/08/23 21:30 Ur Leukocyte Esterase 1+ (NEGATIVE) 11/08/23 21:30 Urine RBC 0-2 /HPF (0-3) 11/08/23 21:30 Urine WBC 3-5 /HPF (0-5) 11/08/23 21:30 Ur Squamous Epith Cells Rare /HPF (NEGATIVE) 11/08/23 21:30 Amorphous Sediment 2+ /HPF (NEGATIVE) 11/08/23 21:30 Urine Bacteria Trace /HPF (NEGATIVE) 11/08/23 21:30 Ur Culture Indicated? No/not indicated 11/08/23 21:30 Assessment and Plan 1: Recurrent right pleural effusion and underlying atelectasis. Placement of chest tube right side is the only alternative, patient seems to be stable now and no urgent need to put a chest tube. 2: Right-sided pneumonia with atelectasis. Same IV antibiotics and close observation. Problem Patient Problems: Patient Problems (Updated 11/09/23 @ 09:30 by Sameera Ley) Hypoxia (Acute) R09.02 Hypotension (Acute) I95.9 Pleural effusion (Acute) J90
--- NOTE | 2023-11-10 09:06 | PCM.PROG ---
Progress Note Progress Note for Day of Date of Exam: 11/10/23 Subjective Subjective: Patient seen at bedside, no acute events overnight. He remains on 4- 5L NC. He denies any respiratory distress. CXR yesterday showed moderate large right sided pleural effusion. Dr Gross has also bee consulted. Labs/imaging reviewed - WBC 10.2 Hgb 10.7 Mag 1.8 Plan: Continue Rocephin, wean O2 as tolerated. Discussed with Dr Gross regarding thoracentesis or chest tube placement. Patient has had multiple thoracentesis with recurrence of the effusion. He has had multiple admission in the past few months related to hypoxia due tp COPD exacerbations, pneumonia and empyema. He was also transferred to [facility] for further management. He continues to have this right pleural effusion which was negative for malignancy in the past. Dr Gross will discuss with patient's family regarding chest tube placement including risks associated with this procedure. Continue current care at this time. Monitor AM labs/imaging. Past Medical Family Social History Allergies: Allergies No Known Drug Allergies Allergy (Unknown, Verified 09/12/23 19:44) Onset Date: 06/23/2022 Vital Signs and I&O's Vital Signs: Vital Signs Temperature 98.2 F Temperature 97.9 F Pulse Rate [Left Brachial] 80 Pulse Rate [Left Brachial] 74 Pulse Rate 93 Respiratory Rate 22 Respiratory Rate 19 Blood Pressure [Left Arm] 122/69 Blood Pressure [Left Arm] 110/61 O2 Sat by Pulse Oximetry 98 O2 Sat by Pulse Oximetry 94 O2 Sat by Pulse Oximetry 92 Intake and Output: Intake & Output 11/07/23 11/08/23 11/09/23 11/10/23 23:59 23:59 23:59 23:59 Intake Total 291 / 291 1176 / 1176 0 / 0 Output Total 200 / 200 625 / 625 Balance 91 / 91 551 / 551 0 / 0 Physical Exam Oriented: Normal Ear: Normal Throat: Normal Respiratory: OTHER (Diminished breath sounds on the right) Cardiovascular: Normal Auscultation: Bowel Sounds: Normal Palpation: Normal Tenderness: Normal Skin: Normal Musculoskeletal: Normal Psychiatric: Normal Mood Description: Calm Affect: Normal Speech Pattern: Clear and Appropriate Laboratory and Diagnostics 11/10/23 04:45 11/10/23 04:45 Labs: Laboratory WBC 10.2 X10^3/uL (3.6-10.0) H 11/10/23 04:45 RBC 3.50 X10^6/uL (4.7-6.0) L 11/10/23 04:45 Hgb 10.7 g/dL (13.5-18.0) L 11/10/23 04:45 Hct 31.7 % (42.0-54.0) L 11/10/23 04:45 MCV 90.6 fL (80.0-100.0) 11/10/23 04:45 MCH 30.7 pg (27.0-34.0) 11/10/23 04:45 MCHC 33.9 g/dL (33.0-35.0) 11/10/23 04:45 RDW 16.0 % (11.6-16.5) 11/10/23 04:45 Plt Count 285 X10^3/uL (150.0-450.0) 11/10/23 04:45 MPV 7.4 fL (7.4-11.0) 11/10/23 04:45 Neut % (Auto) 70.0 % (42.0-75.0) 11/10/23 04:45 Lymph % (Auto) 13.0 % (21.0-51.0) L 11/10/23 04:45 [place] % (Auto) 16.8 % (0.0-13.0) H 11/10/23 04:45 Eos % (Auto) 0.1 % (0.9-2.9) L 11/10/23 04:45 Baso % (Auto) 0.1 % (0.2-1.0) L 11/10/23 04:45 Neut # (Auto) 7.1 x10^3/uL (2.2-4.8) H 11/10/23 04:45 Lymph # (Auto) 1.3 X10^3/uL (1.3-2.9) 11/10/23 04:45 [place] # (Auto) 1.7 x10^3/uL (0.3-0.8) H 11/10/23 04:45 Eos # (Auto) 0.0 x10^3/uL (0.0-0.2) 11/10/23 04:45 Baso # (Auto) 0.0 X10^3/uL (0.0-0.1) 11/10/23 04:45 Absolute Nucleated RBC 0.0 /100WBC 11/10/23 04:45 Sodium 142 mmol/L (136-145) 11/10/23 04:45 Corrected Sodium TNP 11/10/23 04:45 Potassium 3.8 mmol/L (3.5-5.1) 11/10/23 04:45 Chloride 109 mmol/L (98-107) H 11/10/23 04:45 Carbon Dioxide 26.4 mmol/L (21-32) 11/10/23 04:45 BUN 12 mg/dL (7-18) 11/10/23 04:45 Creatinine 0.57 mg/dL (0.70-1.30) L 11/10/23 04:45 Est GFR (MDRD) Af Amer > 60 (>60) 11/10/23 04:45 Est GFR (MDRD) Non-Af > 60 (>60) 11/10/23 04:45 Glucose 71 mg/dL (65-99) 11/10/23 04:45 Calcium 8.2 mg/dL (8.5-10.1) L 11/10/23 04:45 Corrected Calcium 9.8 mg/dL (8.5-10.1) 11/10/23 04:45 Magnesium 1.8 mg/dL (2.0-2.9) L 11/10/23 04:45 Total Bilirubin 0.40 mg/dL (0.2-1.0) 11/10/23 04:45 AST 20 Units/L (15-37) 11/10/23 04:45 ALT 15 Units/L (12-78) 11/10/23 04:45 Alkaline Phosphatase 102 Units/L (46-116) 11/10/23 04:45 B-Natriuretic Peptide 166 pg/mL (0-79) H 11/08/23 13:53 Total Protein 5.2 g/dL (6.4-8.2) L 11/10/23 04:45 Albumin 2.0 g/dL (3.4-5.0) L 11/10/23 04:45 Globulin 3.2 g/dL (2.5-4.5) 11/10/23 04:45 Albumin/Globulin Ratio 0.6 Ratio (1.1-2.1) L 11/10/23 04:45 Specimen Type Random urine 11/08/23 21:30 Urine Color Yellow (YELLOW) 11/08/23 21: Urine Appearance Hazy (CLEAR) 11/08/23 21:30 Urine pH 7.0 (5.0 - 8.0) 11/08/23 21:30 Ur Specific [place] 1.015 (1.000-1.030) 11/08/23 21:30 Urine Protein Negative (NEGATIVE) 11/08/23 21: Urine Glucose (UA) Negative (NEGATIVE) 11/08/23 21: Urine Ketones 3+ (NEGATIVE) 11/08/23 21: Urine Blood Negative (NEGATIVE) 11/08/23 21: Urine Nitrite Negative (NEGATIVE) 11/08/23 21: Urine Bilirubin Negative (NEGATIVE) 11/08/23 21: Urine Urobilinogen Normal (NORMAL) 11/08/23 21:30 Ur Leukocyte Esterase 1+ (NEGATIVE) 11/08/23 21: Urine RBC 0-2 /HPF (0-3) 11/08/23 21:30 Urine WBC 3-5 /HPF (0-5) 11/08/23 21:30 Ur Squamous Epith Cells Rare /HPF (NEGATIVE) 11/08/23 21: Amorphous Sediment 2+ /HPF (NEGATIVE) 11/08/23 21:30 Urine Bacteria Trace /HPF (NEGATIVE) 11/08/23 21:30 Ur Culture Indicated? No/not indicated 11/08/23 21:30 Plan (1) Hypoxia: Status: Acute (2) Pleural effusion: Status: Acute (3) Pneumonia: Status: Acute Qualifiers: Laterality: unspecified laterality Lung location: unspecified part of lung Pneumonia type: due to unspecified organism Qualified Code(s): J18.9 - Pneumonia, unspecified organism (4) Hypomagnesemia: Status: Acute (5) Atrial fibrillation: Status: Acute Qualifiers: Atrial fibrillation type: unspecified Qualified Code(s): I48.91 - Unspecified atrial fibrillation (6) Severe chronic obstructive pulmonary disease: Status: Acute
[2023-11-10] MEDS: PULMICORT NEB TX 0.5 MG NEB ONE (20:40)
--- NOTE | 2023-11-10 22:04 | NOTE.SOAP ---
Soap Note Note for Day of Date of Exam: 11/10/23 Subjective Data Subjective Data: Patient feels better. No RUQ pain or tenderness. C/O some right sided umbiliical pain. No nausea . Hungry. Objective Data Temperature: 98.3 F Pulse Rate: 97 Respiratory Rate: 22 Blood Pressure: 105/62 O2 Sat by Pulse Oximetry: 92 Objective Data: No RUQ tenderness. U/S possible gallbladder sludge, no stones, no pericholecystic fluid Assessment Assessment: Abdominal pain,improving Plan Plan: Labs in AM, start diet.
--- NOTE | 2023-11-11 06:10 | RAD ---
EXAM:CHEST, 1 VIEWHISTORY:pleural effusion, hypoxia ;COMPARISON:11/09/2023FINDINGS:The cardiomediastinal silhouette is stable. Loop recorder overlying the left chest.Similar bilateral pleural-parenchymal opacities, [id number]-left. No pneumothorax.No acute osseous abnormality.IMPRESSION:Similar bilateral opacities without significant change.THIS IS AN ELECTRONICALLY VERIFIED FINAL REPORT11/11/2023 6:07 AM - Electronically signed by Derrick Sandhu MD
[2023-11-11 06:20] LABS: BASOPHILS % (AUTO) 0.2 % (0.2-1.0); EOSINOPHILS # (AUTO) 0.2 x10^3/uL (0.0-0.2); EOSINOPHILS % (AUTO) 1.9 % (0.9-2.9); HEMATOCRIT 32.9 % (42.0-54.0); HEMOGLOBIN 10.9 g/dL (13.5-18.0); LYMPHOCYTES # (AUTO) 1.4 X10^3/uL (1.3-2.9); LYMPHOCYTES % (AUTO) 17.4 % (21.0-51.0); MEAN CORPUSCULAR HEMOGLOBIN 30.4 pg (27.0-34.0); MEAN CORPUSCULAR HGB CONC 33.1 g/dL (33.0-35.0); MEAN CORPUSCULAR VOLUME 91.6 fL (80.0-100.0); MEAN PLATELET VOLUME 7.3 fL (7.4-11.0); MONOCYTES # (AUTO) 1.4 x10^3/uL (0.3-0.8); MONOCYTES % (AUTO) 17.4 % (0.0-13.0); NEUTROPHILS # (AUTO) 5.2 x10^3/uL (2.2-4.8); NEUTROPHILS % (AUTO) 63.1 % (42.0-75.0); PLATELET COUNT 226 X10^3/uL (150.0-450.0); RED BLOOD COUNT 3.59 X10^6/uL (4.7-6.0); RED CELL DISTRIBUTION WIDTH 15.8 % (11.6-16.5); WHITE BLOOD COUNT 8.2 X10^3/uL (3.6-10.0)
[2023-11-11 06:40] LABS: ALANINE AMINOTRANSFERASE 16 Units/L (12-78); ALBUMIN 1.9 g/dL (3.4-5.0); ALKALINE PHOSPHATASE 107 Units/L (46-116); ASPARTATE AMINO TRANSFERASE 24 Units/L (15-37); BLOOD UREA NITROGEN 12 mg/dL (7-18); CALCIUM 7.8 mg/dL (8.5-10.1); CARBON DIOXIDE 27.2 mmol/L (21-32); CHLORIDE 109 mmol/L (98-107); COR CA(FOR HYPOALB) 9.5 mg/dL (8.5-10.1); CREATININE 0.58 mg/dL (0.70-1.30); GLUCOSE 72 mg/dL (65-99); POTASSIUM 3.5 mmol/L (3.5-5.1); SODIUM 143 mmol/L (136-145); TOTAL PROTEIN 4.9 g/dL (6.4-8.2); eGFR NON BLACK RACES > 60 (>60)
[2023-11-11] MEDS ORDERED: KETAMINE HCL ONE (09:25)
[2023-11-11] MEDS: NS 1,000 ML IV 1,000 ML ONE (10:08)
[2023-11-11] MEDS: DIPRIVAN VIAL 20 ML ONE (10:09)
--- NOTE | 2023-11-11 11:11 | RAD ---
EXAM:CHEST, 1 VIEWHISTORY:CHEST TUBE PLACEMENT;COMPARISON:11/11/2023FINDINGS: The trachea is midline. The cardiac silhouette is enlarged with a tortuous thoracic aorta. Chronic interstitial lung changes throughout the right and left hemithorax are again observed with scattered airspace disease in the left lower lobe that maybe on the basis of subsegmental atelectasis. Interval placement of right-sided chest tube is noted with proximally 10% pneumothorax observed. Resolution of associated pleural fluid is noted.. The bony thorax is unremarkable.IMPRESSION:Near complete resolution of right sided pleural effusion. However, residual pneumothorax with placement of a large-bore chest tube is noted at approximately 10%.THIS IS AN ELECTRONICALLY VERIFIED FINAL REPORT11/11/2023 11:08 AM - Electronically signed by Rey Phillips MD
--- NOTE | 2023-11-11 11:45 | PCM.PROG ---
Progress Note Progress Note for Day of Date of Exam: 11/11/23 Subjective Subjective: Patient resting in bed this morning. He remains on 4-5L NC. He denies any respiratory distress. CXR continues to show no change in moderate large right sided pleural effusion. General surgery- Dr Pineda has also been consulted. Labs/imaging reviewed - WBC 8.2, hemoglobin 10.9, platelets 226, sodium 143, potassium 3.5, creatinine 0.58, glucose 72. Plan: Continue Rocephin, wean O2 as tolerated. Pt continues to have right pleural effusion which was negative for malignancy in the past. Dr Pineda discussed with patient's family regarding chest tube placement including risks associated with this procedure. Plan for chest tube placement today. Otherwise, continue current care at this time. Monitor AM labs/imaging. Past Medical Family Social History Allergies: Allergies No Known Drug Allergies Allergy (Unknown, Verified 09/12/23 19:44) Onset Date: 06/23/2022 Review of Systems ROS changes noted: see HPI Vital Signs and I&O's Vital Signs: Vital Signs Temperature 98.4 F Temperature 98.2 F Pulse Rate [Left Brachial] 77 Pulse Rate [Left Brachial] 84 Respiratory Rate 20 Respiratory Rate 22 Blood Pressure [Left Arm] 120/66 Blood Pressure [Left Arm] 104/60 O2 Sat by Pulse Oximetry 97 O2 Sat by Pulse Oximetry 97 Intake and Output: Intake & Output 11/08/23 11/09/23 11/10/23 11/11/23 23:59 23:59 23:59 23:59 Intake Total 291 / 291 1176 / 1176 1176 / 1176 526 / 526 Output Total 200 / 200 625 / 625 300 / 300 220 / 220 Balance 91 / 91 551 / 551 876 / 876 306 / 306 Physical Exam Oriented: Normal Ear: Normal Throat: Normal Respiratory: OTHER (Diminished breath sounds on the right) Cardiovascular: Normal Auscultation: Bowel Sounds: Normal Tenderness: Normal Skin: Normal Musculoskeletal: Normal Psychiatric: Normal Mood Description: Calm Affect: Normal Speech Pattern: Clear and Appropriate Laboratory and Diagnostics 11/11/23 05:02 11/11/23 05:02 Labs: Laboratory WBC 8.2 X10^3/uL (3.6-10.0) 11/11/23 05:02 RBC 3.59 X10^6/uL (4.7-6.0) L 11/11/23 05:02 Hgb 10.9 g/dL (13.5-18.0) L 11/11/23 05:02 Hct 32.9 % (42.0-54.0) L 11/11/23 05:02 MCV 91.6 fL (80.0-100.0) 11/11/23 05:02 MCH 30.4 pg (27.0-34.0) 11/11/23 05:02 MCHC 33.1 g/dL (33.0-35.0) 11/11/23 05:02 RDW 15.8 % (11.6-16.5) 11/11/23 05:02 Plt Count 226 X10^3/uL (150.0-450.0) 11/11/23 05:02 MPV 7.3 fL (7.4-11.0) L 11/11/23 05:02 Neut % (Auto) 63.1 % (42.0-75.0) 11/11/23 05:02 Lymph % (Auto) 17.4 % (21.0-51.0) L 11/11/23 05:02 [place] % (Auto) 17.4 % (0.0-13.0) H 11/11/23 05:02 Eos % (Auto) 1.9 % (0.9-2.9) 11/11/23 05:02 Baso % (Auto) 0.2 % (0.2-1.0) 11/11/23 05:02 Neut # (Auto) 5.2 x10^3/uL (2.2-4.8) H 11/11/23 05:02 Lymph # (Auto) 1.4 X10^3/uL (1.3-2.9) 11/11/23 05:02 [place] # (Auto) 1.4 x10^3/uL (0.3-0.8) H 11/11/23 05:02 Eos # (Auto) 0.2 x10^3/uL (0.0-0.2) 11/11/23 05:02 Baso # (Auto) 0.0 X10^3/uL (0.0-0.1) 11/11/23 05:02 Absolute Nucleated RBC 0.1 /100WBC 11/11/23 05:02 Sodium 143 mmol/L (136-145) 11/11/23 05:02 Corrected Sodium TNP 11/11/23 05:02 Potassium 3.5 mmol/L (3.5-5.1) 11/11/23 05:02 Chloride 109 mmol/L (98-107) H 11/11/23 05:02 Carbon Dioxide 27.2 mmol/L (21-32) 11/11/23 05:02 BUN 12 mg/dL (7-18) 11/11/23 05:02 Creatinine 0.58 mg/dL (0.70-1.30) L 11/11/23 05:02 Est GFR (MDRD) Af Amer > 60 (>60) 11/11/23 05:02 Est GFR (MDRD) Non-Af > 60 (>60) 11/11/23 05:02 Glucose 72 mg/dL (65-99) 11/11/23 05:02 Calcium 7.8 mg/dL (8.5-10.1) L 11/11/23 05:02 Corrected Calcium 9.5 mg/dL (8.5-10.1) 11/11/23 05:02 Magnesium 2.0 mg/dL (2.0-2.9) 11/11/23 05:02 Total Bilirubin 0.40 mg/dL (0.2-1.0) 11/11/23 05:02 AST 24 Units/L (15-37) 11/11/23 05:02 ALT 16 Units/L (12-78) 11/11/23 05:02 Alkaline Phosphatase 107 Units/L (46-116) 11/11/23 05:02 B-Natriuretic Peptide 166 pg/mL (0-79) H 11/08/23 13:53 Total Protein 4.9 g/dL (6.4-8.2) L 11/11/23 05:02 Albumin 1.9 g/dL (3.4-5.0) L 11/11/23 05:02 Globulin 3.0 g/dL (2.5-4.5) 11/11/23 05:02 Albumin/Globulin Ratio 0.6 Ratio (1.1-2.1) L 11/11/23 05:02 Specimen Type Random urine 11/08/23 21:30 Urine Color Yellow (YELLOW) 11/08/23 21:30 Urine Appearance Hazy (CLEAR) 11/08/23 21:30 Urine pH 7.0 (5.0 - 8.0) 11/08/23 21:30 Ur Specific [place] 1.015 (1.000-1.030) 11/08/23 21:30 Urine Protein Negative (NEGATIVE) 11/08/23 21:30 Urine Glucose (UA) Negative (NEGATIVE) 11/08/23 21: Urine Ketones 3+ (NEGATIVE) 11/08/23 21:30 Urine Blood Negative (NEGATIVE) 11/08/23 21:30 Urine Nitrite Negative (NEGATIVE) 11/08/23 21: Urine Bilirubin Negative (NEGATIVE) 11/08/23 21: Urine Urobilinogen Normal (NORMAL) 11/08/23 21:30 Ur Leukocyte Esterase 1+ (NEGATIVE) 11/08/23 21:30 Urine RBC 0-2 /HPF (0-3) 11/08/23 21:30 Urine WBC 3-5 /HPF (0-5) 11/08/23 21:30 Ur Squamous Epith Cells Rare /HPF (NEGATIVE) 11/08/23 21:30 Amorphous Sediment 2+ /HPF (NEGATIVE) 11/08/23 21:30 Urine Bacteria Trace /HPF (NEGATIVE) 11/08/23 21:30 Ur Culture Indicated? No/not indicated 11/08/23 21:30 Plan (1) Hypoxia: Status: Acute (2) Pleural effusion: Status: Acute (3) Pneumonia: Status: Acute Qualifiers: Laterality: unspecified laterality Lung location: unspecified part of lung Pneumonia type: due to unspecified organism Qualified Code(s): J18.9 - Pneumonia, unspecified organism (4) Hypomagnesemia: Status: Acute (5) Atrial fibrillation: Status: Acute Qualifiers: Atrial fibrillation type: unspecified Qualified Code(s): I48.91 - Unspecified atrial fibrillation (6) Severe chronic obstructive pulmonary disease: Status: Acute
[2023-11-11] MEDS: LOVENOX INJ 40 MG SYR SC SCH (15:14)
[2023-11-12 06:19] LABS: BASOPHILS # (AUTO) 0.1 X10^3/uL (0.0-0.1); BASOPHILS % (AUTO) 0.4 % (0.2-1.0); EOSINOPHILS # (AUTO) 0.3 x10^3/uL (0.0-0.2); EOSINOPHILS % (AUTO) 2.3 % (0.9-2.9); HEMATOCRIT 35.3 % (42.0-54.0); HEMOGLOBIN 11.6 g/dL (13.5-18.0); LYMPHOCYTES # (AUTO) 1.3 X10^3/uL (1.3-2.9); LYMPHOCYTES % (AUTO) 11.8 % (21.0-51.0); MEAN CORPUSCULAR HEMOGLOBIN 29.7 pg (27.0-34.0); MEAN CORPUSCULAR HGB CONC 32.8 g/dL (33.0-35.0); MEAN CORPUSCULAR VOLUME 90.5 fL (80.0-100.0); MEAN PLATELET VOLUME 7.5 fL (7.4-11.0); MONOCYTES # (AUTO) 1.7 x10^3/uL (0.3-0.8); MONOCYTES % (AUTO) 14.7 % (0.0-13.0); NEUTROPHILS % (AUTO) 70.8 % (42.0-75.0); PLATELET COUNT 237 X10^3/uL (150.0-450.0); WHITE BLOOD COUNT 11.3 X10^3/uL (3.6-10.0)
[2023-11-12 06:33] LABS: ALANINE AMINOTRANSFERASE 22 Units/L (12-78); ALBUMIN 1.8 g/dL (3.4-5.0); ALKALINE PHOSPHATASE 130 Units/L (46-116); ASPARTATE AMINO TRANSFERASE 39 Units/L (15-37); BLOOD UREA NITROGEN 15 mg/dL (7-18); CALCIUM 7.5 mg/dL (8.5-10.1); CARBON DIOXIDE 27.4 mmol/L (21-32); CHLORIDE 109 mmol/L (98-107); COR CA(FOR HYPOALB) 9.3 mg/dL (8.5-10.1); GLUCOSE 82 mg/dL (65-99); POTASSIUM 3.6 mmol/L (3.5-5.1); SODIUM 142 mmol/L (136-145); TOTAL PROTEIN 4.8 g/dL (6.4-8.2); eGFR NON BLACK RACES > 60 (>60)
[2023-11-12] MEDS ORDERED: CONSULT PHARMACY - POTASSIUM & MAGNESIUM XX SCH (08:00)
[2023-11-12] MEDS: K-DUR TAB 20 MEQ PO NR (09:06)
--- NOTE | 2023-11-12 11:40 | RAD ---
EXAM: CHEST, 1 VIEW HISTORY: sob; sob, ple effusion, hypoxia COMPARISON: 11/11/2019 FINDINGS: The trachea is midline. The cardiac silhouette is enlarged with a tortuous thoracic aorta. Persiste nt airspace disease of the left lower lobe is observed but stable. Right-sided chest tube remains pr esent with resolution of right-sided pneumothorax but re-accumulation of pleural fluid.. The bony th orax is unremarkable. IMPRESSION: Right-sided pleural fluid with a right-sided chest tube stable in position. Subcutaneous air within the right chest is observed. Focal airspace opacity left lower lobe for which developing bronchopneumonia can not be excluded. THIS IS AN ELECTRONICALLY VERIFIED FINAL REPORT 11/12/2023 11:37 AM - Electronically signed by Rey Phillips MD
[2023-11-12] MEDS: FLONASE NASAL SPRAY ENOSTRIL SCH (13:19)
[2023-11-12] MEDS: NORCO 5/325 MG TAB PO PRN (20:56)
[2023-11-13 06:32] LABS: BASOPHILS % (AUTO) 0.2 % (0.2-1.0); EOSINOPHILS # (AUTO) 0.5 x10^3/uL (0.0-0.2); EOSINOPHILS % (AUTO) 4.7 % (0.9-2.9); HEMATOCRIT 33.8 % (42.0-54.0); HEMOGLOBIN 11.2 g/dL (13.5-18.0); LYMPHOCYTES # (AUTO) 1.3 X10^3/uL (1.3-2.9); LYMPHOCYTES % (AUTO) 12.8 % (21.0-51.0); MEAN CORPUSCULAR HEMOGLOBIN 30.2 pg (27.0-34.0); MEAN CORPUSCULAR HGB CONC 33.3 g/dL (33.0-35.0); MEAN CORPUSCULAR VOLUME 90.8 fL (80.0-100.0); MEAN PLATELET VOLUME 7.5 fL (7.4-11.0); MONOCYTES # (AUTO) 1.2 x10^3/uL (0.3-0.8); MONOCYTES % (AUTO) 11.9 % (0.0-13.0); NEUTROPHILS # (AUTO) 7.3 x10^3/uL (2.2-4.8); NEUTROPHILS % (AUTO) 70.4 % (42.0-75.0); PLATELET COUNT 213 X10^3/uL (150.0-450.0); RED BLOOD COUNT 3.72 X10^6/uL (4.7-6.0); RED CELL DISTRIBUTION WIDTH 15.8 % (11.6-16.5); WHITE BLOOD COUNT 10.4 X10^3/uL (3.6-10.0)
[2023-11-13 06:48] LABS: ALANINE AMINOTRANSFERASE 17 Units/L (12-78); ALBUMIN 1.6 g/dL (3.4-5.0); ALKALINE PHOSPHATASE 115 Units/L (46-116); ASPARTATE AMINO TRANSFERASE 22 Units/L (15-37); BLOOD UREA NITROGEN 17 mg/dL (7-18); CALCIUM 7.6 mg/dL (8.5-10.1); CARBON DIOXIDE 25.9 mmol/L (21-32); CHLORIDE 109 mmol/L (98-107); COR CA(FOR HYPOALB) 9.5 mg/dL (8.5-10.1); CREATININE 0.64 mg/dL (0.70-1.30); GLUCOSE 67 mg/dL (65-99); POTASSIUM 4.2 mmol/L (3.5-5.1); SODIUM 140 mmol/L (136-145); TOTAL PROTEIN 4.6 g/dL (6.4-8.2); eGFR NON BLACK RACES > 60 (>60)
[2023-11-13] MEDS ORDERED: CONSULT PHARMACY - POTASSIUM & MAGNESIUM XX SCH (08:00)
--- NOTE | 2023-11-13 08:10 | RAD ---
EXAM: AP chest HISTORY: Short of breath pleural effusion chest tube COMPARISON: 11/12/2023 FINDINGS: Heart size is similar. There is no change in extent or distribution of bilateral infiltrates/atelec tasis and right pleural fluid. Right basal chest tube is unchanged and there is no definite pneumoth orax. IMPRESSION: No change or new abnormality since 1 day earlier. THIS IS AN ELECTRONICALLY VERIFIED FINAL REPORT 11/13/2023 8:07 AM - Electronically signed by Kenney Dejesus MD
[2023-11-13] MEDS: MAG-OX TAB PO SCH (08:16)
--- NOTE | 2023-11-13 08:26 | DR.PROGNOT ---
HOSPITAL PROGRESS NOTE Progress Note for Day of: Progress Note Date: 11/13/23 Chief Complaint Chief Complaint: Patient was seen today, he seems to be stable with no new complaint. Mild shortness of breath. With PaO2 above 94 on nasal cannula. Alert but confused to time and place. Repeated chest x-ray showed resolved right pleural effusion. Still having significant drainage with 200 cc over the past 12 hours. Afebrile and stable vital signs. Past Medical Family Social History Allergies: Allergies No Known Drug Allergies Allergy (Unknown, Verified 09/12/23 19:44) Onset Date: 06/23/2022 Review Of Systems ROS: No change since H&P Changes in ROS: see HPI Vital Signs Vital Signs: Vital Signs Temperature 98 F Temperature 97.6 F Pulse Rate [Left Brachial] 79 Pulse Rate [Left Brachial] 82 Respiratory Rate 18 Respiratory Rate 20 Respiratory Rate 21 Respiratory Rate 19 Blood Pressure [Left Arm] 118/57 Blood Pressure [Left Arm] 110/57 O2 Sat by Pulse Oximetry 99 O2 Sat by Pulse Oximetry 95 Physical Exam Oriented: Normal Ear: Normal Throat: Normal Respiratory: OTHER (Clear lung camara on the right side with diminished breath sounds on the base of left side.) Cardiovascular: Normal GI:Auscultation: Normal GI:Palpation: Normal GI: Tenderness: Normal Skin: Normal Musculoskeletal: Normal Psychiatric: Normal Mood Description: Calm Affect: Normal Speech Pattern: Clear and Appropriate Laboratory and Diagnostics 11/13/23 05:43 11/13/23 05:43 Labs: Laboratory WBC 10.4 X10^3/uL (3.6-10.0) H 11/13/23 05:43 RBC 3.72 X10^6/uL (4.7-6.0) L 11/13/23 05:43 Hgb 11.2 g/dL (13.5-18.0) L 11/13/23 05:43 Hct 33.8 % (42.0-54.0) L 11/13/23 05:43 MCV 90.8 fL (80.0-100.0) 11/13/23 05:43 MCH 30.2 pg (27.0-34.0) 11/13/23 05:43 MCHC 33.3 g/dL (33.0-35.0) 11/13/23 05:43 RDW 15.8 % (11.6-16.5) 11/13/23 05:43 Plt Count 213 X10^3/uL (150.0-450.0) 11/13/23 05:43 MPV 7.5 fL (7.4-11.0) 11/13/23 05:43 Neut % (Auto) 70.4 % (42.0-75.0) 11/13/23 05:43 Lymph % (Auto) 12.8 % (21.0-51.0) L 11/13/23 05:43 [place] % (Auto) 11.9 % (0.0-13.0) 11/13/23 05:43 Eos % (Auto) 4.7 % (0.9-2.9) H 11/13/23 05:43 Baso % (Auto) 0.2 % (0.2-1.0) 11/13/23 05:43 Neut # (Auto) 7.3 x10^3/uL (2.2-4.8) H 11/13/23 05:43 Lymph # (Auto) 1.3 X10^3/uL (1.3-2.9) 11/13/23 05:43 [place] # (Auto) 1.2 x10^3/uL (0.3-0.8) H 11/13/23 05:43 Eos # (Auto) 0.5 x10^3/uL (0.0-0.2) H 11/13/23 05:43 Baso # (Auto) 0.0 X10^3/uL (0.0-0.1) 11/13/23 05:43 Absolute Nucleated RBC 0.0 /100WBC 11/13/23 05:43 Sodium 140 mmol/L (136-145) 11/13/23 05:43 Corrected Sodium TNP 11/13/23 05:43 Potassium 4.2 mmol/L (3.5-5.1) 11/13/23 05:43 Chloride 109 mmol/L (98-107) H 11/13/23 05:43 Carbon Dioxide 25.9 mmol/L (21-32) 11/13/23 05:43 BUN 17 mg/dL (7-18) 11/13/23 05:43 Creatinine 0.64 mg/dL (0.70-1.30) L 11/13/23 05:43 Est GFR (MDRD) Af Amer > 60 (>60) 11/13/23 05:43 Est GFR (MDRD) Non-Af > 60 (>60) 11/13/23 05:43 Glucose 67 mg/dL (65-99) 11/13/23 05:43 Calcium 7.6 mg/dL (8.5-10.1) L 11/13/23 05:43 Corrected Calcium 9.5 mg/dL (8.5-10.1) 11/13/23 05:43 Magnesium 1.8 mg/dL (2.0-2.9) L 11/13/23 05:43 Total Bilirubin 0.20 mg/dL (0.2-1.0) 11/13/23 05:43 AST 22 Units/L (15-37) 11/13/23 05:43 ALT 17 Units/L (12-78) 11/13/23 05:43 Alkaline Phosphatase 115 Units/L (46-116) 11/13/23 05:43 B-Natriuretic Peptide 166 pg/mL (0-79) H 11/08/23 13:53 Total Protein 4.6 g/dL (6.4-8.2) L 11/13/23 05:43 Albumin 1.6 g/dL (3.4-5.0) L 11/13/23 05:43 Globulin 3.0 g/dL (2.5-4.5) 11/13/23 05:43 Albumin/Globulin Ratio 0.5 Ratio (1.1-2.1) L 11/13/23 05:43 Specimen Type Random urine 11/08/23 21:30 Urine Color Yellow (YELLOW) 11/08/23 21:30 Urine Appearance Hazy (CLEAR) 11/08/23 21:30 Urine pH 7.0 (5.0 - 8.0) 11/08/23 21:30 Ur Specific [place] 1.015 (1.000-1.030) 11/08/23 21:30 Urine Protein Negative (NEGATIVE) 11/08/23 21:30 Urine Glucose (UA) Negative (NEGATIVE) 11/08/23 21:30 Urine Ketones 3+ (NEGATIVE) 11/08/23 21:30 Urine Blood Negative (NEGATIVE) 11/08/23 21:30 Urine Nitrite Negative (NEGATIVE) 11/08/23 21:30 Urine Bilirubin Negative (NEGATIVE) 11/08/23 21:30 Urine Urobilinogen Normal (NORMAL) 11/08/23 21:30 Ur Leukocyte Esterase 1+ (NEGATIVE) 11/08/23 21:30 Urine RBC 0-2 /HPF (0-3) 11/08/23 21:30 Urine WBC 3-5 /HPF (0-5) 11/08/23 21:30 Ur Squamous Epith Cells Rare /HPF (NEGATIVE) 11/08/23 21:30 Amorphous Sediment 2+ /HPF (NEGATIVE) 11/08/23 21:30 Urine Bacteria Trace /HPF (NEGATIVE) 11/08/23 21:30 Ur Culture Indicated? No/not indicated 11/08/23 21:30 Assessment and Plan 1: Recurrent right pleural effusion and underlying atelectasis. Status post placement of chest tube right side ..i Will keep the chest tube as long as there is significant drainage then will try pleurodesis 2: small Rt side pleural effusion . same medical management . Problem Patient Problems: Patient Problems (Updated 11/09/23 @ 09:30 by Sameera Ley) Hypoxia (Acute) R09.02 Hypotension (Acute) I95.9 Pleural effusion (Acute) J90
--- NOTE | 2023-11-13 10:41 | DR.PROGNOT ---
HOSPITAL PROGRESS NOTE Progress Note for Day of: Progress Note Date: 11/13/23 Chief Complaint Chief Complaint: Patient was seen today, he seems to be stable with no new complaint. Mild shortness of breath. With PaO2 above 94 on nasal cannula. Alert but confused to time and place. Repeated chest x-ray showed resolved right pleural effusion. Still having significant drainage with 200 cc over the past 12 hours. Afebrile and stable vital signs. History of Present Illness History of Present Illness: Being treated for R pleural effusion, s/p chest tube. Doing better, less pain of tube this am. Increased his PO pain medicine yesterday. No fever, chills. CXR this am with worsening bilateral infiltrates. On Rocephin, will change to IV zosyn q8H. Past Medical Family Social History Allergies: Allergies No Known Drug Allergies Allergy (Unknown, Verified 09/12/23 19:44) Onset Date: 06/23/2022 Review Of Systems ROS: No change since H&P Changes in ROS: see HPI Vital Signs Vital Signs: Vital Signs Temperature 98 F Temperature 97.6 F Pulse Rate [Left Brachial] 79 Pulse Rate [Left Brachial] 82 Respiratory Rate 18 Respiratory Rate 20 Respiratory Rate 21 Respiratory Rate 19 Blood Pressure [Left Arm] 118/57 Blood Pressure [Left Arm] 110/57 O2 Sat by Pulse Oximetry 99 O2 Sat by Pulse Oximetry 95 Physical Exam Oriented: Normal Ear: Normal Throat: Normal Respiratory: Normal (clear auscultation) Cardiovascular: Normal GI:Auscultation: Normal GI:Palpation: Normal GI: Tenderness: Normal Skin: Normal Musculoskeletal: Normal Psychiatric: Normal Mood Description: Calm Affect: Normal Speech Pattern: Clear and Appropriate Laboratory and Diagnostics 11/13/23 05:43 11/13/23 05:43 Labs: Laboratory WBC 10.4 X10^3/uL (3.6-10.0) H 11/13/23 05:43 RBC 3.72 X10^6/uL (4.7-6.0) L 11/13/23 05:43 Hgb 11.2 g/dL (13.5-18.0) L 11/13/23 05:43 Hct 33.8 % (42.0-54.0) L 11/13/23 05:43 MCV 90.8 fL (80.0-100.0) 11/13/23 05:43 MCH 30.2 pg (27.0-34.0) 11/13/23 05:43 MCHC 33.3 g/dL (33.0-35.0) 11/13/23 05:43 RDW 15.8 % (11.6-16.5) 11/13/23 05:43 Plt Count 213 X10^3/uL (150.0-450.0) 11/13/23 05:43 MPV 7.5 fL (7.4-11.0) 11/13/23 05:43 Neut % (Auto) 70.4 % (42.0-75.0) 11/13/23 05:43 Lymph % (Auto) 12.8 % (21.0-51.0) L 11/13/23 05:43 [place] % (Auto) 11.9 % (0.0-13.0) 11/13/23 05:43 Eos % (Auto) 4.7 % (0.9-2.9) H 11/13/23 05:43 Baso % (Auto) 0.2 % (0.2-1.0) 11/13/23 05:43 Neut # (Auto) 7.3 x10^3/uL (2.2-4.8) H 11/13/23 05:43 Lymph # (Auto) 1.3 X10^3/uL (1.3-2.9) 11/13/23 05:43 [place] # (Auto) 1.2 x10^3/uL (0.3-0.8) H 11/13/23 05:43 Eos # (Auto) 0.5 x10^3/uL (0.0-0.2) H 11/13/23 05:43 Baso # (Auto) 0.0 X10^3/uL (0.0-0.1) 11/13/23 05:43 Absolute Nucleated RBC 0.0 /100WBC 11/13/23 05:43 Sodium 140 mmol/L (136-145) 11/13/23 05:43 Corrected Sodium TNP 11/13/23 05:43 Potassium 4.2 mmol/L (3.5-5.1) 11/13/23 05:43 Chloride 109 mmol/L (98-107) H 11/13/23 05:43 Carbon Dioxide 25.9 mmol/L (21-32) 11/13/23 05:43 BUN 17 mg/dL (7-18) 11/13/23 05:43 Creatinine 0.64 mg/dL (0.70-1.30) L 11/13/23 05:43 Est GFR (MDRD) Af Amer > 60 (>60) 11/13/23 05:43 Est GFR (MDRD) Non-Af > 60 (>60) 11/13/23 05:43 Glucose 67 mg/dL (65-99) 11/13/23 05:43 Calcium 7.6 mg/dL (8.5-10.1) L 11/13/23 05:43 Corrected Calcium 9.5 mg/dL (8.5-10.1) 11/13/23 05:43 Magnesium 1.8 mg/dL (2.0-2.9) L 11/13/23 05:43 Total Bilirubin 0.20 mg/dL (0.2-1.0) 11/13/23 05:43 AST 22 Units/L (15-37) 11/13/23 05:43 ALT 17 Units/L (12-78) 11/13/23 05:43 Alkaline Phosphatase 115 Units/L (46-116) 11/13/23 05:43 B-Natriuretic Peptide 166 pg/mL (0-79) H 11/08/23 13:53 Total Protein 4.6 g/dL (6.4-8.2) L 11/13/23 05:43 Albumin 1.6 g/dL (3.4-5.0) L 11/13/23 05:43 Globulin 3.0 g/dL (2.5-4.5) 11/13/23 05:43 Albumin/Globulin Ratio 0.5 Ratio (1.1-2.1) L 11/13/23 05:43 Specimen Type Random urine 11/08/23 21:30 Urine Color Yellow (YELLOW) 11/08/23 21:30 Urine Appearance Hazy (CLEAR) 11/08/23 21:30 Urine pH 7.0 (5.0 - 8.0) 11/08/23 21:30 Ur Specific [place] 1.015 (1.000-1.030) 11/08/23 21:30 Urine Protein Negative (NEGATIVE) 11/08/23 21:30 Urine Glucose (UA) Negative (NEGATIVE) 11/08/23 21: Urine Ketones 3+ (NEGATIVE) 11/08/23 21: Urine Blood Negative (NEGATIVE) 11/08/23 21: Urine Nitrite Negative (NEGATIVE) 11/08/23 21: Urine Bilirubin Negative (NEGATIVE) 11/08/23 21:30 Urine Urobilinogen Normal (NORMAL) 11/08/23 21:30 Ur Leukocyte Esterase 1+ (NEGATIVE) 11/08/23 21: Urine RBC 0-2 /HPF (0-3) 11/08/23 21:30 Urine WBC 3-5 /HPF (0-5) 11/08/23 21: Ur Squamous Epith Cells Rare /HPF (NEGATIVE) 11/08/23 21: Amorphous Sediment 2+ /HPF (NEGATIVE) 11/08/23 21: Urine Bacteria Trace /HPF (NEGATIVE) 11/08/23 21: Ur Culture Indicated? No/not indicated 11/08/23 21:30 Assessment and Plan 1: Recurrent right pleural effusion and underlying atelectasis. Status post placement of chest tube right side ..i Will keep the chest tube as long as there is significant drainage then will try pleurodesis 2: small Rt side pleural effusion . same medical management . 3: Increasing bilateral infiltrates - will change from IV Rocephin to IV Zosyn. Problem Patient Problems: Patient Problems (Updated 11/09/23 @ 09:30 by Sameera Ley) Hypoxia (Acute) R09.02 Hypotension (Acute) I95.9 Pleural effusion (Acute) J90
[2023-11-13] MEDS: ZOSYN VIAL 3.375 GRAMS 3.375 G in NS 100 ML IV 100 ML IV SCH (11:56)
--- NOTE | 2023-11-13 19:17 | EKG ---
Test Reason : Tachycardia Blood Pressure : */* mmHG Vent. Rate : 137 BPM Atrial Rate : 241 BPM P-R Int : * ms QRS Dur : 72 ms QT Int : 320 ms P-R-T Axes : * 33 -74 degrees QTc Int : 483 ms Atrial flutter with variable AV block Low voltage QRS Nonspecific ST and T wave abnormality Abnormal ECG When compared with ECG of 08-NOV-2023 19:10, aflutter is new Confirmed by Bryan Ramirez MD ([id number]) on 11/14/2023 8:22:28 AM Referred By: Confirmed By: Bryan Ramirez MD
[2023-11-14 05:49] LABS: BASOPHILS # (AUTO) 0.1 X10^3/uL (0.0-0.1); BASOPHILS % (AUTO) 1.1 % (0.2-1.0); EOSINOPHILS # (AUTO) 0.5 x10^3/uL (0.0-0.2); EOSINOPHILS % (AUTO) 4.1 % (0.9-2.9); HEMOGLOBIN 11.6 g/dL (13.5-18.0); LYMPHOCYTES # (AUTO) 1.4 X10^3/uL (1.3-2.9); LYMPHOCYTES % (AUTO) 10.5 % (21.0-51.0); MEAN CORPUSCULAR HEMOGLOBIN 29.7 pg (27.0-34.0); MEAN CORPUSCULAR HGB CONC 33.1 g/dL (33.0-35.0); MEAN PLATELET VOLUME 7.4 fL (7.4-11.0); MONOCYTES # (AUTO) 1.3 x10^3/uL (0.3-0.8); MONOCYTES % (AUTO) 9.8 % (0.0-13.0); NEUTROPHILS % (AUTO) 74.5 % (42.0-75.0); PLATELET COUNT 224 X10^3/uL (150.0-450.0); RED BLOOD COUNT 3.89 X10^6/uL (4.7-6.0); RED CELL DISTRIBUTION WIDTH 16.1 % (11.6-16.5); WHITE BLOOD COUNT 13.5 X10^3/uL (3.6-10.0)
[2023-11-14 06:02] LABS: ALANINE AMINOTRANSFERASE 15 Units/L (12-78); ALBUMIN 1.6 g/dL (3.4-5.0); ALKALINE PHOSPHATASE 113 Units/L (46-116); ASPARTATE AMINO TRANSFERASE 20 Units/L (15-37); BLOOD UREA NITROGEN 16 mg/dL (7-18); CALCIUM 7.4 mg/dL (8.5-10.1); CARBON DIOXIDE 25.8 mmol/L (21-32); CHLORIDE 108 mmol/L (98-107); COR CA(FOR HYPOALB) 9.3 mg/dL (8.5-10.1); CREATININE 0.51 mg/dL (0.70-1.30); GLUCOSE 73 mg/dL (65-99); SODIUM 142 mmol/L (136-145); TOTAL PROTEIN 4.7 g/dL (6.4-8.2); eGFR NON BLACK RACES > 60 (>60)
[2023-11-14] MEDS ORDERED: CONSULT PHARMACY - POTASSIUM & MAGNESIUM XX SCH (07:00)
[2023-11-14] MEDS: MAG-OX TAB PO SCH (08:31)
--- NOTE | 2023-11-14 09:33 | DR.PROGNOT ---
HOSPITAL PROGRESS NOTE Progress Note for Day of: Progress Note Date: 11/14/23 Chief Complaint Chief Complaint: Patient was seen today, he seems to be stable with no new complaint. Mild shortness of breath. With PaO2 above 94 on nasal cannula. Alert but confused to time and place. Repeated chest x-ray showed resolved right pleural effusion. Still having significant drainage with 200 cc over the past 12 hours. Afebrile and stable vital signs. History of Present Illness History of Present Illness: Being treated for R pleural effusion, s/p chest tube. Doing better, less pain of tube this am. Had a rough night last pm, + pain of tube with moving. No fever, chills. No BM past few days, will add Miralax daily. Past Medical Family Social History Allergies: Allergies No Known Drug Allergies Allergy (Unknown, Verified 09/12/23 19:44) Onset Date: 06/23/2022 Review Of Systems ROS: No change since H&P Changes in ROS: see HPI Vital Signs Vital Signs: Vital Signs Temperature 97.8 F Temperature 98.0 F Pulse Rate [Left Brachial] 84 Pulse Rate [Left Brachial] 85 Pulse Rate 89 Respiratory Rate 21 Respiratory Rate 20 Respiratory Rate 20 Respiratory Rate 21 Respiratory Rate 21 Blood Pressure [Left Arm] 97/63 Blood Pressure [Left Arm] 113/79 O2 Sat by Pulse Oximetry 95 O2 Sat by Pulse Oximetry 97 O2 Sat by Pulse Oximetry 93 Physical Exam Oriented: Normal Ear: Normal Throat: Normal Respiratory: Normal (clear auscultation) Cardiovascular: Normal GI:Auscultation: Normal GI:Palpation: Normal GI: Tenderness: Normal Skin: Normal Musculoskeletal: Normal Psychiatric: Normal Mood Description: Calm Affect: Normal Speech Pattern: Clear and Appropriate Laboratory and Diagnostics 11/14/23 05:33 11/14/23 05:33 Labs: Laboratory WBC 13.5 X10^3/uL (3.6-10.0) H 11/14/23 05:33 RBC 3.89 X10^6/uL (4.7-6.0) L 11/14/23 05:33 Hgb 11.6 g/dL (13.5-18.0) L 11/14/23 05:33 Hct 35.0 % (42.0-54.0) L 11/14/23 05:33 MCV 90.0 fL (80.0-100.0) 11/14/23 05:33 MCH 29.7 pg (27.0-34.0) 11/14/23 05:33 MCHC 33.1 g/dL (33.0-35.0) 11/14/23 05:33 RDW 16.1 % (11.6-16.5) 11/14/23 05:33 Plt Count 224 X10^3/uL (150.0-450.0) 11/14/23 05:33 MPV 7.4 fL (7.4-11.0) 11/14/23 05:33 Neut % (Auto) 74.5 % (42.0-75.0) 11/14/23 05:33 Lymph % (Auto) 10.5 % (21.0-51.0) L 11/14/23 05:33 [place] % (Auto) 9.8 % (0.0-13.0) 11/14/23 05:33 Eos % (Auto) 4.1 % (0.9-2.9) H 11/14/23 05:33 Baso % (Auto) 1.1 % (0.2-1.0) H 11/14/23 05:33 Neut # (Auto) 10.0 x10^3/uL (2.2-4.8) H 11/14/23 05:33 Lymph # (Auto) 1.4 X10^3/uL (1.3-2.9) 11/14/23 05:33 [place] # (Auto) 1.3 x10^3/uL (0.3-0.8) H 11/14/23 05:33 Eos # (Auto) 0.5 x10^3/uL (0.0-0.2) H 11/14/23 05:33 Baso # (Auto) 0.1 X10^3/uL (0.0-0.1) 11/14/23 05:33 Absolute Nucleated RBC 0.2 /100WBC 11/14/23 05:33 Sodium 142 mmol/L (136-145) 11/14/23 05:33 Corrected Sodium TNP 11/14/23 05:33 Potassium 4.0 mmol/L (3.5-5.1) 11/14/23 05:33 Chloride 108 mmol/L (98-107) H 11/14/23 05:33 Carbon Dioxide 25.8 mmol/L (21-32) 11/14/23 05:33 BUN 16 mg/dL (7-18) 11/14/23 05:33 Creatinine 0.51 mg/dL (0.70-1.30) L 11/14/23 05:33 Est GFR (MDRD) Af Amer > 60 (>60) 11/14/23 05:33 Est GFR (MDRD) Non-Af > 60 (>60) 11/14/23 05:33 Glucose 73 mg/dL (65-99) 11/14/23 05:33 Calcium 7.4 mg/dL (8.5-10.1) L 11/14/23 05:33 Corrected Calcium 9.3 mg/dL (8.5-10.1) 11/14/23 05:33 Magnesium 1.6 mg/dL (2.0-2.9) L 11/14/23 05:33 Total Bilirubin 0.40 mg/dL (0.2-1.0) 11/14/23 05:33 AST 20 Units/L (15-37) 11/14/23 05:33 ALT 15 Units/L (12-78) 11/14/23 05:33 Alkaline Phosphatase 113 Units/L (46-116) 11/14/23 05:33 B-Natriuretic Peptide 166 pg/mL (0-79) H 11/08/23 13:53 Total Protein 4.7 g/dL (6.4-8.2) L 11/14/23 05:33 Albumin 1.6 g/dL (3.4-5.0) L 11/14/23 05:33 Globulin 3.1 g/dL (2.5-4.5) 11/14/23 05:33 Albumin/Globulin Ratio 0.5 Ratio (1.1-2.1) L 11/14/23 05:33 Specimen Type Random urine 11/08/23 21:30 Urine Color Yellow (YELLOW) 11/08/23 21:30 Urine Appearance Hazy (CLEAR) 11/08/23 21:30 Urine pH 7.0 (5.0 - 8.0) 11/08/23 21:30 Ur Specific [place] 1.015 (1.000-1.030) 11/08/23 21:30 Urine Protein Negative (NEGATIVE) 11/08/23 21:30 Urine Glucose (UA) Negative (NEGATIVE) 11/08/23 21:30 Urine Ketones 3+ (NEGATIVE) 11/08/23 21: Urine Blood Negative (NEGATIVE) 11/08/23 21:30 Urine Nitrite Negative (NEGATIVE) 11/08/23 21:30 Urine Bilirubin Negative (NEGATIVE) 11/08/23 21:30 Urine Urobilinogen Normal (NORMAL) 11/08/23 21:30 Ur Leukocyte Esterase 1+ (NEGATIVE) 11/08/23 21:30 Urine RBC 0-2 /HPF (0-3) 11/08/23 21: Urine WBC 3-5 /HPF (0-5) 11/08/23 21: Ur Squamous Epith Cells Rare /HPF (NEGATIVE) 11/08/23 21: Amorphous Sediment 2+ /HPF (NEGATIVE) 11/08/23 21:30 Urine Bacteria Trace /HPF (NEGATIVE) 11/08/23 21:30 Ur Culture Indicated? No/not indicated 11/08/23 21:30 Assessment and Plan 1: Recurrent right pleural effusion and underlying atelectasis. Status post placement of chest tube right side ..i Will keep the chest tube as long as there is significant drainage then will try pleurodesis 2: small Rt side pleural effusion . same medical management . 3: Constipation - will add Miralax. Problem Patient Problems: Patient Problems (Updated 11/09/23 @ 09:30 by Sameera Ley) Hypoxia (Acute) R09.02 Hypotension (Acute) I95.9 Pleural effusion (Acute) J90
--- NOTE | 2023-11-14 09:38 | DR.PROGNOT ---
HOSPITAL PROGRESS NOTE Progress Note for Day of: Progress Note Date: 11/14/23 Chief Complaint Chief Complaint: Patient was seen today, he seems to be stable with no new complaint. Mild shortness of breath. With PaO2 above 94 on nasal cannula. Alert but confused to time and place. Repeated chest x-ray showed resolved right pleural effusion. Still having significant drainage with 220 cc over the past 12 hours. Afebrile and stable vital signs. History of Present Illness History of Present Illness: Being treated for R pleural effusion, s/p chest tube. Doing better, less pain of tube this am., + pain of tube with moving. No fever, chills. Past Medical Family Social History Past Med/Fam/Surg Hx: No changes since H&P Allergies: Allergies No Known Drug Allergies Allergy (Unknown, Verified 09/12/23 19:44) Onset Date: 06/23/2022 Review Of Systems ROS: No change since H&P Changes in ROS: see HPI Vital Signs Vital Signs: Vital Signs Temperature 97.8 F Temperature 98.0 F Pulse Rate [Left Brachial] 84 Pulse Rate [Left Brachial] 85 Pulse Rate 89 Respiratory Rate 21 Respiratory Rate 20 Respiratory Rate 20 Respiratory Rate 21 Respiratory Rate 21 Blood Pressure [Left Arm] 97/63 Blood Pressure [Left Arm] 113/79 O2 Sat by Pulse Oximetry 95 O2 Sat by Pulse Oximetry 97 O2 Sat by Pulse Oximetry 93 Physical Exam Oriented: Normal Ear: Normal Throat: Normal Respiratory: Normal (clear auscultation) Cardiovascular: Normal GI:Auscultation: Normal GI:Palpation: Normal GI: Tenderness: Normal Skin: Normal Musculoskeletal: Normal Psychiatric: Normal Mood Description: Calm Affect: Normal Speech Pattern: Clear and Appropriate Laboratory and Diagnostics 11/14/23 05:33 11/14/23 05:33 Labs: Laboratory WBC 13.5 X10^3/uL (3.6-10.0) H 11/14/23 05:33 RBC 3.89 X10^6/uL (4.7-6.0) L 11/14/23 05:33 Hgb 11.6 g/dL (13.5-18.0) L 11/14/23 05:33 Hct 35.0 % (42.0-54.0) L 11/14/23 05:33 MCV 90.0 fL (80.0-100.0) 11/14/23 05:33 MCH 29.7 pg (27.0-34.0) 11/14/23 05:33 MCHC 33.1 g/dL (33.0-35.0) 11/14/23 05:33 RDW 16.1 % (11.6-16.5) 11/14/23 05:33 Plt Count 224 X10^3/uL (150.0-450.0) 11/14/23 05:33 MPV 7.4 fL (7.4-11.0) 11/14/23 05:33 Neut % (Auto) 74.5 % (42.0-75.0) 11/14/23 05:33 Lymph % (Auto) 10.5 % (21.0-51.0) L 11/14/23 05:33 [place] % (Auto) 9.8 % (0.0-13.0) 11/14/23 05:33 Eos % (Auto) 4.1 % (0.9-2.9) H 11/14/23 05:33 Baso % (Auto) 1.1 % (0.2-1.0) H 11/14/23 05:33 Neut # (Auto) 10.0 x10^3/uL (2.2-4.8) H 11/14/23 05:33 Lymph # (Auto) 1.4 X10^3/uL (1.3-2.9) 11/14/23 05:33 [place] # (Auto) 1.3 x10^3/uL (0.3-0.8) H 11/14/23 05:33 Eos # (Auto) 0.5 x10^3/uL (0.0-0.2) H 11/14/23 05:33 Baso # (Auto) 0.1 X10^3/uL (0.0-0.1) 11/14/23 05:33 Absolute Nucleated RBC 0.2 /100WBC 11/14/23 05:33 Sodium 142 mmol/L (136-145) 11/14/23 05:33 Corrected Sodium TNP 11/14/23 05:33 Potassium 4.0 mmol/L (3.5-5.1) 11/14/23 05:33 Chloride 108 mmol/L (98-107) H 11/14/23 05:33 Carbon Dioxide 25.8 mmol/L (21-32) 11/14/23 05:33 BUN 16 mg/dL (7-18) 11/14/23 05:33 Creatinine 0.51 mg/dL (0.70-1.30) L 11/14/23 05:33 Est GFR (MDRD) Af Amer > 60 (>60) 11/14/23 05:33 Est GFR (MDRD) Non-Af > 60 (>60) 11/14/23 05:33 Glucose 73 mg/dL (65-99) 11/14/23 05:33 Calcium 7.4 mg/dL (8.5-10.1) L 11/14/23 05:33 Corrected Calcium 9.3 mg/dL (8.5-10.1) 11/14/23 05:33 Magnesium 1.6 mg/dL (2.0-2.9) L 11/14/23 05:33 Total Bilirubin 0.40 mg/dL (0.2-1.0) 11/14/23 05:33 AST 20 Units/L (15-37) 11/14/23 05:33 ALT 15 Units/L (12-78) 11/14/23 05:33 Alkaline Phosphatase 113 Units/L (46-116) 11/14/23 05:33 B-Natriuretic Peptide 166 pg/mL (0-79) H 11/08/23 13:53 Total Protein 4.7 g/dL (6.4-8.2) L 11/14/23 05:33 Albumin 1.6 g/dL (3.4-5.0) L 11/14/23 05:33 Globulin 3.1 g/dL (2.5-4.5) 11/14/23 05:33 Albumin/Globulin Ratio 0.5 Ratio (1.1-2.1) L 11/14/23 05:33 Specimen Type Random urine 11/08/23 21:30 Urine Color Yellow (YELLOW) 11/08/23 21:30 Urine Appearance Hazy (CLEAR) 11/08/23 21:30 Urine pH 7.0 (5.0 - 8.0) 11/08/23 21:30 Ur Specific [place] 1.015 (1.000-1.030) 11/08/23 21:30 Urine Protein Negative (NEGATIVE) 11/08/23 21:30 Urine Glucose (UA) Negative (NEGATIVE) 11/08/23 21:30 Urine Ketones 3+ (NEGATIVE) 11/08/23 21: Urine Blood Negative (NEGATIVE) 11/08/23 21:30 Urine Nitrite Negative (NEGATIVE) 11/08/23 21:30 Urine Bilirubin Negative (NEGATIVE) 11/08/23 21:30 Urine Urobilinogen Normal (NORMAL) 11/08/23 21:30 Ur Leukocyte Esterase 1+ (NEGATIVE) 11/08/23 21:30 Urine RBC 0-2 /HPF (0-3) 11/08/23 21:30 Urine WBC 3-5 /HPF (0-5) 11/08/23 21:30 Ur Squamous Epith Cells Rare /HPF (NEGATIVE) 11/08/23 21: Amorphous Sediment 2+ /HPF (NEGATIVE) 11/08/23 21:30 Urine Bacteria Trace /HPF (NEGATIVE) 11/08/23 21:30 Ur Culture Indicated? No/not indicated 11/08/23 21:30 Assessment and Plan 1: Recurrent right pleural effusion. pneumonia . Status post placement of chest tube right side ..i Will keep the chest tube as long as there is significant drainage then will try pleurodesis 2: small Rt side pleural effusion . same medical management . 3: Constipation - will add Miralax. Problem Patient Problems: Patient Problems Hypoxia (Acute) R09.02 Hypotension (Acute) I95.9 Pleural effusion (Acute) J90
[2023-11-14] MEDS: MIRALAX POWDER (1 DOSE 17 G) PO SCH (12:31)
[2023-11-14] MEDS: MILK OF MAGNESIA PO SCH (20:26)
[2023-11-14] MEDS: COLACE CAP 100 MG PO SCH (20:27)
--- NOTE | 2023-11-15 05:57 | RAD ---
PROCEDURE: Chest X-ray 1 View.HISTORY: Right chest tube and pleural effusion with hypoxia.TECHNIQUE: AP view.COMPARISON: 11/13/2023.TECHNICAL QUALITY: Satisfactory.FINDINGS:Right chest tube at the right base.Normal-sized heart.Mediastinum and hilar regions show no masses or lymphadenopathy.Normal central vascularity.Bilateral pleural effusions with some atelectasis or consolidation lung bases similar to increased bilaterally. No pneumothorax.No acute bony abnormality.IMPRESSION:1. Continue chest tube right base with no pneumothorax.2. Continued small effusions at the bases with some increased atelectasis or consolidation.THIS IS AN ELECTRONICALLY VERIFIED FINAL REPORT11/15/2023 5:53 AM - Electronically signed by Kenton Porter MD
[2023-11-15 06:14] LABS: BASOPHILS # (AUTO) 0.1 X10^3/uL (0.0-0.1); BASOPHILS % (AUTO) 0.5 % (0.2-1.0); EOSINOPHILS # (AUTO) 0.2 x10^3/uL (0.0-0.2); EOSINOPHILS % (AUTO) 2.1 % (0.9-2.9); HEMOGLOBIN 11.2 g/dL (13.5-18.0); LYMPHOCYTES # (AUTO) 1.4 X10^3/uL (1.3-2.9); MEAN CORPUSCULAR HGB CONC 32.9 g/dL (33.0-35.0); MEAN CORPUSCULAR VOLUME 91.1 fL (80.0-100.0); MONOCYTES # (AUTO) 1.5 x10^3/uL (0.3-0.8); NEUTROPHILS # (AUTO) 8.5 x10^3/uL (2.2-4.8); NEUTROPHILS % (AUTO) 72.4 % (42.0-75.0); PLATELET COUNT 212 X10^3/uL (150.0-450.0); RED BLOOD COUNT 3.73 X10^6/uL (4.7-6.0); RED CELL DISTRIBUTION WIDTH 15.9 % (11.6-16.5); WHITE BLOOD COUNT 11.8 X10^3/uL (3.6-10.0)
[2023-11-15 06:32] LABS: ALANINE AMINOTRANSFERASE 12 Units/L (12-78); ALBUMIN 1.5 g/dL (3.4-5.0); ALKALINE PHOSPHATASE 114 Units/L (46-116); ASPARTATE AMINO TRANSFERASE 17 Units/L (15-37); BLOOD UREA NITROGEN 15 mg/dL (7-18); CALCIUM 7.7 mg/dL (8.5-10.1); CARBON DIOXIDE 27.6 mmol/L (21-32); CHLORIDE 107 mmol/L (98-107); COR CA(FOR HYPOALB) 9.7 mg/dL (8.5-10.1); CREATININE 0.51 mg/dL (0.70-1.30); GLUCOSE 75 mg/dL (65-99); POTASSIUM 4.2 mmol/L (3.5-5.1); SODIUM 141 mmol/L (136-145); TOTAL PROTEIN 4.5 g/dL (6.4-8.2); eGFR NON BLACK RACES > 60 (>60)
[2023-11-15] MEDS ORDERED: CONSULT PHARMACY - ANTIBIOTIC XX SCH (11:00)
--- NOTE | 2023-11-15 15:14 | DR.PROGNOT ---
HOSPITAL PROGRESS NOTE Progress Note for Day of: Progress Note Date: 11/15/23 Chief Complaint Chief Complaint: Patient was seen today, he seems to be stable with no new complaint. Mild shortness of breath. With PaO2 above 94 on nasal cannula. Alert but confused to time and place. Repeated chest x-ray showed resolved right pleural effusion. Still having significant drainage with 200cc over the past 12 hours. Afebrile and stable vital signs. History of Present Illness History of Present Illness: Being treated for R pleural effusion, s/p chest tube. Doing better, less pain of tube this am., + pain of tube with moving. No fever, chills. Past Medical Family Social History Past Med/Fam/Surg Hx: No changes since H&P Allergies: Allergies No Known Drug Allergies Allergy (Unknown, Verified 09/12/23 19:44) Onset Date: 06/23/2022 Review Of Systems ROS: No change since H&P Changes in ROS: see HPI Vital Signs Vital Signs: Vital Signs Temperature 98.2 F Temperature 97.6 F Pulse Rate [Left Brachial] 103 Pulse Rate [Left Brachial] 94 Pulse Rate 92 Respiratory Rate 20 Respiratory Rate 22 Respiratory Rate 22 Respiratory Rate 22 Respiratory Rate 20 Respiratory Rate 20 Respiratory Rate 20 Blood Pressure [Left Arm] 107/56 Blood Pressure [Left Arm] 94/52 O2 Sat by Pulse Oximetry 100 O2 Sat by Pulse Oximetry 95 O2 Sat by Pulse Oximetry 100 Physical Exam Oriented: Normal Ear: Normal Throat: Normal Respiratory: Normal (clear auscultation) Cardiovascular: Normal GI:Auscultation: Normal GI:Palpation: Normal GI: Tenderness: Normal Skin: Normal Musculoskeletal: Normal Psychiatric: Normal Mood Description: Calm Affect: Normal Speech Pattern: Clear and Appropriate Laboratory and Diagnostics 11/15/23 05:27 11/15/23 05:27 Labs: Laboratory WBC 11.8 X10^3/uL (3.6-10.0) H 11/15/23 05:27 RBC 3.73 X10^6/uL (4.7-6.0) L 11/15/23 05:27 Hgb 11.2 g/dL (13.5-18.0) L 11/15/23 05:27 Hct 34.0 % (42.0-54.0) L 11/15/23 05:27 MCV 91.1 fL (80.0-100.0) 11/15/23 05:27 MCH 30.0 pg (27.0-34.0) 11/15/23 05:27 MCHC 32.9 g/dL (33.0-35.0) L 11/15/23 05:27 RDW 15.9 % (11.6-16.5) 11/15/23 05:27 Plt Count 212 X10^3/uL (150.0-450.0) 11/15/23 05:27 MPV 8.0 fL (7.4-11.0) 11/15/23 05:27 Neut % (Auto) 72.4 % (42.0-75.0) 11/15/23 05:27 Lymph % (Auto) 12.0 % (21.0-51.0) L 11/15/23 05:27 [place] % (Auto) 13.0 % (0.0-13.0) 11/15/23 05:27 Eos % (Auto) 2.1 % (0.9-2.9) 11/15/23 05:27 Baso % (Auto) 0.5 % (0.2-1.0) 11/15/23 05:27 Neut # (Auto) 8.5 x10^3/uL (2.2-4.8) H 11/15/23 05:27 Lymph # (Auto) 1.4 X10^3/uL (1.3-2.9) 11/15/23 05:27 [place] # (Auto) 1.5 x10^3/uL (0.3-0.8) H 11/15/23 05:27 Eos # (Auto) 0.2 x10^3/uL (0.0-0.2) 11/15/23 05:27 Baso # (Auto) 0.1 X10^3/uL (0.0-0.1) 11/15/23 05:27 Absolute Nucleated RBC 0.1 /100WBC 11/15/23 05:27 Sodium 141 mmol/L (136-145) 11/15/23 05:27 Corrected Sodium TNP 11/15/23 05:27 Potassium 4.2 mmol/L (3.5-5.1) 11/15/23 05:27 Chloride 107 mmol/L (98-107) 11/15/23 05:27 Carbon Dioxide 27.6 mmol/L (21-32) 11/15/23 05:27 BUN 15 mg/dL (7-18) 11/15/23 05:27 Creatinine 0.51 mg/dL (0.70-1.30) L 11/15/23 05:27 Est GFR (MDRD) Af Amer > 60 (>60) 11/15/23 05:27 Est GFR (MDRD) Non-Af > 60 (>60) 11/15/23 05:27 Glucose 75 mg/dL (65-99) 11/15/23 05:27 Calcium 7.7 mg/dL (8.5-10.1) L 11/15/23 05:27 Corrected Calcium 9.7 mg/dL (8.5-10.1) 11/15/23 05:27 Magnesium 1.6 mg/dL (2.0-2.9) L 11/14/23 05:33 Total Bilirubin 0.50 mg/dL (0.2-1.0) 11/15/23 05:27 AST 17 Units/L (15-37) 11/15/23 05:27 ALT 12 Units/L (12-78) 11/15/23 05:27 Alkaline Phosphatase 114 Units/L (46-116) 11/15/23 05:27 B-Natriuretic Peptide 166 pg/mL (0-79) H 11/08/23 13:53 Total Protein 4.5 g/dL (6.4-8.2) L 11/15/23 05:27 Albumin 1.5 g/dL (3.4-5.0) L 11/15/23 05:27 Globulin 3.0 g/dL (2.5-4.5) 11/15/23 05:27 Albumin/Globulin Ratio 0.5 Ratio (1.1-2.1) L 11/15/23 05:27 Specimen Type Random urine 11/08/23 21:30 Urine Color Yellow (YELLOW) 11/08/23 21:30 Urine Appearance Hazy (CLEAR) 11/08/23 21:30 Urine pH 7.0 (5.0 - 8.0) 11/08/23 21:30 Ur Specific [place] 1.015 (1.000-1.030) 11/08/23 21:30 Urine Protein Negative (NEGATIVE) 11/08/23 21:30 Urine Glucose (UA) Negative (NEGATIVE) 11/08/23 21:30 Urine Ketones 3+ (NEGATIVE) 11/08/23 21: Urine Blood Negative (NEGATIVE) 11/08/23 21:30 Urine Nitrite Negative (NEGATIVE) 11/08/23 21:30 Urine Bilirubin Negative (NEGATIVE) 11/08/23 21:30 Urine Urobilinogen Normal (NORMAL) 11/08/23 21:30 Ur Leukocyte Esterase 1+ (NEGATIVE) 11/08/23 21:30 Urine RBC 0-2 /HPF (0-3) 11/08/23 21:30 Urine WBC 3-5 /HPF (0-5) 11/08/23 21:30 Ur Squamous Epith Cells Rare /HPF (NEGATIVE) 11/08/23 21: Amorphous Sediment 2+ /HPF (NEGATIVE) 11/08/23 21:30 Urine Bacteria Trace /HPF (NEGATIVE) 11/08/23 21:30 Ur Culture Indicated? No/not indicated 11/08/23 21:30 Assessment and Plan 1: Recurrent right pleural effusion. pneumonia . Status post placement of chest tube right side ..i Will keep the chest tube as long as there is significant drainage then will try pleurodesis 2: small Rt side pleural effusion . same medical management . 3: Constipation - will add Miralax. Problem Patient Problems: Patient Problems Hypoxia (Acute) R09.02 Hypotension (Acute) I95.9 Pleural effusion (Acute) J90
--- NOTE | 2023-11-15 17:48 | PCM.PROG ---
Progress Note Progress Note for Day of Date of Exam: 11/15/23 Subjective Subjective: 78 year old male patient who is a resident of [facility] with a past medical history of COPD, CAD, dyslipidemia, GERD and hypertension. He also has a history of chronic right pleural effusion with recurrent admissions for pneumonia and hypoxia. On 11/08/23, he was found to be hypoxic in the shelter and brought to the ER for further evaluation. Chest x-ray on admission showed worsening right-sided pleural effusion. He had been treated with IV abx. He was initially on nonrebreather at 5 L, weened to 4-5 L nasal cannula. Surgery was consulted for possible thoracentesis/chest tube placement due to worsening right pleural effusion, which he had on 11/11/23. 11/12/23 chest xr ay showed near complete resolution of right sided pleural effusion. However, residual pneumothorax with placement of a large-bore chest tube is noted at approximately 10%. Chest xray findings were unchanged on 11/13/23 and showed continued chest tube right base with no pneumothorax, continued small effusions at the bases with some increased atelectasis or consolidation on 11/14/23. Morning labs showed hgb 11.2, wbc 11.8, bun 15/creatinine 0.51. AM vitals: 94/52-94-20-97.6-100% 4L NC. Past Medical Family Social History Past Med/Fam/Surg Hx: No changes since H&P Allergies: Allergies No Known Drug Allergies Allergy (Unknown, Verified 09/12/23 19:44) Onset Date: 06/23/2022 Review of Systems ROS: No change since H&P Vital Signs and I&O's Vital Signs: Vital Signs Temperature 98.2 F Pulse Rate [Left Brachial] 103 Respiratory Rate 20 Respiratory Rate 22 Respiratory Rate 22 Respiratory Rate 22 Respiratory Rate 20 Respiratory Rate 20 Blood Pressure [Left Arm] 107/56 O2 Sat by Pulse Oximetry 100 Intake and Output: Intake & Output 11/13/23 11/14/23 11/15/23 11/16/23 10:59 11:59 11:59 11:59 Intake Total 1586 / 1586 502 / 502 Output Total 1026 / 1026 50 / 50 Balance 560 / 560 452 / 452 Physical Exam Oriented: Normal Ear: Normal Throat: Normal Respiratory: Diminished Cardiovascular: Normal Auscultation: Bowel Sounds: Normal Tenderness: Normal Skin: Normal Musculoskeletal: Normal Psychiatric: Normal Mood Description: Calm Affect: Normal Speech Pattern: Clear and Appropriate Laboratory and Diagnostics 11/15/23 05:27 11/15/23 05:27 Labs: Laboratory WBC 11.8 X10^3/uL (3.6-10.0) H 11/15/23 05:27 RBC 3.73 X10^6/uL (4.7-6.0) L 11/15/23 05:27 Hgb 11.2 g/dL (13.5-18.0) L 11/15/23 05:27 Hct 34.0 % (42.0-54.0) L 11/15/23 05:27 MCV 91.1 fL (80.0-100.0) 11/15/23 05:27 MCH 30.0 pg (27.0-34.0) 11/15/23 05:27 MCHC 32.9 g/dL (33.0-35.0) L 11/15/23 05:27 RDW 15.9 % (11.6-16.5) 11/15/23 05:27 Plt Count 212 X10^3/uL (150.0-450.0) 11/15/23 05:27 MPV 8.0 fL (7.4-11.0) 11/15/23 05:27 Neut % (Auto) 72.4 % (42.0-75.0) 11/15/23 05:27 Lymph % (Auto) 12.0 % (21.0-51.0) L 11/15/23 05:27 [place] % (Auto) 13.0 % (0.0-13.0) 11/15/23 05:27 Eos % (Auto) 2.1 % (0.9-2.9) 11/15/23 05:27 Baso % (Auto) 0.5 % (0.2-1.0) 11/15/23 05:27 Neut # (Auto) 8.5 x10^3/uL (2.2-4.8) H 11/15/23 05:27 Lymph # (Auto) 1.4 X10^3/uL (1.3-2.9) 11/15/23 05:27 [place] # (Auto) 1.5 x10^3/uL (0.3-0.8) H 11/15/23 05:27 Eos # (Auto) 0.2 x10^3/uL (0.0-0.2) 11/15/23 05:27 Baso # (Auto) 0.1 X10^3/uL (0.0-0.1) 11/15/23 05:27 Absolute Nucleated RBC 0.1 /100WBC 11/15/23 05:27 Sodium 141 mmol/L (136-145) 11/15/23 05:27 Corrected Sodium TNP 11/15/23 05:27 Potassium 4.2 mmol/L (3.5-5.1) 11/15/23 05:27 Chloride 107 mmol/L (98-107) 11/15/23 05:27 Carbon Dioxide 27.6 mmol/L (21-32) 11/15/23 05:27 BUN 15 mg/dL (7-18) 11/15/23 05:27 Creatinine 0.51 mg/dL (0.70-1.30) L 11/15/23 05:27 Est GFR (MDRD) Af Amer > 60 (>60) 11/15/23 05:27 Est GFR (MDRD) Non-Af > 60 (>60) 11/15/23 05:27 Glucose 75 mg/dL (65-99) 11/15/23 05:27 Calcium 7.7 mg/dL (8.5-10.1) L 11/15/23 05:27 Corrected Calcium 9.7 mg/dL (8.5-10.1) 11/15/23 05:27 Magnesium 1.6 mg/dL (2.0-2.9) L 11/14/23 05:33 Total Bilirubin 0.50 mg/dL (0.2-1.0) 11/15/23 05:27 AST 17 Units/L (15-37) 11/15/23 05:27 ALT 12 Units/L (12-78) 11/15/23 05:27 Alkaline Phosphatase 114 Units/L (46-116) 11/15/23 05:27 B-Natriuretic Peptide 166 pg/mL (0-79) H 11/08/23 13:53 Total Protein 4.5 g/dL (6.4-8.2) L 11/15/23 05:27 Albumin 1.5 g/dL (3.4-5.0) L 11/15/23 05:27 Globulin 3.0 g/dL (2.5-4.5) 11/15/23 05:27 Albumin/Globulin Ratio 0.5 Ratio (1.1-2.1) L 11/15/23 05:27 Specimen Type Random urine 11/08/23 21:30 Urine Color Yellow (YELLOW) 11/08/23 21: Urine Appearance Hazy (CLEAR) 11/08/23 21:30 Urine pH 7.0 (5.0 - 8.0) 11/08/23 21:30 Ur Specific [place] 1.015 (1.000-1.030) 11/08/23 21: Urine Protein Negative (NEGATIVE) 11/08/23 21: Urine Glucose (UA) Negative (NEGATIVE) 11/08/23 21:30 Urine Ketones 3+ (NEGATIVE) 11/08/23 21:30 Urine Blood Negative (NEGATIVE) 11/08/23 21: Urine Nitrite Negative (NEGATIVE) 11/08/23 21:30 Urine Bilirubin Negative (NEGATIVE) 11/08/23 21:30 Urine Urobilinogen Normal (NORMAL) 11/08/23 21:30 Ur Leukocyte Esterase 1+ (NEGATIVE) 11/08/23 21:30 Urine RBC 0-2 /HPF (0-3) 11/08/23 21:30 Urine WBC 3-5 /HPF (0-5) 11/08/23 21:30 Ur Squamous Epith Cells Rare /HPF (NEGATIVE) 11/08/23 21: Amorphous Sediment 2+ /HPF (NEGATIVE) 11/08/23 21:30 Urine Bacteria Trace /HPF (NEGATIVE) 11/08/23 21:30 Ur Culture Indicated? No/not indicated 11/08/23 21:30 Plan (1) Hypoxia: Status: Acute Narrative Support Text: Continue IV hydration, IV abx, respiratory therapy, supplemental 02 prn, pain control, Dr. Gross consulting for chest tube management. (2) Pleural effusion: Status: Acute (3) Pneumonia: Status: Acute Qualifiers: Laterality: unspecified laterality Lung location: unspecified part of lung Pneumonia type: due to unspecified organism Qualified Code(s): J18.9 - Pneumonia, unspecified organism (4) Hypomagnesemia: Status: Acute (5) Atrial fibrillation: Status: Acute Qualifiers: Atrial fibrillation type: unspecified Qualified Code(s): I48.91 - Unspecified atrial fibrillation (6) Severe chronic obstructive pulmonary disease: Status: Acute
[2023-11-16 06:05] LABS: BASOPHILS # (AUTO) 0.1 X10^3/uL (0.0-0.1); BASOPHILS % (AUTO) 0.6 % (0.2-1.0); EOSINOPHILS # (AUTO) 0.2 x10^3/uL (0.0-0.2); EOSINOPHILS % (AUTO) 1.3 % (0.9-2.9); HEMOGLOBIN 11.2 g/dL (13.5-18.0); LYMPHOCYTES # (AUTO) 0.9 X10^3/uL (1.3-2.9); LYMPHOCYTES % (AUTO) 6.5 % (21.0-51.0); MEAN CORPUSCULAR HGB CONC 32.9 g/dL (33.0-35.0); MEAN CORPUSCULAR VOLUME 91.1 fL (80.0-100.0); MEAN PLATELET VOLUME 8.2 fL (7.4-11.0); MONOCYTES # (AUTO) 1.7 x10^3/uL (0.3-0.8); MONOCYTES % (AUTO) 11.6 % (0.0-13.0); NEUTROPHILS # (AUTO) 11.6 x10^3/uL (2.2-4.8); PLATELET COUNT 230 X10^3/uL (150.0-450.0); RED BLOOD COUNT 3.73 X10^6/uL (4.7-6.0); RED CELL DISTRIBUTION WIDTH 15.9 % (11.6-16.5); WHITE BLOOD COUNT 14.4 X10^3/uL (3.6-10.0)
[2023-11-16 06:25] LABS: ALANINE AMINOTRANSFERASE 12 Units/L (12-78); ALBUMIN 1.5 g/dL (3.4-5.0); ALKALINE PHOSPHATASE 142 Units/L (46-116); ASPARTATE AMINO TRANSFERASE 27 Units/L (15-37); BLOOD UREA NITROGEN 14 mg/dL (7-18); CALCIUM 7.9 mg/dL (8.5-10.1); CARBON DIOXIDE 27.3 mmol/L (21-32); CHLORIDE 107 mmol/L (98-107); COR CA(FOR HYPOALB) 9.9 mg/dL (8.5-10.1); GLUCOSE 83 mg/dL (65-99); POTASSIUM 4.2 mmol/L (3.5-5.1); SODIUM 141 mmol/L (136-145); TOTAL PROTEIN 4.6 g/dL (6.4-8.2); eGFR NON BLACK RACES > 60 (>60)
--- NOTE | 2023-11-16 07:13 | RAD ---
EXAM: Portable chest HISTORY: Right pleural effusion COMPARISON: 11/14/2023 FINDINGS: There is a loop recorder device overlying the aortic knob. There is a chest tube present in the ri ght lower hemithorax. No definite pleural effusion identified. There is a small right apical pneumo thorax present. Heart is enlarged. No definite congestive heart failure is noted. Interstitial pravin g changes are present bilaterally likely chronic. There are focal areas of subsegmental atelectasis bilaterally unchanged. Blunting of the costophrenic angle suggests small pleural effusions unchanged on the left and decreased on the right. Bony thorax is unremarkable. IMPRESSION: Very small right apical pneumothorax Cardiomegaly without congestive heart failure Stable chronic appearing interstitial lung changes and multiple bilateral areas of subsegmental atele ctasis Likely bilateral small pleural effusions unchanged on the left and decreasing on the right. THIS IS AN ELECTRONICALLY VERIFIED FINAL REPORT 11/16/2023 7:09 AM - Electronically signed by Derrick Sandhu MD
[2023-11-16] MEDS: LASIX IVP ONE (12:11)
[2023-11-16] MEDS: LASIX IVP NR (12:25)
--- NOTE | 2023-11-16 17:44 | PCM.PROG ---
Progress Note Progress Note for Day of Date of Exam: 11/16/23 Subjective Subjective: 78 year old male patient who is a resident of [facility] with a past medical history of COPD, CAD, dyslipidemia, GERD and hypertension. He also has a history of chronic right pleural effusion with recurrent admissions for pneumonia and hypoxia. On 11/08/23, [facility] and brought to the ER for further evaluation. Chest x-ray on admission showed worsening right-sided pleural effusion. He had been treated with IV abx. He was initially on nonrebreather at 5 L, weened to 4-5 L nasal cannula. Surgery was consulted for possible thoracentesis/chest tube placement due to worsening right pleural effusion, which he had on 11/11/23. Morning chest x ray showed Very small right apical pneumothorax, Cardiomegaly without congestive heart failure, Stable chronic appearing interstitial lung changes and multiple bilateral areas of subsegmental atelectasis, Likely bilateral small pleural effusions unchanged on the left and decreasing on the right. Morning labs showed hgb 11.2, wbc 14.4, bun 14/creatinine 0.50. AM vitals: 118/01-268-28-98.0-94% on 4L NC. Past Medical Family Social History Past Med/Fam/Surg Hx: No changes since H&P Allergies: Allergies No Known Drug Allergies Allergy (Unknown, Verified 09/12/23 19:44) Onset Date: 06/23/2022 Review of Systems ROS: No change since H&P Vital Signs and I&O's Vital Signs: Vital Signs Temperature 98.3 F Temperature 98.0 F Pulse Rate [Left Brachial] 92 Pulse Rate [Left Brachial] 100 Pulse Rate 88 Respiratory Rate 18 Respiratory Rate 16 Respiratory Rate 16 Respiratory Rate 20 Respiratory Rate 20 Respiratory Rate 22 Blood Pressure [Left Arm] 111/85 Blood Pressure [Left Arm] 118/65 O2 Sat by Pulse Oximetry 94 O2 Sat by Pulse Oximetry 98 O2 Sat by Pulse Oximetry 94 Intake and Output: Intake & Output 11/14/23 11/15/23 11/16/23 11/17/23 11:59 11:59 11:59 11:59 Intake Total 1586 / 1586 1631 / 1631 Output Total 1026 / 1026 800 / 800 Balance 560 / 560 831 / 831 Physical Exam Oriented: Normal Ear: Normal Throat: Normal Respiratory: Diminished Cardiovascular: Normal Auscultation: Bowel Sounds: Normal Tenderness: Normal Skin: Normal Musculoskeletal: Normal Psychiatric: Normal Mood Description: Calm Affect: Normal Speech Pattern: Clear and Appropriate Laboratory and Diagnostics 11/16/23 05:30 11/16/23 05:30 Labs: Laboratory WBC 14.4 X10^3/uL (3.6-10.0) H 11/16/23 05:30 RBC 3.73 X10^6/uL (4.7-6.0) L 11/16/23 05:30 Hgb 11.2 g/dL (13.5-18.0) L 11/16/23 05:30 Hct 34.0 % (42.0-54.0) L 11/16/23 05:30 MCV 91.1 fL (80.0-100.0) 11/16/23 05:30 MCH 30.0 pg (27.0-34.0) 11/16/23 05:30 MCHC 32.9 g/dL (33.0-35.0) L 11/16/23 05:30 RDW 15.9 % (11.6-16.5) 11/16/23 05:30 Plt Count 230 X10^3/uL (150.0-450.0) 11/16/23 05:30 MPV 8.2 fL (7.4-11.0) 11/16/23 05:30 Neut % (Auto) 80.0 % (42.0-75.0) H 11/16/23 05:30 Lymph % (Auto) 6.5 % (21.0-51.0) L 11/16/23 05:30 [place] % (Auto) 11.6 % (0.0-13.0) 11/16/23 05:30 Eos % (Auto) 1.3 % (0.9-2.9) 11/16/23 05:30 Baso % (Auto) 0.6 % (0.2-1.0) 11/16/23 05:30 Neut # (Auto) 11.6 x10^3/uL (2.2-4.8) H 11/16/23 05:30 Lymph # (Auto) 0.9 X10^3/uL (1.3-2.9) L 11/16/23 05:30 [place] # (Auto) 1.7 x10^3/uL (0.3-0.8) H 11/16/23 05:30 Eos # (Auto) 0.2 x10^3/uL (0.0-0.2) 11/16/23 05:30 Baso # (Auto) 0.1 X10^3/uL (0.0-0.1) 11/16/23 05:30 Absolute Nucleated RBC 0.1 /100WBC 11/16/23 05:30 Sodium 141 mmol/L (136-145) 11/16/23 05:30 Corrected Sodium TNP 11/16/23 05:30 Potassium 4.2 mmol/L (3.5-5.1) 11/16/23 05:30 Chloride 107 mmol/L (98-107) 11/16/23 05:30 Carbon Dioxide 27.3 mmol/L (21-32) 11/16/23 05:30 BUN 14 mg/dL (7-18) 11/16/23 05:30 Creatinine 0.50 mg/dL (0.70-1.30) L 11/16/23 05:30 Est GFR (MDRD) Af Amer > 60 (>60) 11/16/23 05:30 Est GFR (MDRD) Non-Af > 60 (>60) 11/16/23 05:30 Glucose 83 mg/dL (65-99) 11/16/23 05:30 Calcium 7.9 mg/dL (8.5-10.1) L 11/16/23 05:30 Corrected Calcium 9.9 mg/dL (8.5-10.1) 11/16/23 05:30 Magnesium 1.6 mg/dL (2.0-2.9) L 11/14/23 05:33 Total Bilirubin 0.40 mg/dL (0.2-1.0) 11/16/23 05:30 AST 27 Units/L (15-37) 11/16/23 05:30 ALT 12 Units/L (12-78) 11/16/23 05:30 Alkaline Phosphatase 142 Units/L (46-116) H 11/16/23 05:30 B-Natriuretic Peptide 166 pg/mL (0-79) H 11/08/23 13:53 Total Protein 4.6 g/dL (6.4-8.2) L 11/16/23 05:30 Albumin 1.5 g/dL (3.4-5.0) L 11/16/23 05:30 Globulin 3.1 g/dL (2.5-4.5) 11/16/23 05:30 Albumin/Globulin Ratio 0.5 Ratio (1.1-2.1) L 11/16/23 05:30 Specimen Type Random urine 11/08/23 21:30 Urine Color Yellow (YELLOW) 11/08/23 21:30 Urine Appearance Hazy (CLEAR) 11/08/23 21:30 Urine pH 7.0 (5.0 - 8.0) 11/08/23 21:30 Ur Specific [place] 1.015 (1.000-1.030) 11/08/23 21:30 Urine Protein Negative (NEGATIVE) 11/08/23 21:30 Urine Glucose (UA) Negative (NEGATIVE) 11/08/23 21:30 Urine Ketones 3+ (NEGATIVE) 11/08/23 21:30 Urine Blood Negative (NEGATIVE) 11/08/23 21:30 Urine Nitrite Negative (NEGATIVE) 11/08/23 21:30 Urine Bilirubin Negative (NEGATIVE) 11/08/23 21:30 Urine Urobilinogen Normal (NORMAL) 11/08/23 21:30 Ur Leukocyte Esterase 1+ (NEGATIVE) 11/08/23 21:30 Urine RBC 0-2 /HPF (0-3) 11/08/23 21:30 Urine WBC 3-5 /HPF (0-5) 11/08/23 21:30 Ur Squamous Epith Cells Rare /HPF (NEGATIVE) 11/08/23 21:30 Amorphous Sediment 2+ /HPF (NEGATIVE) 11/08/23 21:30 Urine Bacteria Trace /HPF (NEGATIVE) 11/08/23 21:30 Ur Culture Indicated? No/not indicated 11/08/23 21:30 Plan (1) Hypoxia: Status: Acute Plan: Continue IV hydration, IV abx, respiratory therapy, supplemental 02 prn, pain control, Dr. Gross consulting for chest tube management. (2) Pleural effusion: Status: Acute (3) Pneumonia: Status: Acute Qualifiers: Laterality: unspecified laterality Lung location: unspecified part of lung Pneumonia type: due to unspecified organism Qualified Code(s): J18.9 - Pneumonia, unspecified organism (4) Hypomagnesemia: Status: Acute (5) Atrial fibrillation: Status: Acute Qualifiers: Atrial fibrillation type: unspecified Qualified Code(s): I48.91 - Unspecified atrial fibrillation (6) Severe chronic obstructive pulmonary disease: Status: Acute
--- NOTE | 2023-11-17 04:55 | RAD ---
PROCEDURE: Chest X-ray 1 View.HISTORY: Pleural effusion.TECHNIQUE: AP portable done at 4:12 a.m..COMPARISON: 11/15/2023.TECHNICAL QUALITY: Satisfactory.FINDINGS:Stable heart size.Mediastinum and hilar regions show no masses or lymphadenopathy.Normal central vascularity.Areas of atelectasis both lung camara are unchanged. Unchanged small right pleural effusion. No definite consolidation. Loop recorder projected over left upper lobe. Skin fold lateral right lung field. No pneumothorax identifiedNo acute bony abnormality.IMPRESSION:1. No evidence of pneumothorax.2. Stable heart size.3. Unchanged discoid atelectasis and scarring.4. Small right pleural effusion is unchanged. No definite pleural fluid left.THIS IS AN ELECTRONICALLY VERIFIED FINAL REPORT11/17/2023 4:52 AM - Electronically signed by Kenton Porter MD
[2023-11-17 06:22] LABS: BASOPHILS # (AUTO) 0.1 X10^3/uL (0.0-0.1); BASOPHILS % (AUTO) 0.4 % (0.2-1.0); EOSINOPHILS # (AUTO) 0.2 x10^3/uL (0.0-0.2); EOSINOPHILS % (AUTO) 1.4 % (0.9-2.9); HEMATOCRIT 37.3 % (42.0-54.0); HEMOGLOBIN 12.1 g/dL (13.5-18.0); LYMPHOCYTES # (AUTO) 1.4 X10^3/uL (1.3-2.9); LYMPHOCYTES % (AUTO) 10.1 % (21.0-51.0); MEAN CORPUSCULAR HEMOGLOBIN 29.6 pg (27.0-34.0); MEAN CORPUSCULAR HGB CONC 32.5 g/dL (33.0-35.0); MEAN CORPUSCULAR VOLUME 91.1 fL (80.0-100.0); MEAN PLATELET VOLUME 8.2 fL (7.4-11.0); MONOCYTES # (AUTO) 1.6 x10^3/uL (0.3-0.8); MONOCYTES % (AUTO) 11.7 % (0.0-13.0); NEUTROPHILS # (AUTO) 10.3 x10^3/uL (2.2-4.8); NEUTROPHILS % (AUTO) 76.4 % (42.0-75.0); PLATELET COUNT 287 X10^3/uL (150.0-450.0); RED BLOOD COUNT 4.09 X10^6/uL (4.7-6.0); RED CELL DISTRIBUTION WIDTH 15.8 % (11.6-16.5); WHITE BLOOD COUNT 13.5 X10^3/uL (3.6-10.0)
[2023-11-17 06:40] LABS: ALANINE AMINOTRANSFERASE 12 Units/L (12-78); ALBUMIN 1.5 g/dL (3.4-5.0); ALKALINE PHOSPHATASE 140 Units/L (46-116); ASPARTATE AMINO TRANSFERASE 18 Units/L (15-37); BLOOD UREA NITROGEN 11 mg/dL (7-18); CALCIUM 8.3 mg/dL (8.5-10.1); CARBON DIOXIDE 29.2 mmol/L (21-32); CHLORIDE 106 mmol/L (98-107); COR CA(FOR HYPOALB) 10.3 mg/dL (8.5-10.1); CREATININE 0.57 mg/dL (0.70-1.30); GLUCOSE 71 mg/dL (65-99); MAGNESIUM 2.2 mg/dL (2.0-2.9); SODIUM 143 mmol/L (136-145); eGFR NON BLACK RACES > 60 (>60)
[2023-11-17] MEDS: DILAUDID INJ IVP ONE ×2 (09:55→10:00)
[2023-11-17] MEDS: DILAUDID INJ ONE (09:55)
[2023-11-17] MEDS: NS IV ONE (10:00)
[2023-11-17] MEDS: VIBRAMYCIN IV ONE (10:00)
--- NOTE | 2023-11-17 11:25 | RAD ---
EXAM:CHEST, 1 VIEWHISTORY:CHEST TUBE PLACEMENT;COMPARISON:Prior study or studies were utilized for comparison during interpretation with the most relevant dated earlier todayTECHNIQUE:CHEST, 1 VIEWFINDINGS:Chest:Lines and tubes: Cardiac leads overlie the chest. There is a right chest tubeMediastinum: Cardiomegaly.Pulmonary vessels: There is pulmonary vascular congestion.Lung camara: Interstitial markings and hyperinflation of the lungs with diaphragmatic flattening.Pleura: No effusion. No pneumothorax.Bones and soft tissues: No acute osseous or soft tissue abnormality.IMPRESSION:1. Chest tube is in satisfactory position2. Unchanged atelectasis and scarring3. No definite pleural effusionTHIS IS AN ELECTRONICALLY VERIFIED FINAL REPORT11/17/2023 11:21 AM - Electronically signed by James Hogue MD
--- NOTE | 2023-11-17 14:01 | RAD ---
EXAM:CHEST, 1 VIEW, 1:40 p.m.HISTORY:chest tube removal;COMPARISON:11/17/2023, 11 a.m.FINDINGS:Right-sided chest tube has been removed. Small right pneumothorax present. This measures 5 mm in the right apex and about 6 mm at the right costophrenic angle.Lung disease is unchanged. This is probably focal areas of linear scarring or atelectasis. Emphysematous changes in the upper lungs.Heart size is magnified because of technique.Degenerative changes are present in the shoulders.Wireless loop recorder is seen in the upper left chest. EKG leads are noted.IMPRESSION:1. Small right pneumothorax after right chest tube removalTHIS IS AN ELECTRONICALLY VERIFIED FINAL REPORT11/17/2023 1:58 PM - Electronically signed by Paulo Hensley MD
--- NOTE | 2023-11-17 17:22 | PCM.PROG ---
Progress Note Progress Note for Day of Date of Exam: 11/17/23 Subjective Subjective: 78 year old male patient who is a resident of [facility] with a past medical history of COPD, CAD, dyslipidemia, GERD and hypertension. He also has a history of chronic right pleural effusion with recurrent admissions for pneumonia and hypoxia. On 11/08/23, he was found to be hypoxic in the skilled nursing and brought to the ER for further evaluation. Chest x-ray on admission showed worsening right-sided pleural effusion. He had been treated with IV abx. He was initially on nonrebreather at 5 L, weened to 4-5 L nasal cannula. Surgery was consulted for possible thoracentesis/chest tube placement due to worsening right pleural effusion, which he had on 11/11/23. Chest tube with plans to remove this afternoon per Dr. Gross. Morning labs showed hgb 12.1, wbc 13.5, bun 11/creatinine 0.57. AM vitals: 106/58-93-20-98.0-98% on 4L NC. Past Medical Family Social History Past Med/Fam/Surg Hx: No changes since H&P Allergies: Allergies No Known Drug Allergies Allergy (Unknown, Verified 09/12/23 19:44) Onset Date: 06/23/2022 Review of Systems ROS: No change since H&P Vital Signs and I&O's Vital Signs: Vital Signs Pulse Rate [Left Brachial] 102 Pulse Rate 95 Respiratory Rate 20 Respiratory Rate 18 Respiratory Rate 18 Respiratory Rate 20 Blood Pressure [Right Arm] 113/55 O2 Sat by Pulse Oximetry 99 O2 Sat by Pulse Oximetry 95 Intake and Output: Intake & Output 11/15/23 11/16/23 11/17/23 11/18/23 11:59 11:59 11:59 11:59 Intake Total 1586 / 1586 1631 / 1631 1259 / 1259 Output Total 1026 / 1026 800 / 800 1780 / 1780 Balance 560 / 560 831 / 831 -521 / -521 Physical Exam Oriented: Normal Ear: Normal Throat: Normal Respiratory: Diminished Cardiovascular: Normal Auscultation: Bowel Sounds: Normal Tenderness: Normal Skin: Normal Musculoskeletal: Normal Psychiatric: Normal Mood Description: Calm Affect: Normal Speech Pattern: Clear and Appropriate Laboratory and Diagnostics 11/17/23 05:07 11/17/23 05:07 Labs: Laboratory WBC 13.5 X10^3/uL (3.6-10.0) H 11/17/23 05:07 RBC 4.09 X10^6/uL (4.7-6.0) L 11/17/23 05:07 Hgb 12.1 g/dL (13.5-18.0) L 11/17/23 05:07 Hct 37.3 % (42.0-54.0) L 11/17/23 05:07 MCV 91.1 fL (80.0-100.0) 11/17/23 05:07 MCH 29.6 pg (27.0-34.0) 11/17/23 05:07 MCHC 32.5 g/dL (33.0-35.0) L 11/17/23 05:07 RDW 15.8 % (11.6-16.5) 11/17/23 05:07 Plt Count 287 X10^3/uL (150.0-450.0) 11/17/23 05:07 MPV 8.2 fL (7.4-11.0) 11/17/23 05:07 Neut % (Auto) 76.4 % (42.0-75.0) H 11/17/23 05:07 Lymph % (Auto) 10.1 % (21.0-51.0) L 11/17/23 05:07 [place] % (Auto) 11.7 % (0.0-13.0) 11/17/23 05:07 Eos % (Auto) 1.4 % (0.9-2.9) 11/17/23 05:07 Baso % (Auto) 0.4 % (0.2-1.0) 11/17/23 05:07 Neut # (Auto) 10.3 x10^3/uL (2.2-4.8) H 11/17/23 05:07 Lymph # (Auto) 1.4 X10^3/uL (1.3-2.9) 11/17/23 05:07 [place] # (Auto) 1.6 x10^3/uL (0.3-0.8) H 11/17/23 05:07 Eos # (Auto) 0.2 x10^3/uL (0.0-0.2) 11/17/23 05:07 Baso # (Auto) 0.1 X10^3/uL (0.0-0.1) 11/17/23 05:07 Absolute Nucleated RBC 0.0 /100WBC 11/17/23 05:07 Sodium 143 mmol/L (136-145) 11/17/23 05:07 Corrected Sodium TNP 11/17/23 05:07 Potassium 4.0 mmol/L (3.5-5.1) 11/17/23 05:07 Chloride 106 mmol/L (98-107) 11/17/23 05:07 Carbon Dioxide 29.2 mmol/L (21-32) 11/17/23 05:07 BUN 11 mg/dL (7-18) 11/17/23 05:07 Creatinine 0.57 mg/dL (0.70-1.30) L 11/17/23 05:07 Est GFR (MDRD) Af Amer > 60 (>60) 11/17/23 05:07 Est GFR (MDRD) Non-Af > 60 (>60) 11/17/23 05:07 Glucose 71 mg/dL (65-99) 11/17/23 05:07 Calcium 8.3 mg/dL (8.5-10.1) L 11/17/23 05:07 Corrected Calcium 10.3 mg/dL (8.5-10.1) H 11/17/23 05:07 Magnesium 2.2 mg/dL (2.0-2.9) 11/17/23 05:07 Total Bilirubin 0.50 mg/dL (0.2-1.0) 11/17/23 05:07 AST 18 Units/L (15-37) 11/17/23 05:07 ALT 12 Units/L (12-78) 11/17/23 05:07 Alkaline Phosphatase 140 Units/L (46-116) H 11/17/23 05:07 B-Natriuretic Peptide 166 pg/mL (0-79) H 11/08/23 13:53 Total Protein 5.0 g/dL (6.4-8.2) L 11/17/23 05:07 Albumin 1.5 g/dL (3.4-5.0) L 11/17/23 05:07 Globulin 3.5 g/dL (2.5-4.5) 11/17/23 05:07 Albumin/Globulin Ratio 0.4 Ratio (1.1-2.1) L 11/17/23 05:07 Specimen Type Random urine 11/08/23 21:30 Urine Color Yellow (YELLOW) 11/08/23 21:30 Urine Appearance Hazy (CLEAR) 11/08/23 21:30 Urine pH 7.0 (5.0 - 8.0) 11/08/23 21:30 Ur Specific [place] 1.015 (1.000-1.030) 11/08/23 21:30 Urine Protein Negative (NEGATIVE) 11/08/23 21:30 Urine Glucose (UA) Negative (NEGATIVE) 11/08/23 21: Urine Ketones 3+ (NEGATIVE) 11/08/23 21: Urine Blood Negative (NEGATIVE) 11/08/23 21: Urine Nitrite Negative (NEGATIVE) 11/08/23 21: Urine Bilirubin Negative (NEGATIVE) 11/08/23 21:30 Urine Urobilinogen Normal (NORMAL) 11/08/23 21:30 Ur Leukocyte Esterase 1+ (NEGATIVE) 11/08/23 21:30 Urine RBC 0-2 /HPF (0-3) 11/08/23 21:30 Urine WBC 3-5 /HPF (0-5) 11/08/23 21:30 Ur Squamous Epith Cells Rare /HPF (NEGATIVE) 11/08/23 21:30 Amorphous Sediment 2+ /HPF (NEGATIVE) 11/08/23 21:30 Urine Bacteria Trace /HPF (NEGATIVE) 11/08/23 21:30 Ur Culture Indicated? No/not indicated 11/08/23 21:30 Plan (1) Hypoxia: Status: Acute Plan: Continue IV hydration, IV abx, respiratory therapy, supplemental 02 prn, pain control, Dr. Gross consulting for chest tube management/pneumo (2) Pleural effusion: Status: Acute (3) Pneumonia: Status: Acute Qualifiers: Laterality: unspecified laterality Lung location: unspecified part of lung Pneumonia type: due to unspecified organism Qualified Code(s): J18.9 - Pneumonia, unspecified organism (4) Hypomagnesemia: Status: Acute (5) Atrial fibrillation: Status: Acute Qualifiers: Atrial fibrillation type: unspecified Qualified Code(s): I48.91 - Unspecified atrial fibrillation (6) Severe chronic obstructive pulmonary disease: Status: Acute
--- NOTE | 2023-11-18 05:05 | RAD ---
PROCEDURE: Chest X-ray 1 View. HISTORY: Chest tube removal. Pleural effusion. TECHNIQUE: AP portable done at 4:17 a.m.. COMPARISON: 11/17/2023. TECHNICAL QUALITY: Satisfactory. FINDINGS: Normal size heart. Mediastinum and hilar regions show no masses or lymphadenopathy. Normal central vascularity. There are may remain as small less than 5% pneumothorax right lateral costophrenic angle region with evaluation limited due to scar and atelectasis in the area. Unchanged scar and atelectasis both lung camara. Skin fold present laterally right lung camara. Loop recorder projected over left apical re gion. No pleural fluid. No acute bony abnormality. IMPRESSION: 1. Possible less than 5% pneumothorax right lateral costophrenic angle and follow-up films may be hel pful. 2. No other interval change. THIS IS AN ELECTRONICALLY VERIFIED FINAL REPORT 11/18/2023 5:02 AM - Electronically signed by Kenton Porter MD
[2023-11-18 06:05] LABS: BASOPHILS # (AUTO) 0.1 X10^3/uL (0.0-0.1); BASOPHILS % (AUTO) 0.4 % (0.2-1.0); EOSINOPHILS % (AUTO) 0.2 % (0.9-2.9); HEMATOCRIT 34.8 % (42.0-54.0); HEMOGLOBIN 11.4 g/dL (13.5-18.0); LYMPHOCYTES # (AUTO) 1.1 X10^3/uL (1.3-2.9); LYMPHOCYTES % (AUTO) 7.2 % (21.0-51.0); MEAN CORPUSCULAR HEMOGLOBIN 29.7 pg (27.0-34.0); MEAN CORPUSCULAR HGB CONC 32.7 g/dL (33.0-35.0); MEAN CORPUSCULAR VOLUME 90.8 fL (80.0-100.0); MEAN PLATELET VOLUME 8.1 fL (7.4-11.0); MONOCYTES # (AUTO) 2.2 x10^3/uL (0.3-0.8); MONOCYTES % (AUTO) 13.9 % (0.0-13.0); NEUTROPHILS # (AUTO) 12.4 x10^3/uL (2.2-4.8); NEUTROPHILS % (AUTO) 78.3 % (42.0-75.0); PLATELET COUNT 292 X10^3/uL (150.0-450.0); RED BLOOD COUNT 3.83 X10^6/uL (4.7-6.0); RED CELL DISTRIBUTION WIDTH 15.7 % (11.6-16.5); WHITE BLOOD COUNT 15.9 X10^3/uL (3.6-10.0)
[2023-11-18 06:20] LABS: ALANINE AMINOTRANSFERASE 10 Units/L (12-78); ALBUMIN 1.5 g/dL (3.4-5.0); ALKALINE PHOSPHATASE 130 Units/L (46-116); ASPARTATE AMINO TRANSFERASE 15 Units/L (15-37); BLOOD UREA NITROGEN 14 mg/dL (7-18); CALCIUM 8.2 mg/dL (8.5-10.1); CARBON DIOXIDE 28.8 mmol/L (21-32); CHLORIDE 104 mmol/L (98-107); COR CA(FOR HYPOALB) 10.2 mg/dL (8.5-10.1); CREATININE 0.62 mg/dL (0.70-1.30); GLUCOSE 74 mg/dL (65-99); POTASSIUM 3.7 mmol/L (3.5-5.1); SODIUM 139 mmol/L (136-145); TOTAL PROTEIN 4.7 g/dL (6.4-8.2); eGFR NON BLACK RACES > 60 (>60)
[2023-11-18 08:33] VITALS: BP 112/61; PULSE 110; RESP 21; TEMP 98.7; O2SAT 95
--- NOTE | 2023-11-18 08:34 | DR.PROGNOT ---
HOSPITAL PROGRESS NOTE Progress Note for Day of: Progress Note Date: 11/18/23 Chief Complaint Chief Complaint: Patient was seen today, he seems to be stable with no new complaint. Mild shortness of breath. With PaO2 above 94 on nasal cannula. Alert but confused to time and place. Repeated chest x-ray showed resolved right pleural effusion. Afebrile and stable vital signs. Past Medical Family Social History Past Med/Fam/Surg Hx: No changes since H&P Allergies: Allergies No Known Drug Allergies Allergy (Unknown, Verified 09/12/23 19:44) Onset Date: 06/23/2022 Review Of Systems ROS: No change since H&P Changes in ROS: see HPI Vital Signs Vital Signs: Vital Signs Temperature 98.0 F Pulse Rate [Left Brachial] 127 Pulse Rate 103 Respiratory Rate 20 Respiratory Rate 21 Respiratory Rate 22 Respiratory Rate 20 Respiratory Rate 20 Blood Pressure [Left Arm] 132/66 O2 Sat by Pulse Oximetry 94 O2 Sat by Pulse Oximetry 95 Physical Exam Oriented: Normal Ear: Normal Throat: Normal Respiratory: Diminished Cardiovascular: Normal GI:Auscultation: Normal GI:Palpation: Normal GI: Tenderness: Normal Skin: Normal Musculoskeletal: Normal Psychiatric: Normal Mood Description: Calm Affect: Normal Speech Pattern: Clear and Appropriate Laboratory and Diagnostics 11/18/23 04:55 11/18/23 04:55 Labs: Laboratory WBC 15.9 X10^3/uL (3.6-10.0) H 11/18/23 04:55 RBC 3.83 X10^6/uL (4.7-6.0) L 11/18/23 04:55 Hgb 11.4 g/dL (13.5-18.0) L 11/18/23 04:55 Hct 34.8 % (42.0-54.0) L 11/18/23 04:55 MCV 90.8 fL (80.0-100.0) 11/18/23 04:55 MCH 29.7 pg (27.0-34.0) 11/18/23 04:55 MCHC 32.7 g/dL (33.0-35.0) L 11/18/23 04:55 RDW 15.7 % (11.6-16.5) 11/18/23 04:55 Plt Count 292 X10^3/uL (150.0-450.0) 11/18/23 04:55 MPV 8.1 fL (7.4-11.0) 11/18/23 04:55 Neut % (Auto) 78.3 % (42.0-75.0) H 11/18/23 04:55 Lymph % (Auto) 7.2 % (21.0-51.0) L 11/18/23 04:55 [place] % (Auto) 13.9 % (0.0-13.0) H 11/18/23 04:55 Eos % (Auto) 0.2 % (0.9-2.9) L 11/18/23 04:55 Baso % (Auto) 0.4 % (0.2-1.0) 11/18/23 04:55 Neut # (Auto) 12.4 x10^3/uL (2.2-4.8) H 11/18/23 04:55 Lymph # (Auto) 1.1 X10^3/uL (1.3-2.9) L 11/18/23 04:55 [place] # (Auto) 2.2 x10^3/uL (0.3-0.8) H 11/18/23 04:55 Eos # (Auto) 0.0 x10^3/uL (0.0-0.2) 11/18/23 04:55 Baso # (Auto) 0.1 X10^3/uL (0.0-0.1) 11/18/23 04:55 Absolute Nucleated RBC 0.0 /100WBC 11/18/23 04:55 Sodium 139 mmol/L (136-145) 11/18/23 04:55 Corrected Sodium TNP 11/18/23 04:55 Potassium 3.7 mmol/L (3.5-5.1) 11/18/23 04:55 Chloride 104 mmol/L (98-107) 11/18/23 04:55 Carbon Dioxide 28.8 mmol/L (21-32) 11/18/23 04:55 BUN 14 mg/dL (7-18) 11/18/23 04:55 Creatinine 0.62 mg/dL (0.70-1.30) L 11/18/23 04:55 Est GFR (MDRD) Af Amer > 60 (>60) 11/18/23 04:55 Est GFR (MDRD) Non-Af > 60 (>60) 11/18/23 04:55 Glucose 74 mg/dL (65-99) 11/18/23 04:55 Calcium 8.2 mg/dL (8.5-10.1) L 11/18/23 04:55 Corrected Calcium 10.2 mg/dL (8.5-10.1) H 11/18/23 04:55 Magnesium 1.9 mg/dL (2.0-2.9) L 11/18/23 04:55 Total Bilirubin 0.60 mg/dL (0.2-1.0) 11/18/23 04:55 AST 15 Units/L (15-37) 11/18/23 04:55 ALT 10 Units/L (12-78) L 11/18/23 04:55 Alkaline Phosphatase 130 Units/L (46-116) H 11/18/23 04:55 B-Natriuretic Peptide 166 pg/mL (0-79) H 11/08/23 13:53 Total Protein 4.7 g/dL (6.4-8.2) L 11/18/23 04:55 Albumin 1.5 g/dL (3.4-5.0) L 11/18/23 04:55 Globulin 3.2 g/dL (2.5-4.5) 11/18/23 04:55 Albumin/Globulin Ratio 0.5 Ratio (1.1-2.1) L 11/18/23 04:55 Specimen Type Random urine 11/08/23 21:30 Urine Color Yellow (YELLOW) 11/08/23 21:30 Urine Appearance Hazy (CLEAR) 11/08/23 21:30 Urine pH 7.0 (5.0 - 8.0) 11/08/23 21:30 Ur Specific [place] 1.015 (1.000-1.030) 11/08/23 21:30 Urine Protein Negative (NEGATIVE) 11/08/23 21:30 Urine Glucose (UA) Negative (NEGATIVE) 11/08/23 21:30 Urine Ketones 3+ (NEGATIVE) 11/08/23 21:30 Urine Blood Negative (NEGATIVE) 11/08/23 21:30 Urine Nitrite Negative (NEGATIVE) 11/08/23 21:30 Urine Bilirubin Negative (NEGATIVE) 11/08/23 21:30 Urine Urobilinogen Normal (NORMAL) 11/08/23 21:30 Ur Leukocyte Esterase 1+ (NEGATIVE) 11/08/23 21:30 Urine RBC 0-2 /HPF (0-3) 11/08/23 21:30 Urine WBC 3-5 /HPF (0-5) 11/08/23 21:30 Ur Squamous Epith Cells Rare /HPF (NEGATIVE) 11/08/23 21: Amorphous Sediment 2+ /HPF (NEGATIVE) 11/08/23 21:30 Urine Bacteria Trace /HPF (NEGATIVE) 11/08/23 21:30 Ur Culture Indicated? No/not indicated 11/08/23 21:30 Assessment and Plan 1: Recurrent right pleural effusion. Status post pleurodesis with doxycycline with good results. pneumonia . Chest tube was removed yesterday with no significant reaccumulation of pleural effusion. Afebrile. Patient could be discharged and will follow as outpatient. Problem Patient Problems: Patient Problems Hypoxia (Acute) R09.02 Hypotension (Acute) I95.9 Pleural effusion (Acute) J90
[2023-11-18] MEDS: NS + KCL 40 MEQ/L 1,000 ML with MAGNESIUM SULFATE 50% INJ VIAL 2 G IV SCH (09:39)
--- NOTE | 2023-11-19 07:45 | PCM.DCPLAN ---
DISCHARGE SUMMARY Admission Date Date of Admission: 11/09/23 Discharge Date Discharge Date: 11/18/23 Admission Diagnoses (1) Hypoxia: Status: Acute (2) Pleural effusion: Status: Acute (3) Pneumonia: Status: Acute (4) Hypomagnesemia: Status: Acute (5) Atrial fibrillation: Status: Acute (6) Severe chronic obstructive pulmonary disease: Status: Acute Discharge Diagnoses Discharge Diagnosis: Resolved pleural effusion- same as admission Discharge Medications Discharge Medications: Home Medication List fluticasone propionate 50 mcg/actuation nasal spray,suspension 1 spray intranasal QDAY 11/09/23 [History] amoxicillin 875 mg-potassium clavulanate 125 mg tablet 1 tab PO BID 7 days #14 tabs 11/18/23 [Rx] Prescriptions: amoxicillin-pot clavulanate [facility] Course Latest Lab Results: Laboratory Last Values WBC 15.9 X10^3/uL (3.6-10.0) H 11/18/23 04:55 RBC 3.83 X10^6/uL (4.7-6.0) L 11/18/23 04:55 Hgb 11.4 g/dL (13.5-18.0) L 11/18/23 04:55 Hct 34.8 % (42.0-54.0) L 11/18/23 04:55 MCV 90.8 fL (80.0-100.0) 11/18/23 04:55 MCH 29.7 pg (27.0-34.0) 11/18/23 04:55 MCHC 32.7 g/dL (33.0-35.0) L 11/18/23 04:55 RDW 15.7 % (11.6-16.5) 11/18/23 04:55 Plt Count 292 X10^3/uL (150.0-450.0) 11/18/23 04:55 MPV 8.1 fL (7.4-11.0) 11/18/23 04:55 Neut % (Auto) 78.3 % (42.0-75.0) H 11/18/23 04:55 Lymph % (Auto) 7.2 % (21.0-51.0) L 11/18/23 04:55 [place] % (Auto) 13.9 % (0.0-13.0) H 11/18/23 04:55 Eos % (Auto) 0.2 % (0.9-2.9) L 11/18/23 04:55 Baso % (Auto) 0.4 % (0.2-1.0) 11/18/23 04:55 Neut # (Auto) 12.4 x10^3/uL (2.2-4.8) H 11/18/23 04:55 Lymph # (Auto) 1.1 X10^3/uL (1.3-2.9) L 11/18/23 04:55 [place] # (Auto) 2.2 x10^3/uL (0.3-0.8) H 11/18/23 04:55 Eos # (Auto) 0.0 x10^3/uL (0.0-0.2) 11/18/23 04:55 Baso # (Auto) 0.1 X10^3/uL (0.0-0.1) 11/18/23 04:55 Absolute Nucleated RBC 0.0 /100WBC 11/18/23 04:55 Sodium 139 mmol/L (136-145) 11/18/23 04:55 Corrected Sodium TNP 11/18/23 04:55 Potassium 3.7 mmol/L (3.5-5.1) 11/18/23 04:55 Chloride 104 mmol/L (98-107) 11/18/23 04:55 Carbon Dioxide 28.8 mmol/L (21-32) 11/18/23 04:55 BUN 14 mg/dL (7-18) 11/18/23 04:55 Creatinine 0.62 mg/dL (0.70-1.30) L 11/18/23 04:55 Est GFR (MDRD) Af Amer > 60 (>60) 11/18/23 04:55 Est GFR (MDRD) Non-Af > 60 (>60) 11/18/23 04:55 Glucose 74 mg/dL (65-99) 11/18/23 04:55 Calcium 8.2 mg/dL (8.5-10.1) L 11/18/23 04:55 Corrected Calcium 10.2 mg/dL (8.5-10.1) H 11/18/23 04:55 Magnesium 1.9 mg/dL (2.0-2.9) L 11/18/23 04:55 Total Bilirubin 0.60 mg/dL (0.2-1.0) 11/18/23 04:55 AST 15 Units/L (15-37) 11/18/23 04:55 ALT 10 Units/L (12-78) L 11/18/23 04:55 Alkaline Phosphatase 130 Units/L (46-116) H 11/18/23 04:55 B-Natriuretic Peptide 166 pg/mL (0-79) H 11/08/23 13:53 Total Protein 4.7 g/dL (6.4-8.2) L 11/18/23 04:55 Albumin 1.5 g/dL (3.4-5.0) L 11/18/23 04:55 Globulin 3.2 g/dL (2.5-4.5) 11/18/23 04:55 Albumin/Globulin Ratio 0.5 Ratio (1.1-2.1) L 11/18/23 04:55 Specimen Type Random urine 11/08/23 21:30 Urine Color Yellow (YELLOW) 11/08/23 21:30 Urine Appearance Hazy (CLEAR) 11/08/23 21:30 Urine pH 7.0 (5.0 - 8.0) 11/08/23 21:30 Ur Specific [place] 1.015 (1.000-1.030) 11/08/23 21:30 Urine Protein Negative (NEGATIVE) 11/08/23 21:30 Urine Glucose (UA) Negative (NEGATIVE) 11/08/23 21:30 Urine Ketones 3+ (NEGATIVE) 11/08/23 21:30 Urine Blood Negative (NEGATIVE) 11/08/23 21:30 Urine Nitrite Negative (NEGATIVE) 11/08/23 21:30 Urine Bilirubin Negative (NEGATIVE) 11/08/23 21:30 Urine Urobilinogen Normal (NORMAL) 11/08/23 21:30 Ur Leukocyte Esterase 1+ (NEGATIVE) 11/08/23 21:30 Urine RBC 0-2 /HPF (0-3) 11/08/23 21:30 Urine WBC 3-5 /HPF (0-5) 11/08/23 21:30 Ur Squamous Epith Cells Rare /HPF (NEGATIVE) 11/08/23 21:30 Amorphous Sediment 2+ /HPF (NEGATIVE) 11/08/23 21:30 Urine Bacteria Trace /HPF (NEGATIVE) 11/08/23 21:30 Ur Culture Indicated? No/not indicated 11/08/23 21:30 Hospital Course: 78 year old male patient who is a resident of [facility] with a past medical history of COPD, CAD, dyslipidemia, GERD and hypertension. He also has a history of chronic right pleural effusion with recurrent admissions for pneumonia and hypoxia. On 11/08/23, he was found to be hypoxic in the retirement and brought to the ER for further evaluation. Chest x-ray on admission showed worsening right-sided pleural effusion. He had been treated with IV abx. He was initially on nonrebreather at 5 L, weened to 4-5 L nasal cannula. Surgery was consulted for possible thoracentesis/chest tube placement due to worsening right pleural effusion, which he had on 11/11/[address] Pineda. He had chest tube removal yesterday and pleurodesis with doxycycline per Dr. Pineda with good results-no significant reaccumulation of pleural effusion. Morning labs showed hgb 11.4, wbc 15.9, bun 14/creatinine 0.62. AM vitals: [id number]% on 4L NC. The patient is stable for discharge to long-term facility. He will discharge back to [facility] with orders for PO abx. He will also need to follow up with his primary care provider and surgeon. Please see discharge plan for list of discharge medications and modifications that we made, electronic medical record for diagnostic tests and labs. The patient and [facility] staff were educated to return patient to ER if condition changed or worsened unexpectedly.
== END 2023-11-18 15:45 | DRG 186 ==
LOC: MED/SURG 13:10 → ER 13:10 → MED/SURG 19:03
PROVIDERS: ADMIT Internal Medicine; ATTEND Family Medicine
DX: J44.9 Chronic obstructive pulmonary disease, unspecified; J90 Pleural effusion, not elsewhere classified; K21.9 Gastro-esophageal reflux disease without esophagitis; J18.8 Other pneumonia, unspecified organism; R09.02 Hypoxemia; K59.09 Other constipation; I25.10 Atherosclerotic heart disease of native coronary artery without angina pectoris; I95.89 Other hypotension; E78.5 Hyperlipidemia, unspecified; E83.42 Hypomagnesemia; J98.11 Atelectasis; I48.91 Unspecified atrial fibrillation; R06.02 Shortness of breath; I10 Essential (primary) hypertension

== ENCOUNTER 2023-12-01 10:44 | Inpatient (IN) ==
[2023-12-01 11:03] LABS: ABG BASE EXCESS 4.1 mmol/L (-2.0-2.0); ABG HCO3 28.5 mmol/L (22-26)
[2023-12-01 11:04] LABS: ABG ALLEN TEST POS
[2023-12-01] MEDS ORDERED: DUONEB 0.5 MG/3 MG (3 mL) NEB ONE (11:05)
--- NOTE | 2023-12-01 11:09 | EKG ---
Test Reason : short of breath Blood Pressure : */* mmHG Vent. Rate : 88 BPM Atrial Rate : 88 BPM P-R Int : 126 ms QRS Dur : 76 ms QT Int : 388 ms P-R-T Axes : 64 52 53 degrees QTc Int : 469 ms Sinus rhythm with premature supraventricular complexes Nonspecific T wave abnormality When compared with ECG of 13-NOV-2023 19:04, Sinus rhythm has replaced Atrial flutter Vent. rate has decreased BY 49 BPM Confirmed by Bryan Ramirez MD ([id number]) on 12/02/2023 9:27:11 AM Referred By: Confirmed By: Bryan Ramirez MD
[2023-12-01] MEDS: DUONEB 0.5 MG/3 MG (3 mL) NEB ONE (11:10)
--- NOTE | 2023-12-01 11:13 | DR.GENAD ---
HPI Time Seen Time Seen by Provider: 12/01/23 11:11 Complaint/Symptoms Chief Complaint Doctors Comments: 78-year-old male [facility]. Nursing staff reports the patient very weak and sleepy this a.m., not his usual state. Does have chronic COPD, pulse ox reportedly running the upper 80s on oxygen. Patient able to answer some questions, but slowly, softly. Patient denies fever, chills, pain anywhere, cough, shortness of breath. No report of nausea, vomiting, diarrhea or urinary issues. Patient on hydrocodone twice daily, last taken last evening. Patient was hospitalized in the last 2 weeks, had a right pleural effusion that was drained by Dr. Pineda, has a wound to the right chest, no current chest tube. Nurses notes reviewed Nurses Notes Review: Yes Source History Provided: Patient Mode of Arrival Mode of Arrival: Stretcher PM PM Past Medical History: COPD, Coronary Artery Disease, Dyslipidemia, GERD and Hypertension Past Surgical History: No Surgical History: Other Family History Family Medical History: Heart Failure Social History Does patient currently use any type of tobacco product: No Alcohol Use: None Do you use any recreational Drugs:: No ROS Review of Systems Constitutional: Weakness Eyes: No Symptoms Reported ENTM: No Symptoms Reported Respiratoy: No Symptoms Reported Cardiovascular: No Symptoms Reported Gastrointestinal/Abdominal: No Symptoms Reported Genitourinary: No Symptoms Reported Neurological: Weakness Musculoskeletal: No Symptoms Reported Integumentary: No Symptoms Reported Hematologic/Lymphatic: No Symptoms Reported All Other Systems: Reviewed and Negative PE Vital Signs Vitals: Vital Signs Temperature 97.8 F Pulse Rate 73 Pulse Rate 72 Pulse Rate 80 Pulse Rate 74 Pulse Rate 49 Pulse Rate 73 Pulse Rate 73 Pulse Rate 71 Pulse Rate 72 Pulse Rate 73 Pulse Rate 71 Pulse Rate 72 Pulse Rate 84 Pulse Rate 81 Pulse Rate 82 Pulse Rate 85 Pulse Rate 84 Respiratory Rate 14 Blood Pressure 111/78 O2 Sat by Pulse Oximetry 94 O2 Sat by Pulse Oximetry 97 O2 Sat by Pulse Oximetry 89 O2 Sat by Pulse Oximetry 93 O2 Sat by Pulse Oximetry 85 O2 Sat by Pulse Oximetry 93 O2 Sat by Pulse Oximetry 98 O2 Sat by Pulse Oximetry 94 O2 Sat by Pulse Oximetry 97 O2 Sat by Pulse Oximetry 99 O2 Sat by Pulse Oximetry 100 O2 Sat by Pulse Oximetry 100 O2 Sat by Pulse Oximetry 99 O2 Sat by Pulse Oximetry 89 O2 Sat by Pulse Oximetry 98 O2 Sat by Pulse Oximetry 96 O2 Sat by Pulse Oximetry 93 O2 Sat by Pulse Oximetry 95 General General Appearance: Alert and In No Apparent Distress Eyes Eye exam: PERRL and EOMI ENT ENT Exam: Mucous Membranes Moist Neck Neck Exam: Normal Inspection Respiratory Respiratory Exam: Other (decrease breath sounds at bases. No active wheezing); negative Accessory Muscle Use or Respiratory Distress Abdominal Exam Abdominal Exam: Normal Bowel Sounds and Soft; negative Tenderness Extremities Extremities Exam: negative Edema Neurologic Neurological Exam: CN II-XII Intact and Other (somnolent, but arousable); negative Motor Sensory Deficit COURSE Treatment Treatment: 78-year-old male with COPD, recent right pleural effusion sent [facility] from the prison with increasing weakness, somnolence. In no respiratory distress. Chronically on oxygen at the prison, 4L. ABG obtained, patient is not CO2 retaining. W/u initiated. Given a DuoNeb treatment. 1332 -chest x- ray with chronic bilateral opacifications, reportedly a bit better on the left, seen on the right compared to x-ray done yesterday white count normal at 10,900, not anemic. Chemistries overall acceptable. Does have a bit low magnesium of 1.7. Troponin was normal, as well as lactic acid, lipase and total CK. Patient remaining somnolent but arousable. Will add a CT scan of the head for further evaluation, has not given a urine. CT brain without acute abnormalities. Patient was given additional fluids, still cannot urine. In & Out catheterization performed by nurse. Urine very cloudy and turbid. Patient given IV Rocephin for probable UTI. Official UA with only 5-10 white blood cells per high-power field, but does have leukocytosis. Discussed with Dr. Humphrey. Will admit for observation. Will continue IV Rocephin and IV fluids. [facility]OR Labs Reviewed Laboratory Results Reviewed?: Yes 12/01/23 11:31 12/01/23 11:31 Laboratory: WBC 10.9 X10^3/uL (3.6-10.0) H 12/01/23 11:31 RBC 4.19 X10^6/uL (4.7-6.0) L 12/01/23 11:31 Hgb 12.1 g/dL (13.5-18.0) L 12/01/23 11:31 Hct 36.7 % (42.0-54.0) L 12/01/23 11:31 MCV 87.6 fL (80.0-100.0) 12/01/23 11:31 MCH 28.9 pg (27.0-34.0) 12/01/23 11:31 MCHC 33.0 g/dL (33.0-35.0) 12/01/23 11:31 RDW 15.6 % (11.6-16.5) 12/01/23 11:31 Plt Count 378 X10^3/uL (150.0-450.0) 12/01/23 11:31 MPV 7.3 fL (7.4-11.0) L 12/01/23 11:31 Neut % (Auto) 80.9 % (42.0-75.0) H 12/01/23 11: Lymph % (Auto) 8.1 % (21.0-51.0) L 12/01/23 11:31 [place] % (Auto) 10.6 % (0.0-13.0) 12/01/23 11:31 Eos % (Auto) 0.2 % (0.9-2.9) L 12/01/23 11:31 Baso % (Auto) 0.2 % (0.2-1.0) 12/01/23 11:31 Neut # (Auto) 8.8 x10^3/uL (2.2-4.8) H 12/01/23 11:31 Lymph # (Auto) 0.9 X10^3/uL (1.3-2.9) L 12/01/23 11:31 [place] # (Auto) 1.2 x10^3/uL (0.3-0.8) H 12/01/23 11:31 Eos # (Auto) 0.0 x10^3/uL (0.0-0.2) 12/01/23 11:31 Baso # (Auto) 0.0 X10^3/uL (0.0-0.1) 12/01/23 11:31 Absolute Nucleated RBC 0.0 /100WBC 12/01/23 11:31 Sample Site Rrad 12/01/23 10:59 ABG pH 7.450 (7.35-7.45) 12/01/23 10:59 ABG pCO2 41.0 mmHg (35.0-45.0) 12/01/23 10:59 ABG pO2 59.0 mmHg (80.0-100.0) L 12/01/23 10:59 ABG HCO3 28.5 mmol/L (22-26) H 12/01/23 10:59 ABG O2 Saturation 91.0 % (90-100) 12/01/23 10:59 ABG Base Excess 4.1 mmol/L (-2.0-2.0) H 12/01/23 10:59 Isai Test Pos 12/01/23 10:59 A-a Gradient 146.0 mmHg 12/01/23 10:59 FiO2 36.0 12/01/23 10:59 Blood Gas Comments Pt ramon well elj cdn 12/01/23 10:59 Sodium 140 mmol/L (136-145) 12/01/23 11:31 Corrected Sodium TNP 12/01/23 11:31 Potassium 3.8 mmol/L (3.5-5.1) 12/01/23 11:31 Chloride 107 mmol/L (98-107) 12/01/23 11:31 Carbon Dioxide 28.8 mmol/L (21-32) 12/01/23 11:31 BUN 13 mg/dL (7-18) 12/01/23 11:31 Creatinine 0.60 mg/dL (0.70-1.30) L 12/01/23 11:31 Est GFR (MDRD) Af Amer > 60 (>60) 12/01/23 11:31 Est GFR (MDRD) Non-Af > 60 (>60) 12/01/23 11:31 Glucose 100 mg/dL (65-99) H 12/01/23 11:31 Lactic Acid 0.8 mmol/L (0.4-2.0) 12/01/23 11:31 Calcium 8.3 mg/dL (8.5-10.1) L 12/01/23 11:31 Corrected Calcium 10.2 mg/dL (8.5-10.1) H 12/01/23 11:31 Magnesium 1.7 mg/dL (2.0-2.9) L 12/01/23 11:31 Total Bilirubin 0.40 mg/dL (0.2-1.0) 12/01/23 11:31 AST 21 Units/L (15-37) 12/01/23 11:31 ALT 11 Units/L (12-78) L 12/01/23 11:31 Alkaline Phosphatase 186 Units/L (46-116) H 12/01/23 11:31 Creatine Kinase 12 Units/L (39-308) L 12/01/23 11:31 Troponin I High Sens 9.0 ng/L (4.0-60.0) 12/01/23 11:31 Total Protein 5.6 g/dL (6.4-8.2) L 12/01/23 11:31 Albumin 1.6 g/dL (3.4-5.0) L 12/01/23 11:31 Globulin 4.0 g/dL (2.5-4.5) 12/01/23 11:31 Albumin/Globulin Ratio 0.4 Ratio (1.1-2.1) L 12/01/23 11:31 Lipase 33 Units/L (16-77) 12/01/23 11:31 Specimen Type Catherized urine 12/01/23 16:42 Urine Color Yellow (YELLOW) 12/01/23 16:42 Urine Appearance Cloudy (CLEAR) 12/01/23 16:42 Urine pH 6.0 (5.0 - 8.0) 12/01/23 16:42 Ur Specific [place] 1.025 (1.000-1.030) 12/01/23 16:42 Urine Protein Negative (NEGATIVE) 12/01/23 16:42 Urine Glucose (UA) Negative (NEGATIVE) 12/01/23 16:42 Urine Ketones 1+ (NEGATIVE) 12/01/23 16:42 Urine Blood 1+ (NEGATIVE) 12/01/23 16:42 Urine Nitrite Negative (NEGATIVE) 12/01/23 16:42 Urine Bilirubin Negative (NEGATIVE) 12/01/23 16:42 Urine Urobilinogen 2+ (NORMAL) 12/01/23 16:42 Ur Leukocyte Esterase 2+ (NEGATIVE) 12/01/23 16:42 Urine RBC 0-2 /HPF (0-3) 12/01/23 16:42 Urine WBC 5-10 /HPF (0-5) A 12/01/23 16:42 Ur Squamous Epith Cells Rare /HPF (NEGATIVE) 12/01/23 16:42 Amorphous Sediment 2+ /HPF (NEGATIVE) 12/01/23 16:42 Urine Bacteria Trace /HPF (NEGATIVE) 12/01/23 16:42 Hyaline Casts Few /LPF (NEGATIVE) 12/01/23 16:42 Urine Mucus Few /HPF (NEGATIVE) 12/01/23 16:42 Urine Yeast Moderate /HPF (NEGATIVE) 12/01/23 16:42 Ur Culture Indicated? No/not indicated 12/01/23 16:42 SARS CoV-2 RNA Rapid PRAMOD Negative (NEGATIVE) 12/01/23 11:08 XRAY XRAY Interpreted by: Radiologist X-ray Results: EXAM: BRAIN W/O CON HISTORY: lethargic, ams; COMPARISON: None. TECHNIQUE: Axial CT of the head is performed from the base of the skull through the vertex without contrast . Multiplaner reformats are generated from the original axial data. FINDINGS: Moderate generalized cortical volume loss is observed. There is commensurate dilation of the lateral ventricles. Mild chronic microangiopathic ischemic white matter changes of the supratentorial brain are observed. There is no evidence of an acute intracranial hemorrhage or extra-axial fluid collection. There is no mass effect, shift or cerebral edema. Atherosclerotic calcifications are associated with the cavernous ICA segments. There is no acute stage, large artery territorial infarct. Sinuses and mastoid air cells are clear. The calvarium is intact. No suprasellar asymmetry is identified. The cerebellar tonsils are normal in position. The craniocervical alignment is maintained. Study quality is mildly degraded by patient associated motion artifact. IMPRESSION: No acute intracranial abnormalities Age-related cortical volume loss and degenerative white matter changes of the supratentorial brain. Radiation dose reduction was achieved through individualized adjustment of kVP and/or mA, through adaptive statistical iterative reconstruction, and/or through automated tube current modulation. THIS IS AN ELECTRONICALLY VERIFIED FINAL REPORT 12/01/2023 2:08 PM - Electronically signed by Cedrick Payan MD EXAM: CHEST, 1 VIEW HISTORY: WEAKNESS, HX OF RT PULMONARY EFFUSION; COMPARISON: Prior study or studies were utilized for comparison during interpretation with the most relevant dated yesterday TECHNIQUE: CHEST, 1 VIEW FINDINGS: Chest: Lines and tubes: None Mediastinum: Cardiomegaly. Pulmonary vessels: No pulmonary vascular congestion. Lung camara: Patchy opacities are seen Pleura: No effusion. No pneumothorax. Bones and soft tissues: No acute osseous or soft tissue abnormality. IMPRESSION: 1. Slightly improved airspace opacities in the left and similar airspace opacities on the right compared to yesterday THIS IS AN ELECTRONICALLY VERIFIED FINAL REPORT 12/01/2023 11:39 AM - Electronically signed by James Hogue MD EKG Rate: 88 [place]: Normal Rhythm: NSR ST: Normal Opioid Opioid Risk Tool Age (Alexander box if 16-45): No History of Preadolescent Sexual Abuse: No Total: 0 Total Score Risk Category: Low Risk Copyright: Adithya JACOBSEN predicting aberrant behaviors Discharge Plan Diagnosis Discharge Problem: Acute UTI, Altered mental status Discharge Plan Patient Disposition: ADMITTED INPATIENT Condition: Stable
[2023-12-01] MEDS ORDERED: NS 500 ML IV 500 ML IV ONE (11:17)
[2023-12-01] MEDS: NS 500 ML IV 500 ML IV ONE (11:39)
--- NOTE | 2023-12-01 11:42 | RAD ---
EXAM:CHEST, 1 VIEWHISTORY:WEAKNESS, HX OF RT PULMONARY EFFUSION;COMPARISON:Prior study or studies were utilized for comparison during interpretation with the most relevant dated yesterdayTECHNIQUE:CHEST, 1 VIEWFINDINGS:Chest:Lines and tubes: NoneMediastinum: Cardiomegaly.Pulmonary vessels: No pulmonary vascular congestion.Lung camara: Patchy opacities are seenPleura: No effusion. No pneumothorax.Bones and soft tissues: No acute osseous or soft tissue abnormality.IMPRESSION:1. Slightly improved airspace opacities in the left and similar airspace opacities on the right compared to yesterdayTHIS IS AN ELECTRONICALLY VERIFIED FINAL REPORT12/01/2023 11:39 AM - Electronically signed by James Hogue MD
[2023-12-01 11:49] LABS: HEMOGLOBIN 12.1 g/dL (13.5-18.0); MEAN CORPUSCULAR VOLUME 87.6 fL (80.0-100.0)
[2023-12-01 12:00] LABS: BASOPHILS % (AUTO) 0.2 % (0.2-1.0); EOSINOPHILS % (AUTO) 0.2 % (0.9-2.9); HEMATOCRIT 36.7 % (42.0-54.0); LYMPHOCYTES # (AUTO) 0.9 X10^3/uL (1.3-2.9); LYMPHOCYTES % (AUTO) 8.1 % (21.0-51.0); MEAN CORPUSCULAR HEMOGLOBIN 28.9 pg (27.0-34.0); MEAN PLATELET VOLUME 7.3 fL (7.4-11.0); MONOCYTES # (AUTO) 1.2 x10^3/uL (0.3-0.8); MONOCYTES % (AUTO) 10.6 % (0.0-13.0); NEUTROPHILS # (AUTO) 8.8 x10^3/uL (2.2-4.8); NEUTROPHILS % (AUTO) 80.9 % (42.0-75.0); PLATELET COUNT 378 X10^3/uL (150.0-450.0); RED BLOOD COUNT 4.19 X10^6/uL (4.7-6.0); RED CELL DISTRIBUTION WIDTH 15.6 % (11.6-16.5); WHITE BLOOD COUNT 10.9 X10^3/uL (3.6-10.0)
[2023-12-01 12:13] LABS: ALANINE AMINOTRANSFERASE 11 Units/L (12-78); ALBUMIN 1.6 g/dL (3.4-5.0); ALKALINE PHOSPHATASE 186 Units/L (46-116); ASPARTATE AMINO TRANSFERASE 21 Units/L (15-37); BLOOD UREA NITROGEN 13 mg/dL (7-18); CALCIUM 8.3 mg/dL (8.5-10.1); CARBON DIOXIDE 28.8 mmol/L (21-32); CHLORIDE 107 mmol/L (98-107); COR CA(FOR HYPOALB) 10.2 mg/dL (8.5-10.1); CREATINE KINASE 12 Units/L (39-308); GLUCOSE 100 mg/dL (65-99); LIPASE 33 Units/L (16-77); MAGNESIUM 1.7 mg/dL (2.0-2.9); POTASSIUM 3.8 mmol/L (3.5-5.1); SODIUM 140 mmol/L (136-145); TOTAL PROTEIN 5.6 g/dL (6.4-8.2); eGFR NON BLACK RACES > 60 (>60)
--- NOTE | 2023-12-01 14:12 | CT ---
EXAM:BRAIN W/O CONHISTORY:lethargic, ams;COMPARISON:None.TECHNIQUE:Axial CT of the head is performed from the base of the skull through the vertex without contrast . Multiplaner reformats are generated from the original axial data.FINDINGS:Moderate generalized cortical volume loss is observed. There is commensurate dilation of the lateral ventricles. Mild chronic microangiopathic ischemic white matter changes of the supratentorial brain are observed. There is no evidence of an acute intracranial hemorrhage or extra-axial fluid collection. There is no mass effect, shift or cerebral edema. Atherosclerotic calcifications are associated with the cavernous ICA segments. There is no acute stage, large artery territorial infarct.Sinuses and mastoid air cells are clear. The calvarium is intact. No suprasellar asymmetry is identified. The cerebellar tonsils are normal in position. The craniocervical alignment is maintained.Study quality is mildly degraded by patient associated motion artifact.IMPRESSION:No acute intracranial abnormalitiesAge-related cortical volume loss and degenerative white matter changes of the supratentorial brain.Radiation dose reduction was achieved through individualized adjustment of kVP and/or mA, through adaptive statistical iterative reconstruction, and/or through automated tube current modulation.THIS IS AN ELECTRONICALLY VERIFIED FINAL REPORT12/01/2023 2:08 PM - Electronically signed by Cedrick Payan MD
[2023-12-01] MEDS: NS 250 ML IV 250 ML IV ONE ×2 (14:44→15:09)
[2023-12-01 16:58] LABS: BILIRUBIN,URINE NEGATIVE (NEGATIVE); BLOOD/HEMOGLOBIN,URINE 1+ (NEGATIVE); GLUCOSE, URINE NEGATIVE (NEGATIVE); KETONES,URINE 1+ (NEGATIVE); LEUKOCYTE ESTERASE ,URINE 2+ (NEGATIVE); NITRITES,URINE NEGATIVE (NEGATIVE); PROTEIN,URINE NEGATIVE (NEGATIVE); UROBILINOGEN,URINE 2+ (NORMAL)
[2023-12-01] MEDS: ROCEPHIN VIAL 1 GRAM IVP ONE (17:06)
[2023-12-01 17:08] LABS: APPEARANCE,URINE CLOUDY (CLEAR); BACTERIA,URINE TRACE /HPF (NEGATIVE); COLOR,URINE YELLOW (YELLOW); RBC,URINE 0-2 /HPF (0-3); SQUAMOUS EPITHELIAL CELL,UR RARE /HPF (NEGATIVE)
[2023-12-01 17:09] LABS: HYALINE CASTS, URINE FEW /LPF (NEGATIVE)
[2023-12-01] MEDS: ROCEPHIN VIAL 1 GRAM ONE (17:09)
[2023-12-01 17:10] LABS: YEAST,URINE MODERATE /HPF (NEGATIVE)
[2023-12-01] MEDS ORDERED: CONSULT PHARMACY - POTASSIUM & MAGNESIUM XX SCH (18:00)
[2023-12-01] MEDS: DUONEB 0.5 MG/3 MG (3 mL) NEB SCH (18:01)
[2023-12-01] MEDS: K-DUR TAB 20 MEQ PO ONE (18:40)
[2023-12-01] MEDS: D5 NS 1,000 ML IV 1,000 ML IV SCH (18:40)
[2023-12-01] MEDS: MAG-OX TAB PO SCH (18:40)
[2023-12-01] MEDS: PULMICORT NEB TX 0.5 MG NEB SCH (21:20)
[2023-12-02 05:54] LABS: BASOPHILS # (AUTO) 0.1 X10^3/uL (0.0-0.1); BASOPHILS % (AUTO) 0.7 % (0.2-1.0); EOSINOPHILS # (AUTO) 0.3 x10^3/uL (0.0-0.2); EOSINOPHILS % (AUTO) 3.3 % (0.9-2.9); HEMATOCRIT 41.1 % (42.0-54.0); HEMOGLOBIN 13.4 g/dL (13.5-18.0); LYMPHOCYTES # (AUTO) 1.2 X10^3/uL (1.3-2.9); LYMPHOCYTES % (AUTO) 13.4 % (21.0-51.0); MEAN CORPUSCULAR HEMOGLOBIN 28.6 pg (27.0-34.0); MEAN CORPUSCULAR HGB CONC 32.5 g/dL (33.0-35.0); MEAN CORPUSCULAR VOLUME 88.2 fL (80.0-100.0); MEAN PLATELET VOLUME 7.8 fL (7.4-11.0); MONOCYTES # (AUTO) 1.2 x10^3/uL (0.3-0.8); MONOCYTES % (AUTO) 13.4 % (0.0-13.0); NEUTROPHILS # (AUTO) 6.2 x10^3/uL (2.2-4.8); NEUTROPHILS % (AUTO) 69.2 % (42.0-75.0); PLATELET COUNT 292 X10^3/uL (150.0-450.0); RED BLOOD COUNT 4.67 X10^6/uL (4.7-6.0)
[2023-12-02 06:08] LABS: ALANINE AMINOTRANSFERASE 15 Units/L (12-78); ALBUMIN 1.8 g/dL (3.4-5.0); ALKALINE PHOSPHATASE 194 Units/L (46-116); ASPARTATE AMINO TRANSFERASE 32 Units/L (15-37); BLOOD UREA NITROGEN 10 mg/dL (7-18); CALCIUM 8.3 mg/dL (8.5-10.1); CARBON DIOXIDE 27.9 mmol/L (21-32); CHLORIDE 109 mmol/L (98-107); COR CA(FOR HYPOALB) 10.1 mg/dL (8.5-10.1); CREATININE 0.53 mg/dL (0.70-1.30); GLUCOSE 82 mg/dL (65-99); MAGNESIUM 1.9 mg/dL (2.0-2.9); POTASSIUM 3.9 mmol/L (3.5-5.1); SODIUM 142 mmol/L (136-145); TOTAL PROTEIN 6.2 g/dL (6.4-8.2); eGFR NON BLACK RACES > 60 (>60)
[2023-12-02] MEDS ORDERED: CONSULT PHARMACY - POTASSIUM & MAGNESIUM XX SCH (07:00)
--- NOTE | 2023-12-02 09:18 | DR.H&P ---
H&P History & Physical for Day of: H&P Date: 12/02/23 Chief Complaint Chief Complaint: Altered mental status Allergies Allergies Allergy/AdvReac Type Severity Reaction Status Date / Time No Known Drug Allergies Allergy Unknown Verified 09/12/23 19:44 History of Present Illness History of Present Illness: This is a pleasant 78-year-old white male well-known to dc. He was found to be with altered mental status in the half-way. Because of that he was sent to the [facility] emergency department for further workup. The patient has end-stage COPD and a chronic right pleural effusion. Workup in the emergency department did not find anything except a urinary tract infection. They got the urine out after giving him some IV fluid he dark brown- colored urine. He had white cells in it and some bacteria. It was sent for culture and sensitivity reports. He did become responsive after he was given IV fluid however he still did not answer questions appropriately. He was started on IV Rocephin and subsequently admitted him to the [facility] dical floor. This morning he is still with altered mental status and sleeping hard. His vital signs are stable this morning and he has O2 sat of 98% on 4 L. His labs are within normal limits. We will continue IV Rocephin and IV fluid and follow-up with his urine culture and sensitivity report. Past Medical History Past Medical History: COPD, Coronary Artery Disease, Dyslipidemia, GERD and Hypertension Past Surgical History Surgical History: Other Family History Family Medical History: Heart Failure Social History Does patient currently use any type of tobacco product: No Have you used tobacco products in the last 12 months: No Type of Tobacco Use: None Does any household member use tobacco: No Alcohol Use: None Drug Use: None Medications Home Medications: Home Medications Medication Instructions Recorded Confirmed Type atorvastatin 40 mg tablet 40 mg PO HS 08/04/23 12/01/23 History citalopram 20 mg tablet 20 mg PO QDAY 08/04/23 12/01/23 History pantoprazole 40 mg tablet,delayed 40 mg PO DAILY 08/04/23 12/01/23 History release ipratropium 0.5 mg-albuterol 3 mg 3 ml inhalation QID 09/12/23 12/01/23 History (2.5 mg base)/3 mL nebulization soln fluticasone fur. 100 mcg-umeclid 1 inh inhalation DAILY 09/13/23 12/01/23 History 62.5 mcg-vilant 25 mcg inhalat.powder (Trelegy Ellipta) docusate sodium 100 mg capsule 100 mg PO BID PRN Constipation 10/31/23 12/01/23 History (Colace) dofetilide 250 mcg capsule 250 mcg PO BID 10/31/23 12/01/23 History melatonin 5 mg tablet 5 mg PO HS PRN 10/31/23 12/01/23 History fluticasone propionate 50 1 spray intranasal QDAY 11/09/23 12/01/23 History mcg/actuation nasal spray,suspension diazepam 5 mg tablet 5 mg PO BID PRN 12/01/23 12/01/23 History Labs 12/02/23 05:25 12/02/23 05:25 Labs: Laboratory WBC 9.0 X10^3/uL (3.6-10.0) 12/02/23 05:25 RBC 4.67 X10^6/uL (4.7-6.0) L 12/02/23 05:25 Hgb 13.4 g/dL (13.5-18.0) L 12/02/23 05:25 Hct 41.1 % (42.0-54.0) L 12/02/23 05:25 MCV 88.2 fL (80.0-100.0) 12/02/23 05:25 MCH 28.6 pg (27.0-34.0) 12/02/23 05:25 MCHC 32.5 g/dL (33.0-35.0) L 12/02/23 05:25 RDW 16.0 % (11.6-16.5) 12/02/23 05:25 Plt Count 292 X10^3/uL (150.0-450.0) 12/02/23 05:25 MPV 7.8 fL (7.4-11.0) 12/02/23 05:25 Neut % (Auto) 69.2 % (42.0-75.0) 12/02/23 05:25 Lymph % (Auto) 13.4 % (21.0-51.0) L 12/02/23 05:25 [place] % (Auto) 13.4 % (0.0-13.0) H 12/02/23 05:25 Eos % (Auto) 3.3 % (0.9-2.9) H 12/02/23 05:25 Baso % (Auto) 0.7 % (0.2-1.0) 12/02/23 05:25 Neut # (Auto) 6.2 x10^3/uL (2.2-4.8) H 12/02/23 05:25 Lymph # (Auto) 1.2 X10^3/uL (1.3-2.9) L 12/02/23 05:25 [place] # (Auto) 1.2 x10^3/uL (0.3-0.8) H 12/02/23 05:25 Eos # (Auto) 0.3 x10^3/uL (0.0-0.2) H 12/02/23 05:25 Baso # (Auto) 0.1 X10^3/uL (0.0-0.1) 12/02/23 05:25 Absolute Nucleated RBC 0.1 /100WBC 12/02/23 05:25 Sample Site Rrad 12/01/23 10:59 ABG pH 7.450 (7.35-7.45) 12/01/23 10:59 ABG pCO2 41.0 mmHg (35.0-45.0) 12/01/23 10:59 ABG pO2 59.0 mmHg (80.0-100.0) L 12/01/23 10:59 ABG HCO3 28.5 mmol/L (22-26) H 12/01/23 10:59 ABG O2 Saturation 91.0 % (90-100) 12/01/23 10:59 ABG Base Excess 4.1 mmol/L (-2.0-2.0) H 12/01/23 10:59 Isai Test Pos 12/01/23 10:59 A-a Gradient 146.0 mmHg 12/01/23 10:59 FiO2 36.0 12/01/23 10:59 Blood Gas Comments Pt ramon well elj cdn 12/01/23 10:59 Sodium 142 mmol/L (136-145) 12/02/23 05:25 Corrected Sodium TNP 12/02/23 05:25 Potassium 3.9 mmol/L (3.5-5.1) 12/02/23 05:25 Chloride 109 mmol/L (98-107) H 12/02/23 05:25 Carbon Dioxide 27.9 mmol/L (21-32) 12/02/23 05:25 BUN 10 mg/dL (7-18) 12/02/23 05:25 Creatinine 0.53 mg/dL (0.70-1.30) L 12/02/23 05:25 Est GFR (MDRD) Af Amer > 60 (>60) 12/02/23 05:25 Est GFR (MDRD) Non-Af > 60 (>60) 12/02/23 05:25 Glucose 82 mg/dL (65-99) 12/02/23 05:25 Lactic Acid 0.8 mmol/L (0.4-2.0) 12/01/23 11:31 Calcium 8.3 mg/dL (8.5-10.1) L 12/02/23 05:25 Corrected Calcium 10.1 mg/dL (8.5-10.1) 12/02/23 05:25 Magnesium 1.9 mg/dL (2.0-2.9) L 12/02/23 05:25 Total Bilirubin 0.30 mg/dL (0.2-1.0) 12/02/23 05:25 AST 32 Units/L (15-37) 12/02/23 05:25 ALT 15 Units/L (12-78) 12/02/23 05:25 Alkaline Phosphatase 194 Units/L (46-116) H 12/02/23 05:25 Creatine Kinase 12 Units/L (39-308) L 12/01/23 11:31 Troponin I High Sens 9.0 ng/L (4.0-60.0) 12/01/23 11:31 Total Protein 6.2 g/dL (6.4-8.2) L 12/02/23 05:25 Albumin 1.8 g/dL (3.4-5.0) L 12/02/23 05:25 Globulin 4.4 g/dL (2.5-4.5) 12/02/23 05:25 Albumin/Globulin Ratio 0.4 Ratio (1.1-2.1) L 12/02/23 05:25 Lipase 33 Units/L (16-77) 12/01/23 11:31 Specimen Type Catherized urine 12/01/23 16:42 Urine Color Yellow (YELLOW) 12/01/23 16:42 Urine Appearance Cloudy (CLEAR) 12/01/23 16:42 Urine pH 6.0 (5.0 - 8.0) 12/01/23 16:42 Ur Specific [place] 1.025 (1.000-1.030) 12/01/23 16:42 Urine Protein Negative (NEGATIVE) 12/01/23 16:42 Urine Glucose (UA) Negative (NEGATIVE) 12/01/23 16:42 Urine Ketones 1+ (NEGATIVE) 12/01/23 16:42 Urine Blood 1+ (NEGATIVE) 12/01/23 16:42 Urine Nitrite Negative (NEGATIVE) 12/01/23 16:42 Urine Bilirubin Negative (NEGATIVE) 12/01/23 16:42 Urine Urobilinogen 2+ (NORMAL) 12/01/23 16:42 Ur Leukocyte Esterase 2+ (NEGATIVE) 12/01/23 16:42 Urine RBC 0-2 /HPF (0-3) 12/01/23 16:42 Urine WBC 5-10 /HPF (0-5) A 12/01/23 16:42 Ur Squamous Epith Cells Rare /HPF (NEGATIVE) 12/01/23 16:42 Amorphous Sediment 2+ /HPF (NEGATIVE) 12/01/23 16:42 Urine Bacteria Trace /HPF (NEGATIVE) 12/01/23 16:42 Hyaline Casts Few /LPF (NEGATIVE) 12/01/23 16:42 Urine Mucus Few /HPF (NEGATIVE) 12/01/23 16:42 Urine Yeast Moderate /HPF (NEGATIVE) 12/01/23 16:42 Ur Culture Indicated? No/not indicated 12/01/23 16:42 SARS CoV-2 RNA Rapid PRAMOD Negative (NEGATIVE) 12/01/23 11:08 Review of Systems Constitutional: Other (Not responsive) Physical Exam Vital Signs: Vital Signs Temperature 97.6 F Temperature 98.4 F Pulse Rate [Left Brachial] 77 Pulse Rate [Left Brachial] 72 Respiratory Rate 16 Respiratory Rate 20 Blood Pressure [Left Arm] 111/60 Blood Pressure [Left Arm] 108/61 O2 Sat by Pulse Oximetry 92 O2 Sat by Pulse Oximetry 98 Oriented: Not Oriented Eyes: Normal Ear: Normal Nose: Normal Respiratory: Diminished Throughout Cardiovascular: Normal Auscultation: Bowel Sounds: Normal Palpation: Normal Tenderness: Normal Skin: Decreased [place]urgur Psychiatric: Other (The patient is not communicating this morning by speech) Assessment/Plan (1) Altered mental status: Status: Acute Plan: I suspect the patient's altered mental status is secondary to underlying UTI. Will treat the UTI and give him IV hydration and see if he responds. He is full code at this time. (2) Acute UTI: Status: Acute Plan: Continue IV Rocephin follow-up with urine culture and sensitivity when available (3) Hypoxia: Status: Acute Plan: Patient has end-stage COPD so we will continue with supplemental O2 at 4 L nasal cannula. (4) Hypotension: Status: Acute Plan: IV hydration. (5) Pleural effusion: Status: Acute Plan: Monitor daily chest x-rays. Review H&P Reviewed: Yes Patient was examined?: Yes
[2023-12-02] MEDS: MAG-OX TAB PO SCH (09:22)
[2023-12-02] MEDS: ROCEPHIN VIAL 1 GRAM 1 G in NS 100 ML IV 100 ML IV SCH (09:34)
[2023-12-02 09:47] LABS: ABG BASE EXCESS 3.9 mmol/L (-2.0-2.0); ABG HCO3 28.5 mmol/L (22-26)
--- NOTE | 2023-12-02 11:04 | RAD ---
EXAM:CHEST, 1 VIEWHISTORY:ams;COMPARISON:Prior study or studies were utilized for comparison during interpretation with the most relevant dated 12/01/2023TECHNIQUE:CHEST, 1 VIEWFINDINGS:Chest:Lines and tubes: Cardiac leads overlie the chest.Mediastinum: Cardiomegaly.Pulmonary vessels: No pulmonary vascular congestion.Lung camara: Chronically increased interstitial opacities are noted. There is interval increase in airspace opacities since the prior examPleura: No effusion. No pneumothorax.Bones and soft tissues: No acute osseous or soft tissue abnormality.IMPRESSION:1. Interval worsening in airspace opacitiesTHIS IS AN ELECTRONICALLY VERIFIED FINAL REPORT12/02/2023 11:01 AM - Electronically signed by James Hogue MD
[2023-12-02] MEDS ORDERED: MAGNESIUM SULFATE 50% INJ VIAL ONE (11:15)
[2023-12-02] MEDS: D5 NS 1,000 ML IV 1,000 ML with MAGNESIUM SULFATE 50% INJ VIAL 1 G IV SCH (11:24)
[2023-12-02] MEDS: LOVENOX INJ 40 MG SYR SC SCH (11:25)
[2023-12-02] MEDS: DIFLUCAN 200 MG IV PREMIX* 200 MG/100 ML BAG IV SCH (11:25)
[2023-12-02] MEDS: LEVAQUIN PREMIX IV 500 MG 500 MG/100 ML BAG IV SCH (11:25)
[2023-12-03 06:17] LABS: BASOPHILS % (AUTO) 0.3 % (0.2-1.0); EOSINOPHILS # (AUTO) 0.2 x10^3/uL (0.0-0.2); EOSINOPHILS % (AUTO) 1.5 % (0.9-2.9); HEMOGLOBIN 11.8 g/dL (13.5-18.0); LYMPHOCYTES # (AUTO) 1.4 X10^3/uL (1.3-2.9); LYMPHOCYTES % (AUTO) 11.4 % (21.0-51.0); MEAN CORPUSCULAR HEMOGLOBIN 28.5 pg (27.0-34.0); MEAN CORPUSCULAR HGB CONC 32.8 g/dL (33.0-35.0); MEAN CORPUSCULAR VOLUME 86.9 fL (80.0-100.0); MEAN PLATELET VOLUME 7.5 fL (7.4-11.0); MONOCYTES # (AUTO) 1.8 x10^3/uL (0.3-0.8); MONOCYTES % (AUTO) 14.5 % (0.0-13.0); NEUTROPHILS # (AUTO) 8.8 x10^3/uL (2.2-4.8); NEUTROPHILS % (AUTO) 72.3 % (42.0-75.0); PLATELET COUNT 370 X10^3/uL (150.0-450.0); RED BLOOD COUNT 4.15 X10^6/uL (4.7-6.0); RED CELL DISTRIBUTION WIDTH 16.3 % (11.6-16.5); WHITE BLOOD COUNT 12.2 X10^3/uL (3.6-10.0)
[2023-12-03 06:39] LABS: ALANINE AMINOTRANSFERASE 18 Units/L (12-78); ALBUMIN 1.5 g/dL (3.4-5.0); ALKALINE PHOSPHATASE 195 Units/L (46-116); ASPARTATE AMINO TRANSFERASE 51 Units/L (15-37); BLOOD UREA NITROGEN 8 mg/dL (7-18); CALCIUM 7.8 mg/dL (8.5-10.1); CARBON DIOXIDE 24.5 mmol/L (21-32); CHLORIDE 109 mmol/L (98-107); COR CA(FOR HYPOALB) 9.8 mg/dL (8.5-10.1); CREATININE 0.45 mg/dL (0.70-1.30); GLUCOSE 76 mg/dL (65-99); POTASSIUM 3.9 mmol/L (3.5-5.1); SODIUM 141 mmol/L (136-145); TOTAL PROTEIN 5.4 g/dL (6.4-8.2); eGFR NON BLACK RACES > 60 (>60)
--- NOTE | 2023-12-03 08:10 | RAD ---
EXAM:Portable AP chestHISTORY:COPDCOMPARISON:12/02/2023 br.br.br.br is no change in extent or distribution of bilateral pulmonary airspace disease. The findings have increased somewhat however when compared to an older exam from 11/17/2023.IMPRESSION:No change since recent similar. See above description. Findings are consistent with pneumonia superimposed on background chronic lung disease. Continued follow-up indicated.THIS IS AN ELECTRONICALLY VERIFIED FINAL REPORT12/03/2023 8:06 AM - Electronically signed by Kenney Dejesus MD
[2023-12-03] MEDS: MAG-OX TAB PO SCH (09:36)
[2023-12-03] MEDS: D5 NS 1,000 ML IV 1,000 ML IV SCH (09:37)
--- NOTE | 2023-12-03 13:30 | PCM.PROG ---
Progress Note Progress Note for Day of Date of Exam: 12/03/23 Subjective Subjective: The patient is lying in bed again this morning. He is still barely arousable except for moving around in bed, opening his eyes, and closing them at times. He did not answer questions yesterday this morning. We are treating him for urinary tract infection and we are currently awaiting his urine culture and sensitivity report. His sisters are coming to town to do sign a power of associate attorney and they would not be here until this Wednesday which is 3 days from now. In the meantime we will continue to treat him with IV antibiotics address any other concerns that come up. He is moving his upper and lower extremities bilaterally so I do not suspect neurological event has occurred. The patient does have end-stage COPD but is respiratory status at this time is stable. Past Medical Family Social History Allergies: Allergies No Known Drug Allergies Allergy (Unknown, Verified 09/12/23 19:44) Onset Date: 06/23/2022 Review of Systems ROS: No change since H&P Vital Signs and I&O's Vital Signs: Vital Signs Temperature 97.7 F Temperature 99.1 F Pulse Rate [Left Brachial] 94 Pulse Rate [Left Brachial] 99 Pulse Rate 91 Respiratory Rate 20 Respiratory Rate 20 Blood Pressure [Left Arm] 110/79 Blood Pressure [Left Arm] 116/62 O2 Sat by Pulse Oximetry 97 O2 Sat by Pulse Oximetry 98 O2 Sat by Pulse Oximetry 97 Intake and Output: Intake & Output 12/01/23 12/02/23 12/03/23 12/04/23 11:59 11:59 11:59 11:59 Intake Total 1220 / 1220 1895 / 1895 Balance 1220 / 1220 1895 / 1895 Physical Exam Oriented: Not Oriented Eyes: Normal Ear: Normal Nose: Normal Respiratory: Generalized and Diminished Cardiovascular: Normal Auscultation: Bowel Sounds: Normal Tenderness: Normal Skin: Decreased [place]urgur Psychiatric: Other (The patient is not communicating this morning by speech) Speech Pattern: Clear and Appropriate Laboratory and Diagnostics 12/03/23 05:44 12/03/23 05:44 Labs: 12/01/23 11:35 Blood Blood Culture - Preliminary 12/01/23 11:31 Blood Blood Culture - Preliminary Laboratory WBC 12.2 X10^3/uL (3.6-10.0) H 12/03/23 05:44 RBC 4.15 X10^6/uL (4.7-6.0) L 12/03/23 05:44 Hgb 11.8 g/dL (13.5-18.0) L 12/03/23 05:44 Hct 36.0 % (42.0-54.0) L 12/03/23 05:44 MCV 86.9 fL (80.0-100.0) 12/03/23 05:44 MCH 28.5 pg (27.0-34.0) 12/03/23 05:44 MCHC 32.8 g/dL (33.0-35.0) L 12/03/23 05:44 RDW 16.3 % (11.6-16.5) 12/03/23 05:44 Plt Count 370 X10^3/uL (150.0-450.0) 12/03/23 05:44 MPV 7.5 fL (7.4-11.0) 12/03/23 05:44 Neut % (Auto) 72.3 % (42.0-75.0) 12/03/23 05:44 Lymph % (Auto) 11.4 % (21.0-51.0) L 12/03/23 05:44 [place] % (Auto) 14.5 % (0.0-13.0) H 12/03/23 05:44 Eos % (Auto) 1.5 % (0.9-2.9) 12/03/23 05:44 Baso % (Auto) 0.3 % (0.2-1.0) 12/03/23 05:44 Neut # (Auto) 8.8 x10^3/uL (2.2-4.8) H 12/03/23 05:44 Lymph # (Auto) 1.4 X10^3/uL (1.3-2.9) 12/03/23 05:44 [place] # (Auto) 1.8 x10^3/uL (0.3-0.8) H 12/03/23 05:44 Eos # (Auto) 0.2 x10^3/uL (0.0-0.2) 12/03/23 05:44 Baso # (Auto) 0.0 X10^3/uL (0.0-0.1) 12/03/23 05:44 Absolute Nucleated RBC 0.3 /100WBC 12/03/23 05:44 Sample Site Lbra 12/02/23 09:43 ABG pH 7.440 (7.35-7.45) 12/02/23 09:43 ABG pCO2 42.0 mmHg (35.0-45.0) 12/02/23 09:43 ABG pO2 62.0 mmHg (80.0-100.0) L 12/02/23 09:43 ABG HCO3 28.5 mmol/L (22-26) H 12/02/23 09:43 ABG O2 Saturation 92.0 % (90-100) 12/02/23 09:43 ABG Base Excess 3.9 mmol/L (-2.0-2.0) H 12/02/23 09:43 Isai Test N/a 12/02/23 09:43 A-a Gradient 142.0 mmHg 12/02/23 09:43 FiO2 36.0 12/02/23 09:43 Blood Gas Comments Pt ramon well elj 12/02/23 09:43 Sodium 141 mmol/L (136-145) 12/03/23 05:44 Corrected Sodium TNP 12/03/23 05:44 Potassium 3.9 mmol/L (3.5-5.1) 12/03/23 05:44 Chloride 109 mmol/L (98-107) H 12/03/23 05:44 Carbon Dioxide 24.5 mmol/L (21-32) 12/03/23 05:44 BUN 8 mg/dL (7-18) 12/03/23 05:44 Creatinine 0.45 mg/dL (0.70-1.30) L 12/03/23 05:44 Est GFR (MDRD) Af Amer > 60 (>60) 12/03/23 05:44 Est GFR (MDRD) Non-Af > 60 (>60) 12/03/23 05:44 Glucose 76 mg/dL (65-99) 12/03/23 05:44 Lactic Acid 0.8 mmol/L (0.4-2.0) 12/01/23 11:31 Calcium 7.8 mg/dL (8.5-10.1) L 12/03/23 05:44 Corrected Calcium 9.8 mg/dL (8.5-10.1) 12/03/23 05:44 Magnesium 2.0 mg/dL (2.0-2.9) 12/03/23 05:44 Total Bilirubin 0.40 mg/dL (0.2-1.0) 12/03/23 05:44 AST 51 Units/L (15-37) H 12/03/23 05:44 ALT 18 Units/L (12-78) 12/03/23 05:44 Alkaline Phosphatase 195 Units/L (46-116) H 12/03/23 05:44 Creatine Kinase 12 Units/L (39-308) L 12/01/23 11:31 Troponin I High Sens 9.0 ng/L (4.0-60.0) 12/01/23 11:31 Total Protein 5.4 g/dL (6.4-8.2) L 12/03/23 05:44 Albumin 1.5 g/dL (3.4-5.0) L 12/03/23 05:44 Globulin 3.9 g/dL (2.5-4.5) 12/03/23 05:44 Albumin/Globulin Ratio 0.4 Ratio (1.1-2.1) L 12/03/23 05:44 Lipase 33 Units/L (16-77) 12/01/23 11:31 Specimen Type Catherized urine 12/01/23 16:42 Urine Color Yellow (YELLOW) 12/01/23 16:42 Urine Appearance Cloudy (CLEAR) 12/01/23 16:42 Urine pH 6.0 (5.0 - 8.0) 12/01/23 16:42 Ur Specific [place] 1.025 (1.000-1.030) 12/01/23 16:42 Urine Protein Negative (NEGATIVE) 12/01/23 16:42 Urine Glucose (UA) Negative (NEGATIVE) 12/01/23 16:42 Urine Ketones 1+ (NEGATIVE) 12/01/23 16:42 Urine Blood 1+ (NEGATIVE) 12/01/23 16:42 Urine Nitrite Negative (NEGATIVE) 12/01/23 16:42 Urine Bilirubin Negative (NEGATIVE) 12/01/23 16:42 Urine Urobilinogen 2+ (NORMAL) 12/01/23 16:42 Ur Leukocyte Esterase 2+ (NEGATIVE) 12/01/23 16:42 Urine RBC 0-2 /HPF (0-3) 12/01/23 16:42 Urine WBC 5-10 /HPF (0-5) A 12/01/23 16:42 Ur Squamous Epith Cells Rare /HPF (NEGATIVE) 12/01/23 16:42 Amorphous Sediment 2+ /HPF (NEGATIVE) 12/01/23 16:42 Urine Bacteria Trace /HPF (NEGATIVE) 12/01/23 16:42 Hyaline Casts Few /LPF (NEGATIVE) 12/01/23 16:42 Urine Mucus Few /HPF (NEGATIVE) 12/01/23 16:42 Urine Yeast Moderate /HPF (NEGATIVE) 12/01/23 16:42 Ur Culture Indicated? No/not indicated 12/01/23 16:42 SARS CoV-2 RNA Rapid PRAMOD Negative (NEGATIVE) 12/01/23 11:08 Radiology Reviewed: Yes Plan (1) Altered mental status: Status: Acute Narrative Support Text: SecondThe patient continues to have altered mental status again today we will like to Plan: I suspect the patient's altered mental status is secondary to underlying UTI. Will treat the UTI and give him IV hydration and see if he responds. He is full code at this time. (2) Acute UTI: Status: Acute Plan: Continue IV Rocephin follow-up with urine culture and sensitivity when available. (3) Hypoxia: Status: Acute Plan: Patient has end-stage COPD so we will continue with supplemental O2 at 4 L nasal cannula. (4) Hypotension: Status: Acute Plan: IV hydration. (5) Pleural effusion: Status: Acute Narrative Support Text: The patient has a chronic and stable right pleural effusion at this time. Plan: Monitor daily chest x-rays.
[2023-12-03] MEDS ORDERED: BUTT CREAM (COMPOUND) TOP PRN (23:39)
[2023-12-04 06:01] LABS: BASOPHILS % (AUTO) 0.6 % (0.2-1.0); EOSINOPHILS # (AUTO) 0.2 x10^3/uL (0.0-0.2); HEMATOCRIT 38.5 % (42.0-54.0); HEMOGLOBIN 12.7 g/dL (13.5-18.0); LYMPHOCYTES % (AUTO) 12.2 % (21.0-51.0); MEAN CORPUSCULAR HEMOGLOBIN 28.7 pg (27.0-34.0); MEAN CORPUSCULAR HGB CONC 32.9 g/dL (33.0-35.0); MEAN CORPUSCULAR VOLUME 87.4 fL (80.0-100.0); MEAN PLATELET VOLUME 7.6 fL (7.4-11.0); MONOCYTES # (AUTO) 1.2 x10^3/uL (0.3-0.8); MONOCYTES % (AUTO) 15.3 % (0.0-13.0); NEUTROPHILS # (AUTO) 5.6 x10^3/uL (2.2-4.8); NEUTROPHILS % (AUTO) 68.9 % (42.0-75.0); PLATELET COUNT 331 X10^3/uL (150.0-450.0); RED BLOOD COUNT 4.41 X10^6/uL (4.7-6.0); RED CELL DISTRIBUTION WIDTH 15.8 % (11.6-16.5); WHITE BLOOD COUNT 8.1 X10^3/uL (3.6-10.0)
[2023-12-04 06:14] LABS: ALANINE AMINOTRANSFERASE 33 Units/L (12-78); ALBUMIN 1.6 g/dL (3.4-5.0); ALKALINE PHOSPHATASE 208 Units/L (46-116); ASPARTATE AMINO TRANSFERASE 85 Units/L (15-37); BLOOD UREA NITROGEN 6 mg/dL (7-18); CALCIUM 8.2 mg/dL (8.5-10.1); CARBON DIOXIDE 28.2 mmol/L (21-32); CHLORIDE 109 mmol/L (98-107); COR CA(FOR HYPOALB) 10.1 mg/dL (8.5-10.1); CREATININE 0.47 mg/dL (0.70-1.30); GLUCOSE 69 mg/dL (65-99); POTASSIUM 3.9 mmol/L (3.5-5.1); SODIUM 141 mmol/L (136-145); TOTAL PROTEIN 5.7 g/dL (6.4-8.2); eGFR NON BLACK RACES > 60 (>60)
[2023-12-04 09:14] VITALS: BMI 17.6
--- NOTE | 2023-12-04 10:53 | PCM.PROG ---
Progress Note Progress Note for Day of Date of Exam: 12/04/23 Subjective Subjective: Patient is seen at bed, resting this morning. Staff reports patient was more awake and alert yesterday, was calling for staff. He seems to be more agitated and restless in the afternoon. His PO intake has not been very good. He is currently admitted from the snf for UTI and pneumonia. Cultures have been neg so far. He is getting IV antibiotics and fluids. He remains on 4L [place]. His sisters are coming to town to sign a power of employment attorney and they would not be here until this Wednesday. Labs/imaging reviewed -Hgb 12.7 K:3.9 -CXR: superimposed pna, chronic changes -Blood Cx and Urine Cx: no growth Plan: continue current treatment with IV fluids and IV antibiotics. He is currently on Rocephin and Levaquin. Replace electrolytes prn. Monitor AM labs. Wean O2 as tolerated. Past Medical Family Social History Allergies: Allergies No Known Drug Allergies Allergy (Unknown, Verified 09/12/23 19:44) Onset Date: 06/23/2022 Review of Systems ROS: No change since H&P Vital Signs and I&O's Vital Signs: Vital Signs Temperature 97.9 F Temperature 98.5 F Pulse Rate [Left Brachial] 100 Pulse Rate [Left Brachial] 97 Pulse Rate 72 Respiratory Rate 18 Respiratory Rate 22 Blood Pressure [Left Arm] 110/66 Blood Pressure [Left Arm] 115/61 O2 Sat by Pulse Oximetry 99 O2 Sat by Pulse Oximetry 98 O2 Sat by Pulse Oximetry 90 Intake and Output: Intake & Output 12/01/23 12/02/23 12/03/23 12/04/23 23:59 23:59 23:59 23:59 Intake Total 540 / 540 1615 / 1615 2375 / 2375 790 / 790 Balance 540 / 540 1615 / 1615 2375 / 2375 790 / 790 Physical Exam Oriented: Not Oriented Eyes: Normal Ear: Normal Nose: Normal Respiratory: Generalized and Diminished Cardiovascular: Normal Auscultation: Bowel Sounds: Normal Tenderness: Normal Skin: Decreased [place]urgur Psychiatric: Other (The patient is not communicating this morning by speech) Speech Pattern: Clear and Appropriate Laboratory and Diagnostics 12/04/23 05:17 12/04/23 05:17 Labs: 12/03/23 05:00 Urine,Clean Catch Urine Culture - Preliminary 12/01/23 11:35 Blood Blood Culture - Preliminary 12/01/23 11:31 Blood Blood Culture - Preliminary Laboratory WBC 8.1 X10^3/uL (3.6-10.0) 12/04/23 05:17 RBC 4.41 X10^6/uL (4.7-6.0) L 12/04/23 05:17 Hgb 12.7 g/dL (13.5-18.0) L 12/04/23 05:17 Hct 38.5 % (42.0-54.0) L 12/04/23 05:17 MCV 87.4 fL (80.0-100.0) 12/04/23 05:17 MCH 28.7 pg (27.0-34.0) 12/04/23 05:17 MCHC 32.9 g/dL (33.0-35.0) L 12/04/23 05:17 RDW 15.8 % (11.6-16.5) 12/04/23 05:17 Plt Count 331 X10^3/uL (150.0-450.0) 12/04/23 05:17 MPV 7.6 fL (7.4-11.0) 12/04/23 05:17 Neut % (Auto) 68.9 % (42.0-75.0) 12/04/23 05:17 Lymph % (Auto) 12.2 % (21.0-51.0) L 12/04/23 05:17 [place] % (Auto) 15.3 % (0.0-13.0) H 12/04/23 05:17 Eos % (Auto) 3.0 % (0.9-2.9) H 12/04/23 05:17 Baso % (Auto) 0.6 % (0.2-1.0) 12/04/23 05:17 Neut # (Auto) 5.6 x10^3/uL (2.2-4.8) H 12/04/23 05:17 Lymph # (Auto) 1.0 X10^3/uL (1.3-2.9) L 12/04/23 05:17 [place] # (Auto) 1.2 x10^3/uL (0.3-0.8) H 12/04/23 05:17 Eos # (Auto) 0.2 x10^3/uL (0.0-0.2) 12/04/23 05:17 Baso # (Auto) 0.0 X10^3/uL (0.0-0.1) 12/04/23 05:17 Absolute Nucleated RBC 0.1 /100WBC 12/04/23 05:17 Sample Site Lbra 12/02/23 09:43 ABG pH 7.440 (7.35-7.45) 12/02/23 09:43 ABG pCO2 42.0 mmHg (35.0-45.0) 12/02/23 09:43 ABG pO2 62.0 mmHg (80.0-100.0) L 12/02/23 09:43 ABG HCO3 28.5 mmol/L (22-26) H 12/02/23 09:43 ABG O2 Saturation 92.0 % (90-100) 12/02/23 09:43 ABG Base Excess 3.9 mmol/L (-2.0-2.0) H 12/02/23 09:43 Isai Test N/a 12/02/23 09:43 A-a Gradient 142.0 mmHg 12/02/23 09:43 FiO2 36.0 12/02/23 09:43 Blood Gas Comments Pt ramon well elj 12/02/23 09:43 Sodium 141 mmol/L (136-145) 12/04/23 05:17 Corrected Sodium TNP 12/04/23 05:17 Potassium 3.9 mmol/L (3.5-5.1) 12/04/23 05:17 Chloride 109 mmol/L (98-107) H 12/04/23 05:17 Carbon Dioxide 28.2 mmol/L (21-32) 12/04/23 05:17 BUN 6 mg/dL (7-18) L 12/04/23 05:17 Creatinine 0.47 mg/dL (0.70-1.30) L 12/04/23 05:17 Est GFR (MDRD) Af Amer > 60 (>60) 12/04/23 05:17 Est GFR (MDRD) Non-Af > 60 (>60) 12/04/23 05:17 Glucose 69 mg/dL (65-99) 12/04/23 05:17 Lactic Acid 0.8 mmol/L (0.4-2.0) 12/01/23 11:31 Calcium 8.2 mg/dL (8.5-10.1) L 12/04/23 05:17 Corrected Calcium 10.1 mg/dL (8.5-10.1) 12/04/23 05:17 Magnesium 2.0 mg/dL (2.0-2.9) 12/03/23 05:44 Total Bilirubin 0.40 mg/dL (0.2-1.0) 12/04/23 05:17 AST 85 Units/L (15-37) H 12/04/23 05:17 ALT 33 Units/L (12-78) 12/04/23 05:17 Alkaline Phosphatase 208 Units/L (46-116) H 12/04/23 05:17 Creatine Kinase 12 Units/L (39-308) L 12/01/23 11:31 Troponin I High Sens 9.0 ng/L (4.0-60.0) 12/01/23 11:31 Total Protein 5.7 g/dL (6.4-8.2) L 12/04/23 05:17 Albumin 1.6 g/dL (3.4-5.0) L 12/04/23 05:17 Globulin 4.1 g/dL (2.5-4.5) 12/04/23 05:17 Albumin/Globulin Ratio 0.4 Ratio (1.1-2.1) L 12/04/23 05:17 Lipase 33 Units/L (16-77) 12/01/23 11:31 Specimen Type Catherized urine 12/01/23 16:42 Urine Color Yellow (YELLOW) 12/01/23 16:42 Urine Appearance Cloudy (CLEAR) 12/01/23 16:42 Urine pH 6.0 (5.0 - 8.0) 12/01/23 16:42 Ur Specific [place] 1.025 (1.000-1.030) 12/01/23 16:42 Urine Protein Negative (NEGATIVE) 12/01/23 16:42 Urine Glucose (UA) Negative (NEGATIVE) 12/01/23 16:42 Urine Ketones 1+ (NEGATIVE) 12/01/23 16:42 Urine Blood 1+ (NEGATIVE) 12/01/23 16:42 Urine Nitrite Negative (NEGATIVE) 12/01/23 16:42 Urine Bilirubin Negative (NEGATIVE) 12/01/23 16:42 Urine Urobilinogen 2+ (NORMAL) 12/01/23 16:42 Ur Leukocyte Esterase 2+ (NEGATIVE) 12/01/23 16:42 Urine RBC 0-2 /HPF (0-3) 12/01/23 16:42 Urine WBC 5-10 /HPF (0-5) A 12/01/23 16:42 Ur Squamous Epith Cells Rare /HPF (NEGATIVE) 12/01/23 16:42 Amorphous Sediment 2+ /HPF (NEGATIVE) 12/01/23 16:42 Urine Bacteria Trace /HPF (NEGATIVE) 12/01/23 16:42 Hyaline Casts Few /LPF (NEGATIVE) 12/01/23 16:42 Urine Mucus Few /HPF (NEGATIVE) 12/01/23 16:42 Urine Yeast Moderate /HPF (NEGATIVE) 12/01/23 16:42 Ur Culture Indicated? No/not indicated 12/01/23 16:42 SARS CoV-2 RNA Rapid PRAMOD Negative (NEGATIVE) 12/01/23 11:08 Plan (1) Altered mental status: Status: Acute (2) Acute UTI: Status: Acute (3) Hypoxia: Status: Acute (4) Hypotension: Status: Acute Qualifiers: Hypotension type: unspecified hypotension type Qualified Code(s): I95.9 - Hypotension, unspecified Plan: IV hydration. (5) Pleural effusion: Status: Acute
[2023-12-04] MEDS: NORCO 5/325 MG TAB PO PRN (21:51)
[2023-12-05 05:58] LABS: BASOPHILS % (AUTO) 0.7 % (0.2-1.0); EOSINOPHILS # (AUTO) 0.2 x10^3/uL (0.0-0.2); EOSINOPHILS % (AUTO) 2.8 % (0.9-2.9); HEMATOCRIT 31.8 % (42.0-54.0); LYMPHOCYTES # (AUTO) 0.9 X10^3/uL (1.3-2.9); LYMPHOCYTES % (AUTO) 14.3 % (21.0-51.0); MEAN CORPUSCULAR HEMOGLOBIN 28.7 pg (27.0-34.0); MEAN CORPUSCULAR HGB CONC 32.9 g/dL (33.0-35.0); MEAN CORPUSCULAR VOLUME 87.3 fL (80.0-100.0); MEAN PLATELET VOLUME 7.5 fL (7.4-11.0); MONOCYTES # (AUTO) 1.1 x10^3/uL (0.3-0.8); MONOCYTES % (AUTO) 16.5 % (0.0-13.0); NEUTROPHILS # (AUTO) 4.3 x10^3/uL (2.2-4.8); NEUTROPHILS % (AUTO) 65.7 % (42.0-75.0); PLATELET COUNT 266 X10^3/uL (150.0-450.0); RED BLOOD COUNT 3.64 X10^6/uL (4.7-6.0); RED CELL DISTRIBUTION WIDTH 16.2 % (11.6-16.5); WHITE BLOOD COUNT 6.5 X10^3/uL (3.6-10.0)
[2023-12-05 06:04] LABS: HEMOGLOBIN 10.5 g/dL (13.5-18.0)
[2023-12-05 06:16] LABS: ALANINE AMINOTRANSFERASE 21 Units/L (12-78); ALBUMIN 1.3 g/dL (3.4-5.0); ALKALINE PHOSPHATASE 156 Units/L (46-116); ASPARTATE AMINO TRANSFERASE 39 Units/L (15-37); BLOOD UREA NITROGEN 4 mg/dL (7-18); CALCIUM 7.9 mg/dL (8.5-10.1); CARBON DIOXIDE 26.1 mmol/L (21-32); CHLORIDE 111 mmol/L (98-107); COR CA(FOR HYPOALB) 10.1 mg/dL (8.5-10.1); CREATININE 0.43 mg/dL (0.70-1.30); GLUCOSE 92 mg/dL (65-99); MAGNESIUM 1.7 mg/dL (2.0-2.9); POTASSIUM 3.7 mmol/L (3.5-5.1); SODIUM 141 mmol/L (136-145); TOTAL PROTEIN 4.6 g/dL (6.4-8.2); eGFR NON BLACK RACES > 60 (>60)
[2023-12-05] MEDS ORDERED: CONSULT PHARMACY - POTASSIUM & MAGNESIUM XX SCH (07:00)
[2023-12-05] MEDS: K-DUR TAB 20 MEQ PO SCH (08:41)
[2023-12-05] MEDS: MAG-OX TAB PO SCH (10:59)
[2023-12-05] MEDS: NORCO 10/325 TAB PO PRN (14:22)
[2023-12-05] MEDS: VALIUM PO PRN (14:23)
--- NOTE | 2023-12-05 14:57 | PCM.PROG ---
Progress Note Progress Note for Day of Date of Exam: 12/05/23 Subjective Subjective: Patient seen at bedside, no acute events overnight. He did eat better yesterday. He is currently admitted from the group home for UTI and pneumonia. Cultures have been neg so far. He is getting IV antibiotics and fluids. He remains on 4L NC. His sisters are coming to town to sign a power of trade mark attorney and they would not be here until this Wednesday. Labs/imaging reviewed -Hgb 10.5 K:3.7 -CXR: superimposed pna, chronic changes -Blood Cx and Urine Cx: no growth Plan: continue current treatment with IV fluids and IV antibiotics. He is currently on Rocephin and Levaquin. Replace electrolytes prn. Restart home medications including [place] and Valium prn. Monitor AM labs. Wean O2 as tolerated. Past Medical Family Social History Allergies: Allergies No Known Drug Allergies Allergy (Unknown, Verified 09/12/23 19:44) Onset Date: 06/23/2022 Review of Systems ROS: No change since H&P Vital Signs and I&O's Vital Signs: Vital Signs Temperature 98.4 F Temperature 98.6 F Pulse Rate [Left Brachial] 88 Pulse Rate [Left Brachial] 82 Pulse Rate 81 Respiratory Rate 20 Respiratory Rate 20 Respiratory Rate 20 Blood Pressure [Left Arm] 129/62 Blood Pressure [Left Arm] 100/58 O2 Sat by Pulse Oximetry 91 O2 Sat by Pulse Oximetry 98 O2 Sat by Pulse Oximetry 98 Intake and Output: Intake & Output 12/02/23 12/03/23 12/04/23 12/05/23 23:59 23:59 23:59 23:59 Intake Total 1615 / 1615 2375 / 2375 2605 / 2605 Balance 1615 / 1615 2375 / 2375 2605 / 2605 Physical Exam Oriented: Not Oriented Eyes: Normal Ear: Normal Nose: Normal Respiratory: Generalized and Diminished Cardiovascular: Normal Auscultation: Bowel Sounds: Normal Tenderness: Normal Skin: Decreased Turgur Psychiatric: Other (The patient is not communicating this morning by speech) Speech Pattern: Clear and Appropriate Laboratory and Diagnostics 12/05/23 05:28 12/05/23 05:20 Labs: 12/03/23 05:00 Urine,Clean Catch Urine Culture - Final 12/01/23 11:35 Blood Blood Culture - Preliminary 12/01/23 11:31 Blood Blood Culture - Preliminary Laboratory WBC 6.5 X10^3/uL (3.6-10.0) 12/05/23 05:28 RBC 3.64 X10^6/uL (4.7-6.0) L 12/05/23 05:28 Hgb 10.5 g/dL (13.5-18.0) L D 12/05/23 05:28 Hct 31.8 % (42.0-54.0) L 12/05/23 05:28 MCV 87.3 fL (80.0-100.0) 12/05/23 05:28 MCH 28.7 pg (27.0-34.0) 12/05/23 05:28 MCHC 32.9 g/dL (33.0-35.0) L 12/05/23 05:28 RDW 16.2 % (11.6-16.5) 12/05/23 05:28 Plt Count 266 X10^3/uL (150.0-450.0) 12/05/23 05:28 MPV 7.5 fL (7.4-11.0) 12/05/23 05:28 Neut % (Auto) 65.7 % (42.0-75.0) 12/05/23 05:28 Lymph % (Auto) 14.3 % (21.0-51.0) L 12/05/23 05:28 [place] % (Auto) 16.5 % (0.0-13.0) H 12/05/23 05:28 Eos % (Auto) 2.8 % (0.9-2.9) 12/05/23 05:28 Baso % (Auto) 0.7 % (0.2-1.0) 12/05/23 05:28 Neut # (Auto) 4.3 x10^3/uL (2.2-4.8) 12/05/23 05:28 Lymph # (Auto) 0.9 X10^3/uL (1.3-2.9) L 12/05/23 05:28 [place] # (Auto) 1.1 x10^3/uL (0.3-0.8) H 12/05/23 05:28 Eos # (Auto) 0.2 x10^3/uL (0.0-0.2) 12/05/23 05:28 Baso # (Auto) 0.0 X10^3/uL (0.0-0.1) 12/05/23 05:28 Absolute Nucleated RBC 0.0 /100WBC 12/05/23 05:28 Sample Site [facility] 12/02/23 09:43 ABG pH 7.440 (7.35-7.45) 12/02/23 09:43 ABG pCO2 42.0 mmHg (35.0-45.0) 12/02/23 09:43 ABG pO2 62.0 mmHg (80.0-100.0) L 12/02/23 09:43 ABG HCO3 28.5 mmol/L (22-26) H 12/02/23 09:43 ABG O2 Saturation 92.0 % (90-100) 12/02/23 09:43 ABG Base Excess 3.9 mmol/L (-2.0-2.0) H 12/02/23 09:43 Isai Test N/a 12/02/23 09:43 A-a Gradient 142.0 mmHg 12/02/23 09:43 FiO2 36.0 12/02/23 09:43 Blood Gas Comments Pt ramon well elj 12/02/23 09:43 Sodium 141 mmol/L (136-145) 12/05/23 05:20 Corrected Sodium TNP 12/05/23 05:20 Potassium 3.7 mmol/L (3.5-5.1) 12/05/23 05:20 Chloride 111 mmol/L (98-107) H 12/05/23 05:20 Carbon Dioxide 26.1 mmol/L (21-32) 12/05/23 05:20 BUN 4 mg/dL (7-18) L 12/05/23 05:20 Creatinine 0.43 mg/dL (0.70-1.30) L 12/05/23 05:20 Est GFR (MDRD) Af Amer > 60 (>60) 12/05/23 05:20 Est GFR (MDRD) Non-Af > 60 (>60) 12/05/23 05:20 Glucose 92 mg/dL (65-99) 12/05/23 05:20 POC Glucose (mg/dL) 81 mg/dL (65-99) 12/04/23 20:36 Lactic Acid 0.8 mmol/L (0.4-2.0) 12/01/23 11:31 Calcium 7.9 mg/dL (8.5-10.1) L 12/05/23 05:20 Corrected Calcium 10.1 mg/dL (8.5-10.1) 12/05/23 05:20 Magnesium 1.7 mg/dL (2.0-2.9) L 12/05/23 05:20 Total Bilirubin 0.30 mg/dL (0.2-1.0) 12/05/23 05:20 AST 39 Units/L (15-37) H 12/05/23 05:20 ALT 21 Units/L (12-78) 12/05/23 05:20 Alkaline Phosphatase 156 Units/L (46-116) H 12/05/23 05:20 Creatine Kinase 12 Units/L (39-308) L 12/01/23 11:31 Troponin I High Sens 9.0 ng/L (4.0-60.0) 12/01/23 11:31 Total Protein 4.6 g/dL (6.4-8.2) L 12/05/23 05:20 Albumin 1.3 g/dL (3.4-5.0) L 12/05/23 05:20 Globulin 3.3 g/dL (2.5-4.5) 12/05/23 05:20 Albumin/Globulin Ratio 0.4 Ratio (1.1-2.1) L 12/05/23 05:20 Lipase 33 Units/L (16-77) 12/01/23 11:31 Specimen Type Catherized urine 12/01/23 16:42 Urine Color Yellow (YELLOW) 12/01/23 16:42 Urine Appearance Cloudy (CLEAR) 12/01/23 16:42 Urine pH 6.0 (5.0 - 8.0) 12/01/23 16:42 Ur Specific [place] 1.025 (1.000-1.030) 12/01/23 16:42 Urine Protein Negative (NEGATIVE) 12/01/23 16:42 Urine Glucose (UA) Negative (NEGATIVE) 12/01/23 16:42 Urine Ketones 1+ (NEGATIVE) 12/01/23 16:42 Urine Blood 1+ (NEGATIVE) 12/01/23 16:42 Urine Nitrite Negative (NEGATIVE) 12/01/23 16:42 Urine Bilirubin Negative (NEGATIVE) 12/01/23 16:42 Urine Urobilinogen 2+ (NORMAL) 12/01/23 16:42 Ur Leukocyte Esterase 2+ (NEGATIVE) 12/01/23 16:42 Urine RBC 0-2 /HPF (0-3) 12/01/23 16:42 Urine WBC 5-10 /HPF (0-5) A 12/01/23 16:42 Ur Squamous Epith Cells Rare /HPF (NEGATIVE) 12/01/23 16:42 Amorphous Sediment 2+ /HPF (NEGATIVE) 12/01/23 16:42 Urine Bacteria Trace /HPF (NEGATIVE) 12/01/23 16:42 Hyaline Casts Few /LPF (NEGATIVE) 12/01/23 16:42 Urine Mucus Few /HPF (NEGATIVE) 12/01/23 16:42 Urine Yeast Moderate /HPF (NEGATIVE) 12/01/23 16:42 Ur Culture Indicated? No/not indicated 12/01/23 16:42 SARS CoV-2 RNA Rapid PRAMOD Negative (NEGATIVE) 12/01/23 11:08 Plan (1) Altered mental status: Status: Acute (2) Acute UTI: Status: Acute (3) Hypoxia: Status: Acute Plan: Patient has end-stage COPD so we will continue with supplemental O2 at 4 L nasal cannula. (4) Hypotension: Status: Acute Qualifiers: Hypotension type: unspecified hypotension type Qualified Code(s): I95.9 - Hypotension, unspecified Plan: IV hydration. (5) Pleural effusion: Status: Acute Plan: Monitor daily chest x-rays.
[2023-12-06 05:42] LABS: BASOPHILS # (AUTO) 0.1 X10^3/uL (0.0-0.1); BASOPHILS % (AUTO) 1.9 % (0.2-1.0); EOSINOPHILS # (AUTO) 0.2 x10^3/uL (0.0-0.2); EOSINOPHILS % (AUTO) 3.6 % (0.9-2.9); HEMATOCRIT 31.8 % (42.0-54.0); HEMOGLOBIN 10.5 g/dL (13.5-18.0); LYMPHOCYTES # (AUTO) 0.7 X10^3/uL (1.3-2.9); LYMPHOCYTES % (AUTO) 11.4 % (21.0-51.0); MEAN CORPUSCULAR HEMOGLOBIN 28.8 pg (27.0-34.0); MEAN CORPUSCULAR VOLUME 87.2 fL (80.0-100.0); MEAN PLATELET VOLUME 7.6 fL (7.4-11.0); MONOCYTES # (AUTO) 1.1 x10^3/uL (0.3-0.8); MONOCYTES % (AUTO) 17.2 % (0.0-13.0); NEUTROPHILS # (AUTO) 4.3 x10^3/uL (2.2-4.8); NEUTROPHILS % (AUTO) 65.9 % (42.0-75.0); PLATELET COUNT 252 X10^3/uL (150.0-450.0); RED BLOOD COUNT 3.65 X10^6/uL (4.7-6.0); WHITE BLOOD COUNT 6.6 X10^3/uL (3.6-10.0)
[2023-12-06 05:57] LABS: ALANINE AMINOTRANSFERASE 17 Units/L (12-78); ALBUMIN 1.2 g/dL (3.4-5.0); ALKALINE PHOSPHATASE 140 Units/L (46-116); ASPARTATE AMINO TRANSFERASE 25 Units/L (15-37); BLOOD UREA NITROGEN 3 mg/dL (7-18); CHLORIDE 111 mmol/L (98-107); COR CA(FOR HYPOALB) 10.2 mg/dL (8.5-10.1); CREATININE 0.44 mg/dL (0.70-1.30); GLUCOSE 86 mg/dL (65-99); MAGNESIUM 1.7 mg/dL (2.0-2.9); POTASSIUM 3.9 mmol/L (3.5-5.1); SODIUM 141 mmol/L (136-145); TOTAL PROTEIN 4.5 g/dL (6.4-8.2); eGFR NON BLACK RACES > 60 (>60)
[2023-12-06] MEDS ORDERED: CONSULT PHARMACY - POTASSIUM & MAGNESIUM XX SCH (07:00)
[2023-12-06] MEDS: MAG-OX TAB PO SCH (11:36)
[2023-12-06 11:43] VITALS: BP 100/51; PULSE 94; RESP 20; TEMP 97.2; O2SAT 93
== END 2023-12-06 14:25 | DRG 689 ==
LOC: ER 10:44 → MED/SURG 10:44
PROVIDERS: ADMIT Family Medicine; ATTEND Family Medicine